=== PATIENT | male | born 1945 | race Caucasian/White ===

== ENCOUNTER 2023-03-11 11:29 | Observation (INO) | payer MEDICARE, SELFPAY ==
[2023-03-11] VITALS (10 sets, daily range): BP systolic 129–151; BP diastolic 66–93; PULSE 70–88; RESP 16–18; TEMP 36.7–36.8; O2SAT 91–98; BMI 28.2; BMI 28.1
--- NOTE | 2023-03-11 11:52 | ED.GENADUL1 ---
HPI - General Adult General Chief complaint: Urogenital-Male Stated complaint: UTI SYMPTOMS Time Seen by Provider: 03/11/23 11:50 Source: patient and family Mode of arrival: walk-in Limitations: no limitations History of Present Illness HPI narrative: Patient is a 77-year-old male who is presenting to the Emergency Room with chief complaint of dysuria for the past week. Patient was in [place] [facility] on March 07. patient was seen and evaluated, patient was told that he had a urinary tract infection. Patient was sent home with prescription of Keflex, no peridium. Patient had lab work drawn, he stated he did not have an IV, no IV fluids, no IV medication. Patient has been taking Keflex for 4 days, he still having dysuria, and the dysuria is worsening. He has no fever or chills. No flank pain or back pain. No abdominal pain, nausea or vomiting. The patient is having pain is when he is urinating. . All systems are negative except as noted/marked. All systems reviewed and otherwise negative. . Nurses note and vital signs reviewed and patient is not hypoxic. General: The patient appears well and in no apparent distress. Patient is resting comfortably on cart. Patient is not toxic, lethargic, or listless Skin: Warm, dry, no pallor noted. There is no rash noted. No petechiae, purpura. Head: Normocephalic, atraumatic Eye: Normal conjunctiva, no drainage, EOMI. PERRL Ears, Nose, Mouth, and Throat: oral mucosa is moist. Nares patent. Mouth without vesicles. Cardiovascular: Regular Rate and Rhythm, no murmur, gallop, rub Respiratory: Patient is in no distress, no accessory muscle use, lungs are clear to auscultation, no wheezing, rales or rhonchi Back: non-tender, no CVA tenderness bilaterally to percussion. No CT LS midline pain GI: soft, no suprapubic tenderness to palpation; otherwise no tenderness to palpation, no masses appreciated. No rebound, guarding, or rigidity noted. No flank pain bilateral, No distention. Musculoskeletal: Patient has full range of motion of all of the extremities, no motor, sensory, or focal neurological deficits Neurological: A&O x3, normal speech Psychiatric: Cooperative Related Data Home Medications Medication Instructions Recorded Confirmed amlodipine 10 mg tablet 10 mg PO DAILY 03/11/23 03/11/23 apixaban 5 mg tablet (Eliquis) 5 mg PO Q12H 03/11/23 03/11/23 aspirin 81 mg tablet,delayed 81 mg PO DAILY 03/11/23 03/11/23 release cephalexin 500 mg capsule 500 mg PO Q12H 03/11/23 03/11/23 cholecalciferol (vitamin D3) 25 25 mcg PO DAILY 03/11/23 03/11/23 mcg (1,000 unit) capsule cyanocobalamin (vitamin B-12) 1,000 mcg PO DAILY 03/11/23 03/11/23 1,000 mcg capsule empagliflozin 5 mg-linagliptin 2.5 1 tab PO DAILY 03/11/23 03/11/23 mg-metformn ER 1,000 mg tablet,24hr gabapentin 100 mg capsule 100 mg PO DAILY 03/11/23 03/11/23 levothyroxine 25 mcg capsule 25 mcg PO DAILY 03/11/23 03/11/23 lisinopril 40 mg tablet 40 mg PO DAILY 03/11/23 03/11/23 metoprolol succinate 100 mg 100 mg PO BID 03/11/23 03/11/23 tablet,extended release 24 hr nitroglycerin 0.4 mg sublingual 0.4 mg sublingual Q5M PRN chest 03/11/23 03/11/23 tablet pain omeprazole magnesium 20 mg 20 mg PO DAILY 03/11/23 03/11/23 tablet,delayed release (Prilosec OTC) pioglitazone 15 mg tablet 15 mg PO DAILY 03/11/23 03/11/23 semaglutide 0.25 mg or 0.5 mg (2 0.25 mg subcut QWEEK 03/11/23 03/11/23 mg/3 mL) subcutaneous pen injector ([employer]) Allergies Allergy/AdvReac Type Severity Reaction Status Date / Time No Known Drug Allergies Allergy Verified 03/11/23 11:38 PFSH PFSH Social History Smoking status: Former smoker Exam Constitutional Vital Signs, click to edit/add: Last Vital Signs Temp 98.2 F 03/11/23 11:35 Pulse 86 03/11/23 14:52 Resp 18 03/11/23 14:52 BP 145/73 H 03/11/23 14:52 Pulse Ox 96 03/11/23 14:52 O2 Del Method Room Air 03/11/23 11:35 Course Vital Signs Vital signs: Vital Signs Temperature 98.2 F 03/11/23 11:35 Pulse Rate 87 03/11/23 11:35 Respiratory Rate 16 03/11/23 11:35 Blood Pressure 129/93 H 03/11/23 11:35 Pulse Oximetry 96 03/11/23 11:35 Oxygen Delivery Method Room Air 03/11/23 11:35 Temperature 98.2 F 03/11/23 11:35 Pulse Rate 86 03/11/23 14:52 Respiratory Rate 18 03/11/23 14:52 Blood Pressure 145/73 H 03/11/23 14:52 Pulse Oximetry 96 03/11/23 14:52 Oxygen Delivery Method Room Air 03/11/23 11:35 Medical Decision Making MDM Narrative Medical decision making narrative: patient initially had IV laboratory done, was given 1 g of Rocephin prophylactically since he was diagnosed with a urinary tract infection on Friday, has been taking Keflex, and he has been having worsening dysuria. Patient was given IV fluids, lab work was done as well. Patient's beginning creatinine is elevated, I still did not have paperwork from [facility] to compare his numbers to today. Patient has been given a 2nd liter of IV fluid, and secondary to painful hematuria, patient had a CT of the abdomen and pelvis done to rule out any other acute pathology, including bladder cancer. Patient has a history of smoking. CT of the abdomen and pelvis shows no acute abnormalities. see the official report. No obstruction, no nephrolithiasis, no signs of masses or cancer, no acute findings of the CT the abdomen and pelvis. Patient has received 2 L of IV fluid. Patient's niece has been at bedside throughout patient's Emergency Room visit and stay. I did obtain the paperwork from [facility]. patient has a history of atrial fibrillation, coronary artery disease, diabetes, hyperlipidemia, hypertension, myocardial infarction. Patient is on Norvasc, a request, aspirin, atorvastatin, gabapentin, levothyroxine, lisinopril, metformin, metoprolol, acid reflux medication. Please see his list of medications in the computer or from her medical chart. Patient's urine culture from March 07 shows greater than 100,000 units of Escherichia coli. Keflex was sensitive, <4 susceptible. patient had no elevated white blood cell count, patient's BUN and creatinine on Friday was 33/1.76. Patient's CMP was within normal limits. [facility], and continue IV fluids. Dr. Ramirez is aware of the need to referral to urology locally, patient attempted to follow-up with urology from [facility], Dr Heredia, and was told that that urology office does not take his insurance. Lab Data Lab results reviewed: Yes I reviewed the patient's lab results Labs: Lab Results 03/11/23 03/11/23 Range/Units 11:45 12:06 WBC 14.5 H (4.0-11.0) 10^3/uL RBC 3.54 L (4.70-6.10) 10^6/uL Hgb 11.1 L (14.0-18.0) g/dL Hct 33.0 L (42.0-54.0) % MCV 93.2 (80.0-94.0) fL MCH 31.4 (25.9-34.0) pg MCHC 33.6 (29.9-35.2) g/dL RDW 13.5 (11.0-15.0) % Plt Count 235 (150-450) 10^3/uL MPV 11.1 (9.5-13.5) fL Neut % (Auto) 86.2 H (43.0-75.0) % Lymph % (Auto) 6.6 L (20.5-60.0) % [place] % (Auto) 6.2 (1.7-12.0) % Eos % (Auto) 0.2 L (0.9-7.0) % Baso % (Auto) 0.2 (0.2-2.0) % Neut # (Auto) 12.5 H (1.4-6.5) 10^3/uL Lymph # (Auto) 1.0 L (1.2-3.8) 10^3/uL [place] # (Auto) 0.9 H (0.3-0.8) 10^3/uL Eos # (Auto) 0.0 (0.0-0.7) 10^3/uL Baso # (Auto) 0.0 (0.0-0.1) 10^3/uL Abs Immat Gran (auto) 0.09 H (0.00-0.03) 10^3/uL Imm/Tot Granulo (auto) 0.6 H (0.0-0.5) % Sodium 129 L (136-145) mmol/L Potassium 4.8 (3.5-5.1) mmol/L Chloride 95 L (98-107) mmol/L Carbon Dioxide 23.8 (21.0-32.0) mmol/L Anion Gap 15.0 BUN 62.0 H (7.0-18.0) mg/dL Creatinine 2.35 H (0.70-1.30) mg/dL Est GFR ( Amer) 33 L (>=60) Est GFR (Non-Af Amer) 27 L (>=60) BUN/Creatinine Ratio 26.4 Glucose 302 H (74-106) mg/dL Lactate 1.8 (0.4-2.0) mmol/L Calcium 9.2 (8.5-10.1) mg/dL Total Bilirubin 0.5 (0.2-1.0) mg/dL AST 30 (15-37) U/L ALT 41 (16-63) U/L Alkaline Phosphatase 101 (46-116) U/L Total Protein 7.5 (6.4-8.2) g/dL Albumin 2.8 L (3.4-5.0) g/dL Globulin 4.7 g/dL Albumin/Globulin Ratio 0.6 Lipase 172.0 (73.0-393.0) U/L Urine Color Lt. yellow (YELLOW) Urine Clarity Clear (CLEAR) Urine pH 5.5 (5.0-9.0) Ur Specific [place] 1.010 (1.005-1.025) Urine Protein 100 A (NEG/TRACE) mg/dL Urine Glucose (UA) >=1000 A (NEGATIVE) mg/dL Urine Ketones Negative (NEGATIVE) mg/dL Urine Occult Blood Moderate A (NEGATIVE) Urine Nitrite Negative (NEGATIVE) Urine Bilirubin Negative (NEGATIVE) Urine Urobilinogen 0.2 (0.2-1.0) EU/dL Ur Leukocyte Esterase Negative (NEGATIVE) Urine RBC 0-2 (0-2) #/HPF Urine WBC None seen (NONE SEEN) #/HPF Ur Squamous Epith Cells None seen (NONE/RARE) #/LPF Urine Crystals None seen (None Seen) #/HPF Urine Bacteria None seen (NONE SEEN) #/HPF Urine Casts None seen (NONE SEEN) #/LPF Urine Mucus None seen (NONE SEEN) Ur Culture Indicated? Already ordered Discharge Plan Discharge Chief Complaint: Urogenital-Male Clinical Impression: DANIAL (acute kidney injury), Hematuria, Dysuria, Mild dehydration Patient Disposition: Admitted As Inpatient Time of Disposition Decision: 15:02 Condition: Good
[2023-03-11 12:08] LABS: Bilirubin Urine NEGATIVE (NEGATIVE); Blood Urine MODERATE (NEGATIVE); Clarity Urine CLEAR (CLEAR); Color Urine LT. YELLOW (YELLOW); Glucose Urine UA >=1000 mg/dL (NEGATIVE); Ketones Urine NEGATIVE (NEGATIVE); Leukocyte Esterase Urine NEGATIVE (NEGATIVE); Nitrite Urine NEGATIVE (NEGATIVE); Protein Urine 100 mg/dL (NEG/TRACE); Urobilinogen Urine 0.2 EU/dL (0.2-1.0); pH Urine 5.5 (5.0-9.0)
[2023-03-11 12:09] LABS: Bacteria Urine NONE SEEN #/HPF (NONE SEEN); Mucus Urine NONE SEEN (NONE SEEN); RBC Urine 0-2 #/HPF (0-2); Squamous Epithelial Cell Urine NONE SEEN #/LPF (NONE/RARE); WBC Urine NONE SEEN #/HPF (NONE SEEN)
[2023-03-11 12:10] LABS: Cast Seen? NONE SEEN #/LPF (NONE SEEN); Crystals Seen? None Seen #/HPF (None Seen); Urine Culture Indicated ALREADY ORDERED
[2023-03-11 12:13] LABS: Basophils Percent Auto 0.2 % (0.2-2.0); Eosinophils Percent Auto 0.2 % (0.9-7.0); Hemoglobin 11.1 g/dL (14.0-18.0); Immature Granulocytes Abs Auto 0.09 10^3/uL (0.00-0.03); Immature Granulocytes Pct Auto 0.6 % (0.0-0.5); Lymphocytes Percent Auto 6.6 % (20.5-60.0); Mean Corpuscular HGB Conc 33.6 g/dL (29.9-35.2); Mean Corpuscular Hemoglobin 31.4 pg (25.9-34.0); Mean Corpuscular Volume 93.2 fL (80.0-94.0); Mean Platelet Volume 11.1 fL (9.5-13.5); Monocytes Absolute Auto 0.9 10^3/uL (0.3-0.8); Monocytes Percent Auto 6.2 % (1.7-12.0); Neutrophils Absolute Auto 12.5 10^3/uL (1.4-6.5); Neutrophils Percent Auto 86.2 % (43.0-75.0); Platelet Count 235 10^3/uL (150-450); Red Blood Count 3.54 10^6/uL (4.70-6.10); Red Cell Distribution Width 13.5 % (11.0-15.0); White Blood Count 14.5 10^3/uL (4.0-11.0)
[2023-03-11] MEDS: 0.9 % SODIUM CHLORIDE 1,000 ML 999 ML IV (12:14)
[2023-03-11] MEDS: CEFTRIAXONE 1,000 MG in 0.9 % SODIUM CHLORIDE 50 ML 100 MG IV (12:15)
[2023-03-11] MEDS: PHENAZOPYRIDINE 100 MG TABLET 200 MG PO (12:15)
[2023-03-11 12:29] LABS: Alanine Aminotransferase 41 U/L (16-63); Albumin Globulin Ratio 0.6; Albumin Level 2.8 g/dL (3.4-5.0); Alkaline Phosphatase 101 U/L (46-116); Aspartate Amino Transferase 30 U/L (15-37); BUN Creatinine Ratio 26.4; Bilirubin Total 0.5 mg/dL (0.2-1.0); Calcium 9.2 mg/dL (8.5-10.1); Carbon Dioxide 23.8 mmol/L (21.0-32.0); Chloride 95 mmol/L (98-107); Estimated GFR (African America 33 (>=60); Estimated GFR (Non-African Ame 27 (>=60); Globulin 4.7 g/dL; Glucose 302 mg/dL (74-106); Potassium 4.8 mmol/L (3.5-5.1); Sodium 129 mmol/L (136-145); Total Protein 7.5 g/dL (6.4-8.2)
[2023-03-11 12:31] LABS: Lactate/Lactic Acid 1.8 mmol/L (0.4-2.0)
--- NOTE | 2023-03-11 13:30 | CT_ITS ---
[address] [address] Patient Name: EMILY HOLLY MRN: [id number] date: 1945 Sex: M Assigned Patient Location: ER Current Patient Location: ER Accession/Order Number: [id number] Exam Date: 03/11/2023 13:21 Report Date: 03/11/2023 13:50 At the request of: AXEL MONTIEL Procedure: CT abdomen pelvis wo con CT abdomen pelvis wo con, 03/11/2023 1:21 PM EDT INDICATION: Hematuria with pain. Evaluate for renal calculus. COMPARISON: Dictation CT angiography of the abdomen 09/15/2007. The images are not currently available for direct comparison. TECHNIQUE: Axial images of the abdomen and pelvis were obtained without IV contrast. Multiplanar reformatted images were generated and reviewed as needed. Dose reduction techniques were achieved by using automated exposure control and/or adjustment of mA and/or kV according to patient size and/or use of iterative reconstruction technique. FINDINGS: No consolidation or effusion. Cholelithiasis. The liver, pancreas, spleen and adrenals are unremarkable on a noncontrast scan.. No hydronephrosis or nephrolithiasis. Chronic bilateral perinephric fat stranding. No ureteral or urinary bladder calculi. No perivesicular fat stranding. The prostate gland is enlarged. Calcified atherosclerotic disease throughout the abdomen and pelvis. No aortic aneurysm. No bowel obstruction or acute focal inflammation. Normal appendix. No pneumatosis, pneumoperitoneum or ascites. Small fat-containing umbilical hernia. No mesenteric or retroperitoneal lymphadenopathy. No acute fracture or dislocation. CT/CT abdomen pelvis wo con IMPRESSION: 1. No hydronephrosis or nephrolithiasis. 2. Cholelithiasis. 3. Prostatomegaly. Electronically authenticated by: BRANDON LOJA Date: 03/11/2023 13:50
[2023-03-11] MEDS: 0.9 % SODIUM CHLORIDE 1,000 ML 1000 ML IV (13:40)
--- NOTE | 2023-03-11 15:03 | US_ITS ---
The [address] [address] Patient Name: EMILY HOLLY MRN: [id number] date: 1945 Sex: M Assigned Patient Location: MS Current Patient Location: MS Accession/Order Number: [id number] Exam Date: 03/11/2023 17:48 Report Date: 03/11/2023 19:21 At the request of: SABRA NEWTON Procedure: US renal bladder EXAM: US renal bladder HISTORY: hematuria, enlarged prostate COMPARISON: CT abdomen/pelvis dated 03/11/2023. TECHNIQUE: Renal and bladder ultrasound is performed. Multiple grayscale images are submitted for review. FINDINGS: The right kidney measures 10.3 x 4.4 x 5.2 cm and demonstrates echotexture. The right renal cortex measures 9.3 mm as measured on this examination. No right hydronephrosis is seen. The left kidney measures 10.8 x 7 x 6.2 cm and demonstrates normal echotexture. The left renal cortex measures 1.2 cm in thickness. There is no evidence for left hydronephrosis. Bilateral ureteral jets are visualized. The prevoid urinary bladder volume measures 611.3 mL. The post void urinary bladder volume measures 341.2 mL. The prostate gland measures 3.5 x 5.2 x 5 cm, with total volume measuring 46 mL. A prominent hypoechoic area is seen in the prostate gland measuring 1.3 x 1.5 x 1.6 cm. If clinically indicated, and if additional imaging is desired, a prostate MRI with and without contrast may be considered. US/US renal bladder IMPRESSION: Enlarged prostate gland is noted with large post void urinary bladder volume measuring 341.2 mL. A prominent hypoechoic area is seen in the prostate gland measuring 1.3 x 1.5 x 1.6 cm. If clinically indicated, and if additional imaging is desired, a prostate MRI with and without contrast may be considered. There is no evidence for hydronephrosis bilaterally. Electronically authenticated by: ELPIDIO MOYA Date: 03/11/2023 19:21
--- NOTE | 2023-03-11 15:10 | PM.HP ---
H&P: HPI History of Present Illness Chief complaint: UTI SYMPTOMS DANIAL [place] Dysuria Mild Dehydrati Narrative: patient is a 77-year-old male with past history of paroxysmal atrial fibrillation on chronic anticoagulation, vitamin D deficiency, vitamin B12 deficiency, type 2 diabetes with peripheral neuropathy who presents with painful urination and blood in the urine.patient was seen in [place] emergency room on Friday, March 07 and was diagnosed with an acute urinary tract infection secondary to Escherichia coli with cultures and sensitivities in the chart sensitive to Keflex given. Patient has been taking Keflex but has not feel felt much improved. He denies any fevers chills or flank pain, but notes still pain with urination and blood in the urine. He denies any past history of prostate issues or kidney stones. He does take aspirin and Eliquis. CT scan was performed in the emergency department which was negative for any hydronephrosis, obstructing stones or bladder issues seen. Of note there was a enlarged prostate. Patient was admitted for further workup given acute kidney injury, leukocytosis, and pain Review of Systems ROS Narrative ROS: a complete review of systems were reviewed with patient and are positive as below or listed in History of Chief Complaint. General: no fever, chills, night sweats Head: no headache, trauma, visual changes, nausea or vomiting Skin: no reported rashes, itching or sores Eyes: no blurriness of vision Ears: no reported hearing loss, vertigo, earache, or tinnitus Throat: no sore throat, hoarseness, swelling of neck, or tongue pain Heart: no chest pain Lungs: no shortness of breath or cough GI: no diarrhea or vomiting/nausea Urinary: urinary urgency, frequency and pain Neuro: no numbness or tingling HEM: no bleeding issues or bruising ENDO: no thyroid problems Psych: no anxiety or depression PFSH PFSH Medical History Surgical History Family History Sister Family history of cancer Brother Family history of cancer Family history of stroke Brother Family history of cancer Mother Family history of cancer Social History (Updated 03/11/23 @ 16:08 by Carissa De Jesus LPN) Within the past year, how often did you have a drink containing alcohol: 2-4 times a month Within the past year, how many standard drinks containing alcohol did you have on a typical day: 1 or 2 Within the past year, how often did you have six or more drinks on one occasion: never Total score: 0 Score interpretation: A score less than 4 is consistent with normal alcohol consumption. Smoking status: Former smoker Second hand tobacco smoke exposure: No Non-prescribed substance use: denies use Previous occupational history: retired Known occupational exposures/hazards: No Highest level of school completed/degree received: 10th grade Do you want help with school or training: No Are you now , , , , never or living with a partner: In a typical week, how many times do you talk on the telephone with family, friends, or neighbors: 3 or more times per week How often do you get together with friends or relatives: 3 or more times per week How often do you attend scientology or mandaen services: never Do you belong to any clubs or organizations such as scientology groups unions, [employer] or athletic groups, or school groups: yes Total score: 3 Score interpretation: A score of greater than or equal to 2 indicates the lowest level of social isolation. Meds Home Medications and Allergies Home Medications Medication Instructions Recorded Confirmed Type amlodipine 5 mg tablet (Norvasc) 5 mg PO DAILY 03/11/23 03/11/23 History apixaban 5 mg tablet (Eliquis) 5 mg PO Q12H 03/11/23 03/11/23 History aspirin 81 mg tablet,delayed 81 mg PO DAILY 03/11/23 03/11/23 History release cephalexin 500 mg capsule 500 mg PO Q12H 03/11/23 03/11/23 History cholecalciferol (vitamin D3) 25 50 mcg PO DAILY 03/11/23 03/11/23 History mcg (1,000 unit) capsule cyanocobalamin (vitamin B-12) 2,000 mcg PO DAILY 03/11/23 03/11/23 History 1,000 mcg capsule empagliflozin 12.5 mg-metformin ER 1 tab PO DAILY 03/11/23 03/11/23 History 1,000 mg tablet,extended rel 24 hr gabapentin 100 mg capsule 100 mg PO DAILY 03/11/23 03/11/23 History levothyroxine 25 mcg capsule 25 mcg PO DAILY 03/11/23 03/11/23 History lisinopril 40 mg tablet 40 mg PO DAILY 03/11/23 03/11/23 History metoprolol tartrate 100 mg tablet 100 mg PO BID 03/11/23 03/11/23 History (Lopressor) nitroglycerin 0.4 mg sublingual 0.4 mg sublingual Q5M PRN chest 03/11/23 03/11/23 History tablet pain omeprazole magnesium 20 mg 20 mg PO DAILY 03/11/23 03/11/23 History tablet,delayed release (Prilosec OTC) semaglutide 0.25 mg or 0.5 mg (2 1 mg subcut QWEEK 03/11/23 03/11/23 History mg/3 mL) subcutaneous pen injector ([employer]) Allergies Allergy/AdvReac Type Severity Reaction Status Date / Time No Known Drug Allergies Allergy Verified 03/11/23 11:38 Exam Narrative Exam Narrative: General: Patient is alert, and oriented to person, place and time with normal affect, proper hygiene Skin: no visible rashes, or ulcers Head: atraumatic, acephalic Eyes: PERRLA, no nystagmus present, conjunctiva clear, no scleral icterus Heart: Normal rate and rhythm, no murmurs/rubs/gallops Lungs: no audible wheezes, crackles and normal breath sounds all lung mathis Abdomen: Normal audible bowel sounds, no distension, No palpable masses, no organomegaly, no rebound/guarding/ or rigidity Musculoskeletal: muscle atrophy noted, ROM is limited due to being in hospital bed, no swelling bilateral lower extremities Vascular: Normal carotid, radial, femoral, posterior tibial, and dorsalis pedis pulses Lymph: no supraclavicular, axillary, or anterior/posterior cervical adenopathy Neuro: CN II-X grossly intact, normal sensation upper and lower extremities Constitutional Vital Signs, click to edit/add: Last Vital Signs Temp 98.2 F 03/11/23 11:35 Pulse 86 03/11/23 14:52 Resp 18 03/11/23 14:52 BP 145/73 H 03/11/23 14:52 Pulse Ox 96 03/11/23 14:52 O2 Del Method Room Air 03/11/23 11:35 Results Labs Labs: Short CBC 03/11/23 Range/Units 12:06 WBC 14.5 H (4.0-11.0) 10^3/uL Hgb 11.1 L (14.0-18.0) g/dL Hct 33.0 L (42.0-54.0) % Plt Count 235 (150-450) 10^3/uL BMP 03/11/23 12:06 Sodium 129 L Potassium 4.8 Chloride 95 L Carbon Dioxide 23.8 BUN 62.0 H Creatinine 2.35 H Glucose 302 H Calcium 9.2 Liver Function 03/11/23 Range/Units 12:06 Total Bilirubin 0.5 (0.2-1.0) mg/dL AST 30 (15-37) U/L ALT 41 (16-63) U/L Alkaline Phosphatase 101 (46-116) U/L Albumin 2.8 L (3.4-5.0) g/dL Urine 03/11/23 Range/Units 11:45 Urine Color Lt. yellow (YELLOW) Urine Clarity Clear (CLEAR) Urine pH 5.5 (5.0-9.0) Ur Specific [place] 1.010 (1.005-1.025) Urine Protein 100 A (NEG/TRACE) mg/dL Urine Glucose (UA) >=1000 A (NEGATIVE) mg/dL Assessment and Plan Assessment and Plan (1) Acute cystitis with hematuria: Assessment and Plan: culture and sensitivity from outside hospital showed Escherichia coli will place on Rocephin 1 g every 24 hours IV. We'll also check ultrasounds of the renal bladder and prostate. Leukocytosis most likely related to Escherichia coli urinary tract infection. Will monitor. Afebrile no other signs of sepsis. also, patient has been taking pioglitazone for many years, increased risks for bladder cancer with longterm use. Will get Urology involvement for further recommendations. (2) DANIAL (acute kidney injury): Assessment and Plan: l provide gentle IV fluid hydration, monitor daily kidney function hold EUGENE inhibitor and diabetes medications. Watch for other nephrotoxic agents. (3) Mild dehydration: Assessment and Plan: continue with IV fluids (4) Hypertension: Assessment and Plan: continue home medications (5) CAD (coronary artery disease): Assessment and Plan: continue eliquis, hold ASA, not on statin (6) Enlarged prostate: Assessment and Plan: check PSA and ultrasound, place on flomax and oxybutinin Plan patient is a full code continue eliquis for DVT prophylaxis patient is in observation status and is not expected to stay more than 2 midnights
[2023-03-11 15:30] LABS: INR 0.96; Prothrombin Time 10.2 sec (9.0-11.6)
[2023-03-11] MEDS: TAMSULOSIN HCL 0.4 MG CAPSULE PO (17:03)
[2023-03-11] MEDS: OXYBUTYNIN chloride 5 MG TABLET 10 MG PO (17:03)
[2023-03-11 17:08] LABS: Glucometer 257 mg/dL (74-106)
[2023-03-11] MEDS: INSULIN ASPART 300 UNIT/3 ML PEN SUBQ ×2 (17:12→21:33)
[2023-03-11] MEDS: LACTATED RINGER'S SOLUTION 1,000 ML 125 ML IV (17:13)
[2023-03-11] MEDS: METOPROLOL TARTRATE 100 MG TABLET PO (21:32)
[2023-03-11 21:33] LABS: Glucometer 195 mg/dL (74-106)
[2023-03-11] MEDS: APIXABAN 5 MG TABLET PO (21:33)
[2023-03-12] VITALS (7 sets, daily range): BP systolic 127–150; BP diastolic 62–65; PULSE 75–88; RESP 18; TEMP 37.1–37.2; O2SAT 90–93
[2023-03-12] MEDS: LACTATED RINGER'S SOLUTION 1,000 ML 125 ML IV ×2 (01:30→10:28)
[2023-03-12 05:37] LABS: Alanine Aminotransferase 35 U/L (16-63); Albumin Globulin Ratio 0.6; Albumin Level 2.2 g/dL (3.4-5.0); Alkaline Phosphatase 81 U/L (46-116); Anion Gap 13.4; Aspartate Amino Transferase 33 U/L (15-37); BUN Creatinine Ratio 25.4; Bilirubin Total 0.5 mg/dL (0.2-1.0); Carbon Dioxide 21.8 mmol/L (21.0-32.0); Chloride 101 mmol/L (98-107); Estimated GFR (African America 45 (>=60); Estimated GFR (Non-African Ame 37 (>=60); Glucose 161 mg/dL (74-106); Potassium 4.2 mmol/L (3.5-5.1); Sodium 132 mmol/L (136-145); Total Protein 6.2 g/dL (6.4-8.2)
[2023-03-12] MEDS: OMEPRAZOLE 20 MG CAPSULE.DR PO (05:59)
[2023-03-12] MEDS: LEVOTHYROXINE SODIUM 25 MCG TABLET PO (05:59)
[2023-03-12 06:15] LABS: Basophils Percent Auto 0.2 % (0.2-2.0); Eosinophils Absolute Auto 0.1 10^3/uL (0.0-0.7); Eosinophils Percent Auto 1.5 % (0.9-7.0); Hemoglobin 10.1 g/dL (14.0-18.0); Immature Granulocytes Abs Auto 0.11 10^3/uL (0.00-0.03); Immature Granulocytes Pct Auto 1.2 % (0.0-0.5); Lymphocytes Absolute Auto 0.9 10^3/uL (1.2-3.8); Lymphocytes Percent Auto 9.6 % (20.5-60.0); Mean Corpuscular HGB Conc 33.7 g/dL (29.9-35.2); Mean Platelet Volume 11.7 fL (9.5-13.5); Monocytes Absolute Auto 0.9 10^3/uL (0.3-0.8); Monocytes Percent Auto 8.9 % (1.7-12.0); Neutrophils Absolute Auto 7.5 10^3/uL (1.4-6.5); Neutrophils Percent Auto 78.6 % (43.0-75.0); Platelet Count 210 10^3/uL (150-450); Red Blood Count 3.26 10^6/uL (4.70-6.10); Red Cell Distribution Width 13.7 % (11.0-15.0); White Blood Count 9.5 10^3/uL (4.0-11.0)
[2023-03-12] MEDS: CEFTRIAXONE 1,000 MG in 0.9 % SODIUM CHLORIDE 50 ML 100 MG IV (07:41)
[2023-03-12] MEDS: INSULIN ASPART 300 UNIT/3 ML PEN SUBQ (07:56)
[2023-03-12 07:57] LABS: Glucometer 150 mg/dL (74-106)
--- NOTE | 2023-03-12 08:31 | P.PN_ITS ---
Exam Constitutional Vital Signs, click to edit/add: Last Vital Signs Temp 98.9 F 03/12/23 06:04 Pulse 88 03/12/23 08:00 Resp 18 03/12/23 08:00 BP 150/65 H 03/12/23 06:04 Pulse Ox 90 L 03/12/23 06:04 O2 Del Method Room Air 03/12/23 06:04 Progress Note: Objective Labs Labs: Short CBC 03/11/23 03/12/23 Range/Units 12:06 04:37 WBC 14.5 H 9.5 (4.0-11.0) 10^3/uL Hgb 11.1 L 10.1 L (14.0-18.0) g/dL Hct 33.0 L 30.0 L (42.0-54.0) % Plt Count 235 210 (150-450) 10^3/uL BMP 03/11/23 03/12/23 12:06 04:37 Sodium 129 L 132 L Potassium 4.8 4.2 Chloride 95 L 101 Carbon Dioxide 23.8 21.8 BUN 62.0 H 45.0 H Creatinine 2.35 H 1.77 H Glucose 302 H 161 H Calcium 9.2 8.0 L Liver Function 03/11/23 03/12/23 Range/Units 12:06 04:37 Total Bilirubin 0.5 0.5 (0.2-1.0) mg/dL AST 30 33 (15-37) U/L ALT 41 35 (16-63) U/L Alkaline Phosphatase 101 81 (46-116) U/L Albumin 2.8 L 2.2 L (3.4-5.0) g/dL Urine 03/11/23 Range/Units 11:45 Urine Color Lt. yellow (YELLOW) Urine Clarity Clear (CLEAR) Urine pH 5.5 (5.0-9.0) Ur Specific [place] 1.010 (1.005-1.025) Urine Protein 100 A (NEG/TRACE) mg/dL Urine Glucose (UA) >=1000 A (NEGATIVE) mg/dL Progress Note: A&P Assessment and Plan (1) Acute cystitis with hematuria: (2) DANIAL (acute kidney injury): (3) Mild dehydration: (4) Hypertension: (5) CAD (coronary artery disease): (6) Enlarged prostate:
[2023-03-12] MEDS: AMLODIPINE BESYLATE 5 MG TABLET 10 MG PO (08:47)
[2023-03-12] MEDS: GABAPENTIN 100 MG CAPSULE PO (08:51)
[2023-03-12] MEDS: METOPROLOL TARTRATE 100 MG TABLET PO (08:51)
[2023-03-12] MEDS: APIXABAN 5 MG TABLET PO (08:51)
[2023-03-12] MEDS: OXYBUTYNIN chloride 5 MG TABLET 10 MG PO (08:51)
--- NOTE | 2023-03-12 11:07 | P.DS_ITS ---
DS: Providers Provider Date of admission: 03/11/23 15:40 Primary care physician: ERNESTINE BEVERLY Admitting clinician: Hien Ramirez Consults: 03/11/23 16:55 Consult to Urology Routine Consulting Provider: Jose Marcus Reason for consultation: gross hematuria, enlarged prostate, on senior care pioglitazone Has provider been notified: No Attending physician on discharge: Hien Ramirez DS: Diagnosis Discharge Diagnosis (1) Acute cystitis with hematuria: (2) DANIAL (acute kidney injury): (3) Mild dehydration: (4) Hypertension: (5) CAD (coronary artery disease): (6) Enlarged prostate: DS: Summary Hospital Course Hospital Course: patient with an initial leukocytosis of 14.5 and on day of discharge has resolved to 9.5, Olivo catheter was placed for high residual volume and patient's symptoms have improved drastically. Consultation with urology who reviewed patient's chart and agreed to see patient as outpatient and for patient to be discharged on Olivo catheter with leg bag. Kidney function also was elevatedwith a creatinine of 2.35 that has resolved to 1.77 this morning. The patient was provided with IV fluids. Also for the acute cystitis was given 1 g of Rocephin ?2 and will be discharged home to continue on his Keflex for five more days. For enlarged prostate will have further workup as an outpatient ultrasound for Dr. Marcus to review, but given patient's high risk as ex-smoker and being on the by mouth glitazone will most likely need a outpatient cystoscopy for further evaluation. We'll also place patient on Flomax and oxybutynin to help with bladder spasms and improved symptoms of possible benign prostatic hypertrophy. He is to resume all other home medications. Per radiology notes and the ultrasound may benefit from a prostate MRI. But we'll leave that to the discretion of the urology service. PSA is pending this morning. Patient will be discharged home table condition. Status at Discharge Functional status at discharge: independent ambulation Time Spent with Patient Time attestation: Total time spent providing and/or coordinating discharge services: Time spent: less than 30 minutes Exam Narrative Exam Narrative: General: Patient is alert, and oriented to person, place and time with normal affect, proper hygiene Heart: Normal rate and rhythm, no murmurs/rubs/gallops Lungs: no audible wheezes, crackles and normal breath sounds all lung mathis Abdomen: Normal audible bowel sounds, no distension, No palpable masses, no organomegaly, no rebound/guarding/ or rigidity Musculoskeletal: no swelling bilateral lower extremities Neuro: CN II-X grossly intact, normal sensation upper and lower extremities Constitutional Vital Signs, click to edit/add: Last Vital Signs Temp 98.9 F 03/12/23 06:04 Pulse 82 03/12/23 10:00 Resp 18 03/12/23 08:00 BP 127/62 03/12/23 08:47 Pulse Ox 90 L 03/12/23 06:04 O2 Del Method Room Air 03/12/23 06:04 DS: Data Data Completed and Pending Labs on day of discharge: Labs from last 24 hours 03/12/23 03/12/23 03/11/23 07:55 04:37 21:32 WBC 9.5 RBC 3.26 L Hgb 10.1 L Hct 30.0 L MCV 92.0 MCH 31.0 MCHC 33.7 RDW 13.7 Plt Count 210 MPV 11.7 Neut % (Auto) 78.6 H Lymph % (Auto) 9.6 L [place] % (Auto) 8.9 Eos % (Auto) 1.5 Baso % (Auto) 0.2 Neut # (Auto) 7.5 H Lymph # (Auto) 0.9 L [place] # (Auto) 0.9 H Eos # (Auto) 0.1 Baso # (Auto) 0.0 Abs Immat Gran (auto) 0.11 H Imm/Tot Granulo (auto) 1.2 H PT INR APTT Sodium 132 L Potassium 4.2 Chloride 101 Carbon Dioxide 21.8 Anion Gap 13.4 BUN 45.0 H Creatinine 1.77 H Est GFR ( Amer) 45 L Est GFR (Non-Af Amer) 37 L BUN/Creatinine Ratio 25.4 Glucose 161 H Lactate Calcium 8.0 L Total Bilirubin 0.5 AST 33 ALT 35 Alkaline Phosphatase 81 Total Protein 6.2 L Albumin 2.2 L Globulin 4.0 Albumin/Globulin Ratio 0.6 Lipase Urine Color Urine Clarity Urine pH Ur Specific Perkins Urine Protein Urine Glucose (UA) Urine Ketones Urine Occult Blood Urine Nitrite Urine Bilirubin Urine Urobilinogen Ur Leukocyte Esterase Urine RBC Urine WBC Ur Squamous Epith Cells Urine Crystals Urine Bacteria Urine Casts Urine Mucus Ur Culture Indicated? POC Glucose 150 H 195 H 09/26/23 09/26/23 09/26/23 17:07 12:06 11:45 WBC 14.5 H RBC 3.54 L Hgb 11.1 L Hct 33.0 L MCV 93.2 MCH 31.4 MCHC 33.6 RDW 13.5 Plt Count 235 MPV 11.1 Neut % (Auto) 86.2 H Lymph % (Auto) 6.6 L [place] % (Auto) 6.2 Eos % (Auto) 0.2 L Baso % (Auto) 0.2 Neut # (Auto) 12.5 H Lymph # (Auto) 1.0 L [place] # (Auto) 0.9 H Eos # (Auto) 0.0 Baso # (Auto) 0.0 Abs Immat Gran (auto) 0.09 H Imm/Tot Granulo (auto) 0.6 H PT 10.2 INR 0.96 APTT 34.0 Sodium 129 L Potassium 4.8 Chloride 95 L Carbon Dioxide 23.8 Anion Gap 15.0 BUN 62.0 H Creatinine 2.35 H Est GFR ( Amer) 33 L Est GFR (Non-Af Amer) 27 L BUN/Creatinine Ratio 26.4 Glucose 302 H Lactate 1.8 Calcium 9.2 Total Bilirubin 0.5 AST 30 ALT 41 Alkaline Phosphatase 101 Total Protein 7.5 Albumin 2.8 L Globulin 4.7 Albumin/Globulin Ratio 0.6 Lipase 172.0 Urine Color Lt. yellow Urine Clarity Clear Urine pH 5.5 Ur Specific [place] 1.010 Urine Protein 100 A Urine Glucose (UA) >=1000 A Urine Ketones Negative Urine Occult Blood Moderate A Urine Nitrite Negative Urine Bilirubin Negative Urine Urobilinogen 0.2 Ur Leukocyte Esterase Negative Urine RBC 0-2 Urine WBC None seen Ur Squamous Epith Cells None seen Urine Crystals None seen Urine Bacteria None seen Urine Casts None seen Urine Mucus None seen Ur Culture Indicated? Already ordered POC Glucose 257 H Discharge Plan Discharge Disposition: Home, Self-Care Condition: Good Discharge Medications: New tamsulosin 0.4 mg Capsule 0.4 mg PO QD 30 Days Qty: 30 0RF oxybutynin chloride 5 mg Tablet 10 mg PO BID 7 Days Qty: 28 0RF Continued Eliquis 5 mg tablet 5 mg PO Q12H cephalexin 500 mg capsule 500 mg PO Q12H Patient Comments: started 03/07/23 for 10 days Ozempic 0.25 mg or 0.5 mg (2 mg/3 mL) pen injector 1 mg subcut QWEEK Rx Instructions: for 4 weeks cyanocobalamin (vitamin B-12) 1,000 mcg capsule 2,000 mcg PO DAILY cholecalciferol (vitamin D3) 25 mcg (1,000 unit) capsule 50 mcg PO DAILY levothyroxine 25 mcg capsule 25 mcg PO DAILY aspirin 81 mg tablet,delayed release (DR/EC) 81 mg PO DAILY lisinopril 40 mg tablet 40 mg PO DAILY gabapentin 100 mg capsule 100 mg PO DAILY nitroglycerin 0.4 mg tablet, sublingual 0.4 mg sublingual Q5M PRN (Reason: chest pain) Rx Instructions: do not exceed 3 doses per episode omeprazole magnesium [Prilosec OTC] 20 mg tablet,delayed release (DR/EC) 20 mg PO DAILY amlodipine [Norvasc] 5 mg tablet 5 mg PO DAILY empagliflozin-metformin 12.5-1,000 mg tablet, IR - ER, biphasic 24hr 1 tab PO DAILY metoprolol tartrate [Lopressor] 100 mg tablet 100 mg PO BID Activity: resume usual activities as tolerated and other Activity Detail: Will go home with olivo catheter with Leg bag until Urology follow up next week Diet: advance to your usual diet Activity Restrictions/Additional Instructions: please give patient instructions on caring for his olivo catheter with leg bag resume and finish the Keflex he has at home Forms: Portal Instructions Follow Up Appointments: Follow up appt. with Dr. Amrit Vásquez Mar.18 @ 11am [facility], [facility] [address] [address] [place] Office #: [phone]
--- NOTE | 2023-03-12 11:42 | CM.NOTE ---
Rounds made with Dr. Ramirez, discussed with pt plan of care and urology will see pt as outpatient. Urology appt already scheduled and pt will go home with olivo cath. Pt verbalizes understanding, no discharge needs identified.
--- NOTE | 2023-03-12 11:51 | CM.NOTE ---
Medicare Outpatient Observation Notice discussed with pt, pt verbalizes understanding and signs paper. Original given to pt and copy placed on pt's chart.
[2023-03-13 04:07] LABS: PSA, Free 4.31 ng/mL
--- NOTE | 2023-03-13 14:23 | CM.DCFOLLOWU ---
Person spoke with: patient How are you feeling? still some burning even with olivo How is your pain? no pain, just burning Did you understand your discharge instructions? yes Do you have any questions about your discharge instructions? no Were you given any prescriptions at discharge? yes Were you able to get your prescriptions filled? yes Do you understand how to take your medications as ordered? yes Do you have any questions about your follow up appointment and do you plan to keep your follow up appointment? no questions, yes follow up on 03/18/23 with urology Is there anything else that you would like to discuss? no Questions/Comments/Concerns/Other:
== END 2023-03-12 12:33 | disposition home or self-care (01) ==
LOC: ER 15:02 → MS 16:02
PROVIDERS: Admitting Provider Family Medicine; Emergency Provider Emergency Medicine; PCP Family Medicine; Visit Provider Family Medicine
DX: N30.01 Acute cystitis with hematuria (principal); N17.9 Acute kidney failure, unspecified; E86.0 Dehydration; I10 Essential (primary) hypertension; I25.10 Atherosclerotic heart disease of native coronary artery without angina pectoris; N40.0 Benign prostatic hyperplasia without lower urinary tract symptoms; I48.0 Paroxysmal atrial fibrillation; E55.9 Vitamin D deficiency, unspecified; E11.42 Type 2 diabetes mellitus with diabetic polyneuropathy; E53.8 Deficiency of other specified B group vitamins; Z79.01 Long term (current) use of anticoagulants; Z79.82 Long term (current) use of aspirin; Z87.891 Personal history of nicotine dependence; Z79.899 Other long term (current) drug therapy; Z79.890 Hormone replacement therapy; B96.20 Unspecified Escherichia coli [E. coli] as the cause of diseases classified elsewhere
CPT/HCPCS: 36415; 51701; 74176; 76770; 80053; 81001; 82948; 83605; 83690; 84153; 84154; 85025; 85610; 85730; 87086; 96361; 96365; 96366; 99285; G0378

== ENCOUNTER 2023-05-09 12:53 | Outpatient (OUT) | payer MEDICARE, SELFPAY ==
--- NOTE | 2023-05-09 13:30 | CA_ITS ---
Patient Name: EMILY HOLLY MR#: [id number] : 1945 Exam Date: 05/09/2023 Ordering Doctor: DEANGELO MANCINI M.D. ECHOCARDIOGRAM REPORT PROCEDURE: CA ECHO DOPPLER COMPLETE INDICATIONS: CAD, CABGx4, myocardial infarct, diabetes, hypertension COMPARISON: None. DESCRIPTION: COMPLETE ECHOCARDIOGRAM Real-time transthoracic echocardiography with 2D, M-mode, spectral and color flow Doppler performed. QUALITY: Technical quality was good. LEFT VENTRICLE: Normal chamber size. Normal left ventricular wall thickness. LV EF: Global left ventricular systolic function is normal; visually estimated ejection fraction is 55 to 60%. Abnormal septal motion; this is not an unusual finding in the post open heart patient. DIASTOLIC: Normal diastolic function. ATRIAL SEPTUM: Hypermobile interatrial septum. Inadequately seen. LEFT ATRIUM: Normal chamber size. RIGHT ATRIUM: Normal chamber size. RIGHT VENTRICLE: Normal chamber size. Normal right ventricular systolic function. TRICUSPID VALVE: Normal mobility and thickness. No stenosis with trivial regurgitation. No evidence of pulmonary hypertension. RVSP 21 mmHg MITRAL VALVE: Mildly thickened with normal mobility. No evidence of mitral valve stenosis. There is no mitral annular calcification. No mitral regurgitation. AORTIC VALVE: Normal trileaflet appearance. Thickened aortic valve. Normal leaflet mobility. No evidence of aortic valve stenosis. No aortic regurgitation. AORTIC ROOT: Normal in size. PULMONIC VALVE: Normal thickness and mobility. No stenosis. Trivial regurgitation. PERICARDIUM: No evidence of pericardial effusion. IVC: Collapses with inspirations. IVC is normal in size. CONCLUSION: 1. Global left ventricular systolic function is normal; visually estimated ejection fraction is 55 to 60% 2. Normal diastolic function 3. The right ventricle is normal in size and systolic function 4. No significant valvular abnormalities Adult Echocardiography Procedure Report Left Ventricle LVEDD (3.7 - 5.6 cm): 4.91 cm LVESD (2.2 - 4.0 cm): 3.41 cm LVIVS thickness (0.6 - 1.2 cm): 1.03 cm LVPW thickness (0.5 - 1.0 cm): 0.90 cm e': 0.11 m/s E - e': 5.44 LVOT Max Gradient: 3.67 mm[Hg] LVOT Area (cm2): 0.96 m/s Peak Velocity (LVOT): 0.96 m/s Mean Velocity (LVOT): 0.61 m/s LVOT Diameter 2.13 cm Left Atrium LA Volume Index (2D A2C): 23.18 ml/m2 Left Atrium Systolic Dimension: 4.01 cm Mitral Valve MV E to A Ratio: 0.63 Mitral Valve A-Wave Peak Velocity: 0.91 m/s Mitral Valve E-Wave Peak Velocity: 0.57 m/s Right Ventricle Aorta AO Root Diam: 3.41 cm Aortic Valve AoV Area (Peak Aquilino): 2.69 cm2, 2.69 cm2 AoV Area (VTI): 2.97 cm2, 2.97 cm2 Peak Velocity(Antegrade Flow): 1.27 m/s Peak Gradient(Antegrade Flow): 6.46 mm[Hg] Mean Velocity(Antegrade Flow): 0.82 m/s Mean Gradient(Antegrade Flow): 3.13 mm[Hg] Velocity Time Integral: 23.36 cm Tricuspid Valve Peak Velocity (Regurgitant Flow): 2.11 m/s Pulmonic Valve Peak Velocity: 0.99 m/s Peak Gradient: 4.63 mm[Hg], 3.30 mm[Hg] Right Atrium Right Atrium Systolic Pressure: 46.38 ml, 46.38 ml Dictated by: Megan Marin M.D. on 05/13/2023 at 16:01 Approved by: Megan Marin M.D. on 05/13/2023 at 16:04
== END 2023-05-09 12:54 | disposition home or self-care (01) ==
PROVIDERS: PCP Family Medicine
DX: I25.10 Atherosclerotic heart disease of native coronary artery without angina pectoris (principal)
CPT/HCPCS: 93306

== ENCOUNTER 2023-05-26 08:37 | Outpatient (OUT) | payer MEDICARE, SELFPAY ==
--- NOTE | 2023-05-26 08:00 | NM_ITS ---
Patient Name: EMILY HOLLY MR#: [id number] : 1945 Exam Date: 05/26/2023 Ordering Doctor: Non-Staff Physician RADIOLOGY REPORT PROCEDURE: NM CHRISTIANO PERF SPECT REST STR COMPARISON: None. INDICATIONS: CORONARY ARTERY DISEASE TECHNIQUE: Exam Description: Stress/Rest one day protocol gated SPECT Rest Imagin.3 mCi Tc-99m Cardiolite IV on 05/26/2023 Stress Imaging 30.7 mCi Tc-99m Cardiolite IV on 05/26/2023 Exercise Protocol: 0.4 mg Lexiscan given IV Heart Rate (bpm): Rest: 74 Max: 97 PMHR: 68 Blood Pressure: Rest: 160/88 Max: 160/88 Symptoms: Rest and peak stress ECG findings were normal and the exercise portion of the study was normal per attending physician Dr. Barajas . For more details please see separate cardiac stress test report. FINDINGS: QUALITY OF STUDY: Good. PERFUSION DEFECT: LOCATION: Basal inferior. Mid-inferior. Apical inferior. [place]. SIZE: Medium (3-4 segments). SEVERITY: Moderate. TYPE: Persistent. WALL MOTION: Normal. LV SIZE: Normal. 114 mL. TID / TCD: None; 1.0 LVEF: Normal. Calculated EF 59%. SUMMARY: Myocardial perfusion imaging study has ABNORMAL findings. CONCLUSION: 1. Moderate-sized, moderate severity fixed defect inferior wall extending to the apex, RCA distribution 2. No reversible ischemia 3. Normal exercise test Dictated by: Greg Umana MD on 05/26/2023 at 13:40 Approved by: Greg Umana MD on 05/26/2023 at 13:42
[2023-05-26] MEDS: REGADENOSON 0.4 MG/5 ML SYRINGE IV (10:07)
--- NOTE | 2023-05-26 12:42 | PM.STRESS ---
Stress Test Stress Test Allergies Allergy/AdvReac Type Severity Reaction Status Date / Time No Known Drug Allergies Allergy Verified 03/11/23 11:38 Requesting physician: Non-Staff Physician Procedure: Lexiscan Cardiolite stress test General Information: Reason for Stress Test: ASHD Cardiac History and Risk Factors: SD s/p CABG x4, afib Resting 12 - Lead Electrocardiogram: Rate & rhythm: Normal sinus at a rate of 71. [place]: Nomrmal T-waves: Biphasic in III ST-segments: Normal orientation PVCs Stress Test: Wilmer protocol was initiated, but due to inability to walk on the treadmill, the exercise component was therefore canceled.? Testing was changed to Lexiscan protocol, with injection of 0.4mg Lexiscan IV push followed by Cardiolite. Blood pressure: Initial & maximum: 160/88 Rate & rhythm: Patient remained in sinus rhythm during the exercise and recovery portions of the study.? The maximum heart rate was 97, which was 68% of the maximum predicted heart rate 141. ST-segments & T-waves: There were no T-wave changes and no ST-segment changes when compared to the baseline EKG. Patient response/symptoms: There was no chest pain reported. Interpretation: Normal Lexiscan study without electrocardiographical evidence of ischemia. Cardiolite imaging interpretation will be reported separately. Clinical correlation required.?
== END 2023-05-26 08:38 | disposition home or self-care (01) ==
LOC: NM 08:37
PROVIDERS: PCP Family Medicine
DX: I25.10 Atherosclerotic heart disease of native coronary artery without angina pectoris (principal)
CPT/HCPCS: 78452; 93017; A9500; J2785

== ENCOUNTER 2023-12-04 11:57 | Emergency (ER) | payer MEDICARE, SELFPAY ==
[2023-12-04 12:04] VITALS: BP 162/81; PULSE 73; TEMP 37.1; O2SAT 96; BMI 28.2
--- NOTE | 2023-12-04 12:12 | XR_ITS ---
The [address] [address] Patient Name: EMILY HOLLY MRN: [id number] date: 1945 Sex: M Assigned Patient Location: ER Current Patient Location: ER Accession/Order Number: [id number] Exam Date: 12/04/2023 12:24 Report Date: 12/04/2023 12:43 At the request of: HELLEN HORTON Procedure: XR hand LT min 3V PROCEDURE: XR hand LT min 3V HISTORY: Atraumatic pain ; acute left hand pain COMPARISON: None. FINDINGS: BONES:Multifocal mild degenerative joint disease throughout the hand and wrist. No fracture, dislocation, bone lesion. SOFT TISSUES:Tiny metallic foreign body within or on the skin dorsal lateral to the third metacarpophalangeal joint. Atherosclerotic disease. EFFUSION:None visible. OTHER: Negative. XR/XR hand LT min 3V IMPRESSION: 1. No acute or specific findings to account for patient's symptoms. 2. Multifocal mild degenerative joint disease. Electronically authenticated by: YOGI ORTIZ Date: 12/04/2023 12:43
--- OUTSIDE RECORDS SUMMARY | 2023-12-04 12:24 | XMS_ITS | CCD ---
Author Organization [facility] CliniS[facility]n Care Team Providers Care Malted Milk Mixer Name Role Phone BRITTANI EMERY Admitting Unavailable BRITTANI EMERY Attending Unavailable BRITTANI EMERY Consulting Unavailable UNKNOWN, PHYSICIAN Referring Unavailable HERVE TOY Admitting Unavailable TOY EDGAR Attending Unavailable UNKNOWN, PHYSICIAN Primary Care Unavailable Jonas Cruz Admitting UnaJonas Morillo Attending Brittani Falk Primary Care Unavailable Unavailable Primary Care Provider UnavailYAHAIRA Garcia Referring Unavailabl e PROVIDER, UNKNOWN Attending Unavailable PROVIDER, UNKNOWN Admitting Unavailable Ernestine Beverly Primary Care Physician ERNESTINE BEVERLY Referring Unavailable ERNESTINE BEVERLY Primary Care Unavailable ERNESTINE BEVERLY Referring Unavailable ERNESTINE BEVERLY Primary Care Unavailable Ernestine Beverly Attending Unavailable Ernestine Beverly Attending Unavailable Jose ALCALA P Attending Unavailable COOK, Jose P Attending Unavailable COOKJose P Attending Unavailable COOKJose P Attending Unavailable COOKJose P Attending Unavailable COOKJose P Attending Unavailable Jamie Tai Attending Unavaila Ernestine Lucero Referring Unavailable Jamie Tai Attending Unavaila ble NONE, XXXX Referring Unavailable NONE, XXXX Referring Unavailable MD Allan Agarwal Attending Unavailable Ernestine Beverly Admitting Unavailable Ernestine Beverly Attending Unavailable Ernestine Beverly Attending Unavailable Ernestine Beverly Attending Unavailable Ernestine Beverly Attending Unavailable Ernestine Beverly Attending Unavailable Ernestine Beverly Attending Unavailable Allergies Allergy Classification Reported Allergen(s) Allergy Type Date of Onset Reaction(s) Facility Unclassified (1 source) No Known Medication Allergies; Translations: [No Known Medication Allergies] Propensity to adverse reactions (disorder) [facility] Repository Medications Current Medications Medication Drug Class(es) Dates Sig (Normalized) Sig (Original) 3 ML semaglutide 2.68 MG/ML Pen Injector [Ozempic] (3 sources) Start: 06-23-2023 inject 2 mg by subcutaneous injection every week Ozempic 8 mg/3 mL (2 mg dose) subcutaneous solution 2 mg, SubCutaneous, qWeek, # 3 EA, Refills(s) 1, Pharmacy: [facility] #[id number], 167, cm, 06/23/23 14:02:00 EST, Height/Length Dosing, 81.6, kg, 06/23/23 14:02:00 EST, Weight Dosing Start Date: 06/23/23 Status: Ordered amLODIPine 10 mg oral tablet (10 sources) Dihydropyridine Calcium Channel Brandt Start: 02-08-2019 take 1 tablet by mouth once daily amLODIPine 10 mg Tab 10 mg = 1 tab(s), Oral, Daily Start Date: 02/08/19 Status: Ordered take 1 tablet by mouth once robinson y amLODIPine (NORVASC) 5 MG tablet Take 5 mg by mouth daily. 0 Active apixaban 5 mg oral tablet (8 sources) Factor Xa Inhibitor Start: 07-10-2020 take 1 tablet by mouth twice daily Eliquis 5 mg oral tablet 5 mg = 1 tab(s), Oral, BID Start Date: 07/10/20 Status: Ordered Aspir 81 (8 sources) Start: 02-08-2019 take 81 mg by mouth once daily Aspir 81 81 mg, Oral, Daily Start Date: 02/08/19 Status: Ordered aspirin 325 mg oral tablet (2 sources) Platelet Aggregation Inhibitor, Nonsteroidal Anti-inflammatory Drug Start: 07-21-2014 take 1 tablet by mouth once daily aspirin 325 MG tablet Take 1 Tab by mouth daily. 100 Tab 3 07/21/2014 Active atorvastatin 40 mg oral tablet (1 source) HMG-CoA Reductase Inhibitor Start: 11-28-2023 take 1 tablet by mouth once daily at bedtime Lipitor 40 mg Tab 40 mg = 1 tab(s), Oral, Once a day (at bedtime), # 30 tab(s), Refills(s) 6, Pharmacy: [facility] #[id number], 168, cm, 11/28/23 10:40:00 EDT, Height/Length Dosing, 80.9, kg, 11/28/23 10:40:00 EDT, Weight Dosing Start Date: 11/28/23 Status: Ordered carvedilol 25 mg oral tablet (2 sources) alpha-Adrenergic Brandt, beta-Adrenergic Brandt take 1 tablet by mouth twice daily CARvedilol (COREG) 25 MG tablet Take 25 mg by mouth 2 times daily. 0 Active Cholecalciferol (8 sources) Vitamin D Start: 09-01-2023 take 25 ug by mouth once daily cholecalciferol 25 mcg, Oral, Daily, Refills(s) 0 Start Date: 09/01/23 Status: Ordered Start: 02-08-2019 take 1 capsule by mo [facility] once daily cholecalciferol 1000 intl units oral capsule 1,000 International_Unit = 1 cap(s), Oral, Daily Start Date: 02/08/19 Status: Ordered dabigatran etexilate 150 mg oral capsule (2 sources) Start: 07-21-2014 take 1 capsule by mouth once daily dabigatran (PRADAXA) 150 MG capsule Take 1 Cap by mouth daily. 30 Cap 3 07/21/2014 Active docosahexaenoic acid 120 mg / eicosapentaenoic acid 180 mg oral capsule (2 sources) [place]-3 Fatty Acids (FISH OIL) 1000 MG CAPS Take by mouth. 0 Active docusate sodium 100 mg oral capsule (2 sources) Start: 07-21-2014 take 1 capsule by mouth twice daily docusate sodium (COLACE) 100 MG capsule Take 1 Cap by mouth 2 times daily. 60 Cap 3 07/21/2014 Active empagliflozin 5 mg / metFORMIN hydrochloride 1000 mg oral tablet (8 sources) Biguanide, Sodium-Glucose Cotransporter 2 Inhibitor Start: 03-18-2023 take 1 tablet by mouth twice daily empagliflozin-m etFORMIN 5 mg-1000 mg oral tablet tab(s), Oral, BID Start Date: 03/18/23 Status: Ordered ferrous sulfate 325 mg delayed release oral tablet (2 sources) Start: 07-22-2014 take 1 tablet by mouth once daily at breakfast ferrous sulfate 325 (65 FE) MG enteric coated tablet Take 1 Tab by mouth daily (with breakfast). 30 Tab 3 07/22/2014 Active gabapentin 100 mg oral capsule (8 sources) Anti-epileptic Agent Start: 02-08-2019 take 1 capsule by mouth once daily gabapentin 100 mg Cap 100 mg = 1 cap(s), Oral, Daily Start Date: 02/08/19 Status: Ordered lisinopril 40 mg oral tablet (10 sources) Angiotensin Converting Enzyme Inhibitor Start: 02-08-2019 take 1 tablet by mouth once daily lisinopril 40 mg Tab 40 mg = 1 tab(s), Oral, Daily Start Date: 02/08/19 Status: Ordered Start: 07-21-2014 take 1 tablet by levon th twice daily lisinopril (ZESTRIL) 20 MG tablet Take 1 Tab by mouth 2 times daily. 30 Tab 3 07/21/2014 Active metFORMIN hydrochloride 850 mg oral tablet (2 sources) Biguanide take 850 mg by mouth three times daily METFORMIN HCL ORAL Take 850 mg by mouth 3 times daily. 0 Active metoprolol tartrate 100 mg oral tablet (8 sources) beta-Adrenergic Brandt Start: 09-01-2023 take 100 mg by mouth twice daily Lopressor 100 mg, Oral, BID, Refills(s) 0 Start Date: 09/01/23 Status: Ordered Start: 02-08-2019 take 1 tablet by levon th once daily metoprolol 100 mg ER Tab 100 mg = 1 tab(s), Oral, Daily Start Date: 02/08/19 Status: Ordered 24 hr niacin 1000 mg extended release oral tablet (2 sources) Nicotinic Acid take 1 tablet by mouth at bedtime niacin (NIASPAN) 1000 MG CR tablet Take 1,000 mg by mouth at bedtime. 0 Active nitroglycerin 0.4 mg sublingual tablet (10 sources) Nitrate Vasodilator Start: 9 NitroStat 0.4 mg Tab 0.4 mg = 1 tab(s), SubLingual, q5min Start Date: 02/08/19 Status: Ordered omeprazole 20 mg oral tablet (8 sources) Proton Pump Inhibitor Start: take 20 mg by mouth every other day Prilosec 20 mg, Oral, Every other day Start Date: 03/18/23 Status: Ordered Start: 03-18-2023 Prilosec Oral, Daily Start Date: 03/18/23 Status: Ordered oxybutynin chloride 5 mg oral tablet (5 sources) Cholinergic Muscarinic Antagonist Start: 03-18-2023 take 1 tablet by mouth three times daily as needed oxybutynin 5 mg Tab 5 mg = 1 tab(s), Oral, TID, PRN for urinary discomfort, # 30 tab(s) Start Date: 03/18/23 Status: Ordered Ozempic (1 mg dose) (5 sources) Start: 05-08-2021 inject 1 mg by subcutaneous injection every week Ozempic (1 mg dose) mg, SubCutaneous, qWeek, Refills(s) 0 Start Date: 05/08/21 Status: Ordered pioglitazone 15 mg oral tablet (8 sources) Peroxisome Proliferator Receptor alpha Agonist, Peroxisome Proliferator Receptor gamma Agonist, Thiazolidinedione Start: 03-17-2023 take 1 tablet by mouth once daily pioglitazone 15 mg Tab 15 mg = 1 tab(s), Oral, Daily, Refills(s) 0 Start Date: 03/17/23 Status: Ordered polyethylene glycol 3350 57737 mg powder for oral solution (2 sources) Osmotic Laxative Start: 07-21-2014 polyethylene glycol (MIRALAX) packet Take 1 Packet by mouth 3 times daily. Dissolve in 8 ounces of liquid. 30 Packet 3 07/21/2014 Active sennosides, correction 8.6 mg oral tablet (1 source) Start: 07-21-2014 take 1 tablet by mouth at bedtime senna (SENOKOT) 8.6 MG tablet Take 1 Tab by mouth at bedtime. 30 Tab 0 07/21/2014 Active simvastatin 20 mg oral tablet (2 sources) HMG-CoA Reductase Inhibitor take 1 tablet by mouth once daily in the evening simvastatin (ZOCOR) 20 MG tablet Take 20 mg by mouth every evening. 0 Active tamsulosin hydrochloride 0.4 mg oral capsule (8 sources) alpha-Adrenergic Brandt Start: 04-11-2023 End: 04-05-2024 take 1 capsule by mouth once daily tamsulosin 0.4 mg Cap 0.4 mg = 1 cap(s), Oral, Daily, X 30 day(s), # 30 cap(s), Refills(s) 11, [facility]: [facility] #[id number], 167, cm, 04/03/23 13:48:00 EDT, Height/Length Dosing, 78.9, kg, 04/11/23 8:39:00 EDT, Weight Dosing Start Date: 04/11/23 Stop Date: 04/05/24 Status: Ordered Start: 03-18-2023 take 1 mg by mouth once daily tamsulosin 0.4 mg Cap mg cap(s), Oral, Daily Start Date: 03/18/23 Status: Ordered vitamin B12 (8 sources) Vitamin B12 Start: 09-01-2023 take 1000 mg by mouth once daily cyanocobalamin 1,000 mg, Oral, Daily, Refills(s) 0 Start Date: 09/01/23 Status: Ordered Start: 02-08-2019 take 1 tablet by levon th twice daily cyanocobalamin 1000 mcg oral tablet 1,000 microgram = 1 tab(s), Oral, BID Start Date: 02/08/19 Status: Ordered Completed/Discontinued Medications Medication Drug Class(es) Dates Sig (Normalized) Sig (Original) cephalexin 500 mg oral capsule (6 sources) Cephalosporin Antibacterial Start: 05-20-2023 End: 05-22-2023 take 1 tablet by mouth once daily Keflex 500 mg Cap 500 mg = 1 cap(s), Oral, Daily, take one tab day of procedure before procedure, take one tab day after procedure, X 2 day(s), # 2 cap(s), Refills(s) 0, [facility]acy: [facility] #[id number], 78.9, cm, 05/20/23 13:10:00 EST, Height/Length Dosing, 81, kg, 05/20/23 13:10:00 EST, Weight Dosing Start Date: 05/20/23 Stop Date: 05/22/23 Status: Ordered Start: 03-18-2023 take 1 mg by mouth f our times daily cephalexin 500 mg oral tablet mg tab(s), Oral, QID Start Date: 03/18/23 Status: Ordered levothyroxine sodium 0.025 mg oral tablet (8 sources) l-Thyroxine Start: 02-08-2019 take 1 tablet by mouth once daily levothyroxine 25 mcg (0.025 mg) Tab 25 microgram = 1 tab(s), Oral, Daily Start Date: 02/08/19 Status: Ordered Problems Active Problems Problem Classification Problem Date Documented Date Episodic/Chronic Cardiac dysrhythmias (6 sources) Paroxysmal atrial fibrillation; Translations: [Paroxysmal atrial fibrillation] Onset: 07-17-2014 08-02-2021 Chronic Comment on above: noted in 03/10/2023 [facility] H&P page 1. added per OP CDI policy. Complication of device; implant or graft (1 source) Atherosclerosis of coronary artery bypass graft(s) without angina pectoris; Translations: [Atherosclerosis of coronary artery bypass graft(s) without angina pectoris] Onset: 11-04-2022 Chronic Coronary atherosclerosis and other heart disease (18 sources) Triple vessel disease of the heart ; Translations: [Atherosclerotic heart disease of [place] coronary artery without angina pectoris] Onset: 11-18-2017 11-18-2017 Chronic Crushing injury or internal injury (5 sources) Injury of kidney 03-17-2023 Episodic Diabetes mellitus with complications (2 sources) Type 2 diabetes mellitus with other specified complication; Translations: [Type 2 diabetes mellitus with diabetic polyneuropathy] Onset: 06-04-2023 Chronic Diabetes mellitus without complication (11 sources) Diabetes mellitus; Translations: [Type 2 diabetes mellitus] 02-08-2019 Chronic Comment on above: linked DM with HLD p er OP CDI policy. noted in 03/10/2023 [facility] H&P page 1. added per OP CDI policy. Disorders of lipid metabolism (10 sources) Hyperlipidemia; Translations: [Hyperlipidemia, unspecified] Onset: 06-04-2023 02-08-2019 Chronic Essential hypertension (13 sources) Hypertensive disorder 02-08-2019 Chronic Genitourinary symptoms and ill-defined conditions (20 sources) Retention of urine, unspecified; Translations: [Retention of urine] Onset: 07-01-2019 Episodic Hyperplasia of prostate (13 sources) Benign prostatic hypertrophy with outflow obstruction; Translations: [Benign prostatic hyperplasia with lower urinary tract symptoms] Onset: 03-18-2023 Chronic Nutritional deficiencies (4 sources) Vitamin D deficiency; Translations: [Vitamin D deficiency, unspecified] Onset: 06-04-2023 05-27-2023 Chronic Comment on above: noted in 03/10/2023 [facility] H&P page 1. added per OP CDI policy. Nutritional deficiencies (4 sources) Cobalamin deficiency; Translations: [Deficiency of other specified B group vitamins] Onset: 06-04-2023 05-27-2023 Episodic Comment on above: noted in 03/10/2023 [facility] H&P page 1. added per OP CDI policy. Osteoarthritis (2 sources) Localized, primary osteoarthritis; Translations: [Unilateral primary osteoarthritis, unspecified knee] Onset: 06-21-2014 07-15-2014 Chronic Other aftercare (8 sources) Long-term current use of anticoagulant 07-10-2020 Episodic Other aftercare (5 sources) Post-discharge follow-up 03-17-2023 Episodic Other lower respiratory disease (2 sources) Dyspnea; Translations: [Dyspnea, unspecified] 12-20-2022 Episodic Other lower respiratory disease (1 source) Dyspnea, unspecified; Translations: [Dyspnea, unspecified] Onset: 12-20-2022 Episodic Other screening for suspected conditions (not mental disorders or infectious disease) (15 sources) Raised prostate specific antigen; Translations: [Elevated prostate specific antigen [PSA]] Onset: 03-21-2020 Episodic Thyroid disorders (8 sources) Disorder of thyroid gland 02-08-2019 Episodic Urinary tract infections (13 sources) Urinary tract infectious disease; Translations: [Urinary tract infection, site not specified] Onset: 03-18-2023 Episodic Past or Other Problems Problem Classification Problem Date Documented Da te Episodic/Chronic Other lower respiratory disease (1 source) Shortness of breath; Translations: [Shortness of breath] Onset: 02-04-2019 Episodic Other nutritional; endocrine; and metabolic disorders (1 source) Body mass index (BMI) 28.0-28.9, adult; Translations: [Body mass index (BMI) 28.0-28.9, adult] Onset: 06-04-2023 Episodic Results Test Name Value Interpretation Reference Range Facil ity Ambulatory Visit Summaryon 0 11-28-2023 Ambulatory Visit Summary PATRICK HOLLY :1945 Visit Date:11/28/2023 Ambulatory Visit Instructions Your Diagnosis CAD (coronary artery disease) Paroxysmal atrial fibrillation Hyperlipidemia Your Care Team Attending Physician - Any RIOS, Allan Cabello Primary Care Physician - Damian RIOS, Ernestine Meehan Referring Physician - NONE, XXXX This Is Your Medications List amlodipine (amLODIPine 10 mg Tab) apixaban (Eliquis 5 mg oral tablet) aspirin (Aspir 81) cholecalciferol cyanocobalamin empagliflozin-metFORM IN (empagliflozin-metFOR MIN 5 mg-1000 mg oral tablet) gabapentin (gabapentin 100 mg Cap) levothyroxine (levothyroxine 25 mcg (0.025 mg) Tab) lisinopril (lisinopril 40 mg Tab) metoprolol (Lopressor) nitroglycerin (NitroStat 0.4 mg Tab) omeprazole (Prilosec) pioglitazone (pioglitazone 15 mg Tab) semaglutide (Ozempic 8 mg/3 mL (2 mg dose) subcutaneous solution) tamsulosin (tamsulosin 0.4 mg Cap) Procedures Performed Cystoscopy (10/02/2023), Cystoscope (04/11/2023), TRUS (transrectal ultrasound) guided cryoablation of prostate (07/24/2020), Transrectal biopsy of prostate using ultrasound (US) guidance (04/12/2013), CABG x 4 - Coronary artery bypass grafts x 4, Cataract care, Colonoscopy, Knee Replacement-Lt. Discharge Vitals Heart Rate (Peripheral) 78 Respiratory Rate 16 Blood Pressure 132/78 Height 168 cm Height 66 in Weight 80.9 kg Weight 177.98 lb BMI 28.66 What to do next Scheduled Follow-Up Appointments Friday 9:15 AM EDT With: Damian RIOS, Ernestine Meehan Where: [facility] Invalid Interpretation Code [address] [place] [address]- \.br\ Friday 10:45 AM EST \.br\ With: Allan Agarwal MD\.br\ Where: [facility]\.br\ Friday 1:00 PM EDT \.br\ With:\.br\ Where: [facility] Consent for Treatmenton 11-14 Consent for Treatment [id number] 0TIFF Normal [facility] Heart and Vascular Office/Cl inic Noteon 11-28-2023 Heart and Vascular Office/Clinic Note Chief Complaint 6 month f/u PAF History of Present Illness Mr. Holly is a pleasant 78-year-old male with past medical history of coronary artery disease, quadruple CABG in 2014, history of prior PCI, paroxysmal atrial fibrillation, hypertension, dyslipidemia, who presents today for a scheduled follow-up appointment. He presents with no specific complaints. Specifically, no issues with chest pain, shortness of breath, dizziness or lightheadedness, palpitations, syncope or presyncope. He states that he is not quite interested in stress testing. Left ventricular ejection fraction historically has been normal. States compliance with the current treatment plan. Denies any side effects. Review of Systems ROS - Provider Constitutional: no fever, no chills, no fatigue Skin:no rash, no lesions ENMT: no ear pain, no sore throat, no congestion. Respiratory: no shortness of breath, no cough, no wheezing. Cardiovascular: no chest pain, no palpitations, no edema. Gastrointestinal: no nausea, no vomiting, no diarrhea, no GI bleeding. Genitourinary: no dysuria, no frequencyno hematuria Musculoskeletal: no back pain, no trauma. Neurologic: no headache, no dizziness, no numbness, no weakness. Psychiatric: no sleeping problems, no irritability, no mood swings/depression. Heme/Lymph: no bleeding tendency, no bruising tendency, no petechiae, Allergy/Immuno logic: no seasonal allergies, no food allergies, no recurrent infections Physical Exam Vitals & Measurements HR: 78(Peripheral) RR: 16 BP: 132/78 SpO2: 90% HT: 66 in HT: 168 cm WT: 80.9 kg WT: 177.98 lb BMI: 28.66 General: alert, no acute distress Neck: Supple, noJVD nocarotid bruit Cardiovascular: regular rate and rhythm, no murmur normal peripheral perfusion Respiratory: Lungs CTAB, respirations non labored Extremities: no edema left lower extremity. no edema right lower extremity Neurological: oriented x 4, LOC appropriate for age, speech normal Skin: Warm, dry, intact- no rash or concerning lesions Assessment/Plan 1. CAD (coronary artery disease) (I25.10: Atherosclerotic heart disease of [place] coronary artery without angina pectoris) No evidence of angina or anginal-like symptoms. Will continue guideline recommended medical therapy. He is not interested in stress testing. Unsure if he had a Lexiscan stress test which was ordered by Dr. Tai. It appears that the patient has stable CAD by symptoms; without formal stress testing, difficult to liquor merchant, therefore at this point, we would continue antiplatelet agent, even though the patient is on Eliquis. May consider switching to clopidogrel. Ordered: ECG 12 Lead Adult 2. Paroxysmal atrial fibrillation (I48.0: Paroxysmal atrial fibrillation) In sinus rhythm. Continue Eliquis. Ordered: ECG 12 Lead Adult 3. Hyperlipidemia (E78.5: Hyperlipidemia, unspecified) I am going to start a high potency statin, Lipitor 40 mg nightly. Fasting lipids 4 weeks. Follow-up No qualifying data available 6 months Problem List/Past Medical History Ongoing Anticoagulant long-term use BPH with urinary obstruction CAD (coronary artery disease) Elevated PSA History of UTI HTN (hypertension) Hyperlipidemia Nocturia Paroxysmal atrial fibrillation Pneumaturia Thyroid disease Type 2 diabetes mellitus with hyperlipidemia Type 2 diabetes mellitus with peripheral neuropathy Urinary retention Vitamin B12 deficiency Vitamin D deficiency Historical CAD - Coronary artery disease Procedure/Surgical History Cystoscopy (10/02/2023), Cystoscope (04/11/2023), TRUS (transrectal ultrasound) guided cryoablation of prostate (07/24/2020), Transrectal biopsy of prostate using ultrasound (US) guidance (04/12/2013), CABG x 4 - Coronary artery bypass grafts x 4, Cataract care, Colonoscopy, Knee Replacement-Lt. Medications amLODIPine 10 mg Tab, 10 mg= 1 tab(s), Oral, Daily Aspir 81, 81 mg, Oral, Daily cholecalciferol, 25 mcg, Oral, Daily cyanocobalamin, 1000 mg, Oral, Daily Eliquis 5 mg oral tablet, 5 mg= 1 tab(s), Oral, BID empagliflozin-metFORM IN 5 mg-1000 mg oral tablet, Oral, BID gabapentin 100 mg Cap, 100 mg= 1 cap(s), Oral, Daily levothyroxine 25 mcg (0.025 mg) Tab, 25 mcg= 1 tab(s), Oral, Daily lisinopril 40 mg Tab, 40 mg= 1 tab(s), Oral, Daily Lopressor, 100 mg, Oral, BID NitroStat 0.4 mg Tab, 0.4 mg= 1 tab(s), SubLingual, q5min Ozempic 8 mg/3 mL (2 mg dose) subcutaneous solution, 2 mg, SubCutaneous, qWeek, 1 refills pioglitazone 15 mg Tab, 15 mg= 1 tab(s), Oral, Daily Prilosec, 20 mg, Oral, Every other day tamsulosin 0.4 mg Cap, 0.4 mg= 1 cap(s), Oral, Daily, 11 refills Allergies No Known Medication Allergies Social History Alcohol - Low Risk, 02/08/2019 Current, 1-2 times per year, Household alcohol concerns: No., 09/01/2023 Tobacco Former smoker, quit more than 30 days ago Tobacco Use:. Never Smokeless Tobacco Use:. Cigarettes, Started age 14.0 Years. Stopped age 47 Ye (more content not included)... [facility] Comment on above: Result Comment: Elec tronically Signed By: Any RIOS, Allan Cabello\.br\Date and Time Signed: 11/28/23 10:58 EDT Physician Orderon 11-28-2023 Physician Order [id number]# 1.00TIFF [facility] Lab Reportson 11-18-2023 Lab Reports [id number]. 00TIFF [facility] Lab Reports [id number] .00TIFF [facility] Screenson 11-18-2023 Screens [id number] .00TIFF [facility] Ambulatory Visit Summaryon 0 11-17-2023 Ambulatory Visit Summary PATRICK HOLLY Leslie :1945 Visit Date:11/17/2023 Ambulatory Visit Instructions Your Diagnosis Elevated PSA BPH with urinary obstruction Pneumaturia Your Care Team Attending Physician - CARI RIOS, Jose Rodriguez Primary Care Physician - Ernestine Beverly MD This Is Your Medications List tamsulosin (tamsulosin 0.4 mg Cap) Contact prescribing physician if questions or concerns amlodipine (amLODIPine 10 mg Tab) apixaban (Eliquis 5 mg oral tablet) aspirin (Aspir 81) cholecalciferol cyanocobalamin empagliflozin-metFORM IN (empagliflozin-metFOR MIN 5 mg-1000 mg oral tablet) gabapentin (gabapentin 100 mg Cap) levothyroxine (levothyroxine 25 mcg (0.025 mg) Tab) lisinopril (lisinopril 40 mg Tab) metoprolol (Lopressor) nitroglycerin (NitroStat 0.4 mg Tab) omeprazole (Prilosec) pioglitazone (pioglitazone 15 mg Tab) semaglutide (Ozempic 8 mg/3 mL (2 mg dose) subcutaneous solution) Procedures Performed Cystoscopy (10/02/2023), Cystoscope (04/11/2023), TRUS (transrectal ultrasound) guided cryoablation of prostate (07/24/2020), Transrectal biopsy of prostate using ultrasound (US) guidance (04/12/2013), CABG x 4 - Coronary artery bypass grafts x 4, Cataract care, Colonoscopy, Knee Replacement-Lt. Discharge Vitals Temperature (Temporal Artery) 37 ?C Heart Rate (Peripheral) 75 Respiratory Rate 16 Blood Pressure 122/70 Height 168 cm Height 66 in Weight 81 kg Weight 178.2 lb BMI 28.7 What to do next Scheduled Follow-Up Appointments Friday 10:45 AM EDT With: Any RIOS, Allan Cabello Where: [facility] Friday 9:15 AM EDT With: Ernestine Beverly MD Where: [facility] Invalid Interpretation Code [address] [place] [address]- \.br\ Friday 1:00 PM EDT \.br\ With:\.br\ Where: [facility] Patient Educationon 11-17-19 Patient Education Oncology Prostate Cancer Screening Prostate cancer screening is testing that is done to check for the presence of prostate cancer in men. The prostate gland is a walnut-sized gland that is located below the bladder and in front of the rectum in males. The function of the prostate is to add fluid to semen during ejaculation. Prostate cancer is one of the most common types of cancer in men. Who should have prostate cancer screening? Screening recommendations vary based on age and other risk factors, as well as between the professional organizations who make the recommendations. In general, screening is recommended if: ? You are age 50 to 70 and have an average risk for prostate cancer. You should talk with your health care provider about your need for screening and how often screening should be done. Because most prostate cancers are slow growing and will not cause , screening in this age group is generally reserved for men who have a 10- to 15-year life expectancy. ? You are younger than age 50, and you have these risk factors: ? Having a father, brother, or uncle who has been diagnosed with prostate cancer. The risk is higher if your family member's cancer occurred at an early age or if you have multiple family members with prostate cancer at an early age. ? Being a male who is Black or is of [place] or sub-Saharan descent. In general, screening is not recommended if: ? You are younger than age 40. ? You are between the ages of 40 and 49 and you have no risk factors. ? You are 70 years of age or older. At this age, the risks that screening can cause are greater than the benefits that it may provide. If you are at high risk for prostate cancer, your health care provider may recommend that you have screenings more often or that you start screening at a younger age. How is screening for prostate cancer done? The recommended prostate cancer screening test is a blood test called the prostate-specific antigen (PSA) test. PSA is a protein that is made in the prostate. As you age, your prostate naturally produces more PSA. Abnormally high PSA levels may be caused by: ? Prostate cancer. ? An enlarged prostate that is not caused by cancer (benign prostatic hyperplasia, or BPH). This condition is very common in older men. ? A prostate gland infection (prostatitis) or urinary tract infection. ? Certain medicines such as male hormones (like testosterone) or other medicines that raise testosterone levels. A rectal exam may be done as part of prostate cancer screening to help provide information about the size of your prostate gland. When a rectal exam is performed, it should be done after the PSA level is drawn to avoid any effect on the results. Depending on the PSA results, you may need more tests, such as: ? A physical exam to check the size of your prostate gland, if not done as part of screening. ? Blood and imaging tests. ? A procedure to remove tissue samples from your prostate gland for testing (biopsy). This is the only way to know for certain if you have prostate cancer. What are the benefits of prostate cancer screening? ? Screening can help to identify cancer at an early stage, before symptoms start and when the cancer can be treated more easily. ? There is a small chance that screening may lower your risk of dying from prostate cancer. The chance is small because prostate cancer is a slow-growing cancer, and most men with prostate cancer from a different cause. What are the risks of prostate cancer screening? The main risk of prostate cancer screening is diagnosing and treating prostate cancer that would never have caused any symptoms or problems. This is called overdiagnosisand overtreatment. PSA screening cannot tell you if your PSA is high due to cancer or a different cause. A prostate biopsy is the only procedure to diagnose prostate cancer. Even the results of a biopsy may not tell you if your cancer needs to be treated. Slow-growing prostate cancer may not need any treatment other than monitoring, so diagnosing and treating it may cause unnecessary stress or other side effects. Questions to ask your health care provider ? When should I start prostate cancer screening? ? What is my risk for prostate cancer? ? How often do I need screening? ? What type of screening tests do I need? ? How do I get my test results? ? What do my results mean? ? Do I need treatment? Where to find more information ? The [employer]: www.cancer.org ? [employer]: www.auanet.org Contact a health care provider if: ? You have difficulty urinating. ? You have pain when you urinate or ejaculate. ? You have blood in your urine or semen. ? You have pain in your back or in the area of your prostate. Summary ? Prostate cancer is a common type of cancer in men. The prostate gland is located below the bladder and in front of the rectum. This gland adds flu (more content not included)... Normal [facility] Urology Office/Clinic Noteon 11-17-2023 Urology Office/Clinic Note Chief Complaint Pt is here for 6 week w/ PSA HPI Staff 6 week f/u with PSA. Dx: Pneumaturia, BPH with urinary obstruction, elevated PSA, urinary retention and hx of UTI. S/p Cysto 10/02/23. Previous PSA (05/13/23 - 6.95 & 7.2%) Current PSA 8.72 & 15.6 *Flomax 0.4mg qd. Dysuria: denies Incomplete bladder emptying: denies Hematuria: denies Frequency: denies Urgency: denies Nocturia: 1x a night Stream: steady stream Leaking: denies Post void dripping: denies Wearing pads/ Depends: denies Urge incontinence: denies Stress incontinence: denies Incontinence without Sensory Awareness: denies Abdominal pain: denies Flank pain: denies Sexual complaints: _ History of Present Illness Tests reviewed: reviewed UA, PSA I have reviewed the previous health record information and history for this patient from Dr. Alcala. I have reviewed and verified the staff HPI to be accurate for this encounter. There have been no associated fever, chills, flank pain, or blood in the urine. Denies any urinary infections since last encounter. Review of Systems PHQ Score Initial Depression Screen Score: 0 SCORE ROS - Provider Constitutional: denies weight loss, denies hot flashes. Eyes: denies eye problems. Gastrointestinal: denies nausea, denies vomiting. Cardiovascular: denies chest pain or angina. Integumentary: no dryness Musculoskeletal: denies musculoskeletal symptoms. ENMT: denies otolaryngeal symptoms. Respiratory: no shortness of breath. Heme/Lymph: denies easy bleeding tendency, denies easy bruising tendency. Psychiatric: no confusion, no anxiety. Genitourinary: See HPI. Physical Exam Vitals & Measurements T: 37 ?C(Temporal Artery) HR: 75(Peripheral) RR: 16 BP: 122/70 HT: 66 in HT: 168 cm WT: 81 kg WT: 178.2 lb BMI: 28.7 General Appearance: alert, no distress, well nourished, well developed male. Genitourinary: normal scrotum, normal testes, normal urethra, normal epididymis, normal vas deferens/spermatic cord. Flank Pain: none. Bladder: nonpalpable. Assessment/Plan 1. Elevated PSA (R97.20: Elevated prostate specific antigen [PSA]) PSA: 05/2020 - 6.71 05/07/21 - 8.03 & 20% 03/12/23 - 28.0 & 15% (infected) 05/13/23 - 6.95 & 7% 11/11/23 - 8.72 & 16% S/p TRUS/bx by Dr. Yin0 07/24/20. PSA increased from prior but has been as high as 8 (wo infection) in the past. Educated pt that PSA fluctuation usually indicates prostate infection. Follow up 4-5 mos PSA F&T or sooner if needed. Pt understands and agrees with plan. 2. BPH with urinary obstruction (N40.1: Benign prostatic hyperplasia with lower urinary tract symptoms) S/p cysto 10/02/23 - 4 cm long lobe, mainly lateral lobe hypertrophy, no median lobe. [1] Normal neg for b.t. or stones, orifices normal, Trabeculated: Moderate (2) [2]. UA today negative for blood and infection. Taking Flomax 0.4 mg qd. 3. Pneumaturia (R39.89: Other symptoms and signs involving the genitourinary system) Resolved. Has not passed air through urethra since prior OV. Overall this patient has demonstrated fluctuation in the PSA and the most current one is up from 6.95-7.2. He did have a previous biopsy by Dr. Yin. He had previously had some urinary retention issues but is actually doing quite well with current management. He continues on tamsulosin 0.4 mg daily. No need for doses changes. He just picked up a refill. He will call for refills otherwise we will see him in 1 year. He agrees with the plan. Follow-up With When Contact Information CARI RIOS, Jose Rodriguez, URL [address] [place] [phone]- Additional Instructions: 4-5 mos PSA F&T Patient Education Prostate Cancer Screening I, Diana Michael, personally scribed for Dr. Alcala on 11/17/2023 11:29:57. . Documentation recorded by the scribe, Diana Michael, accurately reflects the services(s) I performed and decisions made by me. Authenticated by Dr. Alcala on 11/17/2023 11:51:14. Portions of this record may have been created with voice recognition artificial intelligence software, specifically SECU4, Sproutkin and or QuanDx. Substitutions may have occurred due to the inherent limitations of voice recognition and artificial intelligence software. Problem List/Past Medical History Ongoing Anticoagulant long-term use BPH with urinary obstruction CAD (coronary artery disease) Elevated PSA History of UTI HTN (hypertension) Hyperlipidemia Nocturia Paroxysmal atrial fibrillation Pneumaturia Thyroid disease Type 2 diabetes mellitus with hyperlipidemia Type 2 diabetes mellitus with peripheral neuropathy Urinary retention Vitamin B12 deficiency Vitamin D deficiency Historical CAD - Coronary artery disease Procedure/Surgical History Cystoscopy (10/02/2023), Cystoscope (04/11/2023), TRUS (transrectal ultrasound) guided cryoablation of (more content not included)... Normal [facility] Comment on above: Result Comment: Elec tronically Signed By: Jose ALCALA MD\.br\Date and Time Signed: 11/17/23 11:52 EDT\.br\Electronically Co-Signed By: Diana Michael\.br\Date and Time Co-Signed: 11/17/23 11:30 EDT FREE AND TOTAL PSAon 11-10- 024 % FREE PSA 15.6 Normal [facility] Comment on above: Result Comment: Percent Free PSA has been reported to have the greatest clinical utility when total PSA values are between 4.0 and 10.0 ng/mL. For men with a total PSA in this range, Percent Free PSA values of >25% are strongly associated with normal or benign prostate conditions. Percent Free PSA levels of <10% suggest that prostate cancer is more likely than BPH. For values between 10% and 25%, there is overlap of prostate cancer and BPH. Performed By: #### F TPSA #### [facility] ([id number]) [address], [address] [place] [address] FREE PSA 1.36 ng/mL Normal [facility] Comment on above: Performed By: #### F TPSA #### [facility] ([id number]) [address], [address] [place] [address] PROSTATIC SPEC ANT 8.72 ng/mL High 0.00-4.00 [facility] Comment on above: Result Comment: The method used for this test is Janette [employer] DXI chemiluminescent immunoassay. Values obtained by different assay methods cannot be used interchangeably. Performed By: #### F TPSA #### [facility] ([id number]) [address] [place] [address] Consent for Procedure/Surger [facility] 10-03-2023 Consent for Procedure/Surgery [id number] .00TIFF [facility] Ambulatory Visit Summaryon 0 10-02-2023 Ambulatory Visit Summary PATRICK HOLLY :1945 Visit Date:10/02/2023 Ambulatory Visit Instructions Your Diagnosis Pneumaturia BPH with urinary obstruction Elevated PSA Urinary retention History of UTI Your Care Team Attending Physician - CARI RIOS, Jose Rodriguez Primary Care Physician - Damian RIOS, Ernestine Meehan This Is Your Medications List tamsulosin (tamsulosin 0.4 mg Cap) Contact prescribing physician if questions or concerns amlodipine (amLODIPine 10 mg Tab) apixaban (Eliquis 5 mg oral tablet) aspirin (Aspir 81) cholecalciferol cyanocobalamin empagliflozin-metFORM IN (empagliflozin-metFOR MIN 5 mg-1000 mg oral tablet) gabapentin (gabapentin 100 mg Cap) levothyroxine (levothyroxine 25 mcg (0.025 mg) Tab) lisinopril (lisinopril 40 mg Tab) metoprolol (Lopressor) nitroglycerin (NitroStat 0.4 mg Tab) omeprazole (Prilosec) pioglitazone (pioglitazone 15 mg Tab) semaglutide (Ozempic 8 mg/3 mL (2 mg dose) subcutaneous solution) Procedures Performed Cystoscopy (10/02/2023), Cystoscope (04/11/2023), TRUS (transrectal ultrasound) guided cryoablation of prostate (07/24/2020), Transrectal biopsy of prostate using ultrasound (US) guidance (04/12/2013), CABG x 4 - Coronary artery bypass grafts x 4, Cataract care, Colonoscopy, Knee Replacement-Lt. Discharge Vitals Temperature (Temporal Artery) 37 ?C Heart Rate (Peripheral) 74 Respiratory Rate 16 Blood Pressure 132/68 Height 168 cm Height 66 in Weight 81 kg Weight 178.2 lb BMI 28.7 What to do next Scheduled Follow-Up Appointments Friday 10:45 AM EDT With: Any RIOS, Allan Cabello Where: [facility] Friday 11:00 AM EDT With: CARI RIOS, Jose Rodriguez Where: [facility] Invalid Interpretation Code [address] [place] [address]- \.br\ Friday 1:00 PM EDT \.br\ With:\.br\ Where: [facility] Family Medicine [facility] Urology Office/Clinic Noteon 10-02-2023 Urology Office/Clinic Note Chief Complaint Pt is here for cystoscopy HPI Staff Cystoscopy. Abx taken. Dx: BPH with obstruction (Tamsulosin 0.4mg qd), elevated PSA, UTI, Urinary retention (last OV PVR was 0ml) and pneumaturia History of Present Illness Tests reviewed: none. I have reviewed the previous health record information and history for this patient from Dr. Alcala. I have reviewed and verified the staff HPI to be accurate for this encounter. There have been no associated fever, chills, flank pain, or blood in the urine. Denies any urinary infections since last encounter. Review of Systems PHQ Score Initial Depression Screen Score: 0 SCORE ROS - Provider Constitutional: denies weight loss, denies hot flashes. Eyes: denies eye problems. Gastrointestinal: denies nausea, denies vomiting. Cardiovascular: denies chest pain or angina. Integumentary: no dryness Musculoskeletal: denies musculoskeletal symptoms. ENMT: denies otolaryngeal symptoms. Respiratory: no shortness of breath. Heme/Lymph: denies easy bleeding tendency, denies easy bruising tendency. Psychiatric: no confusion, no anxiety. Genitourinary: See HPI. Procedure Operative Information Anesthesia Type: Local Procedure: Local Cystoscopy Complications: None Surgical risks, benefits, details of the procedure have been explained to the patient. Full informed consent has been obtained. Intraoperative Information Prepped: Patient is brought back to the endoscopy suite. Patient is placed in supine position. Patient prepped in the usual fashion with Betadine solution. 2% Xylocaine Jelly is placed per Urethra. After waiting several minutes, the Cystoscope is introduced. The Urethra is: Normal The Prostatic Urethra is: 4 cm long lobe, mainly lateral lobe hypertrophy, no median lobe. The Bladder: Normal neg for b.t. or stones, orifices normal, Trabeculated: Moderate (2) The Ureteral orifices: Show efflux of clear urine. Specimens Removed: None Removal: Cystoscope is removed. The patient tolerated it well. Postoperative Information Patient is discharged home with antibiotic coverage. Follow up arranged. Assessment/Plan Portions of this record may have been created with voice recognition artificial intelligence software, specifically SECU4, Sproutkin and or QuanDx. Substitutions may have occurred due to the inherent limitations of voice recognition and artificial intelligence software. 1. Pneumaturia (R39.89: Other symptoms and signs involving the genitourinary system) Pt states that when he gets done voiding, he has air coming out of his penis, can hear it, is not straining when he voids, not all of the time. Advised pt that if this continues to happen, we would need to have a repeat cysto, unless he has another infection, then we will need to get the cysto done sooner. Cysto IO today without complications. Pt to complete prophy abx. Reference procedural section. PO directions provided. 2. BPH with urinary obstruction (N40.1: Benign prostatic hyperplasia with lower urinary tract symptoms) Pt presented to [facility] on 03/11/23 for blood in urine & dysuria. On 03/07/23 pt was diagnosed w/ acute urinary tract infection (E-Coli), treated with Keflex. DINORA 03/11/23 [facility] - enlarged prostate gland w/ large post void residual on 341, prominent hypoechoic area seen in the prostate gland measuring 1.3x1.5x1.6cm. CT 03/11/23 [facility] - prostatomegaly. Pt has Olivo catheter, placed in [facility] due to high residual volume. Pt was started on Tamsulosin and Oxybutynin. S/p Cysto 04/11/23 - 4cm, lateral lobe hypertrophy, no median lobe, catheter cystitis-red, irritated, moderate trabeculation Taking Flomax 0.4mg qd. -Continue Tamsulosin as directed 3. Elevated PSA (R97.20: Elevated prostate specific antigen [PSA]) PSA: 05/2020 - 6.71 05/07/21 - 8.03 & 19.8% 03/12/23 - 28.0 & 15.4% (infected) 05/13/23 - 6.95 & 7.2%. S/p TRUS/bx 07/24/[address] Yin. Will continue to monitor. Follow up in 6 weeks w/ PSA FT. 4. Urinary retention (R33.9: Retention of urine, unspecified) No current issues. PVR 05/2023 was 0 cc. 5. History of UTI (Z87.440: Personal history of urinary (tract) infections) See #2. Overall the patient tolerates cystoscopy well. He had the previous episode of pneumaturia upon the termination of urination. He is sure this was not coming from the rectum. Cystoscopic evaluation fails to identify any evidence of a vesicle enteric fistula. There are no areas of erythema. Bladder wall demonstrates no evidence of inflammatory response. Retroflexion of the scope confirms the same. He has essentially no prostate protrusion into the bladder lumen. He is continuing on tamsulosin 0.4 mg daily and this should continue. Follow-up in about 6 weeks for a repeat free and total PSA to keep close follow-up on that given the prior levels noted above. He agrees with the plan Follow-up With When Contact Information Jose ALCALA MD, URL [address] (more content not included)... Normal [facility] Comment on above: Result Comment: Elec tronically Signed By: Jose ALCALA MD\.br\Date and Time Signed: 10/02/23 14:02 EDT\.br\Electronically Co-Signed By: Itzel Covarrubias\.br\Date and Time Co-Signed: 10/02/23 14:00 EDT Echocardiographyon 4 Echocardiography [id number] .00TIFF [facility] Family Medicine Office/Clini c Noteon 09-09-2023 Family Medicine Office/Clinic Note Chief Complaint Subsequent Medicare Wellness Visit History of Present Illness I was in the office and available for consultation and to provide direct supervision at the time of this visit. I have provided supervision of the care team and have reviewed this chart and office note and agree with the plan of care. Covid-19, MERS, Ebola Screen *Contact With Person With Highly Contagious Disease Like Ebola/MERS/COVID-19 AND Have One or More of the Symptoms Below : No *Travel to a Country With Wide-Spread Ebola/MERS/COVID-19 in the Past 21 Days AND Have One or More of the Symptoms Below : No Patient Reported Covid-19 Testing : No *Verify Droplet, Contact Precautions for Ebola (Reference for CDC) : N/A *Verify Airborne, Droplet Precautions for MERS/COVID-19 : N/A Josue Nelson Aretha Vazquez 09/01/2023 13:03 EDT Medicare/Medicaid Summary Chief Complaint : Subsequent Medicare Wellness Visit Patient Counseled : Nutrition, Physical activity Height/Length Measured : 168 cm(Converted to: 5 ft 6 in, 66.14 in) Weight Measured : 83 kg(Converted to: 183 lb 0 Ounces, 182.984 lb) Body Mass Index Measured : 29.41 kg/m2 Height in Inches : 66 in Weight in Pounds : 182.6 lb Waist Measurement : 98 cm(Converted to: 39 in) Systolic Blood Pressure : 118 mmHg Diastolic Blood Pressure : 64 mmHg Blood Pressure Location : Left arm Blood Pressure Position : Sitting O2 Sat Resting/Exertion Alpha : Resting Peripheral Pulse Rate : 68 bpm SpO2 : 97 % Pain Present : No actual or suspected pain OmarShivamsegundo Vazquez 09/01/2023 13:55 EDT Hearing and Vision Screening FT FT Whisper Test Comments : MARSHALL, no hearing aids worn Vision Screen Comments : wears corrective lenses, follows with Dr. Rosa of the [place] yearly OmarShivamsegundo Vazquez 09/01/2023 13:03 EDT Advance Directive FT Advance Directive : No Patient Wishes to Receive Further Information on Advance Directives : Yes Organ Donation Consent : No OmarShivamsegundo Vazquez 09/01/2023 13:03 EDT Procedures / Surgeries FT - Procedure History (As Of: 09/01/2023 14:03:47 EDT) Anesthesia Minutes: 0 ; Procedure Name: Knee Replacement-Lt ; Procedure Minutes: 0 ; Last Reviewed Dt/Tm: 09/01/2023 13:59:12 EDT Anesthesia Minutes: 0 ; Procedure Name: Cataract care ; Procedure Minutes: 0 ; Comments: 02/08/2019 10:21 EDT - Ame Dubose ; Last Reviewed Dt/Tm: 09/01/2023 13:59:12 EDT Anesthesia Minutes: 0 ; Procedure Name: CABG x 4 - Coronary artery bypass grafts x 4 ; Procedure Minutes: 0 ; Comments: 09/01/2023 13:58 EDT - Josue Nelson 08/24/2014 ; Last Reviewed Dt/Tm: 09/01/2023 13:59:12 EDT Procedure Dt/Tm: 04/12/2013 ; Anesthesia Minutes: 0 ; Procedure Name: Transrectal biopsy of prostate using ultrasound (US) guidance ; Procedure Minutes: 0 ; Last Reviewed Dt/Tm: 09/01/2023 13:59:12 EDT Procedure Dt/Tm: 07/24/2020 ; Anesthesia Minutes: 0 ; Procedure Name: TRUS/Bx ; Procedure Minutes: 0 ; Last Reviewed Dt/Tm: 09/01/2023 13:59:12 EDT Procedure Dt/Tm: 04/11/2023 ; Provider: Jose ALCALA MD; Anesthesia Minutes: 0 ; Procedure Name: Cystoscope ; Procedure Minutes: 0 ; Last Reviewed Dt/Tm: 09/01/2023 13:59:12 EDT Anesthesia Minutes: 0 ; Procedure Name: Colonoscopy ; Procedure Minutes: 0 ; Comments: 09/01/2023 13:57 EDT - Josue Nelson 07/24/2020 ; Last Reviewed Dt/Tm: 09/01/2023 13:59:12 EDT Family History Family History (As Of: 09/01/2023 14:03:47 EDT) Negative History Medicare/Medicaid Social History FT Social History (As Of: 09/01/2023 14:03:47 EDT) Alcohol: Low Risk Current, 1-2 times per year, Household alcohol concerns: No. (Last Updated: 09/01/2023 13:59:40 EDT by Josue Nelson) Tobacco: Former smoker, quit more than 30 days ago Tobacco Use:. Never Smokeless Tobacco Use:. Cigarettes, Started age 14.0 Years. Stopped age 47 Years. Household tobacco concerns: No. Comments: 09/01/2023 14:01 - Josue Nelson: states started age 13, states stopped in 1991 (Last Updated: 09/01/2023 14:01:13 EDT by Josue Nelson) Health Risk Assessment FT HRA little interest or pleasure? : No HRA down, depressed, or hopeless? : No Hazards in your house? : No Fall Risk Past Year : No Worried About Falling : No Use a Cane or Walker? : No Someone Helps You in the Morning : No Fallen or felt dizzy standing up? : No Assistance with personal care? : No Trouble taking meds correctly? : No HRA Pain Present : No Able to walk without help? : Yes Ability to shop w/out help : Yes Prepare your own meals? : Yes Housework without help? : Yes Handle money without help : Yes Track own medications without help? : Yes Overall mood for past four weeks : Very well General health rating : Good Someone avail. to help if needed? : Yes, as much as I wanted Phys. & emotional health limit social act? : Not at all Josue Nelson - 09/01/2023 13:55 EDT Misc Health Risks Grid Sexual problems : Never Trouble eating well : Never Teeth or denture problems : Never Problems (more content not included)... [facility] Comment on above: Result Comment: Elec tronically Signed By: Ernestine Beverly MD\.br\Date and Time Signed: 09/09/23 09:12 EDT\.br\Electronically Co-Signed By: Josue Nelson\.br\Date and Time Co-Signed: 09/01/23 14:26 EDT Consultation Noteon 09-04-19 Consultation Note [id number] .00TIFF [facility] Outside Diabetes Eye Examon 09-04-2023 Outside Diabetes Eye Exam [id number] .00TIFF [facility] Auth for Release of Medical Recordson 09-02-2023 Auth for Release of Medical Records [id number] .00TIFF [facility] Screenson 09-02-2023 Screens [id number] .00TIFF [facility] Ambulatory Visit Summaryon 0 09-01-2023 Ambulatory Visit Summary PATRICK HOLLY :1945 Visit Date:09/01/2023 Ambulatory Visit Instructions Your Diagnosis Annual visit for general adult medical examination without abnormal findings Encounter for screening for other disorder Anticoagulant long-term use BPH with urinary obstruction Paroxysmal atrial fibrillation CAD (coronary artery disease) Type 2 diabetes mellitus with hyperlipidemia BMI 29.0-29.9,adult Your Care Team Attending Physician - Ernestine Beverly MD Primary Care Physician - Ernestine Beverly MD This Is Your Medications List amlodipine (amLODIPine 10 mg Tab) apixaban (Eliquis 5 mg oral tablet) aspirin (Aspir 81) cholecalciferol cyanocobalamin empagliflozin-metFORM IN (empagliflozin-metFOR MIN 5 mg-1000 mg oral tablet) gabapentin (gabapentin 100 mg Cap) levothyroxine (levothyroxine 25 mcg (0.025 mg) Tab) lisinopril (lisinopril 40 mg Tab) metoprolol (Lopressor) nitroglycerin (NitroStat 0.4 mg Tab) omeprazole (Prilosec) pioglitazone (pioglitazone 15 mg Tab) semaglutide (Ozempic 8 mg/3 mL (2 mg dose) subcutaneous solution) tamsulosin (tamsulosin 0.4 mg Cap) Procedures Performed Cystoscope (04/11/2023), TRUS (transrectal ultrasound) guided cryoablation of prostate (07/24/2020), Transrectal biopsy of prostate using ultrasound (US) guidance (04/12/2013), CABG x 4 - Coronary artery bypass grafts x 4, Cataract care, Colonoscopy, Knee Replacement-Lt. Discharge Vitals Heart Rate (Peripheral) 68 Blood Pressure 118/64 Height 168 cm Height 66 in Weight 83 kg Weight 182.6 lb BMI 29.41 What to do next Scheduled Follow-Up Appointments 2023 1:30 PM EDT With: Jose ALCALA MD Where: [facility] Invalid Interpretation Code [address] [place] [address]- \.br\ Friday 1:00 PM EDT \.br\ With:\.br\ Where: [facility] Family Medicine [facility] Patient Educationon 09-01-19 Patient Education Cardiovascular Atrial Fibrillation Atrial fibrillation is a type of irregular or rapid heartbeat (arrhythmia). In atrial fibrillation, the top part of the heart (atria) beats in an irregular pattern. This makes the heart unable to pump blood normally and effectively. The goal of treatment is to prevent blood clots from forming, control your heart rate, or restore your heartbeat to a normal rhythm. If this condition is not treated, it can cause serious problems, such as a weakened heart muscle (cardiomyopathy) or a stroke. What are the causes? This condition is often caused by medical conditions that damage the heart's electrical system. These include: ? High blood pressure (hypertension). This is the most common cause. ? Certain heart problems or conditions, such as heart failure, coronary artery disease, heart valve problems, or heart surgery. ? Diabetes. ? Overactive thyroid (hyperthyroidism). ? Obesity. ? Chronic kidney disease. In some cases, the cause of this condition is not known. What increases the risk? This condition is more likely to develop in: ? Older people. ? People who smoke. ? Athletes who do endurance exercise. ? People who have a family history of atrial fibrillation. ? Men. ? People who use drugs. ? People who drink a lot of alcohol. ? People who have lung conditions, such as emphysema, pneumonia, or COPD. ? People who have obstructive sleep apnea. What are the signs or symptoms? Symptoms of this condition include: ? A feeling that your heart is racing or beating irregularly. ? Discomfort or pain in your chest. ? Shortness of breath. ? Sudden light-headedness or weakness. ? Tiring easily during exercise or activity. ? Fatigue. ? Syncope (fainting). ? Sweating. In some cases, there are no symptoms. How is this diagnosed? Your health care provider may detect atrial fibrillation when taking your pulse. If detected, this condition may be diagnosed with: ? An electrocardiogram (ECG) to check electrical signals of the heart. ? An ambulatory playground monitor to record your heart's activity for a few days. ? A transthoracic echocardiogram (TTE) to create pictures of your heart. ? A transesophageal echocardiogram (MILLY) to create even closer pictures of your heart. ? A stress test to check your blood supply while you exercise. ? Imaging tests, such as a CT scan or chest X-ray. ? Blood tests. How is this treated? Treatment depends on underlying conditions and how you feel when you experience atrial fibrillation. This condition may be treated with: ? Medicines to prevent blood clots or to treat heart rate or heart rhythm problems. ? Electrical cardioversion to reset the heart's rhythm. ? A pacemaker to correct abnormal heart rhythm. ? Ablation to remove the heart tissue that sends abnormal signals. ? Left atrial appendage closure to seal the area where blood clots can form. In some cases, underlying conditions will be treated. Follow these instructions at home: Medicines ? Take over-the counter and prescription medicines only as told by your health care provider. ? Do not take any new medicines without talking to your health care provider. ? If you are taking blood thinners: ? Talk with your health care provider before you take any medicines that contain aspirin or NSAIDs, such as ibuprofen. These medicines increase your risk for dangerous bleeding. ? Take your medicine exactly as told, at the same time every day. ? Avoid activities that could cause injury or bruising, and follow instructions about how to prevent falls. ? Wear a medical alert bracelet or carry a card that lists what medicines you take. Lifestyle ? Do not use any products that contain nicotine or tobacco, such as cigarettes, e-cigarettes, and chewing tobacco. If you need help quitting, ask your health care provider. ? Eat heart-healthy foods. Talk with a dietitian to make an eating plan that is right for you. ? Exercise regularly as told by your health care provider. ? Do not drink alcohol. ? Lose weight if you are overweight. ? Do not use drugs, including cannabis. General instructions ? If you have obstructive sleep apnea, manage your condition as told by your health care provider. ? Do not use diet pills unless your health care provider approves. Diet pills can make heart problems worse. ? Keep all follow-up visits as told by your health care provider. This is important. Contact a health care provider if you: ? Notice a change in the rate, rhythm, or strength of your heartbeat. ? Are taking a blood thinner and you notice more bruising. ? Tire more easily when you exercise or do heavy work. ? Have a sudden change in weight. Get help right away if you have: ? Chest pain, abdominal pain, sweating, or weakness. ? Trouble breathing. (more content not included)... 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 BMI 29.0-29.9,adult Paroxysmal atrial fibrillation Hyperlipidemia, unspecified HTN (hypertension) Your Care Team Attending Physician - Ernestine Beverly MD Primary Care Physician - Ernestine Beverly MD This Is Your Medications List amlodipine (amLODIPine 10 mg Tab) apixaban (Eliquis 5 mg oral tablet) aspirin (Aspir 81) cholecalciferol (cholecalciferol 1000 intl units oral capsule) cyanocobalamin (cyanocobalamin 1000 mcg oral tablet) empagliflozin-metFORM IN (empagliflozin-metFOR MIN 5 mg-1000 mg oral tablet) gabapentin (gabapentin 100 mg Cap) levothyroxine (levothyroxine 25 mcg (0.025 mg) Tab) lisinopril (lisinopril 40 mg Tab) metoprolol (metoprolol 100 mg ER Tab) nitroglycerin (NitroStat 0.4 mg Tab) omeprazole (Prilosec) pioglitazone (pioglitazone 15 mg Tab) semaglutide (Ozempic (1 mg dose)) tamsulosin (tamsulosin 0.4 mg Cap) Procedures Performed Cystoscope (04/11/2023), TRUS (transrectal ultrasound) guided cryoablation of prostate (07/24/2020), Transrectal biopsy of prostate using ultrasound (US) guidance (04/12/2013), 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 Discharge Vitals Heart Rate (Peripheral) 74 Blood Pressure 140/50 Height 167 cm Height 66 in Weight 81.6 kg Weight 179.52 lb BMI 29.26 What to do next Scheduled Follow-Up Appointments 2023 1:00 PM EST With: CARI RIOS, Jose Rodriguez Where: [facility] Invalid Interpretation Code [address] [place] [address]- \.br\ Friday 10:45 AM EDT \.br\ With: Abida RIOS, Jamie Caicedo\.br\ Where: [facility]\.br\ 2023 1:00 PM EDT \.br\ With: Damian RIOS, Ernestine Meehan\.br\ Where: [facility] Medicine [facility] Medicine Office/Clini c Noteon 06-23-2023 Family Medicine Office/Clinic Note Chief Complaint DM follow up HPI Staff Patrick is a 78 year old male presenting for follow up DM/ A1C results Do you have any of the following symptoms? Foot Exam: UTD-[facility] did it. Eye Exam: UTD Last A1C: 8.1% on 06/04/23 Statin: none Checks BS in AM 149 today flu: UTD History of Present Illness - Here for follow up - BS is good - NO issues today. Bp is elevated today. - Last A1c was slightly high Review of Systems PHQ Score Initial Depression Screen Score: 0 SCORE Physical Exam Vitals & Measurements HR: 74(Peripheral) BP: 138/62 SpO2: 97% HT: 66 in HT: 167 cm WT: 81.6 kg WT: 179.52 lb BMI: 29.26 General: alert, no acute distress ENMT: oral mucosa moist, Cardiovascular: regular rate and rhythm, normal peripheral perfusion Respiratory: Lungs CTA, respirations non labored Extremities: no deformity, no trauma Neurological: oriented x 4, LOC appropriate for age, CN II-XII intact, motor strength equal & normal bilaterally, speech normal Abdomen: Soft, Nontender, Non-distended, + BS Assessment/Plan 1. Type 2 diabetes mellitus with hyperlipidemia (E11.69: Type 2 diabetes mellitus with other specified complication) - Almost at goal. - Pt is going to try and get the Ozempic increased - Follow up in 6 months Ordered: Body Mass Index (BMI) documented 3008F Depression Screening Negative 3352F Patient screen for fall risk: no falls in last year or 1 fall with no injury in last year 1101F 2. Type 2 diabetes mellitus with peripheral neuropathy (E11.42: Type 2 diabetes mellitus with diabetic polyneuropathy) - As above Ordered: Body Mass Index (BMI) documented 3008F Depression Screening Negative 3352F Patient screen for fall risk: no falls in last year or 1 fall with no injury in last year 1101F 3. BMI 29.0-29.9,adult (Z68.29: Body mass index [BMI] 29.0-29.9, adult) - BMI education given 4. Paroxysmal atrial fibrillation (I48.0: Paroxysmal atrial fibrillation) - NSR - Continue on NOAC 5. Hyperlipidemia, unspecified (E78.5: Hyperlipidemia, unspecified) - Not on a statin - [facility]. - Will order 6. HTN (hypertension) (I10: Essential (primary) hypertension) - At goal on recheck Orders: semaglutide, 2 mg, SubCutaneous, qWeek, # 3 EA, Refills(s) 1, Pharmacy: [facility] #[id number], 167, cm, 06/23/23 14:02:00 EST, Height/Length Dosing, 81.6, kg, 06/23/23 14:02:00 EST, Weight Dosing - Follow up in 6 months. Please bring in your [facility] records. 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 Medications amLODIPine 10 mg Tab, 10 mg= 1 tab(s), Oral, Daily Aspir 81, 81 mg, Oral, Daily cholecalciferol 1000 intl units oral capsule, 1000 International_Unit= 1 cap(s), Oral, Daily cyanocobalamin 1000 mcg oral tablet, 1000 mcg= 1 tab(s), Oral, BID Eliquis 5 mg oral tablet, 5 mg= 1 tab(s), Oral, BID empagliflozin-metFORM IN 5 mg-1000 mg oral tablet, Oral, BID gabapentin 100 mg Cap, 100 mg= 1 cap(s), Oral, Daily levothyroxine 25 mcg (0.025 mg) Tab, 25 mcg= 1 tab(s), Oral, Daily lisinopril 40 mg Tab, 40 mg= 1 tab(s), Oral, Daily metoprolol 100 mg ER Tab, 100 mg= 1 tab(s), Oral, BID NitroStat 0.4 mg Tab, 0.4 mg= 1 tab(s), SubLingual, q5min Ozempic 8 mg/3 mL (2 mg dose) subcutaneous solution, 2 mg, SubCutaneous, qWeek, 1 refills pioglitazone 15 mg Tab, 15 mg= 1 tab(s), Oral, Daily Prilosec, 20 mg, Oral, Daily tamsulosin 0.4 mg Cap, 0.4 mg= 1 cap(s), Oral, Daily, 11 refills Allergies No Known Medication Allergies Social History Alcohol - Low Risk, 02/08/2019 Current, 1-2 times per year, 02/08/2019 Tobacco Former smoker, quit more than 30 days ago Tobacco Use:. Never Smokeless Tobacco Use:. Cigarettes, Started age 14.0 Years. Stopped age 47 Years., 06/23/2023 Family History Family history is negative Immunizations Vaccine Date Status Comments influenza virus vaccine, inactivated 03/17/2023 Given SARS-CoV-2 (COVID-19) mRNA-1273 vaccine 04/23/2021 Recorded 2023-04-04: 75 SARS-CoV-2 (COVID-19) mRNA-1273 vaccine 04/2021 Recorded SARS-CoV-2 (COVID-19) mRNA-1273 vaccine 09/2020 Recorded SARS-CoV-2 (COVID-19) mRNA-1273 vaccine 09/14/2020 Recorded 2023-04-04: TPV7 (more content not included)... Normal [facility] Comment on above: Result Comment: Elec tronically Signed By: Damian RIOS, Ernestine Bowles.br\Date and Time Signed: 06/23/23 14:31 EST Patient Educationon 06-23-19 Patient Education Nutrition BMI for Adults What is BMI? Body mass index (BMI) is a number that is calculated from a person's weight and height. BMI can help estimate how much of a person's weight is composed of fat. BMI does not measure body fat directly. Rather, it is an alternative to procedures that directly measure body fat, which can be difficult and expensive. BMI can help identify people who may be at higher risk for certain medical problems. What are BMI measurements used for? BMI is used as a screening tool to identify possible weight problems. It helps determine whether a person is obese, overweight, a healthy weight, or underweight. BMI is useful for: ? Identifying a weight problem that may be related to a medical condition or may increase the risk for medical problems. ? Promoting changes, such as changes in diet and exercise, to help reach a healthy weight. BMI screening can be repeated to see if these changes are working. How is BMI calculated? BMI involves measuring your weight in relation to your height. Both height and weight are measured, and the BMI is calculated from those numbers. This can be done either in [place] ([place] or metric measurements. Note that charts and online BMI calculators are available to help you find your BMI quickly and easily without having to do these calculations yourself. To calculate your BMI in [place] measurements: 1. Measure your weight in pounds (lb). 2. Multiply the number of pounds by 703. ? For example, for a person who weighs 180 lb, multiply that number by 703, which equals 126,540. 3. Measure your height in inches. Then multiply that number by itself to get a measurement called inches squared. ? For example, for a person who is 70 inches tall, the inches squared measurement is 70 inches x 70 inches, which equals 4,900 inches squared. 4. Divide the total from step 2 (number of lb x 703) by the total from step 3 (inches squared): 126,540 ? 4,900 = 25.8. This is your BMI. To calculate your BMI in metric measurements: 1. Measure your weight in kilograms (kg). 2. Measure your height in meters (m). Then multiply that number by itself to get a measurement called meters squared. ? For example, for a person who is 1.75 m tall, the meters squared measurement is 1.75 m x 1.75 m, which is equal to 3.1 meters squared. 3. Divide the number of kilograms (your weight) by the meters squared number. In this example: 70 ? 3.1 = 22.6. This is your BMI. What do the results mean? BMI charts are used to identify whether you are underweight, normal weight, overweight, or obese. The following guidelines will be used: ? Underweight: BMI less than 18.5. ? Normal weight: BMI between 18.5 and 24.9. ? Overweight: BMI between 25 and 29.9. ? Obese: BMI of 30 or above. Keep these notes in mind: ? Weight includes both fat and muscle, so someone with a muscular build, such as an athlete, may have a BMI that is higher than 24.9. In cases like these, BMI is not an accurate measure of body fat. ? To determine if excess body fat is the cause of a BMI of 25 or higher, further assessments may need to be done by a health care provider. ? BMI is usually interpreted in the same way for men and women. Where to find more information For more information about BMI, including tools to quickly calculate your BMI, go to these websites: ? Centers for Disease Control and Prevention: www.cdc.gov ? [place] [employer]: www.heart.org ? National Heart, Lung, and Blood [place]: www.nhlbi.nih.gov Summary ? Body mass index (BMI) is a number that is calculated from a person's weight and height. ? BMI may help estimate how much of a person's weight is composed of fat. BMI can help identify those who may be at higher risk for certain medical problems. ? BMI can be measured using [place]ian measurements or metric measurements. ? BMI charts are used to identify whether you are underweight, normal weight, overweight, or obese. This information is not intended to replace advice given to you by your health care provider. Make sure you discuss any questions you have with your health care provider. Document Revised: 02/23/2020 Document Reviewed: 12/31/2019 [employer] Patient Education ? 2022 [employer] Normal [facility] Lab Reportson 06-17-2023 Lab Reports [id number] .00TIFF [facility] Outside Recordson 06-05-2023 Outside Records [id number]# 1.00TIFF [facility] CBC AND AUTO DIFFon 06-04-20 23 ABSOLUTE BASOPHIL 0.0 X10E9/L Normal 0.0-0.2 [facility] Comment on above: Performed By: #### C BCA, CMP, 2857-1, 14064-3 #### [facility] ([id number]) [address], [address] [place] [address] ABSOLUTE NEUTROPHIL 5.0 X10E9/L Normal 1.5-6.6 [facility] Comment on above: Performed By: #### C BCA, CMP, 285-1, 16107-9 #### [facility] ([id number]) [address], [address] [place] [address] Basophils/100 WBC (Bld) 0.3 % Normal [facility] Comment on above: Performed By: #### C BCA, CMP, 285-1, 78894-2 #### [facility] ([id number]) [address], [address] [place] [address] Eosinophils (Bld) [#/Vol] 0.7 10*3/uL High 0.0-0.4 [facility] Comment on above: Performed By: #### C BCA, CMP, 2857-1, 61264-0 #### [facility] ([id number]) [address], [address] [place] [address] Eosinophils/100 WBC (Bld) 8.7 % Normal [facility] Comment on above: Performed By: #### C BCA, CMP, 2857-1, 26506-4 #### [facility] ([id number]) [address], [address] [place] [address] Erythrocyte distribution width (RBC) [Ratio] 14.9 % Normal 11.5-15.0 [facility] Comment on above: Performed By: #### C BCA, CMP, 2857-1, 82862-6 #### [facility] ([id number]) [address], [address] [place] [address] Hematocrit (Bld) [Volume fraction] 29.5 % Low 39-49 [facility] Comment on above: Performed By: #### C BCA, CMP, 2857-1, 07139-5 #### [facility] ([id number]) [address], [address] [place] [address] Hemoglobin (Bld) [Mass/Vol] 10.1 g/dL Low 13.0-17.0 [facility] Comment on above: Performed By: #### C BCA, CMP, 2857-1, 78772-4 #### [facility] ([id number]) [address], [address] [place] [address] Lymphocytes (Bld) [#/Vol] 2.2 10*3/uL Normal 1.0-3.5 [facility] Comment on above: Performed By: #### Tabitha BCA, CMP, 2857-1, 71132-4 #### [facility] ([id number]) [address], [address] [place] [address] Lymphocytes/100 WBC (Bld) 26.0 % Normal [facility] Comment on above: Performed By: #### Tabitha BCA, CMP, 2857-1, 84998-8 #### [facility] ([id number]) [address], [address] [place] [address] MCH (RBC) [Entitic mass] 30.9 pg Normal 27-34 [facility] Comment on above: Performed By: #### C BCA, CMP, 2857-1, 11640-6 #### [facility] ([id number]) [address], [address] [place] [address] MCHC (RBC) [Mass/Vol] 34.3 g/dL Normal 32-36 [facility] Comment on above: Performed By: #### Tabitha BCA, CMP, 2857-1, 88904-4 #### [facility] ([id number]) [address], [address] [place] [address] MCV (RBC) [Entitic vol] 90 fL Normal 80-100 [facility] Comment on above: Performed By: #### C BCA, CMP, 2857-1, 39818-1 #### [facility] ([id number]) [address], [address] [place] [address] Monocytes (Bld) [#/Vol] 0.4 10*3/uL Normal 0-0.9 [facility] Comment on above: Performed By: #### C BCA, CMP, 2857-1, 80307-7 #### [facility] ([id number]) [address], [address] [place] [address] Monocytes/100 WBC (Bld) 5.0 % Normal [facility] Comment on above: Performed By: #### Tabitha BCA, CMP, 2857-1, 08745-7 #### [facility] ([id number]) [address], [address] [place] [address] Neutrophils/100 WBC (Bld) 60.0 % Normal [facility] Comment on above: Performed By: #### Tabitha BCA, CMP, 2857-1, 92545-8 #### [facility] ([id number]) [address], [address] [place] [address] Platelet mean volume (Bld) [Entitic vol] 9.1 fL Normal 7-12 [facility] Comment on above: Performed By: #### C BCA, CMP, 2857-1, 88993-8 #### [facility] ([id number]) [address], [address] [place] [address] Platelets (Bld) [#/Vol] 249 10*3/uL Normal 150-450 [facility] Comment on above: Performed By: #### Tabitha BCA, CMP, 2857-1, 69790-8 #### [facility] ([id number]) [address], [address] [place] [address] RBC COUNT 3.27 X10E12/L Low 4.10-5.70 [facility] Comment on above: Performed By: #### C BCA, CMP, 2857-1, 24174-1 #### [facility] ([id number]) [address], [facility] [address] [place] [address] WBC (Bld) [#/Vol] 8.3 10*3/uL Normal 4.0-11.0 [facility] Comment on above: Performed By: #### C BCA, CMP, 2857-1, 11688-1 #### [facility] ([id number]) [address], [facility] [address] [place] [address] COMPREHENSIVE METABOLIC PANE Primitivo 06-04-2023 Albumin [Mass/Vol] 3.7 g/dL Normal 3.2-5.3 [facility] Comment on above: Performed By: #### C BCA, CMP, 2857-1, 60413-7 #### [facility] ([id number]) [address] [address] [place] [address] ALP [Catalytic activity/Vol] 80 U/L Normal 39-130 [facility] Comment on above: Performed By: #### C BCA, CMP, 2857-1, 30577-4 #### [facility] ([id number]) [address], [address] [place] [address] ALT [Catalytic activity/Vol] 11 U/L Normal 0-40 [facility] Comment on above: Performed By: #### C BCA, CMP, 2857-1, 38829-0 #### [facility] ([id number]) [address] [place] [address] Anion gap [Moles/Vol] 9 mmol/L Normal 5-15 [facility] Comment on above: Performed By: #### C BCA, CMP, 2857-1, 79932-3 #### [facility] ([id number]) [address], [address] [place] [address] AST [Catalytic activity/Vol] 12 U/L Normal 0-41 [facility] Comment on above: Performed By: #### C BCA, CMP, 2857-1, 11772-8 #### [facility] ([id number]) [address], [address] [place] [address] Bilirubin [Mass/Vol] 0.5 mg/dL Normal 0.3-1.2 [facility] Comment on above: Performed By: #### C BCA, CMP, 2857-1, 79850-2 #### [facility] ([id number]) [address], [address] [place] [address] Calcium [Mass/Vol] 8.7 mg/dL Normal 8.5-10.5 [facility] Comment on above: Performed By: #### C BCA, CMP, 2857-1, 21975-9 #### [facility] ([id number]) [address], [address] [place] [address] Chloride [Moles/Vol] 103 mmol/L Normal 98-109 [facility] Comment on above: Performed By: #### C BCA, CMP, 2857-1, 96778-5 #### [facility] ([id number]) [address], [address] [place] [address] CO2 [Moles/Vol] 23 mmol/L Normal 22-32 [facility] Comment on above: Performed By: #### C BCA, CMP, 2857-1, 97731-7 #### [facility] ([id number]) [address], [address] [place] [address] Creatinine [Mass/Vol] 1.35 mg/dL High 0.60-1.30 [facility] Comment on above: Result Comment: METH OD TRACEABLE TO IDMS STANDARD Performed By: #### C BCA, CMP, 2857-1, 73367-4 #### [facility] ([id number]) [address] [place] [address] GFR/1.73 sq M.predicted among non-blacks MDRD (S/P/Bld) [Vol rate/Area] 53 mL/min/{1.73_m2} Low >59 [facility] Comment on above: Result Comment: Reported eGFR is based on the CKD-EPI 2020 equation that does not use a race coefficient. Performed By: #### C BCA, CMP, 2857-1, 89162-6 #### [facility] ([id number]) [address] [facility] [address] [place] [address] Potassium [Moles/Vol] 4.4 mmol/L Normal 3.5-5.0 [facility] Comment on above: Performed By: #### C BCA, CMP, 2857-1, 94039-4 #### [facility] ([id number]) [address] [facility] [place] [address] Protein [Mass/Vol] 7.2 g/dL Normal 6.0-8.0 [facility] Comment on above: Performed By: #### C BCA, CMP, 2857-1, 79484-7 #### [facility] ([id number]) [address] [address] [address] [place] [address] Sodium [Moles/Vol] 135 mmol/L Normal 134-146 [facility] Comment on above: Performed By: #### C BCA, CMP, 2857-1, 80194-6 #### [facility] ([id number]) [address] [place] [address] Urea nitrogen [Mass/Vol] 25 mg/dL Normal 5-27 [facility] Comment on above: Performed By: #### C BCA, CMP, 2857-1, 47943-1 #### [facility] ([id number]) [address] [place] [address], [address] [place] [address] Family Medicine Office/Clini c Noteon 06-04-2023 Family Medicine Office/Clinic Note HPI Staff Patrick is a 78 year old male presenting for physical and [facility] Recent stress test with Dr Tai, has f/u Jun 05 with him Health Maintenance: Colonoscopy: PSA: 6.95 05/13/23 ( dr alcala) Last Labs: unsure flu: UTD questions/concerns: none but notes his bd sugar still running a little high History of Present Illness Patrick Holly is a 78-year-old male who presents today for a follow-up evaluation of type 2 diabetes. The patient indicates an improvement in his condition since the previous consultation, although he continues to experience elevated morning blood glucose levels. He has an appointment for laboratory tests at the [facility] facility in 09/2023. Review of Systems PHQ Score Initial Depression Screen Score: 0 SCORE Physical Exam Vitals & Measurements T: 37.1 ?C(Temporal Artery) HR: 72(Peripheral) RR: 14 BP: 124/66 SpO2: 96% HT: 66 in HT: 167 cm WT: 80.1 kg WT: 176.22 lb BMI: 28.72 General: alert, no acute distress Cardiovascular: regular rate and rhythm, normal peripheral perfusion Respiratory: Lungs CTA, respirations non labored Extremities: no deformity, no trauma Neurological: oriented x 4, LOC appropriate for age, CN II-XII intact, motor strength equal & normal bilaterally, speech normal Assessment/Plan 1. Type 2 diabetes mellitus with hyperlipidemia (E11.69: Type 2 diabetes mellitus with other specified complication) We are going to do a point of care testing today. The patient is already scheduled for lab work to be done at the [facility] in 09/2023. Since it is the [facility] coverage, I will print off lab requisition for what I need and see if this coinsist with what the [facility] needs, this way we can get all the labs for the patient's type 2 diabetes, so we will use those labs in 09/2023 to redo his stuff in 6 months. The patient is in agreement today and we will use the plan of care to satisfy A1c for this year. 2. Hyperlipidemia (E78.5: Hyperlipidemia, unspecified) The patient is not on a statin at this time. I am unsure why the patient is not on a statin. We will have the patient get a cholesterol and we will discuss further. 3. Paroxysmal atrial fibrillation (I48.0: Paroxysmal atrial fibrillation) The patient was not in atrial fibrillation today. Continue on aspirin and Eliquis. 4. Type 2 diabetes mellitus with peripheral neuropathy (E11.42: Type 2 diabetes mellitus with diabetic polyneuropathy) The patient needs to continue on his gabapentin [facility] to [facility] by the [facility]. 5. Vitamin D deficiency (E55.9: Vitamin D deficiency, unspecified) OTC B12 and we will discuss after his lab work. 6. Vitamin B12 deficiency (E53.8: Deficiency of other specified B group vitamins) We will check and we will address as needed after his blood work in 09/2023. 7. BMI 28.0-28.9,adult (Z68.28: Body mass index [BMI] 28.0-28.9, adult) BMI education given. More than 30 minutes were spent with the patient. Portions of this record may have been created with voice recognition artificial intelligence software, specifically SECU4, Sproutkin and or QuanDx. Substitutions may have occurred due to the inherent limitations of voice recognition and artificial intelligence software. ATTESTATION: Documentation services were performed after patient or guardian consented to allow [employer] to record this visit. KENDRA wildland fire operations specialist and provider reviewed before signing. KENDRA: Dhevie Rigor Follow-up No qualifying data available We will see the patient back in 6 months. Patient Education BMI for Adults Problem List/Past Medical History Ongoing Anticoagulant long-term use BPH with urinary obstruction CAD (coronary artery disease) Elevated PSA HTN (hypertension) Hyperlipidemia Nocturia Paroxysmal atrial fibrillation Pneumaturia Thyroid disease Type 2 diabetes mellitus with hyperlipidemia Type 2 diabetes mellitus with peripheral neuropathy Urinary retention Vitamin B12 deficiency Vitamin D deficiency Historical CAD - Coronary artery disease Procedure/Surgical History Cystoscope (04/11/2023), TRUS (transrectal ultrasound) guided cryoablation of prostate (07/24/2020), Transrectal biopsy of prostate using ultrasound (US) guidance (04/12/2013), 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 Medications amLODIPine 10 mg Tab, 10 mg= 1 tab(s), Oral, Daily Aspir 81, 81 mg, Oral, Daily cholecalciferol 1000 intl units oral capsule, 1000 International_Unit= 1 cap(s), Oral, Daily cyanocobalamin 1000 mcg oral tablet, 1000 mcg= 1 tab(s), Oral, BID Eliquis 5 mg oral tablet, 5 mg= 1 tab(s), Oral, BID empagliflozin-metFORM IN 5 mg-1000 mg oral tablet, Oral, BID gabapentin 100 mg Cap, 100 mg= 1 cap(s), Oral, Daily levothyroxine 25 mcg (0.025 mg) Tab, 25 mcg= 1 tab(s), Oral, Daily lisinopril 40 mg Tab, 40 mg= 1 tab(s), Oral, Daily metoprolol 100 mg ER Tab, 100 mg= 1 tab(s), Oral, BID NitroS (more content not included)... Normal [facility] Comment on above: Result Comment: Elec tronically Signed By: Ernestine Beverly MD\.br\Date and Time Signed: 06/04/23 09:48 EST\.br\Electronically Co-Signed By: Jarrod Goldberg\.br\Date and Time Co-Signed: 05/28/23 14:13 EST HGB A1C (GLYCO-HGB)on 2022 Glucose [Mass/Vol] 186 mg/dL High 65-99 [facility] Comment on above: Performed By: #### C IVY PRIEST, 2857-1, 88256-5 #### [facility] ([id number]) [address] [place] [address], [address] [place] [address] HbA1c (Bld) [Mass fraction] 8.1 % High 4.4-5.6 [facility] Comment on above: Result Comment: NOTE ADA Guidelines Result HgbA1c Normal : less than 5.7 % Prediabetes : 5.7 % to 6.4 % Diabetes : > 6.4 % Use with caution in patients with abnormal hemoglobin variants as the half-life of red blood cells and in vivo glycation rates are affected. Performed By: #### C IVY PRIEST, 2857-1, 87969-4 #### [facility] ([id number]) [address], [address] [place] [address] MICROALBUMIN - ALBUMIN:CREAT ININE URINE RATIOon 06-04-2023 ALB/CREAT RATIO 1031.1 mg/g creat High 0.0-30.0 [facility] Comment on above: Performed By: #### M ALBU #### [facility] ([id number]) [address] [address] [place] [address] Albumin DL <= 20 mg/L (U) [Mass/Vol] 91.5 mg/dL High 0.0-1.9 [facility] Comment on above: Performed By: #### M ALBU #### [facility] ([id number]) [address] [facility] [address] [address] [place] [address] URINE CREAT 88.74 mg/dL Normal [facility] Comment on above: Performed By: #### M ALBU #### [facility] ([id number]) [address] [place] [address] Prostate specific Ag [Mass/V ol]on 06-04-2023 PSA SCREEN 6.18 ng/mL High 0.00-4.00 [facility] Comment on above: Result Comment: The method used for this test is Janette Paresh DXI chemiluminescent immunoassay. Values obtained by different assay methods cannot be used interchangeably. Performed By: #### C BCA, [facility], 2857-1, 65488-7 #### [facility] ([id number]) [address] [place] [address] Vitamin D+Metabolites [Mass/ Vol]on 06-04-2023 VITAMIN D 25 HYD TOT 51.7 ng/mL Normal 30-100 [facility] Comment on above: Result Comment: Vitamin D status 25 [place] Vitamin D Deficiency <20 ng/mL Insufficiency 20-29 ng/mL Sufficiency 30-100 ng/mL Toxicity >100 ng/mL NOTE: A pediatric reference range has not been established by the post production assistant of this kit. The [place] [employer] recommends a Vitamin D level of = or >20ng/mL in infants and children. Performed By: #### C BCA, CMP, 2857-1, 83788-2 #### [facility] ([id number]) [address] [facility] [place] [address] Ambulatory Visit Summaryon 1 07-29-2022 Ambulatory Visit Summary PATRICK HOLLY Leslie :1945 Visit Date:05/28/2023 Ambulatory Visit Instructions Your Diagnosis Type 2 diabetes mellitus with hyperlipidemia Hyperlipidemia Paroxysmal atrial fibrillation Type 2 diabetes mellitus with peripheral neuropathy Vitamin D deficiency Vitamin B12 deficiency BMI 28.0-28.9,adult Your Care Team Attending Physician - Ernestine Beverly MD Primary Care Physician - Ernestine Beverly MD This Is Your Medications List Contact prescribing physician if questions or concerns amlodipine (amLODIPine 10 mg Tab) apixaban (Eliquis 5 mg oral tablet) aspirin (Aspir 81) cholecalciferol (cholecalciferol 1000 intl units oral capsule) cyanocobalamin (cyanocobalamin 1000 mcg oral tablet) empagliflozin-metFORM IN (empagliflozin-metFOR MIN 5 mg-1000 mg oral tablet) gabapentin (gabapentin 100 mg Cap) levothyroxine (levothyroxine 25 mcg (0.025 mg) Tab) lisinopril (lisinopril 40 mg Tab) metoprolol (metoprolol 100 mg ER Tab) nitroglycerin (NitroStat 0.4 mg Tab) omeprazole (Prilosec) pioglitazone (pioglitazone 15 mg Tab) semaglutide (Ozempic (1 mg dose)) tamsulosin (tamsulosin 0.4 mg Cap) Procedures Performed Cystoscope (04/11/2023), TRUS (transrectal ultrasound) guided cryoablation of prostate (07/24/2020), Transrectal biopsy of prostate using ultrasound (US) guidance (04/12/2013), 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 Discharge Vitals Temperature (Temporal Artery) 37.1 ?C Heart Rate (Peripheral) 72 Respiratory Rate 14 Blood Pressure 124/66 Height 167 cm Height 66 in Weight 80.1 kg Weight 176.22 lb BMI 28.72 What to do next Scheduled Follow-Up Appointments 2023 1:00 PM EST With: Jose ALCALA MD Where: [facility] Interpretation Code [address] [place] [address]- \.br\ Friday 10:45 AM EDT \.br\ With: Abida RIOS, Jamie Caicedo\.br\ Where: [facility] [place]\.br\ 2023 1:00 PM EDT \.br\ With: Damian RIOS, Ernestine Meehan\.br\ Where: [facility] Family Medicine [facility] Patient Educationon 05-28-20 Patient Education Nutrition BMI for Adults What is BMI? Body mass index (BMI) is a number that is calculated from a person's weight and height. BMI can help estimate how much of a person's weight is composed of fat. BMI does not measure body fat directly. Rather, it is an alternative to procedures that directly measure body fat, which can be difficult and expensive. BMI can help identify people who may be at higher risk for certain medical problems. What are BMI measurements used for? BMI is used as a screening tool to identify possible weight problems. It helps determine whether a person is obese, overweight, a healthy weight, or underweight. BMI is useful for: ? Identifying a weight problem that may be related to a medical condition or may increase the risk for medical problems. ? Promoting changes, such as changes in diet and exercise, to help reach a healthy weight. BMI screening can be repeated to see if these changes are working. How is BMI calculated? BMI involves measuring your weight in relation to your height. Both height and weight are measured, and the BMI is calculated from those numbers. This can be done either in [place] ([place] or metric measurements. Note that charts and online BMI calculators are available to help you find your BMI quickly and easily without having to do these calculations yourself. To calculate your BMI in [place]ian ([place] measurements: 1. Measure your weight in pounds (lb). 2. Multiply the number of pounds by 703. ? For example, for a person who weighs 180 lb, multiply that number by 703, which equals 126,540. 3. Measure your height in inches. Then multiply that number by itself to get a measurement called inches squared. ? For example, for a person who is 70 inches tall, the inches squared measurement is 70 inches x 70 inches, which equals 4,900 inches squared. 4. Divide the total from step 2 (number of lb x 703) by the total from step 3 (inches squared): 126,540 ? 4,900 = 25.8. This is your BMI. To calculate your BMI in metric measurements: 1. Measure your weight in kilograms (kg). 2. Measure your height in meters (m). Then multiply that number by itself to get a measurement called meters squared. ? For example, for a person who is 1.75 m tall, the meters squared measurement is 1.75 m x 1.75 m, which is equal to 3.1 meters squared. 3. Divide the number of kilograms (your weight) by the meters squared number. In this example: 70 ? 3.1 = 22.6. This is your BMI. What do the results mean? BMI charts are used to identify whether you are underweight, normal weight, overweight, or obese. The following guidelines will be used: ? Underweight: BMI less than 18.5. ? Normal weight: BMI between 18.5 and 24.9. ? Overweight: BMI between 25 and 29.9. ? Obese: BMI of 30 or above. Keep these notes in mind: ? Weight includes both fat and muscle, so someone with a muscular build, such as an athlete, may have a BMI that is higher than 24.9. In cases like these, BMI is not an accurate measure of body fat. ? To determine if excess body fat is the cause of a BMI of 25 or higher, further assessments may need to be done by a health care provider. ? BMI is usually interpreted in the same way for men and women. Where to find more information For more information about BMI, including tools to quickly calculate your BMI, go to these websites: ? Centers for Disease Control and Prevention: www.cdc.gov ? [place] Heart Association: www.heart.org ? National Heart, Lung, and Blood [place]: www.nhlbi.nih.gov Summary ? Body mass index (BMI) is a number that is calculated from a person's weight and height. ? BMI may help estimate how much of a person's weight is composed of fat. BMI can help identify those who may be at higher risk for certain medical problems. ? BMI can be measured using [place]ian measurements or metric measurements. ? BMI charts are used to identify whether you are underweight, normal weight, overweight, or obese. This information is not intended to replace advice given to you by your health care provider. Make sure you discuss any questions you have with your health care provider. Document Revised: 02/23/2020 Document Reviewed: 12/31/2019 [employer] Patient Education ? 2022 [employer] [facility] Cardiovascular Reporton 05-16 Cardiovascular Report [id number] .00TIFF [facility] RAD - Nuclear Medicine Repor ton 05-26-2023 RAD - Nuclear Medicine Report [id number] .00TIFF [facility] Lab Reportson 05-21-2023 Lab Reports [id number] .00TIFF [facility] Screenson 05-21-2023 Screens [id number] .00TIFF [facility] Ambulatory Visit Summaryon 1 07-21-2022 Ambulatory Visit Summary PATRICK HOLLY :1945 Visit Date:05/20/2023 Ambulatory Visit Instructions Your Diagnosis BPH with urinary obstruction Elevated PSA UTI (urinary tract infection) Urinary retention Pneumaturia Tests Performed Urnls Dip Stick Auto w/o Microscopy POC 695[address] Your Care Team Attending Physician - CARI RIOS, Jose Rodriguez Primary Care Physician - Damian RIOS, Ernestine Meehan This Is Your Medications List cephalexin (Keflex 500 mg Cap) tamsulosin (tamsulosin 0.4 mg Cap) Contact prescribing physician if questions or concerns amlodipine (amLODIPine 10 mg Tab) apixaban (Eliquis 5 mg oral tablet) aspirin (Aspir 81) cephalexin (cephalexin 500 mg oral tablet) cholecalciferol (cholecalciferol 1000 intl units oral capsule) cyanocobalamin (cyanocobalamin 1000 mcg oral tablet) empagliflozin-metFORM IN (empagliflozin-metFOR MIN 5 mg-1000 mg oral tablet) gabapentin (gabapentin 100 mg Cap) levothyroxine (levothyroxine 25 mcg (0.025 mg) Tab) lisinopril (lisinopril 40 mg Tab) metoprolol (metoprolol 100 mg ER Tab) nitroglycerin (NitroStat 0.4 mg Tab) omeprazole (Prilosec) oxybutynin (oxybutynin 5 mg Tab) pioglitazone (pioglitazone 15 mg Tab) semaglutide (Ozempic (1 mg dose)) Procedures Performed Cystoscope (04/11/2023), TRUS (transrectal ultrasound) guided cryoablation of prostate (07/24/2020), Transrectal biopsy of prostate using ultrasound (US) guidance (04/12/2013), 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 Discharge Vitals Heart Rate (Peripheral) 82 Blood Pressure 126/70 Height 78.9 cm Height 31 in Weight 81.0 kg Weight 178.2 lb BMI 130.12 What to do next Scheduled Follow-Up Appointments Friday 1:20 PM EST With: Ernestine Beverly MD Where: [facility] [place] Normal [facility] Lab Reportson 05-20-2023 Lab Reports [id number] .00TIFF Normal [facility] Patient Educationon 05-20-20 Patient Education Urology Benign Prostatic Hyperplasia Benign prostatic hyperplasia (BPH) is an enlarged prostate gland that is caused by the normal aging process. The prostate may get bigger as a man gets older. The condition is not caused by cancer. The prostate is a walnut-sized gland that is involved in the production of semen. It is located in front of the rectum and below the bladder. The bladder stores urine. The urethra carries stored urine out of the body. An enlarged prostate can press on the urethra. This can make it harder to pass urine. The buildup of urine in the bladder can cause infection. Back pressure and infection may progress to bladder damage and kidney (renal) failure. What are the causes? This condition is part of the normal aging process. However, not all men develop problems from this condition. If the prostate enlarges away from the urethra, urine flow will not be blocked. If it enlarges toward the urethra and compresses it, there will be problems passing urine. What increases the risk? This condition is more likely to develop in men older than 50 years. What are the signs or symptoms? Symptoms of this condition include: ? Getting up often during the night to urinate. ? Needing to urinate frequently during the day. ? Difficulty starting urine flow. ? Decrease in size and strength of your urine stream. ? Leaking (dribbling) after urinating. ? Inability to pass urine. This needs immediate treatment. ? Inability to completely empty your bladder. ? Pain when you pass urine. This is more common if there is also an infection. ? Urinary tract infection (UTI). How is this diagnosed? This condition is diagnosed based on your medical history, a physical exam, and your symptoms. Tests will also be done, such as: ? A post-void bladder scan. This measures any amount of urine that may remain in your bladder after you finish urinating. ? A digital rectal exam. In a rectal exam, your health care provider checks your prostate by putting a lubricated, gloved finger into your rectum to feel the back of your prostate gland. This exam detects the size of your gland and any abnormal lumps or growths. ? An exam of your urine (urinalysis). ? A prostate specific antigen (PSA) screening. This is a blood test used to screen for prostate cancer. ? An ultrasound. This test uses sound waves to electronically produce a picture of your prostate gland. Your health care provider may refer you to a specialist in kidney and prostate diseases (urologist). How is this treated? Once symptoms begin, your health care provider will monitor your condition (active surveillance or watchful waiting). Treatment for this condition will depend on the severity of your condition. Treatment may include: ? Observation and yearly exams. This may be the only treatment needed if your condition and symptoms are mild. ? Medicines to relieve your symptoms, including: ? Medicines to shrink the prostate. ? Medicines to relax the muscle of the prostate. ? Surgery in severe cases. Surgery may include: ? Prostatectomy. In this procedure, the prostate tissue is removed completely through an open incision or with a laparoscope or robotics. ? Transurethral resection of the prostate (TURP). In this procedure, a tool is inserted through the opening at the tip of the penis (urethra). It is used to cut away tissue of the inner core of the prostate. The pieces are removed through the same opening of the penis. This removes the blockage. ? Transurethral incision (TUIP). In this procedure, small cuts are made in the prostate. This lessens the prostate's pressure on the urethra. ? Transurethral microwave thermotherapy (TUMT). This procedure uses microwaves to create heat. The heat destroys and removes a small amount of prostate tissue. ? Transurethral needle ablation (TUNA). This procedure uses radio frequencies to destroy and remove a small amount of prostate tissue. ? Interstitial laser coagulation (ILC). This procedure uses a laser to destroy and remove a small amount of prostate tissue. ? Transurethral electrovaporization (TUVP). This procedure uses electrodes to destroy and remove a small amount of prostate tissue. ? Prostatic urethral lift. This procedure inserts an implant to push the lobes of the prostate away from the urethra. Follow these instructions at home: ? Take [id number] and prescription medicines only as told by your health care provider. ? Monitor your symptoms for any changes. Contact your health care provider with any changes. ? Avoid drinking large amounts of liquid before going to bed or out in public. ? Avoid or reduce how much caffeine or alcohol you drink. ? Give yourself time when you urinate. ? Keep all follow-up visits. This is important. Contact a health care provider if: ? You have unexplained back pain. ? Your symptoms do not get better with treatment. ? You develop side effects from the medicine (more content not included)... Normal [facility] Urology Office/Clinic Noteon 05-20-2023 Urology Office/Clinic Note Chief Complaint 6 week follow up HPI Staff Pt here for 6 wk f/u with PVR and PSA. PVR today 0cc. S/p cysto 04/11/23. Flomax 0.4 mg qd Most recent PSA from 05/13/2023 was 6.95 & 7.2%, previous PSA 28.0 & 15.4% done 03/12/23 Dysuria: denies pain or burning Incomplete bladder emptying: denies Hematuria: denies visible blood Frequency: denies Urgency: denies Nocturia: 1x a night Stream: denies hesitancy, yes weak stream Leaking: denies Post void dripping: yes Wearing pads/ Depends: denies Urge incontinence: denies Stress incontinence: denies Incontinence without Sensory Awareness: denies Abdominal pain: denies Flank pain: denies Sexual complaints: denies History of Present Illness Tests reviewed: reviewed UA, PVR, and PSA F&T. I have reviewed the previous health record information and history for this patient from . I have reviewed and verified the staff HPI to be accurate for this encounter. There have been no associated fever, chills, flank pain, or blood in the urine. Denies any urinary infections since last encounter. Review of Systems PHQ Score Initial Depression Screen Score: 0 SCORE ROS - Provider Constitutional: denies weight loss, denies hot flashes. Eyes: denies eye problems. Gastrointestinal: denies nausea, denies vomiting. Cardiovascular: denies chest pain or angina. Integumentary: no dryness Musculoskeletal: denies musculoskeletal symptoms. ENMT: denies otolaryngeal symptoms. Respiratory: no shortness of breath. Heme/Lymph: denies easy bleeding tendency, denies easy bruising tendency. Psychiatric: no confusion, no anxiety. Genitourinary: See HPI. Physical Exam Vitals & Measurements HR: 82(Peripheral) BP: 126/70 HT: 31 in HT: 78.9 cm WT: 81.0 kg WT: 178.2 lb BMI: 130.12 General Appearance: alert, no distress, well nourished, well developed male. Assessment/Plan 1. BPH with urinary obstruction (N40.1: Benign prostatic hyperplasia with lower urinary tract symptoms) S/p TRUS/bx 07/24/[address] Yin. Pt presented to [facility] on 03/11/23 for blood in urine & dysuria. On 03/07/23 pt was diagnosed w/ acute urinary tract infection (E-Coli), treated with Keflex. DINORA 03/11/23 [facility] - enlarged prostate gland w/ large post void residual on 341, prominent hypoechoic area seen in the prostate gland measuring 1.3x1.5x1.6cm. CT 03/11/23 [facility] - prostatomegaly. Pt has olivo catheter, placed in [facility] due to high residual volume. Pt was started on Tamsulosin and Oxybutynin. S/p Cysto 04/11/23 - 4cm, lateral lobe hypertrophy, no median lobe, catheter cystitis-red, irritated, moderate trabeculation Pt is currently taking Tamsulosin 0.4mg QD. Pt denies any bothersome urinary sxs. Advised pt to continue taking the Tamsulosin. -Continue Tamsulosin as above. Pt is to call for refills. 2. Elevated PSA (R97.20: Elevated prostate specific antigen [PSA]) PSA 05/2020 - 6.71 05/07/21 - 8.03 & 19.8% 03/12/23 - 28.0 & 15.4% (infected) 05/13/23 - 6.95 & 7.2%. Discussed PSA level with pt, decreased from previous, back to pt's normal range, previous was from when the pt was infected. Will continue to monitor. 3. UTI (urinary tract infection) (N39.0: Urinary tract infection, site not specified) UA today shows trace-intact blood and small leuks. Asx. Pt states that he has only had one infection in the last 6 mos. -See #1 4. Urinary retention (R33.9: Retention of urine, unspecified) PVR today was 0mL. Advised pt that he is emptying well now. -See #1 5. Pneumaturia (R39.89: Other symptoms and signs involving the genitourinary system) Pt states that when he gets done voiding, he has air coming out of his penis, can hear it, is not straining when he voids, not all of the time. Advised pt that if this continues to happen, we would need to have a repeat cysto, unless he has another infection, then we will need to get the cysto done sooner. Follow up w/Cysto. All questions/concerns were discussed. Pt to call the office if he encounters any issues prior. Pt acknowledges understanding. -Will schedule cysto. The risks and benefits for cystoscopy have been discussed. The risks include bleeding, infection, and irritation of the bladder and urinary channel, among others. The patient, after being informed of procedural details and after questions have been answered, wishes to proceed. Full informed consent has been obtained. Will order Local anesthesia. Abx sent -Will send Keflex 500mg QD x2days to pharm on file. Discussed the medication side effects, and the patient will monitor closely for these, as well as for symptom improvement. If severe side effects occur, the medication should be stopped and the office notified. Overall this patient previously had gone into urinary retention with an episode of prostatitis. He had cystoscopy performed demonstrating catheter cystitis but nothing obvious other than moderate prostate enlargement. After clearance of the infection his PVR is 0 at this point. He has not (more content not included)... [facility] Comment on above: Result Comment: Elec tronically Signed By: Jose ALCALA MD\.br\Date and Time Signed: 05/20/23 13:42 EST\.br\Electronically Co-Signed By: Arminda Aldridge\.br\Date and Time Co-Signed: 05/20/23 13:38 EST Heart and Vascular Office/Cl inic Noteon 05-15-2023 Heart and Vascular Office/Clinic Note Chief Complaint here for test results History of Present Illness Patrick Holly is a 78-year-old male with a history of coronary artery disease, prior coronary artery bypass in 2014, remote percutaneous coronary intervention in 2001, and paroxysmal atrial fibrillation on Eliquis, first diagnosed in 2015. The patient reports that he is doing well. He has had 3 echocardiograms carried out within the past year. The first one was performed at the [facility] in [place], the second at a medical facility in [place], and this is the third one. He has a stress test scheduled for 05/26/2023. Review of Systems Constitutional: no fever, no sweats, no weakness Skin: no rash, no lesions, no bruising/petechiae ENMT: no sore throat, no congestion, no hoarseness Respiratory: no shortness of breath, no cough, no orthopnea, no wheezing Cardiovascular: no chest pain, no palpitations, no edema Gastrointestinal: no nausea, no vomiting, no diarrhea, no GI bleeding Genitourinary: no anuria/oliguria no hematuria Musculoskeletal: no back pain, no trauma Neurologic: no headache, no dizziness, no numbness, no weakness Psychiatric: no sleeping problems, no irritability, no anxiety/depression. Heme/Lymph: no bleeding tendency, no bruising tendency Allergy/Immunologic: no recurrent infections, no impaired immunity Additional ROS info: Except as noted in the above Review of Systems and in the History of Present Illness all other systems have been reviewed and are negative or noncontributory Physical Exam Vitals & Measurements HR: 86(Peripheral) BP: 132/68 SpO2: 90% HT: 66 in HT: 167 cm WT: 81.4 kg WT: 179.08 lb BMI: 29.19 General: alert, no acute distress Skin: warm, dry intact Head: atraumatic, normocephalic Neck: trachea midline, no JVD, no bruit Eye: normal conjunctiva, sclera clear ENMT: oral mucosa moist Cardiovascular: regular rate and rhythm, no murmur, normal peripheral perfusion Respiratory: lungs CTA, respirations non labored Chest wall: no deformity. Gastrointestinal: soft, non-distended, no tenderness, no guarding. Back: no tenderness, normal ROM, normal alignment. Extremities: no edema, no deformity, no trauma Neurological: oriented x 4, LOC appropriate for age, sensation equal & normal bilaterally, speech normal Psychiatric: cooperative, affect appropriate for age, normal judgement, normal psychiatric thoughts. Assessment/Plan Patrick Holly is a 78-year-old male with a history of paroxysmal atrial fibrillation, coronary artery disease, prior bypass surgery, hypertension, hyperlipidemia, and diabetes. Overall, he is doing well. No significant symptoms. Echocardiogram showed normal left ventricular systolic function and had a postop septum, normal right ventricular systolic pressure stress test. He is to follow at [facility] in 05/2023. We will give him a call with the results. 1. Coronary artery disease, remote coronary artery bypass graft, remote percutaneous coronary intervention. Stress test pending. No significant symptoms currently. 2. Hypertension. Well controlled on lisinopril, metoprolol, and amlodipine. 3. Hyperlipidemia. Statin intolerant. 4. Diabetes. Managed by Dr. Beverly. On semaglutide, which recently has been demonstrated and does well for cardiac patients for paroxysmal atrial fibrillation. On Eliquis and metoprolol. Follow up in 6 months. ATTESTATION: Portions of this record may have been created with voice recognition artificial intelligence software, specifically [employer], [employer] and or [employer]. Substitutions may have occurred due to the inherent limitations of voice recognition and artificial intelligence software. Documentation services were performed after patient or guardian consented to allow [employer] to record this visit. [employer] wildland fire operations specialist and provider reviewed before signing. KENDRA: Marisela Mueller Follow-up No qualifying data available Problem List/Past Medical History Ongoing Acute cystitis with hematuria DANIAL (acute kidney injury) Anticoagulant long-term use BPH with urinary obstruction CAD (coronary artery disease) Diabetes Elevated PSA Hospital discharge follow-up HTN (hypertension) Hyperlipidemia Hypertension Nocturia Thyroid disease Urinary retention UTI (urinary tract infection) Historical CAD - Coronary artery disease Procedure/Surgical History Cystoscope (04/11/2023), TRUS (transrectal ultrasound) guided cryoablation of prostate (07/24/2020), Transrectal biopsy of prostate using ultrasound (US) guidance (04/12/2013), 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 Medications amLODIPine 10 mg Tab, 10 mg= 1 tab(s), Oral, Daily Aspir 81, 81 mg, Oral, Daily cephalexin 500 mg oral tablet, Oral, QID cholecalciferol 1000 intl units oral capsule, 1000 International_Unit= 1 cap(s), Oral, Daily cyanocobalamin 1000 mcg oral tablet, 1000 mc (more content not included)... [facility] Comment on above: Result Comment: Elec tronically Signed By: Abida RIOS, Jamie Caicedo\.br\Date and Time Signed: 05/15/23 19:45 EST\.br\Electronically Co-Signed By: Marisela Mueller.br\Date and Time Co-Signed: 05/15/23 18:04 EST Physician Orderon 05-15-2023 Physician Order [id number]# 1.00TIFF [facility] Heart and Vascular Office/Cl inic Noteon 05-11-2023 Heart and Vascular Office/Clinic Note Chief Complaint here to establish care History of Present Illness Patrick Holly is a 77-year-old male with a history of coronary artery disease, prior coronary artery bypass graft in 2014, remote percutaneous coronary intervention in 2001, paroxysmal atrial fibrillation on Eliquis, first diagnosed in 2016. He is on appropriate therapy for hypertension with amlodipine and metoprolol. For his paroxysmal atrial fibrillation, he is on Eliquis and metoprolol. He is diabetic, managed elsewhere. The patient has undergone a previous open heart surgery and has stents implanted. He reports that his previous legal specialist retired. He has a history of atrial fibrillation and is currently on Eliquis. The patient denies any symptoms of chest pain, dyspnea, or lower extremity edema. He states that he is feeling well. No recent diagnostic tests, such as an echocardiogram or stress test, have been performed. The patient's last stress test was conducted three years ago. He further explains that he was unable to complete a treadmill stress test. Review of Systems Constitutional: no fever, no sweats, no weakness Skin: no rash, no lesions, no bruising/petechiae ENMT: no sore throat, no congestion, no hoarseness Respiratory: no shortness of breath, no cough, no orthopnea, no wheezing Cardiovascular: no chest pain, no palpitations, no edema Gastrointestinal: no nausea, no vomiting, no diarrhea, no GI bleeding Genitourinary: no anuria/oliguria no hematuria Musculoskeletal: no back pain, no trauma Neurologic: no headache, no dizziness, no numbness, no weakness Psychiatric: no sleeping problems, no irritability, no anxiety/depression. Heme/Lymph: no bleeding tendency, no bruising tendency Allergy/Immunologic: no recurrent infections, no impaired immunity Additional ROS info: Except as noted in the above Review of Systems and in the History of Present Illness all other systems have been reviewed and are negative or noncontributory Physical Exam Vitals & Measurements HR: 73(Peripheral) BP: 130/68 SpO2: 93% HT: 66 in HT: 167 cm WT: 78.6 kg WT: 172.92 lb BMI: 28.18 General: alert, no acute distress Skin: warm, dry intact Head: atraumatic, normocephalic Neck: trachea midline, no JVD, no bruit Eye: normal conjunctiva, sclera clear ENMT: oral mucosa moist Cardiovascular: regular rate and rhythm, no murmur, normal peripheral perfusion Respiratory: lungs CTA, respirations non labored Chest wall: no deformity. Gastrointestinal: soft, non-distended, no tenderness, no guarding. Back: no tenderness, normal ROM, normal alignment. Extremities: no edema, no deformity, no trauma Neurological: oriented x 4, LOC appropriate for age, sensation equal & normal bilaterally, speech normal Psychiatric: cooperative, affect appropriate for age, normal judgement, normal psychiatric thoughts. Assessment/Plan CAD (coronary artery disease) (I25.10: Atherosclerotic heart disease of [place] coronary artery without angina pectoris) Patrick Holly is a 77-year-old male with a history of coronary artery disease, prior coronary artery bypass graft in 2014, remote percutaneous coronary intervention in 2001, paroxysmal atrial fibrillation on Eliquis, first diagnosed in 2015. He is on appropriate therapy for hypertension with amlodipine and metoprolol. For his paroxysmal atrial fibrillation, he is on Eliquis and metoprolol. He is diabetic, managed elsewhere. He is not having any angina. We will get a stress test to evaluate for ischemia that is asymptomatic or silent. We will also get a transthoracic echo to assess left ventricle function. Echocardiogram is abnormal for premature ventricular contractions, left axis deviation, left anterior fascicular block, poor R wave progression. Follow up in 6 weeks for reassessment. ATTESTATION: Portions of this record may have been created with voice recognition artificial intelligence software, specifically SECU[employer], [employer]kin and or [employer]anDx. Substitutions may have occurred due to the inherent limitations of voice recognition and artificial intelligence software. Documentation services were performed after patient or guardian consented to allow [employer] to record this visit. [employer] wildland fire operations specialist and provider reviewed before signing. KENDRA: Marisela Mueller Follow-up No qualifying data available Problem List/Past Medical History Ongoing Acute cystitis with hematuria DANIAL (acute kidney injury) Anticoagulant long-term use BPH with urinary obstruction CAD (coronary artery disease) Diabetes Elevated PSA Hospital discharge follow-up HTN (hypertension) Hyperlipidemia Hypertension Nocturia Thyroid disease Urinary retention UTI (urinary tract infection) Historical CAD - Coronary artery disease Procedure/Surgical History TRUS (transrectal ultrasound) guided cryoablation of prostate (07/24/2020), Transrectal biopsy of prostate using ultrasound (US) guidance ( (more content not included)... [facility] Comment on above: Result Comment: Elec tronically Signed By: Abida RIOS, Jamie Caicedo\.br\Date and Time Signed: 05/11/23 19:24 EST\.br\Electronically Co-Signed By: Marisela Mueller\.br\Date and Time Co-Signed: 04/03/23 16:27 EDT [facility] 04-14-20 [facility] Case Information Case Priority: None Programs: -- Referral Source: Gas Leak Tester Referral Reason: Care coordination Case Type: Transition Care Management Risk Score: -- Case Status: Enrolled (March 13, 2023) Date Assigned: March 13, 2023 Assigned By: Jeanne Stone RN Date Enrolled: March 13, 2023 Assigned Primary Personnel: Jeanne Stone RN Assigned Secondary Personnel: Josue Nelson Case Physician: Ernestine Beverly MD Ongoing Acute cystitis with hematuria DANIAL (acute kidney injury) Anticoagulant long-term use BPH with urinary obstruction CAD (coronary artery disease) Diabetes Elevated PSA Hospital discharge follow-up HTN (hypertension) Hyperlipidemia Hypertension Nocturia Thyroid disease Urinary retention UTI (urinary tract infection) Historical CAD - Coronary artery disease Procedure/Surgical History Cystoscope (04/11/2023), TRUS (transrectal ultrasound) guided cryoablation of prostate (07/24/2020), Transrectal biopsy of prostate using ultrasound (US) guidance (04/12/2013), 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 Home Medications amLODIPine 10 mg Tab, 10 mg= 1 tab(s), Oral, Daily Aspir 81, 81 mg, Oral, Daily cephalexin 500 mg oral tablet, Oral, QID cholecalciferol 1000 intl units oral capsule, 1000 International_Unit= 1 cap(s), Oral, Daily cyanocobalamin 1000 mcg oral tablet, 1000 mcg= 1 tab(s), Oral, BID Eliquis 5 mg oral tablet, 5 mg= 1 tab(s), Oral, BID empagliflozin-metFORM IN 5 mg-1000 mg oral tablet, Oral, BID gabapentin 100 mg Cap, 100 mg= 1 cap(s), Oral, Daily levothyroxine 25 mcg (0.025 mg) Tab, 25 mcg= 1 tab(s), Oral, Daily lisinopril 40 mg Tab, 40 mg= 1 tab(s), Oral, Daily metoprolol 100 mg ER Tab, 100 mg= 1 tab(s), Oral, Daily NitroStat 0.4 mg Tab, 0.4 mg= 1 tab(s), SubLingual, q5min oxybutynin 5 mg Tab, 5 mg= 1 tab(s), Oral, TID, PRN Ozempic (1 mg dose), SubCutaneous, qWeek pioglitazone 15 mg Tab, 15 mg= 1 tab(s), Oral, Daily Prilosec, Oral, Daily tamsulosin 0.4 mg Cap, 0.4 mg= 1 cap(s), Oral, Daily, 11 refills Allergies No Known Medication Allergies Social History Alcohol - Low Risk, 02/08/2019 Current, 1-2 times per year, 02/08/2019 Tobacco Former smoker, quit more than 30 days ago Tobacco Use:. Never Smokeless Tobacco Use:. Cigarettes, 04/11/2023 Family History Family history is negative Screenings and Assessments 03/13/23 15:30:00 Result Name Value Comment Phone Call Monitoring Consent Agreed to continue call Phone Verification Patient Information Full name, street address and date of verified CM Program Enrollment Provides verbal consent for enrollment Goals and Interventions Care Plan Progress Note TCM #5- final call- Patient in good spirits. Stated he had his procedure on 04/11/23 and his Olivo catheter was removed. Stated he is a very happy person about that. Stated he has a weak stream when he starts to urinate but other than that he has not had any problems. Feels like he is going more frequently than before but denies any burning or blood in urine. Drinking plenty of fluids and taking his Flomax as prescribed. Stated FBS was 208 this morning. Eating and drinking well. Denies any further questions or concerns. Explained that this was the final call in the TCM program as he has been out of the hospital for 30 days and to call the office with any future questions or concerns. Communication Events Date: April 14, 2023 Method: Phone call Type: Outbound Duration (min): 4 Outcome: Case discussion Contact Type: Patient Contact Name: PATRICK HOLLY Notes: TCM call #5- final call- see case summary note. Created By: Xiomara Orozco RN Date: April 07, 2023 Method: Phone call Type: Outbound Duration (min): 3 Outcome: Case discussion Contact Type: Patient Contact Name: PATRICK HOLLY Notes: TCM #4- see case summary note. Created By: Xiomara Orozco RN Date: March 31, 2023 Method: Phone call Type: Outbound Duration (min): 2 Outcome: Case discussion Contact Type: Patient Contact Name: PATRICK HOLLY Notes: TCM #3- see case summary note. Created By: Xiomara Orozco RN Date: March 25, 2023 Method: Phone call Type: Outbound Duration (min): 4 Outcome: Case discussion Contact Type: sales project coordinator Contact Name: Josue Nelson Notes: TCM#2- Spoke with pt for tcm program call status update, see case summary note. Created By: Josue Nelson Date: March 13, 2023 Method: Phone call Type: Outbound Duration (min): 11 Outcome: Case discussion Contact Type: sales project coordinator Contact Name: Jeanne Stone RN Notes: TCM #1, see FT summary note Created By: Jeanne Stone RN [facility] Ambulatory Visit Summaryon 1 Ambulatory Visit Summary PATRICK HOLLY :1945 Visit Date:04/11/2023 Ambulatory Visit Instructions Your Diagnosis BPH with urinary obstruction Elevated PSA UTI (urinary tract infection) Urinary retention Your Care Team Attending Physician - CARI RIOS, Jose Rodriguez Primary Care Physician - Damian RIOS, Ernestine Meehan This Is Your Medications List tamsulosin (tamsulosin 0.4 mg Cap) Contact prescribing physician if questions or concerns amlodipine (amLODIPine 10 mg Tab) apixaban (Eliquis 5 mg oral tablet) aspirin (Aspir 81) cephalexin (cephalexin 500 mg oral tablet) cholecalciferol (cholecalciferol 1000 intl units oral capsule) cyanocobalamin (cyanocobalamin 1000 mcg oral tablet) empagliflozin-metFORM IN (empagliflozin-metFOR MIN 5 mg-1000 mg oral tablet) gabapentin (gabapentin 100 mg Cap) levothyroxine (levothyroxine 25 mcg (0.025 mg) Tab) lisinopril (lisinopril 40 mg Tab) metoprolol (metoprolol 100 mg ER Tab) nitroglycerin (NitroStat 0.4 mg Tab) omeprazole (Prilosec) oxybutynin (oxybutynin 5 mg Tab) pioglitazone (pioglitazone 15 mg Tab) semaglutide (Ozempic (1 mg dose)) Procedures Performed Cystoscope (04/11/2023), TRUS (transrectal ultrasound) guided cryoablation of prostate (07/24/2020), Transrectal biopsy of prostate using ultrasound (US) guidance (04/12/2013), 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 Discharge Vitals Heart Rate (Peripheral) 83 Blood Pressure 140/82 Weight 78.9 kg Weight 173.58 lb What to do next Scheduled Follow-Up Appointments 2022 2:15 PM EST With: Abida RIOS, Jamie Caicedo Where: [facility] Friday 1:00 PM EST With: Jose ALCALA MD Where: [facility] [id number] \.br\ You Need to Schedule the Following Appointments\.br \ Follow Up with CARI RIOS, Jose Rodriguez, URL When: \.br\ Comments:\.br\ 6wks w/ PVR and PSA\.br\ Where:\.br\ [address] [place] [address] 3\.br\ [place] [address].br\ \.br\ Medications\.br\ What How Much When Instructions\.br \ Unchanged tamsulosin (tamsulosin 0.4 mg Cap) By Mouth Every day\.br\ Unchanged amlodipine (amLODIPine 10 mg Tab) 1 Tablets By Mouth Every day Contact prescribing physician if questions or concerns \.br\ Unchanged apixaban (Eliquis 5 mg oral tablet) 1 Tablets By Mouth 2 times a day Contact prescribing physician if questions or concerns \.br\ Unchanged aspirin (Aspir 81) 81 Milligram By Mouth Every day Contact prescribing physician if questions or concerns \.br\ Unchanged cephalexin (cephalexin 500 mg oral tablet) By Mouth 4 times a day Contact prescribing physician if questions or concerns \.br\ Unchanged cholecalciferol (cholecalciferol 1000 intl units oral capsule) 1 Capsules By Mouth Every day Contact prescribing physician if questions or concerns \.br\ Unchanged cyanocobalamin (cyanocobalamin 1000 mcg oral tablet) 1 Tablets By Mouth 2 times a day Contact prescribing physician if questions or concerns \.br\ Unchanged empagliflozin-me tFORMIN (empagliflozin-m etFORMIN 5 mg-1000 mg oral tablet) By Mouth 2 times a day Contact prescribing physician if questions or concerns \.br\ Unchanged gabapentin (gabapentin 100 mg Cap) 1 Capsules By Mouth Every day Contact prescribing physician if questions or concerns \.br\ Unchanged levothyroxine (levothyroxine 25 mcg (0.025 mg) Tab) 1 Tablets By Mouth Every day Contact prescribing physician if questions or concerns \.br\ Unchanged lisinopril (lisinopril 40 mg Tab) 1 Tablets By Mouth Every day Contact prescribing physician if questions or concerns \.br\ Unchanged metoprolol (metoprolol 100 mg ER Tab) 1 Tablets By Mouth Every day Contact prescribing physician if questions or concerns \.br\ Unchanged nitroglycerin (NitroStat 0.4 mg Tab) 1 Tablets Sublingual Every 5 minutes Contact prescribing physician if questions or concerns \.br\ Unchanged omeprazole (Prilosec) By Mouth Every day Contact prescribing physician if questions or concerns \.br\ Unchanged oxybutynin (oxybutynin 5 mg Tab) 1 Tablets By Mouth 3 times a day as needed for for urinary discomfort Contact prescribing physician if questions or concerns \.br\ Unchanged pioglitazone (pioglitazone 15 mg Tab) 1 Tablets By Mouth Every day Contact prescribing physician if questions or concerns \.br\ Unchanged semaglutide (Ozempic (1 mg dose)) Subcutaneous Every week Contact prescribing physician if questions or concerns \.br\ Allergies\.br\ No Known Medication Allergies\.br\ Problems\.br\ Ongoing - Any problem that you are currently receiving treatment for.\.br\ Acute cystitis with hematuria\.br\ DANIAL (acute kidney injury)\.br\ Anticoagulant long-term use\.br\ BPH with urinary obstruction\.br\ CAD (coronary artery disease)\.br\ Diabetes\.br\ Elevated PSA\.br\ Hospital discharge follow-up\.br\ HTN (hypertension)\. br\ Hyperlipidemia\. br\ Hypertension\.br \ Nocturia\.br\ Thyroid disease\.br\ Urinary retention\.br\ UTI (urinary tract infection)\.br\ Historical - Any problem that you are no longer receiving treatment for.\.br\ CAD - Coronary artery disease\.br\ Patient Survey\.br\ You may receive a survey via text or e-mail asking about your office visit. Please share your experience with us by completing your survey. We appreciate your feedback and thank you for choosing us for your care.\.br\ Education Materials\.br\ Acute Urinary Retention, Male\.br\ \.br\ Acute urinary retention is a condition in which a person is unable to pass urine or can only pass a little urine. This condition can happen suddenly and last for a short time. If left untreated, it can become long-term (chronic) and result in kidney damage or other serious complications.\. br\ What are the causes?\.br\ This condition may be caused by:\.br\ ? \.br\ Obstruction or narrowing of the tube that drains the bladder (urethra). This may be caused by surgery, problems with nearby organs, or injury to the bladder or urethra.\.br\ ? \.br\ Problems with the nerves in the bladder.\.br\ ? \.br\ Tumors in the area of the pelvis, bladder, or urethra.\.br\ ? \.br\ Certain medicines.\.br\ ? \.br\ Bladder or urinary tract infection.\.br\ ? \.br\ Constipation.\.b r\ What increases the risk?\.br\ This condition is more likely to develop in older men. As men age, their prostate may become larger and may start to press or squeeze on the bladder or the urethra. Other chronic health conditions can increase the risk of acute urinary retention. These include:\.br\ ? \.br\ Diseases such as multiple sclerosis.\.br\ ? \.br\ Spinal cord injuries.\.br\ ? \.br\ Diabetes.\.br\ ? \.br\ Degenerative cognitive conditions, such as delirium or dementia.\.br\ ? \.br\ Psychological conditions. A man may hold his urine due to trauma or because he does not want to use the bathroom.\.br\ What are the signs or symptoms?\.br\ Symptoms of this condition include:\.br\ ? \.br\ Trouble urinating.\.br\ ? \.br\ Pain in the lower abdomen.\.br\ How is this diagnosed?\.br\ This condition is diagnosed based on a physical exam and your medical history. You may also have other tests, including:\.br\ ? \.br\ An ultrasound of the bladder or kidneys or both.\.br\ ? \.br\ Blood tests.\.br\ ? \.br\ A urine analysis.\.br\ ? \.br\ Additional tests may be needed, such as a CT scan, MRI, and kidney or bladder function tests.\.br\ How is this treated?\.br\ Treatment for this condition may include:\.br\ ? \.br\ Medicines.\.br\ ? \.br\ Placing a thin, sterile tube (catheter) into the bladder to drain urine out of the body. This is called an indwelling urinary catheter. After it is inserted, the catheter is held in place with a small balloon that is filled with sterile water. Urine drains from the catheter into a collection bag outside of the body.\.br\ ? \.br\ Behavioral therapy.\.br\ ? \.br\ Treatment for other conditions.\.br\ If needed, you may be treated in the hospital for kidney function problems or to manage other complications.\. br\ Follow these instructions at home:\.br\ Medicines\.br\ ? \.br\ Take gkxn-cww-fqgybky and prescription medicines only as told by your health care provider. Avoid certain medicines, such as decongestants, antihistamines, and some prescription medicines. Do not take any medicine unless your health care provider approves.\.br\ ? \.br\ If you were prescribed an antibiotic medicine, take it as told by your health care provider. Do not stop using the antibiotic even if you start to feel better.\.br\ General instructions\.br \ ? \.br\ Do not use any products that contain nicotine or tobacco. These products include cigarettes, chewing tobacco, and vaping devices, such as e-cigarettes. If you need help quitting, ask your health care provider.\.br\ ? \.br\ Drink enough fluid to keep your urine pale yellow.\.br\ ? \.br\ If you have an indwelling urinary catheter, follow the instructions from your health care provider.\.br\ ? \.br\ Monitor any changes in your symptoms. Tell your health care provider about any changes.\.br\ ? \.br\ If instructed, monitor your blood pressure at home. Report changes as told by meghana [facility] Consent for Procedure/Surger yon 04-11-2023 Consent for Procedure/Surgery [id number] .00TIFF Normal [facility] Patient Educationon 04-11-20 Patient Education Urology Acute Urinary Retention, Male Acute urinary retention is a condition in which a person is unable to pass urine or can only pass a little urine. This condition can happen suddenly and last for a short time. If left untreated, it can become long-term (chronic) and result in kidney damage or other serious complications. What are the causes? This condition may be caused by: ? Obstruction or narrowing of the tube that drains the bladder (urethra). This may be caused by surgery, problems with nearby organs, or injury to the bladder or urethra. ? Problems with the nerves in the bladder. ? Tumors in the area of the pelvis, bladder, or urethra. ? Certain medicines. ? Bladder or urinary tract infection. ? Constipation. What increases the risk? This condition is more likely to develop in older men. As men age, their prostate may become larger and may start to press or squeeze on the bladder or the urethra. Other chronic health conditions can increase the risk of acute urinary retention. These include: ? Diseases such as multiple sclerosis. ? Spinal cord injuries. ? Diabetes. ? Degenerative cognitive conditions, such as delirium or dementia. ? Psychological conditions. A man may hold his urine due to trauma or because he does not want to use the bathroom. What are the signs or symptoms? Symptoms of this condition include: ? Trouble urinating. ? Pain in the lower abdomen. How is this diagnosed? This condition is diagnosed based on a physical exam and your medical history. You may also have other tests, including: ? An ultrasound of the bladder or kidneys or both. ? Blood tests. ? A urine analysis. ? Additional tests may be needed, such as a CT scan, MRI, and kidney or bladder function tests. How is this treated? Treatment for this condition may include: ? Medicines. ? Placing a thin, sterile tube (catheter) into the bladder to drain urine out of the body. This is called an indwelling urinary catheter. After it is inserted, the catheter is held in place with a small balloon that is filled with sterile water. Urine drains from the catheter into a collection bag outside of the body. ? Behavioral therapy. ? Treatment for other conditions. If needed, you may be treated in the hospital for kidney function problems or to manage other complications. Follow these instructions at home: Medicines ? Take rlui-htz-exmrrvx and prescription medicines only as told by your health care provider. Avoid certain medicines, such as decongestants, antihistamines, and some prescription medicines. Do not take any medicine unless your health care provider approves. ? If you were prescribed an antibiotic medicine, take it as told by your health care provider. Do not stop using the antibiotic even if you start to feel better. General instructions ? Do not use any products that contain nicotine or tobacco. These products include cigarettes, chewing tobacco, and vaping devices, such as e-cigarettes. If you need help quitting, ask your health care provider. ? Drink enough fluid to keep your urine pale yellow. ? If you have an indwelling urinary catheter, follow the instructions from your health care provider. ? Monitor any changes in your symptoms. Tell your health care provider about any changes. ? If instructed, monitor your blood pressure at home. Report changes as told by your health care provider. ? Keep all follow-up visits. This is important. Contact a health care provider if: ? You have uncomfortable bladder contractions that you cannot control (spasms). ? You leak urine with the spasms. Get help right away if: ? You have chills or a fever. ? You have blood in your urine. ? You have a catheter and the following happens: ? Your catheter stops draining urine. ? Your catheter falls out. Summary ? Acute urinary retention is a condition in which a person is unable to pass urine or can only pass a little urine. If left untreated, this condition can result in kidney damage or other serious complications. ? An enlarged prostate may cause this condition. As men age, their prostate gland may become larger and may press or squeeze on the bladder or the urethra. ? Treatment for this condition may include medicines and placement of an indwelling urinary catheter. ? Monitor any changes in your symptoms. Tell your health care provider about any changes. This information is not intended to replace advice given to you by your health care provider. Make sure you discuss any questions you have with your health care provider. Document Revised: 02/21/2021 Document Reviewed: 02/21/2021 [employer] Patient Education ? 2022 [employer]. Teresa Stanton [facility] Urology Office/Clinic Noteon 04-11-2023 Urology Office/Clinic Note Chief Complaint Cysto pt has Olivo HPI Staff Cysto ABX TAKEN, pt has olivo History of Present Illness Tests reviewed: none I have reviewed the previous health record information and history for this patient from Dr. Alcala. I have reviewed and verified the staff HPI to be accurate for this encounter. Review of Systems PHQ Score Initial Depression Screen Score: 0 ROS - Provider Constitutional: denies weight loss, denies hot flashes. Eyes: denies eye problems. Gastrointestinal: denies nausea, denies vomiting. Cardiovascular: denies chest pain or angina. Integumentary: no dryness Musculoskeletal: denies musculoskeletal symptoms. ENMT: denies otolaryngeal symptoms. Respiratory: no shortness of breath. Heme/Lymph: denies easy bleeding tendency, denies easy bruising tendency. Psychiatric: no confusion, no anxiety. Genitourinary: See HPI. Physical Exam Vitals & Measurements HR: 83(Peripheral) BP: 140/82 WT: 78.9 kg WT: 173.58 lb General Appearance: alert, no distress, well nourished, well developed male. Genitourinary: normal scrotum, normal testes, normal urethra, normal epididymis, normal vas deferens/spermatic cord. Flank Pain: none. Bladder: nonpalpable. Procedure Operative Information Anesthesia Type: Local Procedure: Local Cystoscopy Complications: None Surgical risks, benefits, details of the procedure have been explained to the patient. Full informed consent has been obtained. Intraoperative Information Prepped: Patient is brought back to the endoscopy suite. Patient is placed in supine position. Patient prepped in the usual fashion with Betadine solution. 2% Xylocaine Jelly is placed per Urethra. After waiting several minutes, the Cystoscope is introduced. The Urethra is: Normal The Prostatic Urethra is: _4cm, lateral lobe hypertrophy, no median lobe The Bladder: _catheter cystitis- red, irritated, Trabeculated: Moderate (2) The Ureteral orifices: Show efflux of clear urine Specimens Removed: None Removal: Cystoscope is removed. The patient tolerated it well. Postoperative Information Patient is discharged home with antibiotic coverage. Follow up arranged. Assessment/Plan 1. BPH with urinary obstruction (N40.1: Benign prostatic hyperplasia with lower urinary tract symptoms) S/p TRUS/bx 07/24/[address] Yin. Pt presented to [facility] on 03/11/23 for blood in urine & dysuria. On 03/07/23 pt was diagnosed w/ acute urinary tract infection (E-Coli), treated with Keflex. DINORA 03/11/23 [facility] - enlarged prostate gland w/ large post void residual on 341, prominent hypoechoic area seen in the prostate gland measuring 1.3x1.5x1.6cm. CT 03/11/23 TB - prostatomegaly. Pt has olivo catheter, placed in [facility] due to high residual volume. Pt was started on Tamsulosin and Oxybutynin. Pt had cysto done IO today wo complications. Pt's catheter has been removed in office with no complications. They have been advised to drink plenty of fluids. Pt. has been instructed to call the office in the event that they are not able to void in the next 4-6 hrs. Advised pt. to go to the ER if they experience any severe bleeding, fever over 101, and/or shaking chills. Will have pt complete voiding trial. Pt understands he is at higher risk for retention due to recent hx of it. Pt knows to call our office with any complications. Follow up with PVR and PSA in 6wks or sooner if needed. Pt understands and agrees with plan. -Cont Tamsulosin. Refill sent to [facility] in [place]. 2. Elevated PSA (R97.20: Elevated prostate specific antigen [PSA]) PSA 05/2020 - 6.71 05/07/21 - 8.03 & 19.8% 03/12/23 - 28.0 & 15.4% (infected) Will continue to monitor and recheck PSA F/T at next appt. 3. UTI (urinary tract infection) (N39.0: Urinary tract infection, site not specified) See #1 4. Urinary retention (R33.9: Retention of urine, unspecified) See #1 Overall the patient tolerates cystoscopy today. Findings are as noted above. Olivo catheter was left out and he did pass his voiding trial. He will be maintained on his Flomax and a refill is sent. He does know that he is at increased risk for recurrent urinary retention. Regarding the elevated PSA which was obtained at the time of UTI, repeat level will be obtained at his follow-up in about 6 weeks. He agrees with the plan and will call for difficulties prior to next visit. Should he be unable to urinate he may have to return to the ER for Olivo catheter placement over the weekend. Portions of this record may have been created with voice recognition artificial intelligence software, specifically [employer], [employer] and or [employer]. Substitutions may have occurred due to the inherent limitations of voice recognition and artificial intelligence software. Follow-up With When Contact Information Jose ALCALA MD, URL [address] [id number]- Additional Instructions: 6wks w/ PVR and PSA Patient Education (more content not included)... [facility] Comment on above: Result Comment: Elec tronically Signed By: Jose ALCALA MD\.br\Date and Time Signed: 04/11/23 09:25 EDT\.br\Electronically Co-Signed By: Gita Mcnamara\.br\Date and Time Co-Signed: 04/11/23 09:07 EDT Insurance Correspondenceon Insurance Correspondence [id number]# 1.00TIFF [facility] Population [facility] 04-07-20 [facility] Health Case Information Case Priority: None Programs: -- Referral Source: Gas Leak Tester Referral Reason: Care coordination Case Type: Transition Care Management Risk Score: -- Case Status: Enrolled (March 13, 2023) Date Assigned: March 13, 2023 Assigned By: Jeanne Stone RN Date Enrolled: March 13, 2023 Assigned Primary Personnel: Jeanne Stone RN Assigned Secondary Personnel: Josue Nelson Case Physician: Ernestine Beverly MD Problems Ongoing Acute cystitis with hematuria DANIAL (acute kidney injury) Anticoagulant long-term use BPH with urinary obstruction CAD (coronary artery disease) Diabetes Elevated PSA Hospital discharge follow-up HTN (hypertension) Hyperlipidemia Hypertension Nocturia Thyroid disease Urinary retention UTI (urinary tract infection) Historical CAD - Coronary artery disease Procedure/Surgical History TRUS (transrectal ultrasound) guided cryoablation of prostate (07/24/2020), Transrectal biopsy of prostate using ultrasound (US) guidance (04/12/2013), 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 Home Medications amLODIPine 10 mg Tab, 10 mg= 1 tab(s), Oral, Daily Aspir 81, 81 mg, Oral, Daily cephalexin 500 mg oral tablet, Oral, QID cholecalciferol 1000 intl units oral capsule, 1000 International_Unit= 1 cap(s), Oral, Daily cyanocobalamin 1000 mcg oral tablet, 1000 mcg= 1 tab(s), Oral, BID Eliquis 5 mg oral tablet, 5 mg= 1 tab(s), Oral, BID empagliflozin-metFORM IN 5 mg-1000 mg oral tablet, Oral, BID gabapentin 100 mg Cap, 100 mg= 1 cap(s), Oral, Daily levothyroxine 25 mcg (0.025 mg) Tab, 25 mcg= 1 tab(s), Oral, Daily lisinopril 40 mg Tab, 40 mg= 1 tab(s), Oral, Daily metoprolol 100 mg ER Tab, 100 mg= 1 tab(s), Oral, Daily NitroStat 0.4 mg Tab, 0.4 mg= 1 tab(s), SubLingual, q5min oxybutynin 5 mg Tab, 5 mg= 1 tab(s), Oral, TID, PRN Ozempic (1 mg dose), SubCutaneous, qWeek pioglitazone 15 mg Tab, 15 mg= 1 tab(s), Oral, Daily Prilosec, Oral, Daily tamsulosin 0.4 mg Cap, Oral, Daily Allergies No Known Medication Allergies Social History Alcohol - Low Risk, 02/08/2019 Current, 1-2 times per year, 02/08/2019 Tobacco Former smoker, quit more than 30 days ago Tobacco Use:. Never Smokeless Tobacco Use:. Cigarettes, 03/18/2023 Family History Family history is negative Screenings and Assessments 03/13/23 15:30:00 Result Name Value Comment Phone Call Monitoring Consent Agreed to continue call Phone Verification Patient Information Full name, street address and date of verified CM Program Enrollment Provides verbal consent for enrollment Goals and Interventions Care Plan Progress Note TCM #4- Patient stated he is doing ok, about the same as last week. No issues with Olivo catheter. Denies any blood in urine. Has procedure with urology on 04/11/23 and is really hoping the Olivo is discontinued. FBS this morning was 175. Eating and drinking fine. Denies any further questions or concerns. Communication Events Date: April 07, 2023 Method: Phone call Type: Outbound Duration (min): 3 Outcome: Case discussion Contact Type: Patient Contact Name: PATRICK HOLLY Notes: TCM #4- see case summary note. Created By: Xiomara Orozco RN Date: March 31, 2023 Method: Phone call Type: Outbound Duration (min): 2 Outcome: Case discussion Contact Type: Patient Contact Name: PATRICK HOLLY Notes: TCM #3- see case summary note. Created By: Xiomara Orozco RN Date: March 25, 2023 Method: Phone call Type: Outbound Duration (min): 4 Outcome: Case discussion Contact Type: sales project coordinator Contact Name: Josue Nelson Notes: TCM#2- Spoke with pt for tcm program call status update, see case summary note. Created By: Josue Nelson Date: March 13, 2023 Method: Phone call Type: Outbound Duration (min): 11 Outcome: Case discussion Contact Type: sales project coordinator Contact Name: Jeanne Stone RN Notes: TCM #1, see FT summary note Created By: Jeanne Stone RN [facility] Physician Orderon 04-04-2023 Physician Order [id number]# 1.00TIFF [facility] Population [facility] 03-31-20 Population Health Case Information Case Priority: None Programs: -- Referral Source: Gas Leak Tester Referral Reason: Care coordination Case Type: Transition Care Management Risk Score: -- Case Status: Enrolled (March 13, 2023) Date Assigned: March 13, 2023 Assigned By: Jeanne Stone RN Date Enrolled: March 13, 2023 Assigned Primary Personnel: Jeanne Stone RN Assigned Secondary Personnel: Josue Nelson Case Physician: Ernestine Beverly MD Ongoing Acute cystitis with hematuria DANIAL (acute kidney injury) Anticoagulant long-term use BPH with urinary obstruction CAD (coronary artery disease) Diabetes Elevated PSA Hospital discharge follow-up HTN (hypertension) Hyperlipidemia Hypertension Nocturia Thyroid disease Urinary retention UTI (urinary tract infection) Historical CAD - Coronary artery disease Procedure/Surgical History TRUS (transrectal ultrasound) guided cryoablation of prostate (07/24/2020), Transrectal biopsy of prostate using ultrasound (US) guidance (04/12/2013), 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 Home Medications amLODIPine 10 mg Tab, 10 mg= 1 tab(s), Oral, Daily Aspir 81, 81 mg, Oral, Daily cephalexin 500 mg oral tablet, Oral, QID cholecalciferol 1000 intl units oral capsule, 1000 International_Unit= 1 cap(s), Oral, Daily cyanocobalamin 1000 mcg oral tablet, 1000 mcg= 1 tab(s), Oral, BID Eliquis 5 mg oral tablet, 5 mg= 1 tab(s), Oral, BID empagliflozin-metFORM IN 5 mg-1000 mg oral tablet, Oral, BID gabapentin 100 mg Cap, 100 mg= 1 cap(s), Oral, Daily levothyroxine 25 mcg (0.025 mg) Tab, 25 mcg= 1 tab(s), Oral, Daily lisinopril 40 mg Tab, 40 mg= 1 tab(s), Oral, Daily metoprolol 100 mg ER Tab, 100 mg= 1 tab(s), Oral, Daily NitroStat 0.4 mg Tab, 0.4 mg= 1 tab(s), SubLingual, q5min oxybutynin 5 mg Tab, 5 mg= 1 tab(s), Oral, TID, PRN Ozempic (1 mg dose), SubCutaneous, qWeek pioglitazone 15 mg Tab, 15 mg= 1 tab(s), Oral, Daily Prilosec, Oral, Daily tamsulosin 0.4 mg Cap, Oral, Daily Allergies No Known Medication Allergies Social History Alcohol - Low Risk, 02/08/2019 Current, 1-2 times per year, 02/08/2019 Tobacco Former smoker, quit more than 30 days ago Tobacco Use:. Never Smokeless Tobacco Use:. Cigarettes, 03/18/2023 Family History Family history is negative Screenings and Assessments 03/13/23 15:30:00 Result Name Value Comment Phone Call Monitoring Consent Agreed to continue call Phone Verification Patient Information Full name, street address and date of verified CM Program Enrollment Provides verbal consent for enrollment Goals and Interventions Care Plan Progress Note TCM #3- Patient stated he is doing as good as can be expected. No issues with Olivo catheter; denies any blood in urine. Has procedure with Dr. Alcala on 04/11/23. FBS has been running in the 180-190s. Eating and drinking pretty good. Denies any further questions or concerns. Communication Events Date: March 31, 2023 Method: Phone call Type: Outbound Duration (min): 2 Outcome: Case discussion Contact Type: Patient Contact Name: PATRICK HOLLY Notes: TCM #3- see case summary note. Created By: Xiomara Orozco RN Date: March 25, 2023 Method: Phone call Type: Outbound Duration (min): 4 Outcome: Case discussion Contact Type: sales project coordinator Contact Name: Josue Nelson Notes: TCM#2- Spoke with pt for tcm program call status update, see case summary note. Created By: Josue Nelson Date: March 13, 2023 Method: Phone call Type: Outbound Duration (min): 11 Outcome: Case discussion Contact Type: sales project coordinator Contact Name: Jeanne Stone RN Notes: TCM #1, see FT summary note Created By: Jeanne Stone RN [facility] Insurance Correspondenceon 1 Insurance Correspondence [id number]# 1.00TIFF [facility] 03-25-20 Population Health Case Information Case Priority: None Programs: -- Referral Source: Gas Leak Tester Referral Reason: Care coordination Case Type: Transition Care Management Risk Score: -- Case Status: Enrolled (March 13, 2023) Date Assigned: March 13, 2023 Assigned By: Jeanne Stone RN Date Enrolled: March 13, 2023 Assigned Primary Personnel: Jeanne Stone RN Assigned Secondary Personnel: Josue Nelson Case Physician: Ernestine Beverly MD Ongoing Acute cystitis with hematuria DANIAL (acute kidney injury) Anticoagulant long-term use BPH with urinary obstruction CAD (coronary artery disease) Diabetes Elevated PSA Hospital discharge follow-up HTN (hypertension) Hyperlipidemia Hypertension Nocturia Thyroid disease Urinary retention UTI (urinary tract infection) Historical CAD - Coronary artery disease Procedure/Surgical History TRUS (transrectal ultrasound) guided cryoablation of prostate (07/24/2020), Transrectal biopsy of prostate using ultrasound (US) guidance (04/12/2013), 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 Home Medications amLODIPine 10 mg Tab, 10 mg= 1 tab(s), Oral, Daily Aspir 81, 81 mg, Oral, Daily cephalexin 500 mg oral tablet, Oral, QID cholecalciferol 1000 intl units oral capsule, 1000 International_Unit= 1 cap(s), Oral, Daily cyanocobalamin 1000 mcg oral tablet, 1000 mcg= 1 tab(s), Oral, BID Eliquis 5 mg oral tablet, 5 mg= 1 tab(s), Oral, BID empagliflozin-metFORM IN 5 mg-1000 mg oral tablet, Oral, BID gabapentin 100 mg Cap, 100 mg= 1 cap(s), Oral, Daily levothyroxine 25 mcg (0.025 mg) Tab, 25 mcg= 1 tab(s), Oral, Daily lisinopril 40 mg Tab, 40 mg= 1 tab(s), Oral, Daily metoprolol 100 mg ER Tab, 100 mg= 1 tab(s), Oral, Daily NitroStat 0.4 mg Tab, 0.4 mg= 1 tab(s), SubLingual, q5min oxybutynin 5 mg Tab, 5 mg= 1 tab(s), Oral, TID, PRN Ozempic (1 mg dose), SubCutaneous, qWeek pioglitazone 15 mg Tab, 15 mg= 1 tab(s), Oral, Daily Prilosec, Oral, Daily tamsulosin 0.4 mg Cap, Oral, Daily Allergies No Known Medication Allergies Social History Alcohol - Low Risk, 02/08/2019 Current, 1-2 times per year, 02/08/2019 Tobacco Former smoker, quit more than 30 days ago Tobacco Use:. Never Smokeless Tobacco Use:. Cigarettes, 03/18/2023 Family History Family history is negative Screenings and Assessments 03/13/23 15:30:00 Result Name Value Comment Phone Call Monitoring Consent Agreed to continue call Phone Verification Patient Information Full name, street address and date of verified CM Program Enrollment Provides verbal consent for enrollment Goals and Interventions Care Plan Progress Note TCM#2- Patient states things are as good as can be expected. Patient states catheter is draining well. Denies any visible blood in Olivo bag, states it is uncomfortable just knowing the catheter is in place but denies further concerns. Denies any bowel issues at this time. States he is sleeping okay. Patient is eating and drinking okay. BS today was 150, notes the best he has had since d/c. Patient denies any further questions or concerns at this time. Communication Events Date: March 25, 2023 Method: Phone call Type: Outbound Duration (min): 4 Outcome: Case discussion Contact Type: sales project coordinator Contact Name: Josue Nelson Notes: TCM#2- Spoke with pt for tcm program call status update, see case summary note. Created By: Josue Nelson Date: March 13, 2023 Method: Phone call Type: Outbound Duration (min): 11 Outcome: Case discussion Contact Type: sales project coordinator Contact Name: Jeanne Stone RN Notes: TCM #1, see FT summary note Created By: Jeanne Stone RN [facility] Family Medicine Office/Clini c Noteon 03-19-2023 Family Medicine Office/Clinic Note HPI Staff Patrick is a 77 year old male presenting for hospital follow up TCM: Hospital: [facility] Admission date: 03/10/23 Discharge date: 03/12/23 Symptoms the patient presented with: UTI: couldn't hold his urine, burned and had blood in there, initially seen [facility] and didn't get better so then came to [facility] they admitted him and did a lot of tests. Has a catheter Sees urologist ( dr Alcala) tomorrow in [place] Current concerns: none flu: given today questions/concerns: sugars been up since on cephalexin History of Present Illness Patrick Holly is a 77-year-old male who presents today for a hospital discharge follow-up. The patient was recently hospitalized at [facility]. He originally started at [facility] and then transferred to [facility]. He had a Olivo catheter placed. He denies any issues with the Olivo catheter, but he does have minimal irritation. He decided to go to the hospital because he had urinary incontinence. He had been going to the bathroom every 10 to 15 minutes. When he urinated, he experienced dysuria. He had hematuria. He was found to have an infection. He was then admitted to the hospital, and they put a Olivo catheter in. He was given some pills and sent home. He does not remember 5 days or so he felt like he was getting worse, so he came to [place]. He was put on antibiotics, and he has been feeling good ever since. He is scheduled to see Dr. Alcala tomorrow. He sees Dr. Nicole at the [facility] for his diabetes. He has a podiatry appointment on 03/20/2023. He checks his blood pressure and blood glucose every day. His legal specialist, Dr. Basilio has retired. He has not seen anyone since. Review of Systems PHQ Score Initial Depression Screen Score: 0 Physical Exam Vitals & Measurements T: 36.7 ?C(Oral) HR: 76(Peripheral) RR: 16 BP: 126/70 SpO2: 93% HT: 66 in HT: 167.6 cm WT: 79.7 kg WT: 175.34 lb BMI: 28.37 General: alert, no acute distress Cardiovascular: regular rate and rhythm, normal peripheral perfusion Respiratory: Lungs CTA, respirations non labored Extremities: no deformity, no trauma Neurological: oriented x 4, LOC appropriate for age, CN II-XII intact, motor strength equal & normal bilaterally, speech normal Genitourinary: Olivo in place, no issues. Abdomen: soft, nontender, nondistended. Assessment/Plan 1. Hospital discharge follow-up (Z09: Encounter for follow-up examination after completed treatment for conditions other than malignant neoplasm) Anticipatory guidance given. Reviewed TCM. Reviewed discharge summary. Medications reconcile 2. Acute cystitis with hematuria (N30.01: Acute cystitis with hematuria) Improving. Patient sees urology tomorrow. Continue having the Olivo catheter in place until patient is seen by urology. 3. DANIAL (acute kidney injury) (N17.9: Acute kidney failure, unspecified) This is resolved. 4. HTN (hypertension) (I10: Essential (primary) hypertension) Patient's blood pressure is at goal. 5. CAD (coronary artery disease) (I25.10: Atherosclerotic heart disease of [place] coronary artery without angina pectoris) We will refer to cardiology as the patient has not had a legal specialist since it was retired. Patient will see Dr. Tai. 6. Diabetes (E11.9: Type 2 diabetes mellitus without complications) Patient states his blood sugar is up since being on the Keflex. It is most likely secondary to the infection. [facility]aged the patient [facility] the [facility]. [facility]e 7. BPH with urinary obstruction (N40.1: Benign prostatic hyperplasia with lower urinary tract symptoms) Patient will see urology for further work-up. 8. Myocardial infarction (I21.9: Acute myocardial infarction, unspecified) This will be removed for coronary artery disease. Patient has not had a recent [place]. This is a previous history of. 9. Thyroid disease (E07.9: Disorder of thyroid, unspecified) Unsure what that is. We will [facility] the [facility] the [facility]. 10. BMI 28.0-28.9,adult (Z68.28: Body mass index [BMI] 28.0-28.9, adult) BMI education given. Encounter for immunization (Z23: Encounter for immunization) Other obstructive and reflux uropathy (N13.8: Other obstructive and reflux uropathy) ATTESTATION: Portions of this record may have been created with voice recognition artificial intelligence software, specifically SECU4, Sproutkin and or QuanDx. Substitutions may have occurred due to the inherent limitations of voice recognition and artificial intelligence software. Documentation services were performed after patient or guardian consented to allow [employer] to record this visit. KENDRA wildland fire operations specialist and provider reviewed before signing. KENDRA: Tereza Mathias. Follow-up No qualifying data available Problem List/Past Medical History Ongoing Acute cystitis with hematuria DANIAL (acute kidney inju (more content not included)... [facility] Comment on above: Result Comment: Elec tronically Signed By: Ernestine Beverly MD\.br\Date and Time Signed: 03/19/23 17:00 EDT\.br\Electronically Co-Signed By: Tereza Mathias\.br\Date and Time Co-Signed: 03/17/23 18:52 EDT [place] 03-19-2023 Screens [id number]# 1.00CD:127 [facility] Ambulatory Visit Summaryon 1 Ambulatory Visit Summary PATRICK HOLLY :1945 Visit Date:03/18/2023 Ambulatory Visit Instructions Your Diagnosis BPH with urinary obstruction Elevated PSA UTI (urinary tract infection) Your Care Team Attending Physician - Jose ALCALA MD Primary Care Physician - Ernestine Beverly MD This Is Your Medications List Contact prescribing physician if questions or concerns amlodipine (amLODIPine 10 mg Tab) apixaban (Eliquis 5 mg oral tablet) aspirin (Aspir 81) cephalexin (cephalexin 500 mg oral tablet) cholecalciferol (cholecalciferol 1000 intl units oral capsule) cyanocobalamin (cyanocobalamin 1000 mcg oral tablet) empagliflozin-metFORM IN (empagliflozin-metFOR MIN 5 mg-1000 mg oral tablet) gabapentin (gabapentin 100 mg Cap) levothyroxine (levothyroxine 25 mcg (0.025 mg) Tab) lisinopril (lisinopril 40 mg Tab) metoprolol (metoprolol 100 mg ER Tab) nitroglycerin (NitroStat 0.4 mg Tab) omeprazole (Prilosec) oxybutynin (oxybutynin 5 mg Tab) pioglitazone (pioglitazone 15 mg Tab) semaglutide (Ozempic (1 mg dose)) tamsulosin (tamsulosin 0.4 mg Cap) Procedures Performed TRUS (transrectal ultrasound) guided cryoablation of prostate (07/24/2020), Transrectal biopsy of prostate using ultrasound (US) guidance (04/12/2013), 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 Discharge Vitals Heart Rate (Peripheral) 72 Blood Pressure 151/70 Weight 78.9 kg Weight 173.58 lb What to do next Scheduled Follow-Up Appointments 2022 1:30 PM EDT With: Abida RIOS, Jamie Caicedo Where: [facility] [place] Friday 1:20 PM EST With: Ernestine Beverly MD Where: [facility] Consent for Flu Vaccineon Consent for Flu Vaccine [id number] .00CD:127 [facility] Outside [facility] Correspo davideyony 03-18-2023 Outside [facility] Correspondence [id number]. 00CD:127 [facility] Patient Educationon 03-18-20 Patient Education Urology Benign Prostatic Hyperplasia Benign prostatic hyperplasia (BPH) is an enlarged prostate gland that is caused by the normal aging process. The prostate may get bigger as a man gets older. The condition is not caused by cancer. The prostate is a walnut-sized gland that is involved in the production of semen. It is located in front of the rectum and below the bladder. The bladder stores urine. The urethra carries stored urine out of the body. An enlarged prostate can press on the urethra. This can make it harder to pass urine. The buildup of urine in the bladder can cause infection. Back pressure and infection may progress to bladder damage and kidney (renal) failure. What are the causes? This condition is part of the normal aging process. However, not all men develop problems from this condition. If the prostate enlarges away from the urethra, urine flow will not be blocked. If it enlarges toward the urethra and compresses it, there will be problems passing urine. What increases the risk? This condition is more likely to develop in men older than 50 years. What are the signs or symptoms? Symptoms of this condition include: ? Getting up often during the night to urinate. ? Needing to urinate frequently during the day. ? Difficulty starting urine flow. ? Decrease in size and strength of your urine stream. ? Leaking (dribbling) after urinating. ? Inability to pass urine. This needs immediate treatment. ? Inability to completely empty your bladder. ? Pain when you pass urine. This is more common if there is also an infection. ? Urinary tract infection (UTI). How is this diagnosed? This condition is diagnosed based on your medical history, a physical exam, and your symptoms. Tests will also be done, such as: ? A post-void bladder scan. This measures any amount of urine that may remain in your bladder after you finish urinating. ? A digital rectal exam. In a rectal exam, your health care provider checks your prostate by putting a lubricated, gloved finger into your rectum to feel the back of your prostate gland. This exam detects the size of your gland and any abnormal lumps or growths. ? An exam of your urine (urinalysis). ? A prostate specific antigen (PSA) screening. This is a blood test used to screen for prostate cancer. ? An ultrasound. This test uses sound waves to electronically produce a picture of your prostate gland. Your health care provider may refer you to a specialist in kidney and prostate diseases (urologist). How is this treated? Once symptoms begin, your health care provider will monitor your condition (active surveillance or watchful waiting). Treatment for this condition will depend on the severity of your condition. Treatment may include: ? Observation and yearly exams. This may be the only treatment needed if your condition and symptoms are mild. ? Medicines to relieve your symptoms, including: ? Medicines to shrink the prostate. ? Medicines to relax the muscle of the prostate. ? Surgery in severe cases. Surgery may include: ? Prostatectomy. In this procedure, the prostate tissue is removed completely through an open incision or with a laparoscope or robotics. ? Transurethral resection of the prostate (TURP). In this procedure, a tool is inserted through the opening at the tip of the penis (urethra). It is used to cut away tissue of the inner core of the prostate. The pieces are removed through the same opening of the penis. This removes the blockage. ? Transurethral incision (TUIP). In this procedure, small cuts are made in the prostate. This lessens the prostate's pressure on the urethra. ? Transurethral microwave thermotherapy (TUMT). This procedure uses microwaves to create heat. The heat destroys and removes a small amount of prostate tissue. ? Transurethral needle ablation (TUNA). This procedure uses radio frequencies to destroy and remove a small amount of prostate tissue. ? Interstitial laser coagulation (ILC). This procedure uses a laser to destroy and remove a small amount of prostate tissue. ? Transurethral electrovaporization (TUVP). This procedure uses electrodes to destroy and remove a small amount of prostate tissue. ? Prostatic urethral lift. This procedure inserts an implant to push the lobes of the prostate away from the urethra. Follow these instructions at home: ? Take bgfp-jee-ndlgaep and prescription medicines only as told by your health care provider. ? Monitor your symptoms for any changes. Contact your health care provider with any changes. ? Avoid drinking large amounts of liquid before going to bed or out in public. ? Avoid or reduce how much caffeine or alcohol you drink. ? Give yourself time when you urinate. ? Keep all follow-up visits. This is important. Contact a health care provider if: ? You have unexplained back pain. ? Your symptoms do not get better with treatment. ? You develop side effects from the medicine (more content not included)... [facility] RAD - Ultrasound Reporton RAD - Ultrasound Report [id number]. 00CD:127 [facility] Urology Office/Clinic Noteon 03-18-2023 Urology Office/Clinic Note Chief Complaint Urinary retention/hematuria HPI Staff Patrick is a 77 y.o. male here for [facility] ER follow up. Previous DLS patient last seen 04/2021. Previous Dx: BPH w/ urinary obstruction, elevated PSA, nocturia. S/P TRUS/bx done on 07/24/20. Per DLS last note patient was to get scheduled for MRI of prostate. Pt never had MRI of prostate done. Previous PSA 8.03 & 19.8% done on 05/07/21. Current PSA 28.0 & 15.4% done on 03/12/23. Pt presented to [facility] on 03/11/23 for blood in urine & dysuria. On 03/07/23 pt was diagnosed w/ acute urinary tract infection (E-Coli), treated with Keflex. Pt currently taking Aspirin and Eliquis. Renal US done on 03/11/23 showed enlarged prostate gland w/ large post void residual on 341, prominent hypoechoic area seen in the prostate gland measuring 1.3x1.5x1.6cm. CT done on 03/11/23 showed prostatomegaly. Pt has olivo catheter. IPSS SCORE 8. Dysuria: some stinging Hematuria: denies visible blood Leaking: denies Abdominal pain: denies Flank pain: denies History of Present Illness Tests reviewed: reviewed UA and External Records. I have reviewed the previous health record information and history for this patient from External Provider. I have reviewed and verified the staff HPI to be accurate for this encounter. There have been no associated fever, chills, flank pain, or blood in the urine. Denies any urinary infections since last encounter. Review of Systems PHQ Score Initial Depression Screen Score: 0 ROS - Provider Constitutional: denies weight loss, denies hot flashes. Eyes: denies eye problems. Gastrointestinal: denies nausea, denies vomiting. Cardiovascular: denies chest pain or angina. Integumentary: no dryness Musculoskeletal: denies musculoskeletal symptoms. ENMT: denies otolaryngeal symptoms. Respiratory: no shortness of breath. Heme/Lymph: denies easy bleeding tendency, denies easy bruising tendency. Psychiatric: no confusion, no anxiety. Genitourinary: See HPI. Physical Exam Vitals & Measurements HR: 72(Peripheral) BP: 151/70 WT: 78.9 kg WT: 173.58 lb General Appearance: alert, no distress, well nourished, well developed male. Head: normocephalic . Eyes: normal orbit and globe. ENMT: normal examination of external ears. Chest: Lungs CTA, respirations non labored. Cardiovascular: regular rate and rhythm. Abdomen: soft, non distended, no tenderness, no mass or organomegaly, no hernia. Genitourinary: normal scrotum, normal testes, normal urethra, normal epididymis, normal vas deferens/spermatic cord. Flank Pain: none. Bladder: nonpalpable. Penis: normal shaft, normal glans. Lymph Nodes: unremarkable palpation of the cervical area. Skin: warm, dry, no bruising. Psychiatric: cooperative, affect appropriate for age, normal judgement, euthymic mood. Assessment/Plan 1. BPH with urinary obstruction (N40.1: Benign prostatic hyperplasia with lower urinary tract symptoms) S/p TRUS/bx 07/24/20 Pt presented to [facility] on 03/11/23 for blood in urine & dysuria. On 03/07/23 pt was diagnosed w/ acute urinary tract infection (E-Coli), treated with Keflex. Pt currently taking Aspirin and Eliquis. Renal US done on 03/11/23 showed enlarged prostate gland w/ large post void residual on 341, prominent hypoechoic area seen in the prostate gland measuring 1.3x1.5x1.6cm. CT done on 03/11/23 showed prostatomegaly. Pt has olivo catheter, placed in [facility] due to high residual volume. Pt was started on Tamsulosin and Oxybutynin. IPSS 8. Prior to his ER visit, he had no urinary sxs. Advised pt that his UTI may have been caused by incomplete bladder emptying. Advised pt that he needs a cysto done. Pt states that he would like to have this done. Advised pt that we could take the olivo out today, continue with the Tamsulosin and get the cysto done or keep the olivo placed and sched the cysto. Advised pt to d/c the Oxybutynin. Pt states that he would like to keep the cath in and schedule a cysto. -Will schedule cysto. The risks and benefits for cystoscopy have been discussed. The risks include bleeding, infection, and irritation of the bladder and urinary channel, among others. The patient, after being informed of procedural details and after questions have been answered, wishes to proceed. Full informed consent has been obtained. Will order Local anesthesia. -D/c Oxybutynin. -Cont Tamsulosin. 2. Elevated PSA (R97.20: Elevated prostate specific antigen [PSA]) PSA 05/2020 - 6.71 05/07/21 - 8.03 & 19.8% 03/12/23 - 28.0 & 15.4% Advised pt that the recent PSA is invalid due to him having an infection at the time. Will continue to monitor. 3. UTI (urinary tract infection) (N39.0: Urinary tract infection, site not specified) See #1 4. Urinary retention (R33.9: Retention of urine, unspecified) See #1 Overall this prior patient of Dr. Yin was previously seen a couple years ago with a positive tentative plan for MRI of the prostate which never was completed. Its been a while since he has had a PSA check. T (more content not included)... [facility] Comment on above: Result Comment: Elec tronically Signed By: Jose ALCALA MD\.br\Date and Time Signed: 03/18/23 12:26 EDT\.br\Electronically Co-Signed By: Arminda Aldridge\.br\Date and Time Co-Signed: 03/18/23 11:53 EDT Ambulatory Visit Summaryon 1 0-02-2023 Ambulatory Visit Summary PATRICK HOLLY :1945 Visit Date:03/17/2023 Ambulatory Visit Instructions Your Diagnosis Hospital discharge follow-up Acute cystitis with hematuria DANIAL (acute kidney injury) HTN (hypertension) CAD (coronary artery disease) Diabetes BPH with urinary obstruction Myocardial infarction Thyroid disease BMI 28.0-28.9,adult Overweight child Encounter for immunization Other obstructive and reflux uropathy Your Care Team Attending Physician - Ernestine Beverly MD Primary Care Physician - Ernestine Beverly MD This Is Your Medications List amlodipine (amLODIPine 10 mg Tab) apixaban (Eliquis 5 mg oral tablet) aspirin (Aspir 81) atorvastatin (atorvastatin 40 mg Tab) cholecalciferol (cholecalciferol 1000 intl units oral capsule) cyanocobalamin (cyanocobalamin 1000 mcg oral tablet) gabapentin (gabapentin 100 mg Cap) levothyroxine (levothyroxine 25 mcg (0.025 mg) Tab) lisinopril (lisinopril 40 mg Tab) metoprolol (metoprolol 100 mg ER Tab) nitroglycerin (NitroStat 0.4 mg Tab) omeprazole (omeprazole 20 mg Cap-DR) pioglitazone (pioglitazone 15 mg Tab) semaglutide (Ozempic (1 mg dose)) Procedures Performed TRUS (transrectal ultrasound) guided cryoablation of prostate (07/24/2020), Transrectal biopsy of prostate using ultrasound (US) guidance (04/12/2013), 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 Discharge Vitals Temperature (Oral) 36.7 ?C Heart Rate (Peripheral) 76 Respiratory Rate 16 Blood Pressure 126/70 Height 167.6 cm Height 66 in Weight 79.7 kg Weight 175.34 lb BMI 28.37 What to do next Scheduled Follow-Up Appointments Friday 11:00 AM EDT With: CARI RIOS, Jose Rodriguez Where: [facility] [address] [address]- \.br\ Medications\.br\ What How Much When Instructions\.br \ New atorvastatin (atorvastatin 40 mg Tab) 40 Unknown, ORAL, 0 Refill(s) \.br\ Unchanged amlodipine (amLODIPine 10 mg Tab) 1 Tablets By Mouth Every day\.br\ Unchanged apixaban (Eliquis 5 mg oral tablet) 1 Tablets By Mouth 2 times a day\.br\ Unchanged aspirin (Aspir 81) 81 Milligram By Mouth Every day\.br\ Unchanged cholecalciferol (cholecalciferol 1000 intl units oral capsule) 1 Capsules By Mouth Every day\.br\ Unchanged cyanocobalamin (cyanocobalamin 1000 mcg oral tablet) 1 Tablets By Mouth 2 times a day\.br\ Unchanged gabapentin (gabapentin 100 mg Cap) 1 Capsules By Mouth Every day\.br\ Unchanged levothyroxine (levothyroxine 25 mcg (0.025 mg) Tab) 1 Tablets By Mouth Every day\.br\ Unchanged lisinopril (lisinopril 40 mg Tab) 1 Tablets By Mouth Every day\.br\ Unchanged metoprolol (metoprolol 100 mg ER Tab) 1 Tablets By Mouth Every day\.br\ Unchanged nitroglycerin (NitroStat 0.4 mg Tab) 1 Tablets Sublingual Every 5 minutes\.br\ Unchanged omeprazole (omeprazole 20 mg Cap-DR) See instructions 1 cap(s) Oral every other day \.br\ Unchanged pioglitazone (pioglitazone 15 mg Tab) 1 Tablets By Mouth Every day\.br\ Unchanged semaglutide (Ozempic (1 mg dose)) Subcutaneous Every week\.br\ Medications and Immunizations Administered\.br \ Given\.br\ influenza virus vaccine, inactivated HIGH DOSE preservative-moe e quadrivalent intramuscular susp, 0.7 mL, IntraMuscular. For: BMI 28.0-28.9,adult, Overweight child\.br\ influenza virus vaccine, inactivated, IntraMuscular\.b r\ Allergies\.br\ No Known Medication Allergies\.br\ Problems\.br\ Ongoing - Any problem that you are currently receiving treatment for.\.br\ Acute cystitis with hematuria\.br\ DANIAL (acute kidney injury)\.br\ Anticoagulant long-term use\.br\ BPH with urinary obstruction\.br\ CAD (coronary artery disease)\.br\ Diabetes\.br\ Elevated PSA\.br\ Hospital discharge follow-up\.br\ HTN (hypertension)\. br\ Hyperlipidemia\. br\ Hypertension\.br \ Myocardial infarction\.br\ Nocturia\.br\ Thyroid disease\.br\ \.br\ [facility] Physician Referralon 023 Physician Referral [id number] 1.00CD:127 Normal [facility] Population Healthon 03-13-20 23 Population Health Case Information Case Priority: None Programs: -- Referral Source: Gas Leak Tester Referral Reason: Care coordination Case Type: Transition Care Management Risk Score: -- Case Status: Enrolled (March 13, 2023) Date Assigned: March 13, 2023 Assigned By: Jeanne Stone RN Date Enrolled: March 13, 2023 Assigned Primary Personnel: Jeanne Stone RN Assigned Secondary Personnel: -- Case Physician: Ernestine Beverly MD Ongoing Anticoagulant long-term use BPH with urinary obstruction Diabetes Elevated PSA Hyperlipidemia Hypertension Myocardial infarction Nocturia Thyroid disease Historical No qualifying data Procedure/Surgical History TRUS (transrectal ultrasound) guided cryoablation of prostate (07/24/2020), Transrectal biopsy of prostate using ultrasound (US) guidance (04/12/2013), 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 Home Medications amLODIPine 10 mg Tab, 10 mg= 1 tab(s), Oral, Daily Aspir 81, 81 mg, Oral, Daily atorvastatin 40 mg Tab, 40 mg= 1 tab(s), Oral, Daily cholecalciferol 1000 intl units oral capsule, 1000 International_Unit= 1 cap(s), Oral, Daily cyanocobalamin 1000 mcg oral tablet, 1000 mcg= 1 tab(s), Oral, BID Eliquis 5 mg oral tablet, 5 mg= 1 tab(s), Oral, BID gabapentin 100 mg Cap, 100 mg= 1 cap(s), Oral, Daily levothyroxine 25 mcg (0.025 mg) Tab, 25 mcg= 1 tab(s), Oral, Daily liraglutide, 0.6 mg, SubCutaneous, Daily lisinopril 40 mg Tab, 40 mg= 1 tab(s), Oral, Daily metoprolol 100 mg ER Tab, 100 mg= 1 tab(s), Oral, Daily NitroStat 0.4 mg Tab, 0.4 mg= 1 tab(s), SubLingual, q5min, Unable to obtain Ozempic (1 mg dose), SubCutaneous, qWeek saxagliptin 2.5 mg oral tablet, 2.5 mg= 1 tab(s), Oral, Daily Allergies No Known Medication Allergies Social History Alcohol - Low Risk, 02/08/2019 Current, 1-2 times per year, 02/08/2019 Tobacco Former smoker, quit more than 30 days ago Tobacco Use:., 08/08/2020 Screenings and Assessments 03/13/23 15:30:00 Result Name Value Comment Phone Call Monitoring Consent Agreed to continue call Phone Verification Patient Information Full name, street address and date of verified CM Program Enrollment Provides verbal consent for enrollment Goals and Interventions Care Plan Progress Note Admit Date: 03/11/23 Tresa Date of Discharge: 03/12/23 Follow-up appointment scheduled? yes, 03/17/23 Did you understand your discharge instructions? yes Are you able to follow them? yes Did you receive new medications? yes, Keflex daily x 5 day, Flomax 0.4 mg daily x 7 days and Oxybutynin 5 mg BID x 7 days Have you filled the Rx's? yes Are you taking them as prescribed? yes Are you having difficulty eating or swallowing your pills? no Are you having any stomach upset, diarrhea or constipation? yes, constipation How are you sleeping? okay Are you having any pain? no Do you have everything you need at home to care for yourself? yes Do you have Home Health? no Called patient for Transitional Care Management following hospitalization for UTI, acute cystitis, DANIAL, enlarged prostate, leukocytosis and mild dehydration. Reviewed discharge instructions and medications reconciled with patient, discharge list and EHR. Patient denies any blood in urine, states Olivo is draining clear yellow urine. Patient complains of burning down there . Patient denies any pain or cramping. Patient states bowel have not been working as they do regularly and he has taken MiraLAX for past 2 days without bowel movement. Encouraged to drink warm prune juice and see if that helps. Patient states she is eating and drinking well. Patient states FBS 235 today and was high while in hospital and he was receiving insulin while inpatient. Scheduled patient for follow-up 03/17/23 at 1620 and advised to bring BS readings to appointment. Patient in agreement. TCM services explained and direct phone number given. Communication Events Date: March 13, 2023 Method: Phone call Type: Outbound Duration (min): 11 Outcome: Case discussion Contact Type: sales project coordinator Contact Name: Jeanne Stone RN Notes: TCM #1, see FT summary note Created By: Jeanne Stone RN Normal [facility] Lab Reportson 03-12-2023 Lab Reports [id number]. 00CD:127 Normal [facility] Lab Reports [id number]. 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 COMPARISON: XR CHEST AP OR PA 1 VIEW 07/18/2014, 12:22 AM FINDINGS: Lungs/Pleura: There is slight coarsening of the pulmonary interstitial markings. No focal areas of consolidation are seen within the lungs. There is no evidence of pneumothorax, pleural effusions or pulmonary edema. Cardiomediastinum: Patient is status post median sternotomy for CABG. Cardiomediastinal silhouette is within normal limits of size and contour. Atherosclerotic calcifications are present in the vasculature. Musculoskeletal: Visualized bony skeleton appears grossly intact. There is osteophytosis of the thoracic spine, greater than expected for the degree of disc space narrowing, suggesting diffuse idiopathic skeletal hyperostosis (DISH). IMPRESSION: 1. No radiographic evidence of acute cardiopulmonary disease. 2. Atherosclerosis and coronary artery disease with evidence of interval median sternotomy for coronary artery bypass surgery. 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 COMPARISON: XR CHEST AP OR PA 1 VIEW 07/18/2014, 12:22 AM FINDINGS: Lungs/Pleura: There is slight coarsening of the pulmonary interstitial markings. No focal areas of consolidation are seen within the lungs. There is no evidence of pneumothorax, pleural effusions or pulmonary edema. Cardiomediastinum: Patient is status post median sternotomy for CABG. Cardiomediastinal silhouette is within normal limits of size and contour. Atherosclerotic calcifications are present in the vasculature. Musculoskeletal: Visualized bony skeleton appears grossly intact. There is osteophytosis of the thoracic spine, greater than expected for the degree of disc space narrowing, suggesting diffuse idiopathic skeletal hyperostosis (DISH). IMPRESSION: 1. No radiographic evidence of acute cardiopulmonary disease. 2. Atherosclerosis and coronary artery disease with evidence of interval median sternotomy for coronary artery bypass surgery. 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 COMPARISON: XR CHEST AP OR PA 1 VIEW 07/18/2014, 12:22 AM FINDINGS: Lungs/Pleura: There is slight coarsening of the pulmonary interstitial markings. No focal areas of consolidation are seen within the lungs. There is no evidence of pneumothorax, pleural effusions or pulmonary edema. Cardiomediastinum: Patient is status post median sternotomy for CABG. Cardiomediastinal silhouette is within normal limits of size and contour. Atherosclerotic calcifications are present in the vasculature. Musculoskeletal: Visualized bony skeleton appears grossly intact. There is osteophytosis of the thoracic spine, greater than expected for the degree of disc space narrowing, suggesting diffuse idiopathic skeletal hyperostosis (DISH). IMPRESSION: 1. No radiographic evidence of acute cardiopulmonary disease. 2. Atherosclerosis and coronary artery disease with evidence of interval median sternotomy for coronary artery bypass surgery. MACRO: None [facility] observation (narrative) [facility] XR Chest PA and LateralOrder ed By: Daina Fuentes on 12-20-2022 [facility] Work Phone: [facility] echo transthoracicon [facility] echo transthoracic [facility] Main [place] [address] [place] [address] Echocardiogram Signed Patient: Patrick Holly MR#: [id number] 04 : 1945 Acct:[id number] Age/Sex: 77 / M ADM Date: 11/04/22 Loc: Room: Type: [facility] Attending Dr: Jonas Cruz DO Ordering Provider: Jonas Cruz DO Date of Service: 11/04/22/ [facility] echo transthoracic: CHRONIC ISCHEMIC HEART DISEASE, CABG Copies to: Sheela Contreras MD, FACC Jonas Cruz DO Weight: 185 lb Performed By: BERNARDO Calderon BSA: 2.0 m2 BP: 142/82 mmHg HR: 72 Reason For Study: CHRONIC ISCHEMIC HEART DISEASE, CABG History: Hyperlipidemia,Hypert ension,CABG,DM Interpretation Summary Mild concentric left ventricular hypertrophy. There is mild global hypokinesis of the left ventricle. The LV ejection fraction is 45 %. A variety of Doppler measurements indicate impaired left ventricular relaxation, which is associated with grade I/IV or mild diastolic dysfunction. The left atrium appears mildly dilated. Mild right ventricular systolic dysfunction. There is no prior echocardiogram noted for this patient. Procedure/Quality: A two-dimensional transthoracic echocardiogram with color flow and Doppler was performed. The study was technically good in quality. There is no prior echocardiogram noted for this patient. Left Ventricle: Mild concentric left ventricular hypertrophy. The LV ejection fraction is 45 %. A variety of Doppler measurements indicate impaired left ventricular relaxation, which is associated with grade I/IV or mild diastolic dysfunction. There is mild global hypokinesis of the left ventricle. Left Atrium: The left atrium appears mildly dilated. The atrial septum appears normal. Right Atrium: The right atrium appears normal in size. Right Ventricle: Mild right ventricular systolic dysfunction. Aortic Valve: The aortic valve is mildly sclerotic. Mitral Valve: The mitral valve is mildly sclerotic. Tricuspid Valve: The tricuspid valve is normal. Pulmonic Valve: The pulmonic valve is not well seen, but is grossly normal. Arteries: The aortic root is normal size. Pericardium/Pleura: No pericardial effusion seen. There is no pleural effusion. IVC/Hepatic Viens: The IVC is normal in size with an inspiratory collapse of greater then 50%, suggesting normal right atrial pressure. Miscellaneous: No thrombus, vegetation or mass is seen. Measurements with Normals IVSd: 1.4 cm (0.7-1.1 cm)LVIDd: 3.8 cm (3.7-5.4 cm) LVPWd: 1.3 cm (0.7-1.1 cm)LVIDs: 3.4 cm (2.3-3.6 cm) LA dimension: 4.1 cm (2.3-4.0 cm)Ao root diam: 3.2 cm(2.0-3.6 cm) asc Aorta Diam: 3.5 cm(2.1-3.4cm) Doppler with Normals MV E max eligio: 48.0 cm/sec(0.8-1.3m/s) MV A max eligio: 72.0 cm/sec(0.0-0.0m/s) MV E/A: 0.67 (<1.5) MMode/2D Measurements Calculations RVDd: 4.3 cm FS: 12.1 % Ao root area: LVOT diam: 2.0 cm TAPSE: 1.2 cm EDV(Teich): 8.1 cm2 LVOT area: 3.0 cm2 RV S Eligio: 63.0 ml 9.8 cm/sec ESV(Teich): 46.2 ml EF(Teich): 26.6 % __ LVLd ap4: 7.1 cm SV(MOD-sp4): LAV(MOD-sp4): LA A2 area: 17.0 cm2 EDV(MOD-sp4): 25.8 ml 32.9 ml 48.5 ml LAV(MOD-sp2): LA A4 area: 14.5 cm2 LVLs ap4: 6.7 cm 44.3 ml LA length (vol): ESV(MOD-sp4): 5.3 cm 22.7 ml LA vol: 39.3 ml EF(MOD-sp4): 53.2 % LA vol index: 20.1 ml/m2 Doppler Measurements Calculations MV dec time: 0.34 sec E/E' lat: 6.5 E/E' med: 8.5 MV dec slope: 140.9 cm/sec2 Transcribed By: SCV Performed At: 11/04/22 0951 Signed By: Sheela Contreras MD, FACC 11/04/22 1023 Normal [facility] ANAon 09-19-2020 LILI SCREEN <1:40 Normal <1:40,1:40 [facility] Comment on above: Performed By: #### 9 9744, 34944, 14613 #### [facility] [address] [facility] [place] [address], [facility] CBC COMPLETE BLOOD COUNTon 0 09-19-2020 Erythrocyte distribution width (RBC) [Ratio] 12.7 % Normal 11.5-15.0 [facility] Comment on above: Performed By: #### 9 9744, 01175, 37703 #### [facility] [address] [place] [address], [facility] Hematocrit (Bld) [Volume fraction] 37.7 % Low 39.0-50.0 [facility] Comment on above: Performed By: #### 9 9744, 53750, 65125 #### [facility] [address] Hemoglobin (Bld) [Mass/Vol] 12.4 g/dL Low 13.0-17.0 [facility] Comment on above: Performed By: #### 9 9744, 62293, 65510 #### [facility] [address] [facility] [place] [address], [facility] MCH (RBC) [Entitic mass] 30.1 pg Normal 27.0-33.0 [facility] Comment on above: Performed By: #### 9 9744, 10027, 37766 #### [facility] [address] [facility] [address] MCHC (RBC) [Mass/Vol] 32.9 g/dL Normal 32.0-35.0 [facility] Comment on above: Performed By: #### 9 9744, 71919, 49960 #### [facility] [address] [facility] [address] MCV (RBC) [Entitic vol] 91.5 fL Normal 82.0-98.0 [facility] Comment on above: Performed By: #### 9 9744, 24543, 60324 #### [facility] [address] Nucleated RBC/100 WBC (Bld) [Ratio] 0 % Normal 0-0 [facility] Comment on above: Performed By: #### 9 9744, 09844, 03439 #### [facility] [address] [place] [address], [facility] PLAT CNT 239 10*3/uL Normal 150-400 [facility] Comment on above: Performed By: #### 9 9744, 22981, 72598 #### [facility] [address] [facility] [place] [address], [facility] RBC (Bld) [#/Vol] 4.12 10*6/uL Low 4.20-5.70 [facility] Comment on above: Performed By: #### 9 9744, 29572, 26023 #### [facility] [address] [place] [address], [facility] WBC (Bld) [#/Vol] 7.78 10*3/uL Normal 4.00-10.60 [facility] Comment on above: Performed By: #### 9 9744, 34290, 04916 #### [facility] [address] [place] [address], [facility] COMP METABOLIC PANELon 09-19 Albumin [Mass/Vol] 4.3 g/dL Normal 3.5-5.7 [facility] Comment on above: Performed By: #### 0 0121, 05614, 53430 #### [facility] [address] [place] [address], [facility] ALKALINE PHOSPH 50 IU/L Normal 34-104 [facility] Comment on above: Performed By: #### 0 0121, 78053, 11275 #### [facility] [address] [place] [address], [place] ALT [Catalytic activity/Vol] 14 U/L Normal 7-52 [facility] Comment on above: Performed By: #### 0 0121, 97341, 66361 #### [facility] [address] [place] [address], [place] AST [Catalytic activity/Vol] 13 U/L Normal 13-39 [facility] Comment on above: Performed By: #### 0 0121, 70484, 10465 #### [facility] [address] [place] [address], [place] Bilirubin [Mass/Vol] 0.4 mg/dL Normal 0.3-1.0 [facility] Comment on above: Performed By: #### 0 0121, 78841, 67850 #### [facility] [address] [place] [address], [place] Calcium [Mass/Vol] 9.6 mg/dL Normal 8.6-10.3 [facility] Comment on above: Performed By: #### 0 0121, 31721, 23384 #### [facility] [address] [place] [address], [place] Chloride [Moles/Vol] 100 mmol/L Normal 98-107 [facility] Comment on above: Performed By: #### 0 0121, 60100, 48625 #### [facility] [address] [place] [address], [place] CO2 [Moles/Vol] 26 mmol/L Normal 21-31 [facility] Comment on above: Performed By: #### 0 0121, 08559, 58212 #### [facility] [address] [place] [address], [place] Creatinine [Mass/Vol] 1.58 mg/dL High 0.70-1.30 [facility] Comment on above: Performed By: #### 0 0121, 67472, 43043 #### [facility] [address] [place] [address], [facility] eGFR- 52 ml/min/1.73sq m Abnormal >60 [facility] Comment on above: Result Comment: Calc ulation may not be valid for patients over 70 years Performed By: #### 0 0121, 66373, 30074 #### [facility] [address] [place] [address], [facility] eGFR- non- 43 ml/min/1.73sq m Abnormal >60 [facility] Comment on above: Result Comment: Calc ulation may not be valid for patients over 70 years Performed By: #### 0 0121, 45628, 23633 #### [facility] [address] [place] [address], [place] Glucose [Mass/Vol] 150 mg/dL High 70-100 [facility] Comment on above: Performed By: #### 0 0121, 92674, 92773 #### [facility] [address] [place] [id number], [facility] Potassium [Moles/Vol] 4.8 mmol/L Normal 3.5-5.1 [facility] Comment on above: Performed By: #### 0 0121, 26457, 33670 #### [facility] [address] [place] [address], [facility] Protein [Mass/Vol] 7.7 g/dL Normal 6.0-8.3 [facility] Comment on above: Performed By: #### 0 0121, 64742, 43103 #### [facility] [address] [place] [address], [facility] Sodium [Moles/Vol] 135 mmol/L Low 136-145 [facility] Comment on above: Performed By: #### 0 0121, 96045, 43464 #### [facility] [address] [place] [address], [facility] Urea nitrogen [Mass/Vol] 40 mg/dL High 7-25 [facility] Comment on above: Performed By: #### 0 0121, 65270, 22331 #### [facility] [address] [facility] [place] [address], [facility] COMPLEMENT 309-19-2020 COMPLEMENT 3 115 mg/dL Normal 79-152 [facility] Comment on above: Performed By: #### 9 9744, 71224, 06255 #### [facility] [address] [place] [address], [facility] COMPLEMENT 4on 09-19-2020 COMPLEMENT 4 20 mg/dL Normal 16-38 [facility] Comment on above: Performed By: #### 9 9744, 58956, 45203 #### [facility] [address] [place] [id number], [facility] CREATININE URINE RANDOMon Creatinine (U) [Mass/Vol] 36.0 mg/dL Normal [facility] Comment on above: Result Comment: Ther e are no established reference values for random urine specimens Performed By: #### 9 9744, 02655, 82868 #### [facility] [address] [place] [address], [facility] HEP B CORE AB IGM [id number] HEP B CORE IGM Negative Normal Negative [facility] Comment on above: Result Comment: INTE RPRETIVE INFORMATION: Hepatitis B Core Ab, IgM This assay should not be used for blood donor screening, associated re-entry protocols, or for screening Human Cells, Tissues and Cellular and Tissue-Based Products (HCT/P). Performed By: [employer] [address] [place] [address] Web Consultant: Wen Washington MD HEPATITIS C ANTIBODYon 09-19 ANTI-HCV Non-Reactive Normal NONREACTIVE [facility] Comment on above: Performed By: #### 3 1397, 60090 #### [facility] [address] IMMUNOGLOB BLon 09-19-2020 IgA [Mass/Vol] 204 mg/dL Normal 60-413 [facility] Comment on above: Performed By: #### 9 9744, 64835, 45182 #### [facility] [address] [place] [address], [facility] IgG [Mass/Vol] 1310 mg/dL Normal 591-1540 [facility] Comment on above: Performed By: #### 9 9744, 74340, 28531 #### [facility] [address] [place] [address], [facility] IgM [Mass/Vol] 53 mg/dL Low 54-285 [facility] Comment on above: Performed By: #### 9 9744, 11836, 84688 #### [facility] [address] [facility] [place] [address], [facility] PROTEIN ELECT Tin 09-19-2020 Protein [Mass/Vol] 7.2 g/dL Normal 6.0-8.3 [facility] Comment on above: Performed By: #### 3 1397, 74903 #### [facility] [address] [place] [address], [facility] PROTEIN ELECT Normal [facility] Comment on above: Result Comment: Norm al Pattern. Prominent albumin peak is seen along with normal fractions of alpha 1, alpha 2, beta and gamma globulins. SEE SEPARATE REPORT Performed By: #### 3 1397, 71145 #### [facility] [address] [place] [address], [facility] Result Comment: Urin e protein electrophoresis suggests a nonselective nephropathy. SEE SEPARATE REPORT Performed By: #### 9 9744, 76887, 45610 #### [facility] [address] [place] [address], [facility] PROTEIN ELECT URon 1 U TOTAL PROTEIN 59.0 mg/dL Normal [facility] Comment on above: Result Comment: Ther e are no established reference values for random urine specimens Performed By: #### 9 9744, 04058, 87786 #### [facility] [address] [facility] [place] [address], [facility] PTH INTACTon 09-19-2020 PTH INTACT 28 pg/mL Normal 12- [facility] Comment on above: Performed By: #### 0 [id number], [id number], [id number] #### [facility] [address] [place] [address], [facility] US BLADDERon 09-19-2020 US BLADDER [facility] Department of Radiology [address] [place] [address] [phone] Patient Name: PATRICK HOLLY : 1945 Sex: M Age: Race: White Pt. Location: 383 Patient Status: O Ordered Date: 09/01/2020 9:05:00 AM Completed Date: 09/19/2020 11:50 AM Requesting Provider: TOY EDGAR Attending Provider: TOY EDGAR Report Copy To: Signs & Symptoms: N18.30 Chronic kidney disease, stage 3 unspecified I10 History: Edie NPC Req. Nilesh Brand @[facility] for CPT 11254 Call Ref#[id number] [facility] Nec-Passed 09/04 *SLA Comments: Exam: US BLADDER US BLADDER 09/19/2020 11:50 AM CLINICAL INDICATIONS: N18.30 Chronic kidney disease, stage 3 unspecified I10 TECHNOLOGIST COMMENTS: ckd QUESTION FOR THE RADIOLOGIST: PROTOCOL: ULTRASOUND ROUTINE PROTOCOL COMPARISON: none FINDINGS: The bladder initially contained 365 mL of urine which diminished to 34 mL post void. Ureteral jets were identified. IMPRESSION: Unremarkable gallbladder ultrasound. Electronically signed: Alexander Bradshaw. Transcribed by: [email or web address], User Resident: Electronically Signed by: ALEXANDER BRADSHAW @ 09/19/2020 01:31 PM Normal [facility] US RENALon 09-19-2020 RENAL [facility] Department of Radiology [address] [place] [phone] Patient Name: PATRICK HOLLY : 1945 Sex: M Age: Race: White Pt. Location: 383 Patient Status: O Ordered Date: 09/01/2020 9:05:00 AM Completed Date: 09/19/2020 11:50 AM Requesting Provider: TOY EDGAR Attending Provider: TOY EDGAR Report Copy To: Signs & Symptoms: N18.30 Chronic kidney disease, stage 3 unspecified I10 History: Edie NPC Req. Nilesh Glass @[facility] for CPT 95762 Call Ref#[id number] Med Nec-Passed 09/04 *SLA Comments: Exam: US RENAL US RENAL 09/19/2020 11:50 AM SIGNS AND SYMPTOMS: N18.30 Chronic kidney disease, stage 3 unspecified I10 TECHNOLOGIST COMMENTS: ckd QUESTION FOR THE RADIOLOGIST: TECHNIQUE: Limited retroperitoneal ultrasound. COMPARISON: none FINDINGS: The right kidney measures 11.6 x 5.6 x 6.0 cm and the left kidney measures 12.0 x 5.6 x 5.4 cm. No cyst, mass or hydronephrosis was identified. Echogenic foci without twinkle artifact were noted bilaterally. IMPRESSION: No hydronephrosis appreciated. Echogenic foci without twinkle artifact, small calculi versus vascular calcification. Electronically signed: Alexander Bradshaw. Transcribed by: [email or web address], User Resident: Electronically Signed by: ALEXANDER BRADSHAW @ 09/19/2020 01:28 PM Normal [facility] VITAMIN D 25-HYDROXYon 09-19 VITAMIN D 25-OH 62.0 ng/mL Normal 30.0-80.0 [facility] Comment on above: Result Comment: >80. 0 Toxicity possible Performed By: #### 0 [id number], [id number], [id number] #### [facility] [address] [place] [address], [facility] Vital Signs Date Time Vital Sign Value Performing Clinician Souleymane palm 11-28-2023 10:34-0400 Diastolic blood pressure 78 mm[Hg] Allan Kirnus [facility] 11-28-2023 10:34-0400 Heart rate 78 /min Allan Kirnus [facility] 11-28-2023 10:34-0400 Respiratory rate 16 /min Allan Kirnus [facility] 11-28-2023 10:34-0400 SaO2% (BldA) [Mass fraction] 90 % Allan Micahnus [facility] 11-28-2023 10:34-0400 Systolic blood pressure 132 mm[Hg] Allan Kirnus [facility] 11-17-2023 10:59-0400 Body temperature 98.6 [degF] Jose eduFire [facility] 11-17-2023 10:59-0400 Diastolic blood pressure 70 mm[Hg] Jose eduFire [facility] 11-17-2023 10:59-0400 Heart rate 75 /min Jose eduFire [facility] 11-17-2023 10:59-0400 Respiratory rate 16 /min Jose COOK [facility] 11-17-2023 10:59-0400 Systolic blood pressure 122 mm[Hg] Jose eduFire [facility] 10-02-2023 13:29-0400 Body temperature 98.6 [degF] Jose COOK [facility] 10-02-2023 13:29-0400 Diastolic blood pressure 68 mm[Hg] Jose COOK [facility] 10-02-2023 13:29-0400 Heart rate 74 /min Jose ALCALA [facility] 10-02-2023 13:29-0400 Respiratory rate 16 /min Jose ALCALA [facility] 10-02-2023 13:29-0400 Systolic blood pressure 132 mm[Hg] Jose COOK [facility] 05-20-2023 13:06-0500 Blood Pressure Location Jose ALCALA [facility] 05-20-2023 13:06-0500 Diastolic blood pressure 70 mm[Hg] Jose COOK [facility] 05-20-2023 13:06-0500 Heart rate 82 /min Jose ALCALA [facility] 05-20-2023 13:06-0500 Systolic blood pressure 126 mm[Hg] Jose ALCALA [facility] 05-15-2023 14:10-0500 Diastolic blood pressure 68 mm[Hg] Jamie Tai [facility] 05-15-2023 14:10-0500 Heart rate 86 /min Jamie Tai [facility] 05-15-2023 14:10-0500 SaO2% (BldA) [Mass fraction] 90 % Jamie Tai [facility] 05-15-2023 14:10-0500 Systolic blood pressure 132 mm[Hg] Jamie Tai [facility] 04-11-2023 08:37-0400 Blood Pressure Location Jose ALCALA [facility] 04-11-2023 08:37-0400 Diastolic blood pressure 82 mm[Hg] Jose COOK [facility] 04-11-2023 08:37-0400 Heart rate 83 /min Jose COOK [facility] 04-11-2023 08:37-0400 Systolic blood pressure 140 mm[Hg] Jose ALCALA [facility] 04-03-2023 13:42-0400 Diastolic blood pressure 68 mm[Hg] Jamie Tai [facility] 04-03-2023 13:42-0400 Heart rate 73 /min Jamie Tai [facility] 04-03-2023 13:42-0400 SaO2% (BldA) [Mass fraction] 93 % Jamie Tai [facility] 04-03-2023 13:42-0400 Systolic blood pressure 130 mm[Hg] Jamie Tai [facility] 03-18-2023 10:56-0400 Blood Pressure Location Jose ALCALA [facility] 03-18-2023 10:56-0400 Diastolic blood pressure 70 mm[Hg] Jose ALCALA [facility] 03-18-2023 10:56-0400 Heart rate 72 /min Jose ALCALA [facility] 03-18-2023 10:56-0400 Systolic blood pressure 151 mm[Hg] Jose ALCALA [facility] Encounters Encounter Date Encounter Type Care Provider Facility Start: 11-28-2023 End: 11-28-2023 ambulatory XXXX NONE Facility:[facility] Start: 11-28-2023 End: 11-28-2023 Patient encounter procedure Allan Obrienchelsea [facility] Start: 11-27-2023 ambulatory Ernestine Beverly [facility] Start: 11-17-2023 End: 11-17-2023 ambulatory Jose ALCALA Facility:[facility] Start: 11-17-2023 End: 11-17-2023 Patient encounter procedure Jose ALCALA [facility] Start: 11-11-2023 End: 11-12-2023 ambulatory ERNESTINE BEVERLY [facility] Start: 10-02-2023 End: 10-02-2023 ambulatory Jose ALCALA Facility:[facility] Start: 10-02-2023 End: 10-02-2023 Patient encounter procedure Jose ALCALA [facility] Start: 09-01-2023 End: 09-01-2023 ambulatory Ernestine Beverly [facility] Start: 06-23-2023 End: 06-23-2023 ambulatory Ernestine Beverly Facility:[facility] [place] Start: 06-04-2023 End: 06-05-2023 ambulatory ERNESTINE BEVERLY [facility] Start: 05-28-2023 End: 05-28-2023 ambulatory Ernestine Beverly Facility:[facility] Start: 05-20-2023 End: 05-20-2023 ambulatory Jose ALCALA Facility:[facility] Start: 05-20-2023 End: 05-20-2023 Patient encounter procedure Jose ALCALA [facility] Start: 05-15-2023 End: 05-15-2023 ambulatory Jamie Tai Facility:[facility] Start: 05-15-2023 End: 05-15-2023 Patient encounter procedure Jamie Tai [facility] Start: 04-11-2023 End: 04-11-2023 ambulatory Jose ALCALA Facility:[facility] Start: 04-11-2023 End: 04-11-2023 Patient encounter procedure Jose Jennifer ALCALA [facility] Start: 04-03-2023 End: 04-03-2023 ambulatory Jamie Tai Facility:[facility] Start: 04-03-2023 End: 04-03-2023 Patient encounter procedure Jamie Tai [facility] Start: 03-18-2023 End: 03-18-2023 ambulatory Jose ALCALA Facility:[facility] Start: 03-18-2023 End: 03-18-2023 Patient encounter procedure Jose ALCALA [facility] Start: 03-17-2023 End: 03-17-2023 ambulatory Ernestine Beverly Facility:[facility] Start: 03-13-2023 End: 04-15-2023 ambulatory Ernestine Beverly Facility:[id number] Start: 03-11-2023 End: 03-11-2023 ambulatory Ernestine Beverly Facility:[facility] Start: 03-10-2023 ambulatory Ernestine Beverly Facility:[facility] Start: 12-20-2022 End: 12-21-2022 Transcribe Orders Yahaira Van Work Phone: [facility] Comment on above: Dyspnea, unspecified type Start: 11-04-2022 End: 11-04-2022 ambulatory Jonas Cruz Facility:[facility] Start: 09-19-2020 End: 09-20-2020 ambulatory PHYSICIAN UNKNOWN Facility:[facility] Start: 07-01-2019 End: 07-01-2019 Patient encounter procedure BRITTANI EMERY Facility:[facility] Procedures Date Procedure Procedure Detail Performing Clinician Start: 10-02-2023 Transurethral cystoscopy Jose ALCALA Start: 04-11-2023 Cystoscope, device ( physical object) Jose ALCALA Start: 12-20-2022 Radiologic exam ches t 2 views Yahaira Benjaminifton Raffaele Work Phone: Start: 07-24-2020 Ultrasonography guid ed transrectal cryoablation of prostate Jose ALCALA Start: 04-12-2013 Transrectal biopsy o f prostate using ultrasound guidance Jose ALCALA Cataract care Jose ALCALA Comment on above: B/L Colonoscopy Jose ALCALA Comment on above: 07/24/2020 Coronary artery bypa ss grafts x 4 Jose ALCALA Coronary artery bypa ss grafts x 4 Jose ALCALA Comment on above: 08/24/2014 Knee Replacement-Lt Jose ALCALA Plan of Treatment Date Care Activity Detail Author Start: 08-31-2024 [facility] Start: 05-04-2024 ambulatory Ambulatory Facility: [facility] Start: 12-30-2023 ambulatory Ambulatory Facility:[facility] Start: 10-28-2023 Basic metabolic 2000 panel - Serum or Plasma Basic Metabolic Panel [facility] Start: 03-16-2023 Influenza vaccination Influenza Vaccine (#1) [facility] Start: 06-16-2015 Annual wellness visit Annual Wellness Visit ([id number]) [facility] Start: 2009 Pneumococcal vaccination Pneumococcal Vaccine(s) (65+ yrs) (1 - PCV) [facility] Start: 1994 Shingles (RZV) Vaccine (1 of 2) Shingles (RZV) Vaccine (1 of 2) [facility] Start: 1962 Hepatitis C screening Hepatitis C Antibody [facility] Start: 1962 Tetanus + diphtheria + acellular pertussis vaccine (product) Tdap Booster [facility] Start: 1945 COVID-19 Vaccine (#1) COVID-19 Vaccine (#1) [facility] Immunizations Immunization Date Immunization Notes Care Provider Fa cili 03-17-2023 influenza, high dose seasonal, preservative-free Jose CARI [facility] 04-01-2022 Pfizer Bivalent (12+ YRS) SARS-COV-2 (COVID-19) vaccine, mRNA, spike protein, LNP, pres. free, 30 mcg/0.3mL dose, bruce-sucrose (ADO=537) [address] 04-23-2021 Moderna Monovalent ( 12+ yrs) COVID-19 vaccine, mRNA, spike protein, LNP, PF, 100 mcg/0.5 mL (LFY=205) [address] Comment on above: Result Comment: 2022: 74 04-16-2021 SARS-CoV-2 (COVID-19 ) mRNA-1273 vaccine Jose ALCALA [facility] 09-14-2020 Moderna Monovalent ( 12+ yrs) COVID-19 vaccine, mRNA, spike protein, LNP, PF, 100 mcg/0.5 mL (ZJR=248) [address] Comment on above: Result Comment: 2022: TPV75 08-17-2020 Moderna Monovalent ( 12+ yrs) COVID-19 vaccine, mRNA, spike protein, LNP, PF, 100 mcg/0.5 mL (CKY=237) [address] Comment on above: Result Comment: 2022: TPV75 08-14-2020 SARS-CoV-2 (COVID-19 ) mRNA-1273 vaccine Jose ALCALA [facility] 03-17-2018 Seasonal trivalent influenza vaccine, adjuvanted, preservative free Phe 1 [facility] 03-17-2018 influenza virus vacc ine, unspecified formulation Phe 1 [facility] 04-28-2017 influenza virus vacc ine, unspecified formulation Jose ALCALA [facility] 04-28-2017 influenza, injectabl e, quadrivalent, preservative free Phe 1 [facility] 08-28-2014 pneumococcal polysaccharide vaccine, 23 valent Jose ALCALA [facility] 07-16-2011 tetanus and diphther ia toxoids, adsorbed, preservative free, for adult use (2 Lf of tetanus toxoid and 2 Lf of diphtheria toxoid) Jose ALCALA [facility] 07-16-2011 tetanus and diphther ia toxoids, adsorbed, preservative free, for adult use (5 Lf of tetanus toxoid and 2 Lf of diphtheria toxoid) Phe 1 [facility] Payers Date Payer Category Payer Private Health Insurance [id number] 2022 Self-pay 2022 Unknown [id number] 2014 Medicare HUMANA MEDICARE HUMANA MEDICARE [id number] 2014-Present [employer] CLAIMS OFFICE [address] [address] [place] [address] PPO [id number] 2013 Unknown DEPT OF ' S AFFAIRS DEPT OF 'S AFFAIRS [id number] 2013-Present [facility] [address] [address] [place] [address] [id number] 1959 Medicare [id number] 1945 Unknown [id number] 2.16.840.1.620884.3.579. 2.593 1945 Unknown [id number] 2.16.840.1.538870.3.579. 2.647 1945 Unknown [id number] 2.16.840.1.988383.3.579. 2.1286 1944 Unknown [id number] 2.16.840.1.735744.3.579. 2.1286 1944 Unknown [id number] 2.16.840.1.546761.3.579. 2.727 1944 Unknown [id number] 2.16.840.1.668420.3.579. 2.727 1944 Unknown [id number] 2.16.840.1.540122.3.579. 2.727 1944 Unknown [id number] 2.16.840.1.747231.3.579. 2.727 1944 Unknown [id number] 2.16.840.1.282105.3.579. 2.727 1944 Unknown [id number] 2.16.840.1.471156.3.579. 2.727 1944 Unknown [id number] 2.16.840.1.092176.3.579. 2.727 1944 Unknown [id number] 2.16.840.1.281093.3.579. 2.727 1944 Unknown [id number] 2.16.840.1.679400.3.579. 2.727 1944 Unknown [id number] 2.16.840.1.635660.3.579. 2.727 1944 Unknown [id number] 2.16.840.1.440913.3.579. 2.727 1944 Unknown [id number] 2.16.840.1.954121.3.579. 2.727 1944 Unknown [id number] 2.16.840.1.158743.3.579. 2.727 1944 Unknown [id number] 2.16.840.1.896786.3.579. 2.727 1944 Unknown [id number] 2.16.840.1.223615.3.579. 2.727 1944 Unknown [id number] 2.16.840.1.157380.3.579. 2.727 1945 Unknown [id number] 2.16.840.1.912246.3.579. 2.72 Unknown [id number] 2.16.840.1.378675.3.579. 2.531 Social History Date Type Detail Facility Start: 07-08-2014 End: 11-17-2023 Tobacco smoking status [facility] Ex-smoker [facility] Work Phone: Comment on above: states started age [age], states stopped in 1991 History of tobacco use Current smoker [facility] History of tobacco use [facility] Start: 07-08-2014 Cigarettes smoked current (pack per day) - Reported [facility] Start: 07-17-2014 Alcohol intake Current drinke r of alcohol (finding) [facility] Start: 07-08-2014 Tobacco Comment QUIT IN 1991 [facility] Start: 1945 Sex Assigned At Not on file [facility] Gender identity Not on file [facility] Tobacco smoking status Never [facility] Comment on above: states started age [age], states stopped in 1991 Medical Equipment Procedure Code Equipment Code Equipment Origin al Text Equipment Identifier Dates Cement Bone Simp daniel [id number] 1 001 - [id number] Start: 07-15-2014 Patella Asymmetr ic 35 X 10mm Triathlon Conventional Poly [id number] - [id number] Start: 07-15-2014 Functional Status Date Assessment Result Facility 11-28-2023 Functional Status N/A [facility] 11-17-2023 Functional Status N/A [facility] 10-02-2023 Functional Status N/A [facility] 05-20-2023 Functional Status N/A [facility] 05-15-2023 Functional Status No [facility] 04-11-2023 Functional Status N/A [facility] 04-03-2023 Functional Status No [facility] 03-18-2023 Functional Status N/A [facility] Clinical Notes 03-18-2023 to 11-17-2023 RadiologyRadiologyRadiologyRadiologyRadiologyRadiologyLaboratoryRadiology Note Date & Type Note Facility 11-17-2023 Hospital Discharge instructions Patient Education 11/17/2023 11:29:37 Prostate Cancer Screening Prostate Cancer Screening Prostate cancer screening is testing that is done to check for the presence of prostate cancer in men. The prostate gland is a walnut-sized gland that is located below the bladder and in front of the rectum in males. The function of the prostate is to add fluid to semen during ejaculation. Prostate cancer is one of the most common types of cancer in men. Who should have prostate cancer screening? Screening recommendations vary based on age and other risk factors, as well as between the professional organizations who make the recommendations. In general, screening is recommended if: You are age 50 to 70 and have an average risk for prostate cancer. You should talk with your health care provider about your need for screening and how often screening should be done. Because most prostate cancers are slow growing and will not cause , screening in this age group is generally reserved for men who have a 10- to 15-year life expectancy. You are younger than age 50, and you have these risk factors: ?Having a father, brother, or uncle who has been diagnosed with prostate cancer. The risk is higher if your family member's cancer occurred at an early age or if you have multiple family members with prostate cancer at an early age. ?Being a male who is Black or is of [place] or sub-Saharan descent. In general, screening is not recommended if: You are younger than age 40. You are between the ages of 40 and 49 and you have no risk factors. You are 70 years of age or older. At this age, the risks that screening can cause are greater than the benefits that it may provide. If you are at high risk for prostate cancer, your health care provider may recommend that you have screenings more often or that you start screening at a younger age. How is screening for prostate cancer done? The recommended prostate cancer screening test is a blood test called the prostate-specific antigen (PSA) test. PSA is a protein that is made in the prostate. As you age, your prostate naturally produces more PSA. Abnormally high PSA levels may be caused by: Prostate cancer. An enlarged prostate that is not caused by cancer (benign prostatic hyperplasia, or BPH). This condition is very common in older men. A prostate gland infection (prostatitis) or urinary tract infection. Certain medicines such as male hormones (like testosterone) or other medicines that raise testosterone levels. A rectal exam may be done as part of prostate cancer screening to help provide information about the size of your prostate gland. When a rectal exam is performed, it should be done after the PSA level is drawn to avoid any effect on the results. Depending on the PSA results, you may need more tests, such as: A physical exam to check the size of your prostate gland, if not done as part of screening. Blood and imaging tests. A procedure to remove tissue samples from your prostate gland for testing (biopsy). This is the only way to know for certain if you have prostate cancer. What are the benefits of prostate cancer screening? Screening can help to identify cancer at an early stage, before symptoms start and when the cancer can be treated more easily. There is a small chance that screening may lower your risk of dying from prostate cancer. The chance is small because prostate cancer is a slow-growing cancer, and most men with prostate cancer from a different cause. What are the risks of prostate cancer screening? The main risk of prostate cancer screening is diagnosing and treating prostate cancer that would never have caused any symptoms or problems. This is called overdiagnosisand overtreatment. PSA screening cannot tell you if your PSA is high due to cancer or a different cause. A prostate biopsy is the only procedure to diagnose prostate cancer. Even the results of a biopsy may not tell you if your cancer needs to be treated. Slow-growing prostate cancer may not need any treatment other than monitoring, so diagnosing and treating it may cause unnecessary stress or other side effects. Questions to ask your health care provider When should I start prostate cancer screening? What is my risk for prostate cancer? How often do I need screening? What type of screening tests do I need? How do I get my test results? What do my results mean? Do I need treatment? Where to find more information The [employer]: www.cancer.org [employer]: www.auanet.org Contact a health care provider if: You have difficulty urinating. You have pain when you urinate or ejaculate. You have blood in your urine or semen. You have pain in your back or in the area of your prostate. Summary Prostate cancer is a common type of cancer in men. The prostate gland is located below the bladder and in front of the rectum. This gland adds fluid to semen during ejaculation. Prostate cancer screening may identify cancer at an early stage, when the cancer can be treated more easily and is less likely to have spread to other areas of the body. The prostate-specific antigen (PSA) test is the recommended screening test for prostate cancer, but it has associated risks. Discuss the risks and benefits of prostate cancer screening with your health care provider. If you are age 70 or older, the risks that screening can cause are greater than the benefits that it may provide. This information is not intended to replace advice given to you by your health care provider. Make sure you discuss any questions you have with your health care provider. Document Revised: 11/26/2021 Document Reviewed: 11/26/2021 [employer] Patient Education 2022 [employer]. Follow Up Care 10/02/2023 14:02:21 With:CARI RIOS, Jose Rodriguez, URL Address: [address] [place] [id number] When: Unknown [facility] 10-02-2023 Hospital Discharge instructions Patient Education 10/02/2023 13:58:46 Cystoscopy Cystoscopy Cystoscopy is a procedure that is used to help diagnose and sometimes treat conditions that affect the lower urinary tract. The lower urinary tract includes the bladder and the urethra. The urethra is the tube that drains urine from the bladder. Cystoscopy is done using a thin, tube-shaped instrument with a light and camera at the end (cystoscope). The cystoscope may be hard or flexible, depending on the goal of the procedure. The cystoscope is inserted through the urethra, into the bladder. Cystoscopy may be recommended if you have: Urinary tract infections that keep coming back. Blood in the urine (hematuria). An inability to control when you urinate (urinary incontinence) or an overactive bladder. Unusual cells found in a urine sample. A blockage in the urethra, such as a urinary stone. Painful urination. An abnormality in the bladder found during an intravenous pyelogram (IVP) or CT scan. Cystoscopy may also be done to remove a sample of tissue to be examined under a microscope (biopsy). Tell a health care provider about: Any allergies you have. All medicines you are taking, including vitamins, herbs, eye drops, creams, and alxy-msx-hovjqsj medicines. Any problems you or family members have had with anesthetic medicines. Any blood disorders you have. Any surgeries you have had. Any medical conditions you have. Whether you are or may be . What are the risks? Generally, this is a safe procedure. However, problems may occur, including: Infection. Bleeding. Allergic reactions to medicines. Damage to other structures or organs. What happens before the procedure? Medicines Ask your health care provider about: Changing or stopping your regular medicines. This is especially important if you are taking diabetes medicines or blood thinners. Taking medicines such as aspirin and ibuprofen. These medicines can thin your blood. Do not take these medicines unless your health care provider tells you to take them. Taking wnai-vml-eoffjsd medicines, vitamins, herbs, and supplements. Tests You may have an exam or testing, such as: X-rays of the bladder, urethra, or kidneys. CT scan of the abdomen or pelvis. Urine tests to check for signs of infection. General instructions Follow instructions from your health care provider about eating or drinking restrictions. Ask your health care provider what steps will be taken to help prevent infection. These steps may include: ?Washing skin with a germ-killing soap. ?Taking antibiotic medicine. Plan to have a responsible adult take you home from the hospital or clinic. What happens during the procedure? You will be given one or more of the following: ?A medicine to help you relax (sedative). ?A medicine to numb the area (local anesthetic). The area around the opening of your urethra will be cleaned. The cystoscope will be passed through your urethra into your bladder. Germ-free (sterile) fluid will flow through the cystoscope to fill your bladder. The fluid will stretch your bladder so that your health care provider can clearly examine your bladder mclean. Your doctor will look at the urethra and bladder. Your doctor may take a biopsy or remove stones. The cystoscope will be removed, and your bladder will be emptied. The procedure may vary among health care providers and hospitals. What can I expect after the procedure? After the procedure, it is common to have: Some soreness or pain in your abdomen and urethra. Urinary symptoms. These include: ?Mild pain or burning when you urinate. Pain should stop within a few minutes after you urinate. This may last for up to 1 week. ?A small amount of blood in your urine for several days. ?Feeling like you need to urinate but producing only a small amount of urine. Follow these instructions at home: Medicines Take ehfe-twl-liakohq and prescription medicines only as told by your health care provider. If you were prescribed an antibiotic medicine, take it as told by your health care provider. Do not stop taking the antibiotic even if you start to feel better. General instructions Return to your normal activities as told by your health care provider. Ask your health care provider what activities are safe for you. If you were given a sedative during the procedure, it can affect you for several hours. Do not drive or operate machinery until your health care provider says that it is safe. Watch for any blood in your urine. If the amount of blood in your urine increases, call your health care provider. Follow instructions from your health care provider about eating or drinking restrictions. If a tissue sample was removed for testing (biopsy) during your procedure, it is up to you to get your test results. Ask your health care provider, or the department that is doing the test, when your results will be ready. Drink enough fluid to keep your urine pale yellow. Keep all follow-up visits. This is important. Contact a health care provider if: You have pain that gets worse or does not get better with medicine, especially pain when you urinate. You have trouble urinating. You have more blood in your urine. Get help right away if: You have blood clots in your urine. You have abdominal pain. You have a fever or chills. You are unable to urinate. Summary Cystoscopy is a procedure that is used to help diagnose and sometimes treat conditions that affect the lower urinary tract. Cystoscopy is done using a thin, tube-shaped instrument with a light and camera at the end. After the procedure, it is common to have some soreness or pain in your abdomen and urethra. Watch for any blood in your urine. If the amount of blood in your urine increases, call your health care provider. If you were prescribed an antibiotic medicine, take it as told by your health care provider. Do not stop taking the antibiotic even if you start to feel better. This information is not intended to replace advice given to you by your health care provider. Make sure you discuss any questions you have with your health care provider. Document Revised: 02/13/2022 Document Reviewed: 01/12/2021 [employer] Patient Education 2022 [employer]. Follow Up Care 05/20/2023 13:43:41 With:CARI RIOS, Jose Rodriguez, URL Address: [facility] [place] [id number]- When: Unknown [facility] 10-02-2023 Note Urology Cystoscopy Cystoscopy is a procedure that is used to help diagnose and sometimes treat conditions that affect the lower urinary tract. The lower urinary tract includes the bladder and the urethra. The urethra is the tube that drains urine from the bladder. Cystoscopy is done using a thin, tube-shaped instrument with a light and camera at the end (cystoscope). The cystoscope may be hard or flexible, depending on the goal of the procedure. The cystoscope is inserted through the urethra, into the bladder. Cystoscopy may be recommended if you have: ? Urinary tract infections that keep coming back. ? Blood in the urine (hematuria). ? An inability to control when you urinate (urinary incontinence) or an overactive bladder. ? Unusual cells found in a urine sample. ? A blockage in the urethra, such as a urinary stone. ? Painful urination. ? An abnormality in the bladder found during an intravenous pyelogram (IVP) or CT scan. Cystoscopy may also be done to remove a sample of tissue to be examined under a microscope (biopsy). Tell a health care provider about: ? Any allergies you have. ? All medicines you are taking, including vitamins, herbs, eye drops, creams, and njfx-tvx-komvian medicines. ? Any problems you or family members have had with anesthetic medicines. ? Any blood disorders you have. ? Any surgeries you have had. ? Any medical conditions you have. ? Whether you are or may be . What are the risks? Generally, this is a safe procedure. However, problems may occur, including: ? Infection. ? Bleeding. ? Allergic reactions to medicines. ? Damage to other structures or organs. What happens before the procedure? Medicines Ask your health care provider about: ? Changing or stopping your regular medicines. This is especially important if you are taking diabetes medicines or blood thinners. ? Taking medicines such as aspirin and ibuprofen. These medicines can thin your blood. Do not take these medicines unless your health care provider tells you to take them. ? Taking jgqc-isd-xglrrho medicines, vitamins, herbs, and supplements. Tests You may have an exam or testing, such as: ? X-rays of the bladder, urethra, or kidneys. ? CT scan of the abdomen or pelvis. ? Urine tests to check for signs of infection. General instructions ? Follow instructions from your health care provider about eating or drinking restrictions. ? Ask your health care provider what steps will be taken to help prevent infection. These steps may include: ? Washing skin with a germ-killing soap. ? Taking antibiotic medicine. ? Plan to have a responsible adult take you home from the hospital or clinic. What happens during the procedure? ? You will be given one or more of the following: ? A medicine to help you relax (sedative). ? A medicine to numb the area (local anesthetic). ? The area around the opening of your urethra will be cleaned. ? The cystoscope will be passed through your urethra into your bladder. ? Germ-free (sterile) fluid will flow through the cystoscope to fill your bladder. The fluid will stretch your bladder so that your health care provider can clearly examine your bladder mclean. ? Your doctor will look at the urethra and bladder. Your doctor may take a biopsy or remove stones. ? The cystoscope will be removed, and your bladder will be emptied. The procedure may vary among health care providers and hospitals. What can I expect after the procedure? After the procedure, it is common to have: ? Some soreness or pain in your abdomen and urethra. ? Urinary symptoms. These include: ? Mild pain or burning when you urinate. Pain should stop within a few minutes after you urinate. This may last for up to 1 week. ? A small amount of blood in your urine for several days. ? Feeling like you need to urinate but producing only a small amount of urine. Follow these instructions at home: Medicines ? Take hass-toi-ecxqgyl and prescription medicines only as told by your health care provider. ? If you were prescribed an antibiotic medicine, take it as told by your health care provider. Do not stop taking the antibiotic even if you start to feel better. General instructions ? Return to your normal activities as told by your health care provider. Ask your health care provider what activities are safe for you. ? If you were given a sedative during the procedure, it can affect you for several hours. Do not drive or operate machinery until your health care provider says that it is safe. ? Watch for any blood in your urine. If the amount of blood in your urine increases, call your health care provider. ? Follow instructions from your health care provider about eating or drinking restrictions. ? If a tissue sample was removed for testing (biopsy) during your procedure, it is up to you to get your test results. Ask your health care provider, or the department th (more content not included)... [facility] 05-20-2023 Hospital Discharge instructions Patient Education 05/20/2023 13:29:47 Benign Prostatic Hyperplasia Benign Prostatic Hyperplasia Benign prostatic hyperplasia (BPH) is an enlarged prostate gland that is caused by the normal aging process. The prostate may get bigger as a man gets older. The condition is not caused by cancer. The prostate is a walnut-sized gland that is involved in the production of semen. It is located in front of the rectum and below the bladder. The bladder stores urine. The urethra carries stored urine out of the body. An enlarged prostate can press on the urethra. This can make it harder to pass urine. The buildup of urine in the bladder can cause infection. Back pressure and infection may progress to bladder damage and kidney (renal) failure. What are the causes? This condition is part of the normal aging process. However, not all men develop problems from this condition. If the prostate enlarges away from the urethra, urine flow will not be blocked. If it enlarges toward the urethra and compresses it, there will be problems passing urine. What increases the risk? This condition is more likely to develop in men older than 50 years. What are the signs or symptoms? Symptoms of this condition include: Getting up often during the night to urinate. Needing to urinate frequently during the day. Difficulty starting urine flow. Decrease in size and strength of your urine stream. Leaking (dribbling) after urinating. Inability to pass urine. This needs immediate treatment. Inability to completely empty your bladder. Pain when you pass urine. This is more common if there is also an infection. Urinary tract infection (UTI). How is this diagnosed? This condition is diagnosed based on your medical history, a physical exam, and your symptoms. Tests will also be done, such as: A post-void bladder scan. This measures any amount of urine that may remain in your bladder after you finish urinating. A digital rectal exam. In a rectal exam, your health care provider checks your prostate by putting a lubricated, gloved finger into your rectum to feel the back of your prostate gland. This exam detects the size of your gland and any abnormal lumps or growths. An exam of your urine (urinalysis). A prostate specific antigen (PSA) screening. This is a blood test used to screen for prostate cancer. An ultrasound. This test uses sound waves to electronically produce a picture of your prostate gland. Your health care provider may refer you to a specialist in kidney and prostate diseases (urologist). How is this treated? Once symptoms begin, your health care provider will monitor your condition (active surveillance or watchful waiting). Treatment for this condition will depend on the severity of your condition. Treatment may include: Observation and yearly exams. This may be the only treatment needed if your condition and symptoms are mild. Medicines to relieve your symptoms, including: ?Medicines to shrink the prostate. ?Medicines to relax the muscle of the prostate. Surgery in severe cases. Surgery may include: ?Prostatectomy. In this procedure, the prostate tissue is removed completely through an open incision or with a laparoscope or robotics. ?Transurethral resection of the prostate (TURP). In this procedure, a tool is inserted through the opening at the tip of the penis (urethra). It is used to cut away tissue of the inner core of the prostate. The pieces are removed through the same opening of the penis. This removes the blockage. ?Transurethral incision (TUIP). In this procedure, small cuts are made in the prostate. This lessens the prostate's pressure on the urethra. ?Transurethral microwave thermotherapy (TUMT). This procedure uses microwaves to create heat. The heat destroys and removes a small amount of prostate tissue. ?Transurethral needle ablation (TUNA). This procedure uses radio frequencies to destroy and remove a small amount of prostate tissue. ?Interstitial laser coagulation (ILC). This procedure uses a laser to destroy and remove a small amount of prostate tissue. ?Transurethral electrovaporization (TUVP). This procedure uses electrodes to destroy and remove a small amount of prostate tissue. ?Prostatic urethral lift. This procedure inserts an implant to push the lobes of the prostate away from the urethra. Follow these instructions at home: Take zeer-hfi-binnfnq and prescription medicines only as told by your health care provider. Monitor your symptoms for any changes. Contact your health care provider with any changes. Avoid drinking large amounts of liquid before going to bed or out in public. Avoid or reduce how much caffeine or alcohol you drink. Give yourself time when you urinate. Keep all follow-up visits. This is important. Contact a health care provider if: You have unexplained back pain. Your symptoms do not get better with treatment. You develop side effects from the medicine you are taking. Your urine becomes very dark or has a bad smell. Your lower abdomen becomes distended and you have trouble passing urine. Get help right away if: You have a fever or chills. You suddenly cannot urinate. You feel light-headed or very dizzy, or you faint. There are large amounts of blood or clots in your urine. Your urinary problems become hard to manage. You develop moderate to severe low back or flank pain. The flank is the side of your body between the ribs and the hip. These symptoms may be an emergency. Get help right away. Call 911. Do not wait to see if the symptoms will go away. Do not drive yourself to the hospital. Summary Benign prostatic hyperplasia (BPH) is an enlarged prostate that is caused by the normal aging process. It is not caused by cancer. An enlarged prostate can press on the urethra. This can make it hard to pass urine. This condition is more likely to develop in men older than 50 years. Get help right away if you suddenly cannot urinate. This information is not intended to replace advice given to you by your health care provider. Make sure you discuss any questions you have with your health care provider. Document Revised: 12/19/2021 Document Reviewed: 12/19/2021 [employer] Patient Education 2022 [employer]. Follow Up Care 04/11/2023 09:10:25 With:CARI RIOS, Jose Rodriguez, URL Address: [address] [place], [place] [id number]- When: Unknown Comments:Schedule Cysto [facility] 04-11-2023 Hospital Discharge instructions Patient Education 04/11/2023 09:01:44 Acute Urinary Retention, Male Acute Urinary Retention, Male Acute urinary retention is a condition in which a person is unable to pass urine or can only pass a little urine. This condition can happen suddenly and last for a short time. If left untreated, it can become long-term (chronic) and result in kidney damage or other serious complications. What are the causes? This condition may be caused by: Obstruction or narrowing of the tube that drains the bladder (urethra). This may be caused by surgery, problems with nearby organs, or injury to the bladder or urethra. Problems with the nerves in the bladder. Tumors in the area of the pelvis, bladder, or urethra. Certain medicines. Bladder or urinary tract infection. Constipation. What increases the risk? This condition is more likely to develop in older men. As men age, their prostate may become larger and may start to press or squeeze on the bladder or the urethra. Other chronic health conditions can increase the risk of acute urinary retention. These include: Diseases such as multiple sclerosis. Spinal cord injuries. Diabetes. Degenerative cognitive conditions, such as delirium or dementia. Psychological conditions. A man may hold his urine due to trauma or because he does not want to use the bathroom. What are the signs or symptoms? Symptoms of this condition include: Trouble urinating. Pain in the lower abdomen. How is this diagnosed? This condition is diagnosed based on a physical exam and your medical history. You may also have other tests, including: An ultrasound of the bladder or kidneys or both. Blood tests. A urine analysis. Additional tests may be needed, such as a CT scan, MRI, and kidney or bladder function tests. How is this treated? Treatment for this condition may include: Medicines. Placing a thin, sterile tube (catheter) into the bladder to drain urine out of the body. This is called an indwelling urinary catheter. After it is inserted, the catheter is held in place with a small balloon that is filled with sterile water. Urine drains from the catheter into a collection bag outside of the body. Behavioral therapy. Treatment for other conditions. If needed, you may be treated in the hospital for kidney function problems or to manage other complications. Follow these instructions at home: Medicines Take fyqw-aae-hrfrcvj and prescription medicines only as told by your health care provider. Avoid certain medicines, such as decongestants, antihistamines, and some prescription medicines. Do not take any medicine unless your health care provider approves. If you were prescribed an antibiotic medicine, take it as told by your health care provider. Do not stop using the antibiotic even if you start to feel better. General instructions Do not use any products that contain nicotine or tobacco. These products include cigarettes, chewing tobacco, and vaping devices, such as e-cigarettes. If you need help quitting, ask your health care provider. Drink enough fluid to keep your urine pale yellow. If you have an indwelling urinary catheter, follow the instructions from your health care provider. Monitor any changes in your symptoms. Tell your health care provider about any changes. If instructed, monitor your blood pressure at home. Report changes as told by your health care provider. Keep all follow-up visits. This is important. Contact a health care provider if: You have uncomfortable bladder contractions that you cannot control (spasms). You leak urine with the spasms. Get help right away if: You have chills or a fever. You have blood in your urine. You have a catheter and the following happens: ?Your catheter stops draining urine. ?Your catheter falls out. Summary Acute urinary retention is a condition in which a person is unable to pass urine or can only pass a little urine. If left untreated, this condition can result in kidney damage or other serious complications. An enlarged prostate may cause this condition. As men age, their prostate gland may become larger and may press or squeeze on the bladder or the urethra. Treatment for this condition may include medicines and placement of an indwelling urinary catheter. Monitor any changes in your symptoms. Tell your health care provider about any changes. This information is not intended to replace advice given to you by your health care provider. Make sure you discuss any questions you have with your health care provider. Document Revised: 02/21/2021 Document Reviewed: 02/21/2021 [employer] Patient Education 2022 [employer]. Follow Up Care 03/18/2023 12:08:18 With:CARI RIOS, Jose Rodriguez, URL Address: [address] [place] [id number]- When: Unknown Comments:6wks w/ PVR and PSA [facility] 03-18-2023 Hospital Discharge instructions Patient Education 03/18/2023 11:51:28 Benign Prostatic Hyperplasia Benign Prostatic Hyperplasia Benign prostatic hyperplasia (BPH) is an enlarged prostate gland that is caused by the normal aging process. The prostate may get bigger as a man gets older. The condition is not caused by cancer. The prostate is a walnut-sized gland that is involved in the production of semen. It is located in front of the rectum and below the bladder. The bladder stores urine. The urethra carries stored urine out of the body. An enlarged prostate can press on the urethra. This can make it harder to pass urine. The buildup of urine in the bladder can cause infection. Back pressure and infection may progress to bladder damage and kidney (renal) failure. What are the causes? This condition is part of the normal aging process. However, not all men develop problems from this condition. If the prostate enlarges away from the urethra, urine flow will not be blocked. If it enlarges toward the urethra and compresses it, there will be problems passing urine. What increases the risk? This condition is more likely to develop in men older than 50 years. What are the signs or symptoms? Symptoms of this condition include: Getting up often during the night to urinate. Needing to urinate frequently during the day. Difficulty starting urine flow. Decrease in size and strength of your urine stream. Leaking (dribbling) after urinating. Inability to pass urine. This needs immediate treatment. Inability to completely empty your bladder. Pain when you pass urine. This is more common if there is also an infection. Urinary tract infection (UTI). How is this diagnosed? This condition is diagnosed based on your medical history, a physical exam, and your symptoms. Tests will also be done, such as: A post-void bladder scan. This measures any amount of urine that may remain in your bladder after you finish urinating. A digital rectal exam. In a rectal exam, your health care provider checks your prostate by putting a lubricated, gloved finger into your rectum to feel the back of your prostate gland. This exam detects the size of your gland and any abnormal lumps or growths. An exam of your urine (urinalysis). A prostate specific antigen (PSA) screening. This is a blood test used to screen for prostate cancer. An ultrasound. This test uses sound waves to electronically produce a picture of your prostate gland. Your health care provider may refer you to a specialist in kidney and prostate diseases (urologist). How is this treated? Once symptoms begin, your health care provider will monitor your condition (active surveillance or watchful waiting). Treatment for this condition will depend on the severity of your condition. Treatment may include: Observation and yearly exams. This may be the only treatment needed if your condition and symptoms are mild. Medicines to relieve your symptoms, including: ?Medicines to shrink the prostate. ?Medicines to relax the muscle of the prostate. Surgery in severe cases. Surgery may include: ?Prostatectomy. In this procedure, the prostate tissue is removed completely through an open incision or with a laparoscope or robotics. ?Transurethral resection of the prostate (TURP). In this procedure, a tool is inserted through the opening at the tip of the penis (urethra). It is used to cut away tissue of the inner core of the prostate. The pieces are removed through the same opening of the penis. This removes the blockage. ?Transurethral incision (TUIP). In this procedure, small cuts are made in the prostate. This lessens the prostate's pressure on the urethra. ?Transurethral microwave thermotherapy (TUMT). This procedure uses microwaves to create heat. The heat destroys and removes a small amount of prostate tissue. ?Transurethral needle ablation (TUNA). This procedure uses radio frequencies to destroy and remove a small amount of prostate tissue. ?Interstitial laser coagulation (ILC). This procedure uses a laser to destroy and remove a small amount of prostate tissue. ?Transurethral electrovaporization (TUVP). This procedure uses electrodes to destroy and remove a small amount of prostate tissue. ?Prostatic urethral lift. This procedure inserts an implant to push the lobes of the prostate away from the urethra. Follow these instructions at home: Take [id number] and prescription medicines only as told by your health care provider. Monitor your symptoms for any changes. Contact your health care provider with any changes. Avoid drinking large amounts of liquid before going to bed or out in public. Avoid or reduce how much caffeine or alcohol you drink. Give yourself time when you urinate. Keep all follow-up visits. This is important. Contact a health care provider if: You have unexplained back pain. Your symptoms do not get better with treatment. You develop side effects from the medicine you are taking. Your urine becomes very dark or has a bad smell. Your lower abdomen becomes distended and you have trouble passing urine. Get help right away if: You have a fever or chills. You suddenly cannot urinate. You feel light-headed or very dizzy, or you faint. There are large amounts of blood or clots in your urine. Your urinary problems become hard to manage. You develop moderate to severe low back or flank pain. The flank is the side of your body between the ribs and the hip. These symptoms may be an emergency. Get help right away. Call 911. Do not wait to see if the symptoms will go away. Do not drive yourself to the hospital. Summary Benign prostatic hyperplasia (BPH) is an enlarged prostate that is caused by the normal aging process. It is not caused by cancer. An enlarged prostate can press on the urethra. This can make it hard to pass urine. This condition is more likely to develop in men older than 50 years. Get help right away if you suddenly cannot urinate. This information is not intended to replace advice given to you by your health care provider. Make sure you discuss any questions you have with your health care provider. Document Revised: 12/19/2021 Document Reviewed: 12/19/2021 [employer] Patient Education 2022 [employer]. Follow Up Care 03/12/2023 08:52:10 With:CARI RIOS, Jose Rodriguez, URL Address: [address] [place] [address]- When: Unknown Comments:Sched Cysto [facility] 03-18-2023 Note [id number]:[id number] [facility] Evaluation + Plan note Future Appointments Appointment Date:03/20/2023 01:30:00 PM Scheduled Provider:Jamie Tai MD Location:[facility] Appointment Type:Cardiology New Patient (FT) Appointment Date:04/11/2023 08:45:00 AM Scheduled Provider:Jose ALCALA MD Location:[facility] Appointment Type:URO Procedure 15 min Appointment Date:05/28/2023 01:20:00 PM Scheduled Provider:Ernestine Beverly MD Location:[facility] Appointment Type: Open [facility] Evaluation + Plan note Future Appointments Appointment Date:04/11/2023 08:45:00 AM Scheduled Provider:Jose ALCALA MD Location:[facility] Appointment Type:URO Procedure 15 min Appointment Date:05/15/2023 02:15:00 PM Scheduled Provider:Jamie Tai MD Location:[facility] Appointment Type:Cardiology Follow Up (FT) Appointment Date:05/28/2023 01:20:00 PM Scheduled Provider:Ernestine Beverly MD Location:[facility] Appointment Type: Open [facility] Scheduled TestsNM Myocardial Spect Rest/Stress 1 Day 04/03/23Echo Transthoracic Complete 04/03/23 [facility] Evaluation + Plan note Future Appointments Appointment Date:05/15/2023 02:15:00 PM Scheduled Provider:Jamie Tai MD [facility] Appointment Type:Cardiology Follow Up (FT) Appointment Date:05/20/2023 01:00:00 PM Scheduled Provider:Jose ALCALA MD Location:[facility] Appointment Type:URO Office Visit Appointment Date:05/28/2023 01:20:00 PM Scheduled Provider:Ernestine Beverly MD Location:[facility] Appointment Type: Open Diagnostic Tests PendingPSA Free & Total 04/11/23 Future Scheduled TestsNM Myocardial Spect Rest/Stress 1 Day 04/03/23Echo Transthoracic Complete 04/03/23 [facility] Evaluation + Plan note Future Appointments Appointment Date:05/20/2023 01:00:00 PM Scheduled Provider:Jose ALCALA MD Location:[facility] Appointment Type:URO Office Visit Appointment Date:05/28/2023 01:20:00 PM Scheduled Provider:Ernestine Beverly MD Location:[facility] Appointment Type:FM Open Appointment Date:11/07/2023 10:45:00 AM Scheduled Provider:Jamie Tai MD [facility] App[facility] Type:Cardiology Follow Up (FT) Future Scheduled TestsNM Myocardial Spect Rest/Stress 1 Day 04/03/23Echo Transthoracic Complete 04/03/23 [facility] Evaluation + Plan note Future Appointments Appointment Date:05/28/2023 01:20:00 PM Scheduled Provider:Ernestine Beverly MD Location:[facility] Appointment Type:FM Open Appointment Date:08/21/2023 01:00:00 PM Scheduled Provider:Jose ALCALA MD Location:[facility] Appointment Type:URO Procedure 15 min Appointment Date:11/07/2023 10:45:00 AM Scheduled Provider:Jamie Tai MD [facility] Appointment Type:Cardiology Follow Up (FT) Future Scheduled TestsNM Myocardial Spect Rest/Stress 1 Day 04/03/23Echo Transthoracic Complete 04/03/23 [facility] Evaluation + Plan note Future Appointments Appointment Date:11/14/2023 10:45:00 AM Scheduled Provider:Allan Agarwal MD Location:[facility] Appointment Type:Cardiology Follow Up (FT) Appointment Date:11/17/2023 11:00:00 AM Scheduled Provider:Jose ALCALA MD Location:[facility] Appointment Type:URO Office Visit Appointment Date:12/30/2023 09:15:00 AM Scheduled Provider:Ernestine Beverly MD Location:[facility] Appointment Type:FM Open Appointment Date:08/31/2024 01:00:00 PM Scheduled Provider: Location:[facility] Appointment Type:FM Medicare Wellness Subsequent Diagnostic Tests PendingPSA Free & Total 10/02/23 Future Scheduled TestsNM Myocardial Spect Rest/Stress 1 Day 04/03/23Echo Transthoracic Complete 04/03/23 [facility] Evaluation + Plan note Future Appointments Appointment Date:11/28/2023 10:45:00 AM Scheduled Provider:Allan Agarwal MD [facility] [place] Appointment Type:Cardiology Follow Up (FT) Appointment Date:12/30/2023 09:15:00 AM Scheduled Provider:Ernestine Beverly MD Location:[facility] Appointment Type: Open Appointment Date:05/04/2024 10:15:00 AM Scheduled Provider:Jsoe ALCALA MD Location:[facility] Appointment Type:URO Office Visit Appointment Date:08/31/2024 01:00:00 PM Scheduled Provider: Location:[facility] Appointment Type: Medicare Wellness Subsequent Diagnostic Tests PendingPSA Free & Total 11/17/23 Future Scheduled TestsNM Myocardial Spect Rest/Stress 1 Day 04/03/23Echo Transthoracic Complete 04/03/23 [facility] Evaluation + Plan note Future Appointments Appointment Date:12/30/2023 09:15:00 AM Scheduled Provider:Ernestine Beverly MD Location:[facility] Appointment Type: Open Appointment Date:05/04/2024 10:15:00 AM Scheduled Provider:Jose ALCALA MD [facility] Appointment Type:URO Office Visit Appointment Date:05/28/2024 10:45:00 AM Scheduled Provider:Allan Agarwal MD [facility] [place] Appointment Type:Cardiology Follow Up (FT) Appointment Date:08/31/2024 01:00:00 PM Scheduled Provider: Location:[facility] Appointment Type:FM Medicare Wellness Subsequent Future Scheduled TestsLipid Panel 11/28/23NM Myocardial Spect Rest/Stress 1 Day 04/03/23Echo Transthoracic Complete 04/03/23 [facility] Evaluation note Diagnosis Dyspnea, unspecified type- Primary Dyspnea, unspecified type [facility], unspecified type [facility] Narrative No data available for this section [facility] Discharge instructions No data available for this section [facility] No data available for this section [facility] Summary Purpose Family History No Family History Records FoundNo Family History Records FoundNo Family History Records FoundNo Family History Records Found No data available for this section No data available for this section No data available for this section No data available for this section No data available for this section No data available for this section No Family History Records Found No data available for this section No data available for this section No Family History Records Found Advance Directives No Advanced Directives Records FoundLatest Code Status on File Code Status Date Activated Date Inactivated Comments Full Code 07/17/2014 8:50 PM 07/21/2014 6:18 PM Code Status History Code Status Date Activated Date Inactivated Comments Full Code 07/15/2014 4:04 PM 07/17/2014 8:50 PM Reason for Referral Specialty Diagnoses / Procedures Referred By Contac t Referred To Contact Radiology Diagnoses Dyspnea, unspecified type Procedures XR CHEST PA+LAT 2 VIEWS Yahaira Van [address] [place] [address] [facility] DI[facility]Y [address] [place] [address] [place] [address] Referral ID Status Reason Start Date Expiration Date Visits Re quested Visits Authorized [id number] Closed 12/20/2022 12/20/2023 1 1 Additional Source Comments (unrecognized sect ion and content) No Status Records FoundNo Status Records FoundNo Status Records FoundNo Status Records FoundNo Status Records FoundNo Status Records Found INFORMATION SOURCE (unrecogn ized section and content) DATE CREATED AUTHOR 07/07/2019 [facility] DATE CREATED AUTHOR AUTHOR'S ORGANIZ ATION 10/11/2020 [facility] DATE CREATED AUTHOR AUTHOR'S ORGANIZ ATION 11/23/2022 [facility] DATE CREATED AUTHOR AUTHOR'S ORGANIZ ATION [facility]/22/2022 [facility] DATE CREATED AUTHOR AUTHOR'S ORGANIZ ATION 11/12/2023 [facility] DATE CREATED AUTHOR AUTHOR'S ORGANIZ ATION 11/29/2023 [facility] Reason for Visit (unrecogniz ed section and content) Specialty Diagnoses / Procedures Referred By Contac t Referred To Contact Radiology Diagnoses Dyspnea, unspecified type Procedures XR CHEST PA+LAT 2 VIEWS Yahaira Van [address] [place] [address] [facility]Y [address] [place] [address] [place] [address] Referral ID Status Reason Start Date Expiration Date Visits Re quested Visits Authorized [id number] Closed 12/20/2022 12/20/2023 1 1 Patient Care team informatio n (unrecognized section and content) Personnel Name: Ernestine Beverly MD Address: Address: [address] [place] [address] Personnel Name: Ernestine Beverly MD Address: Address: [address] [place] [address] Personnel Name: Ernestine Beverly MD Address: Address: [address] [place] [address] Personnel Name: Ernestine Beverly MD Address: Address: [address] [place] [address] Personnel Name: Ernestine Beveryl MD Address: Address: [address] [place] [address] Personnel Name: Ernestine Beverly MD Address: Address: [address] [place] [address] Personnel Name: Ernestine Beverly MD Address: Address: [address] [place] [address] Personnel Name: Ernestine Beverly MD Address: Address: [address] [place] [place], [place] [address] FOR RECORDS PERTAINING TO PATIENTS WHO ARE OR HAVE BEEN ENROLLED IN A CHEMICAL DEPENDENCY/SUBSTANCEABUSE PROGRAM, SOME INFORMATION MAY BE OMITTED. This clinical summary was aggregated from multiple sources. Caution should be exercised in using it in the provision of clinical care. This summary normalizes information from multiple sources, and as a consequence, information in this document may materially change the coding, format and clinical context of patient data. In addition, data may be omitted in some cases. CLINICAL DECISIONS SHOULD BE BASED ON THE PRIMARY CLINICAL RECORDS. [facility]. provides no warranty or guarantee of the accuracy or completeness of information in this document.
--- NOTE | 2023-12-04 12:43 | ED.EXTPRO1 ---
HPI - Extremity Problem General Chief complaint: Extremity Problem, Nontraumatic Stated complaint: UPPER LEFT HAND PAIN Time Seen by Provider: 12/04/23 12:03 Source: patient Mode of arrival: walk-in Limitations: no limitations History of Present Illness HPI Narrative: 78-year-old male presents for left hand pain. He states it started 3 days ago after playing a video game on his iPad. He was seen at another hospital last night and had some blood work that was negative and an x-ray that was reportedly negative as well. He gives no history of trauma. He states it hurts to straighten out his fingers. He was told to take Tylenol at home but it is not helping. He is on Eliquis. Related Data Home Medications ?Medication ?Instructions ?Recorded ?Confirmed amlodipine 5 mg tablet (Norvasc) 5 mg PO DAILY 03/11/23 12/04/23 apixaban 5 mg tablet (Eliquis) 5 mg PO Q12H 03/11/23 12/04/23 aspirin 81 mg tablet,delayed 81 mg PO DAILY 03/11/23 12/04/23 release cholecalciferol (vitamin D3) 25 50 mcg PO DAILY 03/11/23 12/04/23 mcg (1,000 unit) capsule cyanocobalamin (vitamin B-12) 2,000 mcg PO DAILY 03/11/23 12/04/23 1,000 mcg capsule empagliflozin 12.5 mg-metformin ER 1 tab PO DAILY 03/11/23 12/04/23 1,000 mg tablet,extended rel 24 hr gabapentin 100 mg capsule 100 mg PO DAILY 03/11/23 12/04/23 levothyroxine 25 mcg capsule 25 mcg PO DAILY 03/11/23 12/04/23 lisinopril 40 mg tablet 40 mg PO DAILY 03/11/23 12/04/23 metoprolol tartrate 100 mg tablet 100 mg PO BID 03/11/23 12/04/23 (Lopressor) nitroglycerin 0.4 mg sublingual 0.4 mg sublingual Q5M PRN chest 03/11/23 12/04/23 tablet pain omeprazole magnesium 20 mg 20 mg PO DAILY 03/11/23 12/04/23 tablet,delayed release (Prilosec OTC) semaglutide 0.25 mg or 0.5 mg (2 1 mg subcut QWEEK 03/11/23 12/04/23 mg/3 mL) subcutaneous pen injector (Ozempic) atorvastatin 40 mg tablet 40 mg PO BEDTIME 12/04/23 12/04/23 Previous Rx's ?Medication ?Instructions ?Recorded oxybutynin chloride 5 mg tablet 10 mg (2 x 5 mg) PO BID 7 days #28 03/12/23 tabs tamsulosin 0.4 mg capsule 0.4 mg PO QD 30 days #30 caps 03/12/23 acetaminophen 300 mg-codeine 30 mg 1 tab PO Q6H PRN pain 5 days #20 12/04/23 tablet tabs Allergies Allergy/AdvReac Type Severity Reaction Status Date / Time No Known Drug Allergies Allergy Verified 03/11/23 11:38 Review of Systems ROS Narrative A ten point review of systems is negative except as noted above. [facility] Medical History Surgical History Family History Sister Family history of cancer Brother Family history of cancer Family history of stroke Brother Family history of cancer Mother Family history of cancer Social History (Updated 03/11/23 @ 16:08 by Carissa De Jesus LPN) Within the past year, how often did you have a drink containing alcohol: 2-4 times a month Within the past year, how many standard drinks containing alcohol did you have on a typical day: 1 or 2 Within the past year, how often did you have six or more drinks on one occasion: never Total score: 0 Score interpretation: A score less than 4 is consistent with normal alcohol consumption. Smoking status: Former smoker Second hand tobacco smoke exposure: No Non-prescribed substance use: denies use Previous occupational history: retired Known occupational exposures/hazards: No Highest level of school completed/degree received: 10th grade Do you want help with school or training: No Are you now , , , , never or living with a partner: In a typical week, how many times do you talk on the telephone with family, friends, or neighbors: 3 or more times per week How often do you get together with friends or relatives: 3 or more times per week How often do you attend synagogue or judaism services: never Do you belong to any clubs or organizations such as synagogue groups unions, fraternal or athletic groups, or school groups: yes Total score: 3 Score interpretation: A score of greater than or equal to 2 indicates the lowest level of social isolation. Exam Narrative Exam Narrative: Nurses note and vital signs reviewed and patient is not hypoxic. General: The patient appears well and in no apparent distress. Patient is resting comfortably on cart. Skin: Warm, dry, no pallor noted. There is no rash noted. Head: Normocephalic, atraumatic Eye: Normal conjunctiva, no drainage Ears, Nose, Mouth, and Throat: oral mucosa is moist. Nares patent. Cardiovascular: Not tachycardic Respiratory: Patient is in no distress, no accessory muscle use, lungs are clear to auscultation, no wheezing, rales or rhonchi Back: non-tender GI: Soft and nontender Musculoskeletal: The left hand is examined. There is no erythema or bruising or swelling. It is not swollen compared to the contralateral. Capillary refill is brisk and sensation is intact. Radial pulse 2+. He seems to prefer to have his fingers flexed. Neurological: A&O, normal speech Psychiatric: Cooperative Constitutional Vital Signs, click to edit/add: Last Vital Signs Temp 98.8 F 12/04/23 12:04 Pulse 73 12/04/23 12:04 Resp 18 12/04/23 12:04 BP 162/81 H 12/04/23 12:04 Pulse Ox 96 12/04/23 12:04 O2 Del Method Room Air 12/04/23 12:04 Course Vital Signs Vital signs: Vital Signs Temperature 98.8 F 12/04/23 12:04 Pulse Rate 73 12/04/23 12:04 Respiratory Rate 18 12/04/23 12:04 Blood Pressure 162/81 H 12/04/23 12:04 Pulse Oximetry 96 12/04/23 12:04 Oxygen Delivery Method Room Air 12/04/23 12:04 Temperature 98.8 F 12/04/23 12:04 Pulse Rate 73 12/04/23 12:04 Respiratory Rate 18 12/04/23 12:04 Blood Pressure 162/81 H 12/04/23 12:04 Pulse Oximetry 96 12/04/23 12:04 Oxygen Delivery Method Room Air 12/04/23 12:04 MDM - Extremity (Nontraumatic) MDM Narrative Medical decision making narrative: X-rays negative. I reviewed his blood work from yesterday from other hospital. He is provided a prescription for Tylenol 3. He is on Eliquis so we should avoid anti-inflammatories and Tylenol was not helping. He has an appointment with his PCP in a few days and he will keep that appointment. Treatment diagnosis and follow-up were discussed with the patient. There is no evidence of cellulitis and I have no clinical suspicion of tenosynovitis. Differential Diagnosis Differential diagnosis: Likely other (Arthritis, cellulitis, tenosynovitis) Imaging Data Hand x-ray: My impression: In addition to the radiologist report there appears to be a small linear metallic foreign body in his hand. There is no history of foreign body and this is not an acute finding, it is incidental. Radiologist's impression: ITS Impressions Hand X-Ray 12/04/23 12:12 IMPRESSION: 1. No acute or specific findings to account for patient's symptoms. 2. Multifocal mild degenerative joint disease. Electronically authenticated by: YOGI ORTIZ Date: 12/04/2023 12:43 Discharge Plan Discharge Stand Alone Forms: Portal Instructions Chief Complaint: Extremity Problem, Nontraumatic Clinical Impression: Hand pain Patient Disposition: Home, Self-Care Time of Disposition Decision: 12:50 Condition: Good Mode of Transportation: Private Vehicle Prescriptions / Home Meds: New acetaminophen-codeine 300-30 mg tablet 1 tab PO Q6H PRN (Reason: pain) 5 Days Qty: 20 0RF No Action Eliquis 5 mg tablet 5 mg PO Q12H Ozempic 0.25 mg or 0.5 mg (2 mg/3 mL) pen injector 1 mg subcut QWEEK Rx Instructions: for 4 weeks cyanocobalamin (vitamin B-12) 1,000 mcg capsule 2,000 mcg PO DAILY cholecalciferol (vitamin D3) 25 mcg (1,000 unit) capsule 50 mcg PO DAILY levothyroxine 25 mcg capsule 25 mcg PO DAILY aspirin 81 mg tablet,delayed release (DR/EC) 81 mg PO DAILY lisinopril 40 mg tablet 40 mg PO DAILY gabapentin 100 mg capsule 100 mg PO DAILY nitroglycerin 0.4 mg tablet, sublingual 0.4 mg sublingual Q5M PRN (Reason: chest pain) Rx Instructions: do not exceed 3 doses per episode omeprazole magnesium [Prilosec OTC] 20 mg tablet,delayed release (DR/EC) 20 mg PO DAILY amlodipine [Norvasc] 5 mg tablet 5 mg PO DAILY empagliflozin-metformin 12.5-1,000 mg tablet, IR - ER, biphasic 24hr 1 tab PO DAILY metoprolol tartrate [Lopressor] 100 mg tablet 100 mg PO BID tamsulosin 0.4 mg Capsule 0.4 mg PO QD 30 Days Qty: 30 0RF oxybutynin chloride 5 mg Tablet 10 mg PO BID 7 Days Qty: 28 0RF atorvastatin 40 mg tablet 40 mg PO BEDTIME Print Language: Gabonese Instructions: Arthralgia (ED) Referrals: ERNESTINE BEVERLY [Primary Care Provider] - 1 week
[2023-12-04 13:04] VITALS: BP 162/74; PULSE 87; O2SAT 98
== END 2023-12-04 13:05 | disposition home or self-care (01) ==
PROVIDERS: Emergency Provider Emergency Medicine; PCP Family Medicine
DX: M79.642 Pain in left hand (principal); Z87.891 Personal history of nicotine dependence
CPT/HCPCS: 73130; 99283

== ENCOUNTER 2024-07-18 11:41 | Emergency (ER) | payer MEDICARE, SELFPAY ==
[2024-07-18] VITALS (20 sets, daily range): BP systolic 120–150; BP diastolic 53–73; PULSE 38–94; TEMP 36.6; O2SAT 91–97; BMI 28.2
--- NOTE | 2024-07-18 11:50 | XR_ITS ---
[address] [address] Patient Name: EMILY HOLLY MRN: [id number] date: 1945 Sex: M Assigned Patient Location: ER Current Patient Location: ED.MAIN Accession/Order Number: [id number] Exam Date: 07/18/2024 12:25 Report Date: 07/18/2024 13:38 At the request of: ISABELLA RUSSELL Procedure: XR chest 1V EXAM: XR chest 1V INDICATION: shortness of breath. COMPARISON: Chest x-ray 06/29/2010. TECHNIQUE: Single frontal view of the chest FINDINGS: Post CABG. Normal cardiomediastinal contours. Normal pulmonary vasculature. No acute infiltrative process. No pleural effusion or pneumothorax. No acute osseous abnormality. XR/XR chest 1V IMPRESSION: No acute cardiopulmonary process. Electronically authenticated by: NEHEMIAS MANDEL Date: 07/18/2024 13:38
--- NOTE | 2024-07-18 11:50 | ECG_ITS ---
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
[2024-07-18 12:13] LABS: Basophils Percent Auto 0.4 % (0.2-2.0); Eosinophils Absolute Auto 0.6 10^3/uL (0.0-0.7); Eosinophils Percent Auto 7.6 % (0.9-7.0); Hemoglobin 11.2 g/dL (14.0-18.0); Immature Granulocytes Abs Auto 0.01 10^3/uL (0.00-0.03); Immature Granulocytes Pct Auto 0.1 % (0.0-0.5); Lymphocytes Absolute Auto 1.9 10^3/uL (1.2-3.8); Lymphocytes Percent Auto 26.5 % (20.5-60.0); Mean Corpuscular HGB Conc 32.9 g/dL (29.9-35.2); Mean Corpuscular Hemoglobin 31.2 pg (25.9-34.0); Mean Corpuscular Volume 94.7 fL (80.0-94.0); Mean Platelet Volume 10.7 fL (9.5-13.5); Monocytes Absolute Auto 0.5 10^3/uL (0.3-0.8); Monocytes Percent Auto 7.5 % (1.7-12.0); Neutrophils Absolute Auto 4.2 10^3/uL (1.4-6.5); Neutrophils Percent Auto 57.9 % (43.0-75.0); Platelet Count 238 10^3/uL (150-450); Red Blood Count 3.59 10^6/uL (4.70-6.10); Red Cell Distribution Width 13.4 % (11.0-15.0); White Blood Count 7.2 10^3/uL (4.0-11.0)
[2024-07-18 12:28] LABS: Alanine Aminotransferase 14 U/L (16-63); Albumin Globulin Ratio 0.9; Albumin Level 3.3 g/dL (3.4-5.0); Alkaline Phosphatase 59 U/L (46-116); Anion Gap 15.4; Aspartate Amino Transferase 12 U/L (15-37); BUN Creatinine Ratio 19.8; Bilirubin Total 0.3 mg/dL (0.2-1.0); Calcium 8.7 mg/dL (8.5-10.1); Carbon Dioxide 23.4 mmol/L (21.0-32.0); Chloride 104 mmol/L (98-107); Estimated GFR (African America 42 (>=60 mL/min/1.73m^2); Estimated GFR (Non-African Ame 35 (>=60 mL/min/1.73m^2); Globulin 3.5 g/dL; Glucose 180 mg/dL (74-106); Potassium 4.8 mmol/L (3.5-5.1); Sodium 138 mmol/L (136-145); Total Protein 6.8 g/dL (6.4-8.2); Troponin I High Sensitivity 9.4 pg/mL (4.0-76.1)
[2024-07-18 12:30] LABS: Magnesium 1.6 mg/dL (1.8-2.4)
--- OUTSIDE RECORDS SUMMARY | 2024-07-18 12:38 | XMS_ITS | CCD ---
Author Organization [facility]Sym[facility] Care Team Providers Care Counter Stacker Name Role Phone JESSIKA EMERY Admitting Unavailable JESSIKA EMERY Attending Unavailable JESSIKA EMERY Consulting Unavailable UNKNOWN, PHYSICIAN Referring Unavailable TOY EDGAR Admitting Unavailable TOY EDGAR Attending Unavailable UNKNOWN, PHYSICIAN Primary Care Unavailable Jonas Cruz Admitting Jonas Sanders Attending Jessika Falk Primary Care Unavailable Unavailable Primary Care Provider UnavailYAHAIRA Garcia Referring Unavailabl e PROVIDER, UNKNOWN Attending Unavailable PROVIDER, UNKNOWN Admitting Unavailable Ernestine Beverly Primary Care Physician [phone] ERNESTINE BEVERLY Referring Unavailable ERNESTINE BEVERLY Primary Care Unavailable ERNESTINE BEVERLY Primary Care Unavailable ALEXANDER JACOBSEN Attending Unavailable ERNESTINE BEVERLY Referring Unavailable ERNESTINE BEVERLY Primary Care Unavailable ALEXANDER JACOBSEN Attending Unavailable ALEXANDER JACOBSEN Referring Unavailable ERNESTINE BEVERLY Primary Care Unavailable JOSE ALCALA Referring Unavailable ERNESTINE BEVERLY Primary Care Unavailable MD Ernestine Beverly Attending Unavailable MD Ernestine Beverly Attending Unavailable MD Ernestine Beverly Attending Unavailable MD Ernestine Beverly Attending Unavailable MD Ernestine Beverly Attending Unavailable Jose ALCALA P Attending Unavailable Jose ALCALA P Attending Unavailable Jose ALCALA P Attending Unavailable Jean ALCALAory P Attending Unavailable NONE, XXXX Referring Unavailable MD Allan Agarwal Attending Unavailable RAJESH, XXXX Referring Unavailable MD Allan Agarwal Attending Unavailable MD Ernestine Beverly Attending Unavailable MD Ernestine Beverly Attending Unavailable MD Ernestine Beverly Attending Unavailable MD Ernestine Beverly Attending Unavailable MD Ernestine Beverly Attending Unavailable Allergies Allergy Classification Reported Allergen(s) Allergy Type Date of Onset Reaction(s) Facility (1 source) No Known Medication Allergies; Translations: [No Known Medication Allergies] Propensity to adverse reactions (disorder) [facility] Repository Medications Current Medications Medication Drug Class(es) Dates Sig (Normalized) Sig (Original) 3 ML semaglutide 2.68 MG/ML Pen Injector [Ozempic] (5 sources) Start: 05-18-2024 inject 2 mg by subcutaneous injection every week Ozempic 8 mg/3 mL (2 mg dose) subcutaneous solution 2 mg, SubCutaneous, qWeek, # 3 EA, Refills(s) 1, Pharmacy: [facility] #[id number], 168, cm, 05/18/24 9:31:00 EST, Height/Length Dosing, 81.7, kg, 05/18/24 9:31:00 EST, Weight Dosing Start Date: 05/18/24 Status: Ordered Start: 06-23-2023 inject 2 mg by subcu taneous injection every week Ozempic 8 mg/3 mL (2 mg dose) subcutaneous solution 2 mg, SubCutaneous, qWeek, # 3 EA, Refills(s) 1, Pharmacy: [facility] #[id number], 167, cm, 06/23/23 14:02:00 EST, Height/Length Dosing, 81.6, kg, 06/23/23 14:02:00 EST, Weight Dosing Start Date: 06/23/23 Status: Ordered amLODIPine 10 mg oral tablet (12 sources) Dihydropyridine Calcium Channel Brandt Start: 02-08-2019 take 1 tablet by mouth once daily amLODIPine 10 mg Tab 10 mg = 1 tab(s), Oral, Daily Start Date: 02/08/19 Status: Ordered take 1 tablet by mouth once robinson y amLODIPine (NORVASC) 5 MG tablet Take 5 mg by mouth daily. 0 Active apixaban 5 mg oral tablet (10 sources) Factor Xa Inhibitor Start: 07-10-2020 take 1 tablet by mouth twice daily Eliquis 5 mg oral tablet 5 mg = 1 tab(s), Oral, BID Start Date: 07/10/20 Status: Ordered Aspir 81 (10 sources) Start: 02-08-2019 take 81 mg by mouth once daily Aspir 81 81 mg, Oral, Daily Start Date: 02/08/19 Status: Ordered aspirin 325 mg oral tablet (2 sources) Platelet Aggregation Inhibitor, Nonsteroidal Anti-inflammatory Drug Start: 07-21-2014 take 1 tablet by mouth once daily aspirin 325 MG tablet Take 1 Tab by mouth daily. 100 Tab 3 07/21/2014 Active atorvastatin 40 mg oral tablet (4 sources) HMG-CoA Reductase Inhibitor Start: 11-28-2023 take 1 tablet by mouth once daily at bedtime Lipitor 40 mg Tab 40 mg = 1 tab(s), Oral, Once a day (at bedtime), # 30 tab(s), Refills(s) 6, [facility][id number], 168, cm, 11/28/23 10:40:00 EDT, Height/Length Dosing, 80.9, kg, 11/28/23 10:40:00 EDT, Weight Dosing Start Date: 11/28/23 Status: Ordered carvedilol 25 mg oral tablet (2 sources) alpha-Adrenergic Brandt, beta-Adrenergic Brandt take 1 tablet by mouth twice daily CARvedilol (COREG) 25 MG tablet Take 25 mg by mouth 2 times daily. 0 Active Cholecalciferol (10 sources) Vitamin D Start: 09-01-2023 take 25 ug by mouth once daily cholecalciferol 25 mcg, Oral, Daily, Refills(s) 0 Start Date: 09/01/23 Status: Ordered Start: 02-08-[address] [facility] once daily cholecalciferol 1000 intl units oral [...] acid 180 mg oral capsule (2 sources) Closter-3 Fatty Ac ids (FISH OIL) 1000 MG CAPS Take by mouth. 0 Active docusate sodium 100 mg oral capsule (2 sources) Start: 07-21-2014 take 1 capsule by mouth twice daily docusate sodium (COLACE) 100 MG capsule Take 1 Cap by mouth 2 times daily. 60 Cap 3 07/21/2014 Active empagliflozin 5 mg / metFORMIN hydrochloride 1000 mg oral tablet (10 sources) Biguanide, Sodium-Glucose Cotransporter 2 Inhibitor Start: 03-18-2023 take 1 tablet by mouth twice daily empagliflozin-metFORMI N 5 mg-1000 mg oral tablet tab(s), Oral, BID Start Date: 03/18/23 Status: Ordered ferrous sulfate 325 mg delayed release oral tablet (2 sources) Start: 07-22-2014 take 1 tablet by mouth once daily at breakfast ferrous sulfate 325 (65 FE) MG enteric coated tablet Take 1 Tab by mouth daily (with breakfast). 30 Tab 3 07/22/2014 Active gabapentin 100 mg oral capsule (10 sources) Anti-epileptic Agent Start: 02-08-2019 take 1 capsule by mouth once daily gabapentin 100 mg Cap 100 mg = 1 cap(s), Oral, Daily Start Date: 02/08/19 Status: Ordered hydroCHLOROthiazide 12.5 mg oral capsule (1 source) Thiazide Diuretic Start: 06-04-2024 take 1 capsule by mouth once daily hydrochlorothiazide 12.5 mg Cap 12.5 mg = 1 cap(s), Oral, Daily, # 30 cap(s), Refills(s) 6, Pharmacy: [facility] #[id number], 168, cm, 06/04/24 14:46:00 EST, Height/Length Dosing, 80.8, kg, 06/04/24 14:46:00 EST, Weight Dosing Start Date: 06/04/24 Status: Ordered lisinopril 40 mg oral tablet (12 sources) Angiotensin Converting Enzyme Inhibitor Start: 02-08-2019 [...] Active metoprolol tartrate 100 mg oral tablet (10 sources) beta-Adrenergic Brandt Start: 09-01-2023 take 100 [...] 0 Active nitroglycerin 0.4 mg sublingual tablet (12 sources) Nitrate Vasodilator Start: 9 NitroStat 0.4 mg Tab 0.4 mg = 1 tab(s), SubLingual, q5min Start Date: 02/08/19 Status: Ordered omeprazole 20 mg oral tablet (10 sources) Proton Pump Inhibitor Start: take 20 mg by mouth every other day Prilosec 20 mg, Oral, Every other day Start Date: 03/18/23 Status: Ordered Start: 03-18-2023 Prilosec Oral, Daily Start Date: 03/18/23 Status: Ordered oxybutynin chloride 5 mg oral tablet (7 sources) Cholinergic Muscarinic Antagonist Start: 12-11-2023 oxybutynin 5 mg Tab 5 mg = 1 tab(s), Refills(s) 0 Start Date: 12/11/23 Status: Ordered Start: 03-18-2023 take 1 tablet by levon th three times daily as needed oxybutynin 5 mg Tab 5 mg = 1 tab(s), Oral, TID, PRN for urinary discomfort, # 30 tab(s) Start Date: 03/18/23 Status: Ordered Ozempic (1 mg dose) (5 sources) Start: 05-08-2021 inject 1 mg by subcutaneous injection every week Ozempic (1 mg dose) mg, SubCutaneous, qWeek, Refills(s) 0 Start Date: 05/08/21 Status: Ordered pioglitazone 15 mg oral tablet (10 sources) Peroxisome Proliferator Receptor alpha Agonist, Peroxisome Proliferator Receptor gamma Agonist, Thiazolidinedione Start: 03-17-2023 take 1 tablet by mouth once daily pioglitazone 15 mg Tab 15 mg = 1 tab(s), Oral, Daily, Refills(s) 0 Start Date: 03/17/23 Status: Ordered polyethylene glycol 3350 25464 mg powder for oral solution (2 sources) Osmotic Laxative Start: 07-21-2014 polyethylene glycol (MIRALAX) packet Take 1 Packet by mouth 3 times daily. Dissolve in 8 ounces of liquid. 30 Packet 3 07/21/2014 Active sennosides, jail 8.6 mg oral tablet (1 source) Start: [...] Active tamsulosin hydrochloride 0.4 mg oral capsule (10 sources) alpha-Adrenergic Brandt Start: 05-04-2024 End: 04-29-2025 take 1 capsule by mouth once daily Flomax 0.4 mg Cap 0.4 mg = 1 cap(s), Oral, Daily, X 30 day(s), # 30 cap(s), Refills(s) 11, Pharmacy: [facility] #[id number], 168, cm, 05/04/24 10:41:00 EST, Height/Length Dosing, 81, kg, 05/04/24 10:41:00 EST, Weight Dosing Start Date: 05/04/24 Stop Date: 04/29/25 Status: Ordered Start: 04-11-2023 End: 04-05-2024 take 1 capsule by mouth once daily tamsulosin 0.4 mg Cap 0.4 mg = 1 cap(s), Oral, Daily, X 30 day(s), # 30 cap(s), Refills(s) 11, Pharmacy: [facility] #[id number], 167, cm, 04/03/23 13:48:00 EDT, Height/Length Dosing, 78.9, kg, 04/11/23 8:39:00 EDT, Weight Dosing Start Date: 04/11/23 Stop Date: 04/05/24 Status: Ordered Start: 03-18-2023 take 1 mg by mouth once daily tamsulosin 0.4 mg Cap mg cap(s), Oral, Daily Start Date: 03/18/23 Status: Ordered vitamin B12 (10 sources) Vitamin B12 Start: 09-01-2023 take 1000 [...] day(s), # 2 cap(s), Refills(s) 0, Pharmacy: [facility] #[id number], 78.9, cm, 05/20/23 13:10:00 EST, Height/Length Dosing, 81, kg, 05/20/23 13:10:00 EST, Weight Dosing Start Date: 05/20/23 Stop Date: 05/22/23 Status: Ordered Start: 03-18-2023 take 1 mg by mouth f our times daily cephalexin 500 mg oral tablet mg tab(s), Oral, QID Start Date: 03/18/23 Status: Ordered levothyroxine sodium 0.025 mg oral tablet (10 sources) l-Thyroxine Start: 02-08-2019 take 1 tablet by mouth once daily levothyroxine 25 mcg (0.025 mg) Tab 25 microgram = 1 tab(s), Oral, Daily Start Date: 02/08/19 Status: Ordered Problems Active Problems Problem Classification Problem Date Documented Date Episodic/Chronic Cardiac dysrhythmias (8 sources) Paroxysmal atrial fibrillation; Translations: [Paroxysmal atrial fibrillation] Onset: 07-17-2014 08-02-2021 Chronic Comment on above: noted in 03/10/2023 [facility] H&P page 1. added per OP [facility]I policy. Chronic kidney disease (5 sources) Chronic kidney disease stage 3; Translations: [Chronic kidney disease stage 3A ] Onset: 06-04-2024 12-08-2023 Chronic Comment on above: linked HTN with CKD per [facility] CDI policy. added per 12/05/2023 query response. Complication of device; implant or graft (1 source) Atherosclerosis of coronary artery bypass graft(s) without angina pectoris; Translations: [Atherosclerosis of coronary artery bypass graft(s) without angina pectoris] Onset: 11-04-2022 Chronic Coronary atherosclerosis and other heart disease (20 sources) Triple vessel disease of the heart ; Translations: [Atherosclerotic heart disease of [place] coronary artery without angina pectoris] Onset: 11-18-2017 11-18-2017 Chronic Crushing injury or internal injury (5 sources) Injury of kidney 03-17-2023 Episodic Diabetes mellitus with complications (2 sources) Type 2 diabetes mellitus with other specified complication; Translations: [Type 2 diabetes mellitus with diabetic polyneuropathy] Onset: 06-04-2023 Chronic Diabetes mellitus without complication (19 sources) Diabetes mellitus; Translations: [Type 2 diabetes mellitus] 02-08-2019 Chronic Comment on above: linked DM with HLD p er OP CDI policy. noted in 03/10/2023 [facility] H&P page 1. added per OP CDI policy. noted in 05/21/2023 Diabetic Eye Exam page 2. added per OP CDI policy. linked DM with CKD p er OP CDI policy. Disorders of lipid metabolism (13 sources) Hyperlipidemia; Translations: [Hyperlipidemia, unspecified] Onset: 06-04-2023 02-08-2019 Chronic Essential hypertension (16 sources) Hypertensive disorder; Translations: [Essential hypertension] Onset: 06-04-2024 02-08-2019 Chronic Genitourinary symptoms and ill-defined conditions (20 sources) Retention of urine, unspecified; Translations: [Retention of urine] Onset: 07-01-2019 Episodic Hyperplasia of prostate (17 sources) Benign prostatic hypertrophy with outflow obstruction; Translations: [Benign prostatic hyperplasia with lower urinary tract symptoms] Onset: 03-18-2023 Chronic Nutritional deficiencies (6 sources) Vitamin D deficiency; Translations: [Vitamin D deficiency, unspecified] Onset: 06-04-2023 05-27-2023 Chronic Comment on above: noted in 03/10/2023 [facility] H&P page 1. added per OP CDI policy. Nutritional deficiencies (6 sources) Cobalamin deficiency; Translations: [Deficiency of other specified B group vitamins] Onset: 06-04-2023 05-27-2023 Episodic Comment on above: noted in 03/10/2023 [facility] H&P page 1. added per OP CDI policy. Osteoarthritis (2 sources) Localized, primary osteoarthritis; Translations: [Unilateral primary osteoarthritis, unspecified knee] Onset: 06-21-2014 07-15-2014 Chronic Other aftercare (11 sources) Long-term current use of anticoagulant; Translations: [senior care (current) use of anticoagulants] Onset: 05-04-2024 07-10-2020 Episodic Other aftercare (5 sources) Post-discharge follow-up 03-17-2023 Episodic Other lower respiratory disease (2 sources) Dyspnea; Translations: [Dyspnea, unspecified] 12-20-2022 Episodic Other lower respiratory disease (1 source) Dyspnea, unspecified; Translations: [Dyspnea, unspecified] Onset: 12-20-2022 Episodic Other non-traumatic joint disorders (2 sources) Acute arthritis 12-08-2023 Chronic Other screening for suspected conditions (not mental disorders or infectious disease) (18 sources) Raised prostate specific antigen; Translations: [Elevated prostate specific antigen [PSA]] Onset: 03-21-2020 Episodic Thyroid disorders (10 sources) Disorder of thyroid gland 02-08-2019 Episodic Unclassified (1 source) Hand Pain, Stiffness Onset: 12-03-2023 Unclassified (2 sources) Drug therapy finding 05-04-2024 Urinary tract infections (13 sources) Urinary tract infectious disease; Translations: [Urinary tract infection, site not specified] Onset: 03-18-2023 Episodic Past or Other Problems Problem Classification Problem Date Documented Da te Episodic/Chronic Other connective tissue disease (1 source) Pain in left finger(s); Translations: [Pain in left finger(s)] Onset: 12-03-2023 Episodic Other connective tissue disease (1 source) Hand pain Onset: 12-03-2023 Episodic Other lower respiratory disease (1 source) Shortness of breath; Translations: [Shortness of breath] Onset: 02-04-2019 Episodic Other nutritional; endocrine; and metabolic disorders (1 source) Body mass index (BMI) 28.0-28.9, adult; Translations: [Body mass index (BMI) 28.0-28.9, adult] Onset: 06-04-2023 Episodic Results Test Name Value Interpretation Reference Range Facil ity Heart and Vascular Office/Cl inic Noteon 06-04-2024 Heart and Vascular Office/Clinic Note Heart and Vascular Office/Clinic Note Chief Complaint 6 month f/u PAF/CAD History of Present Illness Mr. Lainez is a pleasant 79-year-old male with past medical history of coronary artery disease, quadruple CABG in 2015, history of prior PCI, paroxysmal atrial fibrillation, hypertension, dyslipidemia, who presents today for a scheduled follow-up appointment. He presents with no specific complaints. Specifically, no issues with chest pain, shortness of breath, dizziness or lightheadedness, palpitations, syncope or presyncope. He was not interested in stress testing. Left ventricular ejection fraction historically has been normal. States compliance with the current treatment plan. Denies any side effects. He brings a blood pressure log from home, numbers are slightly elevated above goal. Review of Systems ROS - Provider Constitutional: [...] infections Physical Exam Vitals & Measurements HR: 73(Peripheral) RR: 16 BP: 132/64 SpO2: 92% HT: 66 in HT: 168 cm WT: 80.8 kg WT: 178.133 lb BMI: 28.63 General: alert, no acute distress Neck: Supple, noJVD nocarotid bruit Cardiovascular: regular rate and rhythm, no murmur normal peripheral perfusion Respiratory: Lungs CTAB, respirations non labored Extremities: no edema left lower extremity. no edema right lower extremity Neurological: oriented x 4, LOC appropriate for age, speech normal Skin: Warm, dry, intact- no rash or concerning lesions Procedure ECG: Sinus rhythm 69 bpm, left axis deviation. Assessment/Plan 1. CAD (coronary artery disease) (I25.10: Atherosclerotic heart disease of [place] coronary artery without angina pectoris) I was unable to elicit any symptoms of angina or anginal-like symptoms. We will continue current medical therapy. 2. Afib (I48.91: Unspecified atrial fibrillation) ECG today demonstrates sinus rhythm. On cardioembolic protection with Eliquis. Reports no issues with bleeding. Ordered: ECG 12 Lead Adult 3. HTN (hypertension) (I10: Essential (primary) hypertension) Blood pressure is elevated. I am going to start low-dose HCTZ at 12.5 mg daily. 4. Hyperlipidemia (E78.5: Hyperlipidemia, unspecified) [facility] According to the patient, LDL was at goal. 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 Urinary retention Vitamin B12 deficiency Vitamin D [...] tablet, 5 mg= 1 tab(s), Oral, BID empagliflozin-metFOR MIN 5 mg-1000 mg oral tablet, Oral, BID Flomax 0.4 mg Cap, 0.4 mg= 1 cap(s), Oral, Daily, 11 refills gabapentin 100 mg Cap, 100 mg= 1 cap(s), Oral, Daily levothyroxine 25 mcg (0.025 mg) Tab, 25 mcg= 1 tab(s), Oral, Daily Lipitor 40 mg Tab, 40 mg= 1 tab(s), Oral, Once a day (at bedtime), 6 refills lisinopril 40 mg Tab, 40 mg= 1 tab(s), Oral, Daily Lopressor, 100 mg, Oral, BID NitroStat 0.4 mg Tab, 0.4 mg= 1 tab(s), SubLingual, q5min oxybutynin 5 mg Tab, 5 mg= 1 tab(s) Ozempic 8 mg/3 mL (2 mg dose) subcutaneous solution, 2 mg, SubCutaneous, qWeek, 1 refills pioglitazone 15 mg Tab, 15 mg= 1 tab(s), Oral, Daily Prilosec, 20 mg (more content not included)... Normal [facility] Comment on above: Result Comment: Elec tronically Signed By: Any RIOS, Allan Cabello\.br\Date and Time Signed: 06/04/24 15:00 EST Family Medicine Office/Clini c Noteon 05-18-2024 Family Medicine Office/Clinic Note Family Medicine Office/Clinic Note HPI Staff Patrick is a 78 year old male presenting for 5-6 month follow up DM Do you have any of the following symptoms? Foot Exam: [facility]TD ( [facility]) Eye Exam: one coming up May 2024 Last A1C: Hgb A1c POC: 7 % (12/30/23 09:26:00) Statin: atorvastatin 40mg questions/concerns: none, [facility] History of Present Illness Patient is here for follow-up. [facility] I see the patient twice a year to make sure everything is going well. Review of Systems PHQ Score Initial Depression Screen Score: 0 SCORE Physical Exam Vitals & Measurements T: 36.6 ???C(Oral) HR: 80(Peripheral) RR: 16 BP: 112/66 SpO2: 95% HT: 66 in HT: 168 cm WT: 81.7 kg WT: 180.117 lb BMI: 28.95 General: alert, no acute distress ENMT: oral mucosa moist, Cardiovascular: regular rate and rhythm, normal peripheral perfusion Respiratory: Lungs CTA, respirations non labored Extremities: no deformity, no trauma Neurological: oriented x 4, LOC appropriate for age, CN II-XII intact, motor strength equal & normal bilaterally, speech normal Abdomen: Soft, Nontender, Non-distended, + BS Assessment/Plan 1. Type 2 diabetes mellitus with stage 3a chronic kidney disease (E11.22: Type 2 diabetes mellitus with diabetic chronic kidney disease) [facility]. Getting his eyes checked tomorrow. No other issues. Ordered: Body Mass Index (BMI) documented 3008F Current tobacco non-user 1036F Depression Screening Negative 3352F Influenza immunization administered or previously received 4274F Most recent diastolic blood pressure <80 mm Hg 3078F Patient screen for fall risk: no falls in last year or 1 fall with no injury in last year 1101F Systolic BP <130 mm Hg (Most Recent) 3074F 2. BMI 28.0-28.9,adult (Z68.28: Body mass index [BMI] 28.0-28.9, adult) BMI education added Ordered: Body Mass Index (BMI) documented 3008F Current tobacco non-user 1036F Depression Screening Negative 3352F Influenza immunization administered or previously received 4274F Most recent diastolic blood pressure <80 mm Hg 3078F Patient screen for fall risk: no falls in last year or 1 fall with no injury in last year 1101F Systolic BP <130 mm Hg (Most Recent) 3074F 3. Overweight (BMI 25.0-29.9) (E66.3: Overweight) Diet and exercise advised Ordered: Body Mass Index (BMI) documented 3008F Current tobacco non-user 1036F Depression Screening Negative 3352F Influenza immunization administered or previously received 4274F Most recent diastolic blood pressure <80 mm Hg 3078F Patient screen for fall risk: no falls in last year or 1 fall with no injury in last year 1101F Systolic BP <130 mm Hg (Most Recent) 3074F 4. Former smoker (Z87.891: Personal history of nicotine dependence) Please continue to not smoke Ordered: Body Mass Index (BMI) documented 3008F Current tobacco non-user 1036F Depression Screening Negative 3352F Influenza immunization administered or previously received 4274F Most recent diastolic blood pressure <80 mm Hg 3078F Patient screen for fall risk: no falls in last year or 1 fall with no injury in last year 1101F Systolic BP <130 mm Hg (Most Recent) 3074F 5. CAD (coronary artery disease) (I25.10: Atherosclerotic heart disease of [place] coronary artery without angina pectoris) Gets CP with exertion. This is stable. Sees Cardio 6. HTN (hypertension) (I10: Essential (primary) hypertension) At goal today. No issues with meds. 7. Elevated PSA (R97.20: Elevated prostate specific antigen [PSA]) Urology is following. Ordered: Body Mass Index (BMI) documented 3008F Current tobacco non-user 1036F Depression Screening Negative 3352F Influenza immunization administered or previously received 4274F Most recent diastolic blood pressure <80 mm Hg 3078F Patient screen for fall risk: no falls in last year or 1 fall with no injury in last year 1101F Systolic BP <130 mm Hg (Most Recent) 3074F 8. Hyperlipidemia (E78.5: Hyperlipidemia, unspecified) Continue on a statin. Ordered: Body Mass Index (BMI) documented 3008F Current tobacco non-user 1036F Depression Screening Negative 3352F Influenza immunization administered or previously received 4274F Most recent diastolic blood pressure <80 mm Hg 3078F Patient screen for fall risk: no falls in last year or 1 fall with no injury in last year 1101F Systolic BP <130 mm Hg (Most Recent) 3074F 9. Paroxysmal atrial fibrillation (I48.0: Paroxysmal atrial fibrillation) Continue on Eliquis as before. Rate controlled today. Ordered: Body Mass Index (BMI) documented 3008F Current tobacco non-user 1036F Depression Screening Negative 3352F Influenza immunization administered or previously received 4274F Most recent diastolic blood pressure <80 mm Hg 3078F Patient screen for fall risk: no falls in last year or 1 fall with no injury in last year 1101F Systolic BP <130 mm Hg (Most Recent) 3074F Orders: (more content not included)... Normal [facility] Comment on above: Result Comment: Elec tronically Signed By: Damian RIOS, Ernestine Meehan\.br\Date and Time Signed: 05/18/24 10:04 EST Ambulatory Visit Summaryon 1 07-04-2023 Ambulatory Visit Summary Ambulatory Visit Summary PATRICK LAINEZ :1945 Visit Date:05/04/2024 Ambulatory Visit Instructions Your Diagnosis Elevated PSA BPH with urinary obstruction Anticoagulated Your Care Team Attending Physician - Jose ALCALA MD Primary Care Physician - Ernestine Beverly MD This Is Your Medications List Contact prescribing physician if questions or concerns amlodipine (amLODIPine 10 mg Tab) apixaban (Eliquis 5 mg oral tablet) aspirin (Aspir 81) atorvastatin (Lipitor 40 mg Tab) atorvastatin (atorvastatin 40 mg Tab) cholecalciferol cyanocobalamin empagliflozin-metFOR MIN (empagliflozin-metFO RMIN 5 mg-1000 mg oral tablet) gabapentin (gabapentin [...] Replacement-Lt. Discharge Vitals Heart Rate (Peripheral) 68 Respiratory Rate 16 Blood Pressure 120/68 Height 168 cm Height 66 in Weight 81 kg Weight 178.574 lb BMI 28.7 What to do next Scheduled Follow-Up Appointments Friday 9:30 AM EST With: Ernestine Beverly MD Where: [address] [address]- Friday 10:45 AM EST With: Any RIOS, Allan Cabello Where: [facility] Friday 1:00 PM EDT With: Where: [address] [address]- Friday 11:00 AM EDT With: Jose ALCALA MD Where: [facility] [place] [address] [address]- You Need to Schedule the Following Appointments Follow Up with CARI RIOS, Jose Rodriguez, URL When: Where: [address] [address]- Medications What How Much When Instructions Unchanged amlodipine (amLODIPine 10 mg Tab) 1 Tablets By Mouth Every day Contact prescribing physician if questions or concerns Unchanged apixaban (Eliquis 5 mg oral tablet) 1 Tablets By Mouth 2 times a day Contact prescribing physician if questions or concerns Unchanged aspirin (Aspir 81) 81 Milligram By Mouth Every day Contact prescribing physician if questions or concerns Unchanged atorvastatin (atorvastatin 40 mg Tab) 1 Tablets Contact prescribing physician if questions or concerns Unchanged atorvastatin (Lipitor 40 mg Tab) 1 Tablets By Mouth Once a day (at bedtime) Contact prescribing physician if questions or concerns Unchanged cholecalciferol 25 Microgram By Mouth Every day Contact prescribing physician if questions or concerns Unchanged cyanocobalamin 1,000 Milligram By Mouth Every day Contact prescribing physician if questions or concerns Unchanged empagliflozin-metFOR MIN (empagliflozin-metFO RMIN 5 mg-1000 mg oral tablet) By Mouth 2 times a day Contact prescribing physician if questions or concerns Unchanged gabapentin (gabapentin 100 mg Cap) 1 Capsules By Mouth Every day Contact prescribing physician if questions or concerns Unchanged levothyroxine (levothyroxine 25 mcg (0.025 mg) Tab) 1 Tablets By Mouth Every day Contact prescribing physician if questions or concerns Unchanged lisinopril (lisinopril 40 mg Tab) 1 Tablets By Mouth Every day Contact prescribing physician if questions or concerns Unchanged metoprolol (Lopressor) 100 Milligram By Mouth 2 times a day Contact prescribing physician if questions or concerns Unchanged nitroglycerin (NitroStat 0.4 mg Tab) 1 Tablets Sublingual Every 5 minutes Contact prescribing physician if questions or concerns Unchanged omeprazole (Prilosec) 20 Milligram By Mouth Every other day Contact prescribing physician if questions or concerns Unchanged oxybutynin (oxybutynin 5 mg Tab) 1 Tablets Contact prescribing physician if questions or concerns Unchanged pioglitazone (pioglitazone 15 mg Tab) 1 Tablets By Mouth Every day Contact prescribing physician if questions or concerns Unchanged semaglutide (Ozempic 8 mg/ 3 mL (2 mg dose) subcutaneous solution) 2 Milligram Subcutaneous Every week Contact prescribing physician if questions or concerns Allergies No Known Medication Allergies Problems Ongoing - Any problem that you are currently receiving treatment for. Acute arthritis Anticoagulant long-term use Anticoagulated Benign hypertension with chronic kidney disease, (more content not included)... Normal [facility] Urology Office/Clinic Noteon 05-04-2024 Urology Office/Clinic Note Urology Office/Clinic Note Chief Complaint 6 month follow up HPI Staff 6 month f/u with PSA due to elevated PSA. PSA: 04/27/24 - 9.79 & 14.8% *no uro meds. Dysuria: denies pain or burning Incomplete bladder emptying: denies Hematuria: denies visible blood Frequency: denies Urgency: denies Nocturia: 1x Stream: denies hesitancy, denies weak stream Leaking: denies Post void dripping: denies Wearing pads/ Depends: denies Urge incontinence: denies Stress incontinence: denies Incontinence without Sensory Awareness: denies Abdominal pain: denies Flank pain: denies Sexual complaints: denies History of Present Illness Tests reviewed: UA, PSA I have reviewed the previous [...] HPI. Physical Exam Vitals & Measurements HR: 68(Peripheral) RR: 16 BP: 120/68 HT: 66 in HT: 168 cm WT: 81 kg WT: 178.574 lb BMI: 28.7 General Appearance: alert, no distress, well nourished, well developed male. Assessment/Plan 1. Elevated PSA (R97.20: Elevated prostate specific antigen [PSA]) PSA: 05/2020 - 6.71 05/07/21 - 8.03 & 20% 03/12/23 - 28.0 & 15% (infected) 05/13/23 - 6.95 & 7% 11/11/23 - 8.72 & 16% 04/27/24 - 9.79 & 14.8% S/p TRUS/bx by Dr. Yin 07/24/20. PSA increased but has been higher in the past with infection. Given advanced age, will not proceed with bx at this time. Will cont to monitor for exponential rises. Pt amenable. Follow up 6 mos with PSA F&T or sooner if needed. Pt understands and agrees with plan. 2. BPH with urinary obstruction (N40.1: Benign prostatic hyperplasia with lower urinary tract symptoms) Cysto 10/02/23 - 4 cm long lobe, mainly lateral lobe hypertrophy, no median lobe. Normal neg for b.t. or stones, orifices normal, Trabeculated: Moderate (2). UA neg. Taking Flomax 0.4 mg qd. Refill sent to [facility]. IPSS 4. 3. Anticoagulated (Z79.01: intermission coordinator (current) use of anticoagulants) Eliquis. Overall patient is voiding about the same. He is doing well with the tamsulosin. Refill sent. No need for dosage changes. He continues on anticoagulation and is seeing no blood in the urine. PSA level is increased since last visit. The trend is noted above. Given his age of nearly 79, he agrees with the continued follow-up and I would recommend a 6-month reevaluation. He agrees with that and we will see him at that time. Follow-up With When Contact Information CARI RIOS, Jose Rodriguez, URL [address] [address]- Additional Instructions: 6 mos with PSA F&T Patient Education Prostate Cancer Screening I, Diana Michael, personally scribed for Dr. Alcala on 05/04/2024 11:18:32. . Documentation recorded by the scribe, Diana Michael, accurately reflects the services(s) I performed and decisions made by me. Authenticated by Dr. Alcala on 05/04/2024 11:22:03. Portions of this record may have been created with voice recognition artificial intelligence software, specifically Zivity, Starbak and or Streamline. Substitutions may have occurred due to the inherent limitations of voice recognition and artificial intelligence software. 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 Normal [facility] Comment on above: Result Comment: Elec tronically Signed By: Jose ALCALA MD P\.br\Date and Time Signed: 05/04/24 11:22 EST\.br\Electronically Co-Signed By: Diana Michael\.br\Date and Time Co-Signed: 05/04/24 11:18 EST FREE AND TOTAL PSAon 12-2 024 % FREE PSA 14.8 Normal [facility] Comment on above: Result Comment: Percent [...] prostate cancer and BPH. Performed By: #### 3 5365-6, CBCA, CMP, 2857-1 #### [facility] ([id number]) [address], [address] [place] [address] FREE PSA 1.45 ng/mL Normal [facility] Comment on above: Performed By: #### 3 5365-6, CBCA, CMP, 2857-1 #### [facility] ([id number]) [address], [address] [place] [address] PROSTATIC SPEC ANT 9.79 ng/mL High 0.00-4.00 [facility] Comment on above: Result Comment: The method used for this test is Janette ViaCube DXI chemiluminescent immunoassay. Values obtained by different assay methods cannot be used interchangeably. Performed By: #### 3 5365-6, CBCA, CMP, 2857-1 #### [facility] ([id number]) [address], [address] [place] [address] Ambulatory Visit Summaryon 0 - Ambulatory Visit Summary Ambulatory Visit Summary PATRICK LAINEZ :1945 Visit Date:12/30/2023 Ambulatory Visit Instructions Your Diagnosis Type 2 diabetes mellitus with stage 3a chronic kidney disease Type 2 diabetes mellitus with hyperlipidemia BMI 28.0-28.9,adult Over weight Former smoker Chronic kidney disease, stage 3a Hyperlipidemia, unspecified Your Care Team Attending Physician - Ernestine Beverly MD Primary Care Physician - Ernestine Beverly MD This Is Your Medications List amlodipine (amLODIPine 10 mg Tab) apixaban (Eliquis 5 mg oral tablet) aspirin (Aspir 81) atorvastatin (Lipitor 40 mg Tab) atorvastatin (atorvastatin 40 mg Tab) cholecalciferol cyanocobalamin empagliflozin-metFOR MIN (empagliflozin-metFO RMIN 5 mg-1000 mg oral tablet) gabapentin (gabapentin [...] (Temporal Artery) 37.1 ?C Heart Rate (Peripheral) 78 Respiratory Rate 14 Blood Pressure 116/52 Height 169 cm Height 67 in Weight 80.0 kg Weight 176 lb BMI 28.01 What to do next Scheduled Follow-Up Appointments Friday 10:15 AM EST With: Jose ALCALA MD Where: [facility] Invalid Interpretation Code [address] [place] [address]- \.br\ Friday 10:45 AM EST \.br\ With: Any RIOS, Allan Cabello\.br\ Where: [facility]\.br\ Friday 1:00 PM EDT \.br\ With:\.br\ Where: [facility] Family Medicine [facility] Family Medicine Office/Clini c Noteon 12-30-2023 Family Medicine Office/Clinic Note Family Medicine Office/Clinic Note HPI Staff Patrick is a 78 year old male presenting for a 6 month follow up DM Do you have any of the following symptoms? Foot Exam: UTD [facility] Exam: UTD Last A1C: 8.1% on 06/05/23 Statin: atorvastatin 40mg questions/concerns: none History of Present Illness Patient is here for his 6-month check with me. Patient needs an A1c in our system. [facility] Patient has been working with his medication to bring this down. Patient also had steroids last month so expect the blood sugars to be slightly elevated. Patient is no longer having acute arthritis. Patient's breathing is stable without any worsening. [facility]. Review of Systems PHQ Score Initial Depression Screen Score: 0 SCORE Physical Exam Vitals & Measurements T: 37.1 ?C(Temporal Artery) HR: 78(Peripheral) RR: 14 BP: 116/52 SpO2: 94% HT: 67 in HT: 169 cm WT: 80.0 kg WT: 176 lb BMI: 28.01 General: alert, no acute distress ENMT: oral mucosa moist, Cardiovascular: regular rate and rhythm, normal peripheral perfusion Respiratory: Lungs CTA, respirations non laboreddiminish Extremities: no deformity, no trauma Neurological: oriented x 4, LOC appropriate for age, CN II-XII intact, motor strength equal & normal bilaterally, speech normal Abdomen: Soft, Nontender, Non-distended, + BS Assessment/Plan 1. Type 2 diabetes mellitus with stage 3a chronic kidney disease (E11.22: Type 2 diabetes mellitus with diabetic chronic kidney disease) [id number] A1c shows improvement today. [facility] with [facility]. Ordered: A1c POC 14845 Body Mass Index (BMI) documented 3008F Current tobacco non-user 1036F Depression Screening Negative 3352F Fall Risk Screen 2 or more w/injury 1100F Influenza immunization administered or previously received 4274F Most recent diastolic blood pressure <80 mm Hg 3078F Systolic BP <130 mm Hg (Most Recent) 3074F 2. Type 2 diabetes mellitus with hyperlipidemia (E11.69: Type 2 diabetes mellitus with other specified complication) As above. Meds are working well. No side effects to medication. [facility]. Ordered: predniSONE, 20 mg = 1 tab(s), Oral, Daily, # 5 tab(s), Refills(s) 0, Pharmacy: [facility] #[id number], 168, cm, 12/08/23 7:46:00 EDT, Height/Length Dosing, 82.1, kg, 12/08/23 7:46:00 EDT, Weight Dosing A1c POC 45287 Body Mass Index (BMI) documented 3008F Current tobacco non-user 1036F Depression Screening Negative 3352F Fall Risk Screen 2 or more w/injury 1100F Influenza immunization administered or previously received 4274F Most recent diastolic blood pressure <80 mm Hg 3078F Systolic BP <130 mm Hg (Most Recent) 3074F 3. BMI 28.0-28.9,adult (Z68.28: Body mass index [BMI] 28.0-28.9, adult) BMI education given. Ordered: A1c POC 46490 Body Mass Index (BMI) documented 3008F Current tobacco non-user 1036F Depression Screening Negative 3352F Fall Risk Screen 2 or more w/injury 1100F Influenza immunization administered or previously received 4274F Most recent diastolic blood pressure <80 mm Hg 3078F Systolic BP <130 mm Hg (Most Recent) 3074F 4. Over weight (E66.3: Overweight) Diet and exercise advised. Ordered: predniSONE, 20 mg = 1 tab(s), Oral, Daily, # 5 tab(s), Refills(s) 0, Pharmacy: [facility] #[id number], 168, cm, 12/08/23 7:46:00 EDT, Height/Length Dosing, 82.1, kg, 12/08/23 7:46:00 EDT, Weight Dosing A1c POC 31150 Body Mass Index (BMI) documented 3008F Current tobacco non-user 1036F Depression Screening Negative 3352F Fall Risk Screen 2 or more w/injury 1100F Influenza immunization administered or previously received 4274F Most recent diastolic blood pressure <80 mm Hg 3078F Systolic BP <130 mm Hg (Most Recent) 3074F 5. Former smoker (Z87.891: Personal history of nicotine dependence) Please continue not to smoke. Ordered: predniSONE, 20 mg = 1 tab(s), Oral, Daily, # 5 tab(s), Refills(s) 0, Pharmacy: [facility] #[id number], 168, cm, 12/08/23 7:46:00 EDT, Height/Length Dosing, 82.1, kg, 12/08/23 7:46:00 EDT, Weight Dosing A1c POC 94457 Body Mass Index (BMI) documented 3008F Current tobacco non-user 1036F Depression Screening Negative 3352F Fall Risk Screen 2 or more w/injury 1100F Influenza immunization administered or previously received 4274F Most recent diastolic blood pressure <80 mm Hg 3078F Systolic BP <130 mm Hg (Most Recent) 3074F 6. Acute arthritis (M19.90: Unspecified osteoarthritis, unspecified site) Resolved at this time. Ordered: predniSONE, 20 mg = 1 tab(s), Oral, Daily, # 5 tab(s), Refills(s) 0, [facility]: [facility] #[id number], 168, cm, 12/08/23 7:46:00 EDT, Height/Length Dosing, 82.1, kg, 12/08/23 7:46:00 EDT, Weight Dosing 7. Coronary artery disease involving [place] coronary artery of [place] heart without angina pectoris (I25.10: Atherosclerotic heart disease of [place] coronary artery without angina pectoris) No chest pain at this time. Foll (more content not included)... 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 Primary Care Physician - Ernestine Beverly MD. This Is Your Medications List amlodipine (amLODIPine 10 mg Tab) apixaban (Eliquis 5 mg oral tablet) aspirin (Aspir 81) atorvastatin (Lipitor 40 mg Tab) atorvastatin (atorvastatin 40 mg Tab) cholecalciferol cyanocobalamin empagliflozin-metFOR MIN (empagliflozin-metFO RMIN 5 mg-1000 mg oral tablet) gabapentin (gabapentin 100 mg Cap) levothyroxine (levothyroxine 25 mcg (0.025 mg) Tab) lisinopril (lisinopril 40 mg Tab) metoprolol (Lopressor) nitroglycerin (NitroStat 0.4 mg Tab) omeprazole (Prilosec) oxybutynin (oxybutynin 5 mg Tab) pioglitazone (pioglitazone 15 mg Tab) predniSONE (predniSONE 20 mg Tab) predniSONE (predniSONE 20 mg Tab) semaglutide (Ozempic 8 mg/3 mL (2 mg dose) subcutaneous solution) tamsulosin (tamsulosin 0.4 mg Cap) tamsulosin (tamsulosin 0.4 mg Cap) Procedures Performed Cystoscopy (10/02/2023), Cystoscope (04/11/2023), TRUS (transrectal ultrasound) guided cryoablation of prostate (07/24/2020), Transrectal biopsy of prostate using ultrasound (US) guidance (04/12/2013), CABG x 4 - Coronary artery bypass grafts x 4, Cataract care, Colonoscopy, Knee Replacement-Lt. Discharge Vitals Temperature (Temporal Artery) 36.5 ?C Heart Rate (Peripheral) 76 Respiratory Rate 18 Blood Pressure 157/62 Height 169 cm Height 67 in Weight 81.4 kg Weight 179.08 lb BMI 28.5 What to do next Scheduled Follow-Up Appointments Friday 9:15 AM EDT With: Damian RIOS, Ernestine Meehan Where: [facility] Invalid Interpretation Code [address] [place] [address]- \.br\ Friday 10:45 AM EST \.br\ With: Allan Agarwal MD\.br\ Where: [facility]\.br\ Friday 1:00 PM EDT \.br\ With:\.br\ Where: [facility] Medicine Office/Clini c Noteon 12-11-2023 Family Medicine Office/Clinic Note Family Medicine Office/Clinic Note HPI Staff Patrick is a 78 year old male presenting for 3 day follow up left hand arthritis rxerd steroid on 12/07. Has one steriod pill left. Patient states it is better, fixed right up. History of Present Illness - See staff HPI. Review of Systems PHQ Score Initial Depression Screen Score: 0 SCORE Physical Exam Vitals & Measurements T: 36.5 ?C(Temporal Artery) HR: 76(Peripheral) RR: 18 BP: 157/62 SpO2: 95% HT: 67 in HT: 169 cm WT: 81.4 kg WT: 179.08 lb BMI: 28.5 Both hands are WNL. NO swelling noted. Assessment/Plan 1. Acute arthritis (M19.90: Unspecified osteoarthritis, unspecified site) - Resolved - Has one more pill left. - Will finish 2. Type 2 diabetes mellitus with stage 3a chronic kidney disease (E11.22: Type 2 diabetes mellitus with diabetic chronic kidney disease) - Continue to monitor BS. - Call if BS are over 400 3. 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 Benign hypertension with chronic kidney disease, stage III (I12.9: Hypertensive chronic kidney disease with stage 1 through stage 4 chronic kidney disease, or unspecified chronic kidney disease) - Will recheck at next visit and steroids can be causing the increase. 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 Type 2 diabetes mellitus with peripheral neuropathy Type 2 diabetes mellitus with stage 3a chronic kidney disease Urinary retention Vitamin B12 deficiency Vitamin D [...] atorvastatin 40 mg Tab, 40 mg= 1 tab(s) cholecalciferol, 25 mcg, Oral, Daily cyanocobalamin, 1000 mg, Oral, Daily Eliquis 5 mg oral tablet, 5 mg= 1 tab(s), Oral, BID empagliflozin-metFOR MIN 5 mg-1000 mg oral tablet, Oral, BID gabapentin 100 mg Cap, 100 mg= 1 cap(s), Oral, Daily levothyroxine 25 mcg (0.025 mg) Tab, 25 mcg= 1 tab(s), Oral, Daily Lipitor 40 mg Tab, 40 mg= 1 tab(s), Oral, Once a day (at bedtime), 6 refills lisinopril 40 mg Tab, 40 mg= 1 tab(s), Oral, Daily Lopressor, 100 mg, Oral, BID NitroStat 0.4 mg Tab, 0.4 mg= 1 tab(s), SubLingual, q5min oxybutynin 5 mg Tab, 5 mg= 1 tab(s) Ozempic 8 mg/3 mL (2 mg dose) subcutaneous solution, 2 mg, SubCutaneous, qWeek, 1 refills pioglitazone 15 mg Tab, 15 mg= 1 tab(s), Oral, Daily predniSONE 20 mg Tab, 20 mg= 1 tab(s), Oral, Daily predniSONE 20 mg Tab, 20 mg= 1 tab(s) Prilosec, 20 mg, Oral, Every other day tamsulosin 0.4 mg Cap, 0.4 mg= 1 cap(s), Oral, Daily, 11 refills tamsulosin 0.4 mg Cap, 0.4 mg= 1 cap(s) Allergies No Known Medication Allergies Social History Alcohol - Low Risk, 02/08/2019 Current, 1-2 times per year, Household alcohol concerns: No., 09/01/2023 Tobacco Former smoker, quit more than 30 days ago Tobacco Use:. Never Smokeless Tobacco Use:. Cigarettes, Started age 14.0 Years. Stopped age 47 Years., 12/11/2023 Family History Family history is negative Immunizations Vaccine Date Status Comments influenza virus vaccine, inactivated 03/17/2023 Given SARS-CoV-2 (COVID-19) mRNA-1273 vaccine 04/23/2021 Recorded 2023-04-04: 75 SARS-CoV-2 (COVID-19) mRNA-1273 vaccine 04/2021 Recorded SARS-CoV-2 (COVID-19) mRNA-1273 vaccine 09/2020 Recorded SARS-CoV-2 (COVID-19) mRNA-1273 vaccine 09/14/2020 Recorded 2023-04-04: [id number] SARS-CoV-2 (COVID-19) mRNA-1273 vaccine 08/17/2020 Recorded 2023-04-04: [id number] SARS-CoV-2 (COVID-19) mRNA-1273 vaccine 08/2020 Recorded influenza virus vaccine, inactivated 03/17/2018 Recorded influenza virus vaccine, inactivated 04/28/2017 Recorded pneumococcal 23-valent vaccine 08/28/2014 Recorded tetanus-diphtheria toxoids 07/16/2011 Recorded Normal [facility] Comment on above: Result Comment: Elec tronically Signed By: Damian RIOS, Ernestine Landbr\Date and Time Signed: 12/11/23 09:32 EDT Coding Summary.on 12-09-2023 Coding Summary. LYXIVnqj56CRo1pDa+PG hlYWQ+IT1XEYZhU85gsM HsfC5mW2SGBAfJDvbsJF GDXMiSFpAeujYyDD2osA NjZXJu IC8+LJ9kIDHfJnruyGSx g1H3wUO6W73myv5nDIvh tFB9RBZoOoPkymval5lb aUt5LVoqJaiiFtUd WKAjbX37KYF2yN35Hb68 nTRfrCLzo3nlfWj1RcIc ZNVqOZT6aRgrMExud2Ai LWDzC01aeQFqa4G7 IGNvbGxhcHNlOyBlbXB0 aB2yTNkbiaich7dzedxb Dxl6yl87mWPrz2R4zXN6 J3LzrfP5JNQepUVd IwpwvYWOmD1sxxrsx6gx ujckMyCvDUEcXRq3POk4 JEZrbKbzRsYtES23JHR9 WFQoqjCeV8JnVSKi pNwbWmV5p4V2Eq1NS3EZ LzccK1TKQXGMVOqhoSS+ FR98qd97R6VlYiiaRix5 GRAcHCE5tRB5aF7h DLRsNNcte1E3uUJ3G2Hd gxZnrs1pv1qnBUXcEHfw D73hhPQke4Y0JZXugPE2 AKYkeUflYfFqiX06 Oyc+TZGamOffm1DqBjyt r3cqp2ngmFy3NnfaWHXi fhHqvKpeRNX9s8TeRg8q SPLbdAO0pEI6vS5x RmHoPsY9HAziI915NtWw tZYeZpihS86zX3GsdLY+ FCIlIgr2YOYkxAoyUD4m J0NmDCLjwkxmcANm bGpeCD3rYCTzmtfxOYWe oI4rFKKwW0g0CgJaTsO7 LSvtT1SkWVPgwogoWb59 jQ6bNvBdBcH5UHlx Q8AxyvB6PKWyiDSmNOrg DFX7C77nz8X8YIJiZJZt KOS8xTT7sC4weYopiind bGVmdDsgdmVydGlj MYasIXhbU091LCDqoEkx PkNvZGluZyBEYXRlOiAg MDYvMjUvMjAyNDwvdGQ+ ENXjYDT2jAnrWDWq tCYiUJvzYu6xuNxivSiv DJ3gOEBkyxtgZBPvgI9w XVPhbVFvzGbcJS7eWELr pkisn682XkUbDYP2 BJKvhRXyM7OtkH9xJuDx KTSqNEWeT1UrwANnAGtf O913OApyVaD0HHHkgpRz G8RqFJMkdWzyXxV1 n5Z4Sx5Xb3UxogkrP3Yp hSOsLuHkDagfAZx5I1Ir PjwvdHI+PF72RZNmUH37 VQu1THK3tZyfIOsv NITdO0KitJ3nCdRiYLVl ZGRkOyc+PHRhYmxlIHdp ZHRoPScxMDAlJyBzdHls ZK7bTz1hUIIfUJOt lJgudIJbKmWii1aeHGUv KTlcQE7rlFfgO7RygVG6 KRZbm4p2Pt52T29sZ7Pu dXA+JNAnsBX1lIQ6 qZ3tJtYfXqI6NAnvX650 CkVhcRLvDpuom4gfx9bq gOu1YoF0MAZjzoLulKkr KIM1s1HbDv73F28d IHdpZHRoPSIxNSUiIHZh wUwkup5tqF3oEu6+PGNv gDD2iXI0fA2qJiWeVgI2 PTuiY740CcWoyYQn Pungm1pts8icrYf5GiAs QNSnpoHccCciYUV1z4Cf Qm72W0RpmXdjf3JnWxi9 wg78wQAyp7S1hPX2 L5TfOZVzqtvxbZKufAua YW4vYWFhsvmpELLscH8n WULoZ3f4RhMiAjF0MMxy U1AjyyG6SHDjgHXu ULKbnNJQdU7ysizhc7gp pvzuRcDvYABpVNg0RGd8 NIQeqEueCqNyVJO8TgQ1 QPW8kZImuS2ulAuo wrmtrI7nNoe+QCM0yDHl jAOZSA1zHlbquCV+PHRk HHB3nNhbPNluBHVsdB3v RTEcS3n2BeOcFoS1 BOciZ9YvwrJ2GZXsrGYs TLVudEVYjT5dfzdkf9lk kstmKwIoLZDiNNe9DDd9 LWFsaWduOiBsZWZ0 WzQ4VTW1zYZndA2jaEpg ajgguV6cAhq+QmlydGgg LOJ4XCm9H8PrTus9IUUa sCcfOG4ijXHnKVuf Fw8opSofaOdiJX6cEPGs vdsdk968RzBlx8orHZGr lXFcHMdzHTS0E86ge7E2 UYYnUDGsDOW6yJG3 dJ0qpGlribvecUQqvFpm nnYpdRjsCHztDOvxQ308 DYJeuPmxNtWuKBu4R8Sm Nhe6WQPhlAugSN5g xVHiUKueOm1uqJxftSso OM4zVNJpjebrj044SkZv p0uqCIDpaAHrMIfzYYA7 Z90pa3W1KMRbVBZc FXD5vOG2cW5jsTrapobc bGVmdDsgdmVydGljYWwt YPpzI999NUEcbMefKtEv bBh6R6ExDkj4PYYo oCtpWK5tbQOjUDgmAz5j oObahNkqDV5pDPBghamb u301YaCzm1hbCRKfbGIc WTlvVMD1G41jr8L3 JXRyYVKiDTT6qDT2bH9q bGlnbjogbGVmdDsgdmVy jHjsLWhrFIczN196GJTm cDsnPlBhdGllbnQg YUofHFu5N2GyXvilyGS+ BR61JWFoCV56uMVinMTv a9movBy8GaAgHAQdZPX1 lOmyIGbhc7RfYSCg Q54zgUEsx5Y6SKYsjAwp rUYkNtUxeIW5kB3fAVzz rabhw6aprknrRnenb8is qv23fR71I14bPFkj ZHRoPSIzMCUiIHZhbGln lp9pyU1pTn4+PGNvbCB3 tWU2eD7fZNRpLrB2ZDqo R954AuTfhIXnFbgv m9nqb5fluFx5XxF6BQJj cvBajIvpKWI0d1CjWf64 R56kTCymLUEmOOBdXTVq VOUflYqyuy4hkO3d Ii8+NOLqxFW6eYB9iS9i IfDzWzW0QAwrF669FaAx vUMeBgzpQ65uM3VbrEP+ WXJmNdr9UFKluIrk QM0joIJvYQqzBc7iPCU1 ObViRpMbEWwsZ3EdDNXy bntkgjfrgHW9GBCmLSOg tI25Sf5msVllTRNy gJPZzQ3sqxiur5dazxzw NlWmWITjLWg1MLn6LRHw qVleEzJsRUP2XjV0OVT0 gLFksF5byRkidkcd xY7sC5XpYQCkldqlNq11 kK1qTdPxRlK5WRlcBji+ TUlMTEVSLCBMRVJPWSBB DP98JD92rEBma7Q5 lSP4P9ZeRNIejgxlsbdt wYY3CXLbKEIaeW75pZCf NOqtLv8ll1Q8a790RDZb RGXewY79Gb1erRmu YEBcaUIUhA3eikzhx2dg qhbuKrYhGTCkVCc8CVf1 JRBvwRvmWpDjETK3PtC3 FXG5yPVcbP1xqGax iiawpY5sNlt+MTEvMjUv TTf1FLzmdFU+PHRkIHN0 fHzhRTtyDZYzhA3sBBSb K0g1UgXvVqU1ZWgq A5VxMTZxsucqUl50aV0n BpFsPsF5VQqwH2CiihI6 YQOtpWBlDZzeNWD3Y40n q0S8OSDpNWGeJCL0 eRA5eH8chFjevexeuSOl dDsgdmVydGljYWwtYWxp M476YECzmQqgGka0XGbj RVLjMB88EM58aATp y0X5jDR8L8RmPCHztkqu lgyolHH1WZHeJQIobW27 eUJeKUhnHu8yr7H6a816 IJAjGQUkiB60Of6a qNsgGQJqoXLYcZ5liqdv a3fnlpakBvCzPSStZDv5 ZQo5IMMhtGaxKtSwBAS0 RoI3YQV6yXWepC9b kArxvgtuqT9oKel+TWFs ZTwvdGQ+BLJeOPH3vZio MCzfRWTgjE2gWIBoF2f0 PhFgTzZ9AAyhT8Xj OXPxiexmOp14pX0dRaSo RlE4XJedN1FxahZ7ROFd cXEwBThzEXU2N49mf8Y5 MGFpIBBwOBW8yWC9 oT3dmDchkyecdWEsfAko bfJwvHwzKRopRKhmI888 PIXxjWpqEz80eAVenCfe npS2O0AqPhsdjGG+ MJ53UEWuZD30gNPxfLEr f4kegMv6UoUlGLFuEJB3 eIxmAAvgu1AfYQAqR18c yGJal2H5BXXvcPgs cFOhZzHwwKG1yD5tFMxx bksjc6mjvpstVtkew7vx ox35mX19P64yPTxhCFCp PSIzMCUiIHZhbGln el2lgP9gXz2+PGNvbCB3 dYP2eB0eOiLuZqH5SWju Q810KaCbxRXiArndq2uu b1ehePz9HbKtNFJn biZzvBixQRN3r2PgKh09 L70wVYqgTJAfTXTiCMKe HKMrhFfzza8qpJ2vRd4+ PC0ll4bvgg73rO66 dHI+GRWgWMF3dZntUHxm RFMzkZ8lREjhUkY5NXPl SkEypN41hLXjURcvLq0m pRoakJxbBJ5aLXXg njpbj836TsSog4sfTNTt xUIjRDdvHBI9K83zs2R6 TPMwZOVeWWJ8gNF5kV7p bGlnbjogbGVmdDsg spQcqLokFGhyVZqdR252 YGBiqUmcEaXmiOQhM0gm qzHRXD6pPpexxCD+PHRk NDK9nMzwCJpsUYTp oP1fOBEeY7k8SqZlHnJ8 BChmT1HkosD3DCVjmUNx ASGbzYVVaD1nxpbxs1nh cjogIzAwMDAwMDt0 MNs5TBMixOdiOqFaATY4 ZoP9ZAX5iESfyF6drWkg byabbT1tXnn+RklOOjwv dGQ+TGKsFWH5fZwg BLjvFMEbvZ7wRTUdI6q4 BqDcZrB4IWcfR8SyquW2 DXSxzWUjJMTtbBOAqO3a jmkar5zclmoiItMy WAUcDSa9EIx5AIXrxHfp RiMjXGH0AsX2HWY4cMEh kN7eaXmxscokiY8wKhe+ TVJOOjwvdGQ+PHRk OPQ4dPwlYQjiKKAtrT7y PQDsD9u4RoNyTfP1WOzh K0MblsH5QRCcpPZoFQKp zFAZbA1ckeyxx6yn nljhRdObEAJcDAv8COn1 CEAdsTfbGpGbGHD0AfZ5 SYC3nSXqoT5luFdnqcwr oH7bUvq+COB9ZPV8 PL71FM10L2PoGdpggXJk bGU+PHRhYmxlIHdpZHRo YHhqLKYgNqPrbUaaDP1k Xr9eJLGiXYTkzSvb nJNeShYzx0llQ (more content not included)... Normal [facility] Ambulatory Visit Summaryon 0 12-08-2023 Ambulatory Visit Summary GLORIA LAINEZFELICIA Nelson :1945 Visit Date:12/08/2023 Ambulatory Visit Instructions Your Diagnosis BMI 29.0-29.9,adult Over weight Former smoker Your Care Team Attending Physician - Ernestine Beverly MD. Primary Care Physician - Ernestine Beverly MD. This Is Your Medications List amlodipine (amLODIPine 10 mg Tab) apixaban (Eliquis 5 mg oral tablet) aspirin (Aspir 81) atorvastatin (Lipitor 40 mg Tab) cholecalciferol cyanocobalamin empagliflozin-metFOR MIN (empagliflozin-metFO RMIN 5 mg-1000 mg oral tablet) gabapentin (gabapentin [...] Knee Replacement-Lt. Discharge Vitals Temperature (Temporal Artery) 37.2 ?C Heart Rate (Peripheral) 66 Respiratory Rate 16 Blood Pressure 112/60 Height 168 cm Height 66 in Weight 82.1 kg Weight 180.62 lb BMI 29.09 What to do next Scheduled Follow-Up Appointments 2023 9:00 AM EDT With: Damian RIOS, Ernestine Meehan Where: [facility] Invalid Interpretation Code [address] [place] [address]- \.br\ Friday 10:15 AM EST \.br\ With: Jose ALCALA MD\.br\ Where: [facility] ED Note-Physicianon 12-08-19 ED Note-Physician [id number]# 1.00TIFF [facility] ED Note-Physician [id number] #1.00TIFF [facility] Family Medicine Office/Clini c Noteon 12-08-2023 Family Medicine Office/Clinic Note HPI Staff Patrick is a 78 year old male presenting for Er follow up ER followup: Hospital: [facility] Visit date: 12/04/23 Symptoms the patient presented with: left hand painful and swollen, went to [place] first and they didn't do anything told him to take tylenol which does nothing for him so went to [place] ER and was given pain pills (tylenol w/ codeine) and dxed with arthritis ( xray from [place] is in documents) had labs also Current concerns: starting to be able to move his fingers a little bit, hand is still very swollen using ice at home Bought himself a sling because it hurts to let the hand hang down History of Present Illness - Pt here for follow up from the ER. - Sponatenous pain in swelling of the R hand. - TTP. - Cannot move the joints. - ER diagnosed him with acute arthritis. - Only gave NSAIDs - Still in 10/10 pain. Review of Systems PHQ Score Initial Depression Screen Score: 0 SCORE Physical Exam Vitals & Measurements T: 37.2 ?C(Temporal Artery) HR: 66(Peripheral) RR: 16 BP: 112/60 SpO2: 97% HT: 66 in HT: 168 cm WT: 82.1 kg WT: 180.62 lb BMI: 29.09 General: alert, no acute distress ENMT: oral mucosa moist, Cardiovascular: normal peripheral perfusion Respiratory: respirations non labored Extremities: no deformity, no trauma Neurological: oriented x 4, LOC appropriate for age, CN II-XII intact, motor strength equal & normal bilaterally, speech normal Grossly swollen, erythematous and tender R hand. Assessment/Plan 1. Acute arthritis (M19.90: Unspecified osteoarthritis, unspecified site) - Will do a small amount of steroids to help. - Monitor BS as they were not controlled at last A1c. - Precautions discussed in detail. - Will monitor for infection. - No systemic signs at this time. Ordered: predniSONE, 20 mg = 1 tab(s), Oral, Daily, # 5 tab(s), Refills(s) 0, Pharmacy: [facility] #[id number], 168, cm, 12/08/23 7:46:00 EDT, Height/Length Dosing, 82.1, kg, 12/08/23 7:46:00 EDT, Weight Dosing 2. Type 2 diabetes mellitus with hyperlipidemia (E11.69: Type 2 diabetes mellitus with other specified complication) - Please monitor BS. Ordered: predniSONE, 20 mg = 1 tab(s), Oral, Daily, # 5 tab(s), Refills(s) 0, Pharmacy: [facility] #[id number], 168, cm, 12/08/23 7:46:00 EDT, Height/Length Dosing, 82.1, kg, 12/08/23 7:46:00 EDT, Weight Dosing 3. BMI 29.0-29.9,adult (Z68.29: Body mass index [BMI] 29.0-29.9, adult) - BMI education advised. Ordered: predniSONE, 20 mg = 1 tab(s), Oral, Daily, # 5 tab(s), Refills(s) 0, Pharmacy: [facility] #[id number], 168, cm, 12/08/23 7:46:00 EDT, Height/Length Dosing, 82.1, kg, 12/08/23 7:46:00 EDT, Weight Dosing Body Mass Index (BMI) documented 3008F Current tobacco non-user 1036F Depression Screening Negative 3352F Influenza immunization administered or previously received 4274F Most recent diastolic blood pressure <80 mm Hg 3078F Patient screen for fall risk: no falls in last year or 1 fall with no injury in last year 1101F Systolic BP <130 mm Hg (Most Recent) 3074F 4. Over weight (E66.3: Overweight) - Diet and exercise advised Ordered: predniSONE, 20 mg = 1 tab(s), Oral, Daily, # 5 tab(s), Refills(s) 0, Pharmacy: [facility] #[id number], 168, cm, 12/08/23 7:46:00 EDT, Height/Length Dosing, 82.1, kg, 12/08/23 7:46:00 EDT, Weight Dosing Body Mass Index (BMI) documented 3008F Current tobacco non-user 1036F Depression Screening Negative 3352F Influenza immunization administered or previously received 4274F Most recent diastolic blood pressure <80 mm Hg 3078F Patient screen for fall risk: no falls in last year or 1 fall with no injury in last year 1101F Systolic BP <130 mm Hg (Most Recent) 3074F 5. Former smoker (Z87.891: Personal history of nicotine dependence) - Please continue to not smoke. Ordered: predniSONE, 20 mg = 1 tab(s), Oral, Daily, # 5 tab(s), Refills(s) 0, Pharmacy: [facility] #[id number], 168, cm, 12/08/23 7:46:00 EDT, Height/Length Dosing, 82.1, kg, 12/08/23 7:46:00 EDT, Weight Dosing Body Mass Index (BMI) documented 3008F Current tobacco non-user 1036F Depression Screening Negative 3352F Influenza immunization administered or previously received 4274F Most recent diastolic blood pressure <80 mm Hg 3078F Patient screen for fall risk: no falls in last year or 1 fall with no injury in last year 1101F Systolic BP <130 mm Hg (Most Recent) 3074F Hyperlipidemia, unspecified (E78.5: Hyperlipidemia, unspecified) Follow-up No qualifying data available Problem List/Past Medical History Ongoing Acute arthritis Anticoagulant long-term use Benign hypertension with chronic kidney disease, stage III BPH with urinary obstruction CAD (coronary artery disease) Elevated PSA History of UTI HTN (hypertension) Hyperlipidemia Nocturia Paroxysmal atrial fibrillation Stage 3a chronic kidney disease (CKD) Thyroid disease Type 2 diabetes mellitus with hyperlipidemia Type 2 diabetes mellitus with mild nonproliferativ (more content not included)... Normal [facility] Comment on above: Result Comment: Elec tronically Signed By: Damian RIOS, Ernestine Meehan\.br\Date and Time Signed: 12/08/23 08:34 EDT RAD - MISCon 12-08-2023 RAD - MISC [id number] #1.00TIFF [facility] Pre-Visit Planningon 024 Pre-Visit Planning - From: Ingrid Unger To: Damian RIOS, Ernestine Meehan; Sent: 12/05/2023 14:22:20 EDT Subject: Pre-Visit Planning Due Date/Time: 12/05/2023 14:22:00 EDT Caller Name: PATRICK LAINEZ; Caller Number: , Md Dr. Beverly. During a pre-visit planning chart review, I noted the following documentation in the medical record: Glomerular filtration rate (GFR): =53 on 06/04/2023, =45 on 03/12/2023, and =41 on 07/17/2020. Based on your medical judgment, can you please clarify which, if any, of the following conditions are present? I can update the Chronic Problem List with your response if you would like. -Chronic Kidney Disease Stage 3a (GFR 45-59) -Other (please specify): In responding to this request, please exercise your independent professional judgment. The fact that a question is asked does not imply that any particular answer is desired or expected. If you have any questions, please feel free to contact me at extension [phone]. Thank you! Ingrid Unger LPN - From: Damian RIOS, Ernestine Meehan To: Ingrid Unger; Sent: 12/07/2023 11:11:59 EDT Subject: RE: Pre-Visit Planning Caller Name: PATRICK LAINEZ; Caller Number: , M Chronic Kidney Disease Stage 3a (GFR 45-59) Normal 272 [facility] CBC AND AUTO DIFFon 12-03-19 24 ABSOLUTE BASOPHIL 0.0 X10E9/L Normal 0.0-0.2 [facility] Comment on above: Performed By: #### C BCA #### [facility] ([id number]) [address] [place] [address] ABSOLUTE NEUTROPHIL 5.4 X10E9/L Normal 1.5-6.6 [facility] Comment on above: Performed By: #### C BCA #### [facility] ([id number]) [address] [place] [address]5738 Basophils/100 WBC (Bld) 0.3 % Normal [facility] Comment on above: Performed By: #### C BCA #### [facility] ([id number]) [address] [place] [address] 61786 Eosinophils (Bld) [#/Vol] 0.5 10*3/uL High 0.0-0.4 [facility] Comment on above: Performed By: #### C BCA #### [facility] ([id number]) [address] [place] [address] 93235 Eosinophils/100 WBC (Bld) 6.0 % Normal [facility] Comment on above: Performed By: #### C BCA #### [facility] ([id number]) [address] [place] [address] 87504 Erythrocyte distribution width (RBC) [Ratio] 14.4 % Normal 11.5-15.0 [facility] Comment on above: Performed By: #### C BCA #### [facility] ([id number]) [address] [place] [address] 79661 Hematocrit (Bld) [Volume fraction] 30.9 % Low 39-49 [facility] Comment on above: Performed By: #### C BCA #### [facility] ([id number]) [address] [place] [address]14 Hemoglobin (Bld) [Mass/Vol] 10.8 g/dL Low 13.0-17.0 [facility] Comment on above: Performed By: #### C BCA #### [facility] ([id number]) [address] [place] [address] 13092 Lymphocytes (Bld) [#/Vol] 1.3 10*3/uL Normal 1.0-3.5 [facility] Comment on above: Performed By: #### C BCA #### [facility] ([id number]) [address] [place] [address] 77586 Lymphocytes/100 WBC (Bld) 17.4 % Normal [facility] Comment on above: Performed By: #### C BCA #### [facility] ([id number]) [address] [place] [address] 91956 MCH (RBC) [Entitic mass] 31.5 pg Normal 27-34 [facility] Comment on above: Performed By: #### C BCA #### [facility] ([id number]) [address] [place] [address] 61965 MCHC (RBC) [Mass/Vol] 34.9 g/dL Normal 32-36 [facility] Comment on above: Performed By: #### C BCA #### [facility] ([id number]) [address] [place] [address] 74141 MCV (RBC) [Entitic vol] 90 fL Normal 80-100 [facility] Comment on above: Performed By: #### C BCA #### [facility] ([id number]) [address] [place] [address] 56196 Monocytes (Bld) [#/Vol] 0.4 10*3/uL Normal 0-0.9 [facility] Comment on above: Performed By: #### C BCA #### [facility] ([id number]) [address] [place] [address] 66089 Monocytes/100 WBC (Bld) 5.7 % Normal [facility] Comment on above: Performed By: #### C BCA #### [facility] ([id number]) [address] [place] [address] 40719 Neutrophils/100 WBC (Bld) 70.6 % Normal [facility] Comment on above: Performed By: #### C BCA #### [facility] ([id number]) [address] [place] [address] 24975 Platelet mean volume (Bld) [Entitic vol] 8.5 fL Normal 7-12 [facility] Comment on above: Performed By: #### C BCA #### [facility] ([id number]) [address] [place] [address]39 Platelets (Bld) [#/Vol] 237 10*3/uL Normal 150-450 [facility] Comment on above: Performed By: #### C BCA #### [facility] ([id number]) [address] [place] [address] 87597 RBC COUNT 3.42 X10E12/L Low 4.10-5.70 [facility] Comment on above: Performed By: #### C BCA #### [facility] ([id number]) [address] [place] [address] 27123 WBC (Bld) [#/Vol] 7.7 10*3/uL Normal 4.0-11.0 [facility] Comment on above: Performed By: #### C BCA #### [facility] ([id number]) [address] [place] [address] CRP [Mass/Vol]on 12-03-2023 C REACTIVE PROTEIN 0.6 mg/dL Normal 0.000-0.744 [facility] Comment on above: Performed By: #### 8 2477-1 #### [facility] ([id number]) [address], [address] [place] [address] #### 1989-5 #### [facility] ([id number]) [address] [place] [address]641 ESR Photometric method (Bld) [Velocity]on 12-03-2023 ESR, ERYTHROCYTE SEDIMENTATION RATE 6 mm/h Normal 0-20 [facility] Comment on above: Performed By: #### 3 5365-6, CBCA, CMP, 2857-1 #### [facility] ([id number]) [address], [address] [place] [address] XR HAND LT MIN 3 VWSon 12-02 XR HAND LT MIN 3 VWS XR HAND LT MIN 3 VWS CLINICAL INFORMATION: Left thenar eminence pain, evaluate for signs of infection, recent wound to the left hand no recent injury TECHNIQUE: 3 radiographs performed. Three images acquired. COMPARISON: No relevant prior studies available. FINDINGS: * No fracture, dislocation, erosion, nor periostitis. * Alignment satisfactory. * No radiopaque foreign body * Severe vascular calcification IMPRESSION: * No acute osseous abnormality. Finalized by Jasiel Yun MD on 12/03/2023 9:43 AM Normal [facility] Ambulatory Visit Summaryon 0 11-28-2023 Ambulatory Visit Summary PATRICK LAINEZ :1945 Visit Date:11/28/2023 Ambulatory Visit Instructions Your Diagnosis CAD (coronary artery disease) Paroxysmal atrial fibrillation Hyperlipidemia Your Care Team Attending Physician - Allan Agarwal MD Primary Care Physician - Ernestine Beverly MD Referring Physician - NONE, XXXX This Is Your Medications List amlodipine (amLODIPine 10 mg Tab) apixaban (Eliquis 5 mg oral tablet) aspirin (Aspir 81) cholecalciferol cyanocobalamin empagliflozin-metFOR MIN (empagliflozin-metFO RMIN 5 mg-1000 mg oral tablet) gabapentin (gabapentin [...] Follow-Up Appointments Friday 9:15 AM EDT With: Ernestine Beverly MD Where: [facility] Invalid Interpretation Code [address] [place] [address]- \.br\ Friday 10:45 AM EST \.br\ With: Allan Agarwal MD\.br\ Where: [facility] [place]\.br\ Friday 1:00 PM EDT \.br\ With:\.br\ Where: [facility] Consent for Treatmenton 11-14 Consent for Treatment [id number]#1 .00TIFF Normal [facility] Heart and Vascular Office/Cl inic Noteon 11-28-2023 Heart and Vascular Office/Clinic Note Chief Complaint 6 month f/u PAF History of Present Illness Mr. Lainez is a pleasant 78-year-old male with past medical history of coronary artery disease, quadruple CABG in 2015, history of prior PCI, paroxysmal atrial fibrillation, [...] artery disease) (I25.10: Atherosclerotic heart disease of [place] coronary artery without angina pectoris) No evidence of angina or anginal-like symptoms. Will continue guideline recommended medical therapy. He is not interested in stress testing. Unsure if he had a Lexiscan stress test which was ordered by Dr. Tai. It appears that the patient has stable CAD by symptoms; without formal stress testing, difficult to environmental health inspector, therefore at this point, we would continue [...] tablet, 5 mg= 1 tab(s), Oral, BID empagliflozin-metFOR MIN 5 mg-1000 mg oral tablet, Oral, BID [...] age 47 Ye (more content not included)... [facility] Comment on above: Result Comment: Elec tronically Signed By: Any RIOS, Allan Cabello\.br\Date and Time Signed: 11/28/23 10:58 EDT Physician Orderon 11-28-2023 Physician Order [id number]#1.00TIFF [facility] Lab Reportson 11-18-2023 Lab Reports [id number]# 1.00TIFF [facility] Lab Reports [id number] #1.00TIFF [facility] Screenson 11-18-2023 Screens [id number] #1.00TIFF [facility] Ambulatory Visit Summaryon 0 11-17-2023 Ambulatory Visit Summary PATRICK LAINEZ :1945 Visit Date:11/17/2023 Ambulatory Visit Instructions Your Diagnosis Elevated PSA BPH with urinary obstruction Pneumaturia Your Care Team Attending Physician - Jose ALCALA MD Primary Care Physician - Ernestine Beverly MD This Is Your Medications List tamsulosin (tamsulosin 0.4 mg Cap) Contact prescribing physician if questions or concerns amlodipine (amLODIPine 10 mg Tab) apixaban (Eliquis 5 mg oral tablet) aspirin (Aspir 81) cholecalciferol cyanocobalamin empagliflozin-metFOR MIN (empagliflozin-metFO RMIN 5 mg-1000 mg oral tablet) gabapentin (gabapentin [...] Any RIOS, Allan Cabello Where: [facility] [place] Friday 9:15 AM EDT With: Ernestine Beverly MD Where: [facility] Invalid Interpretation Code [address] [place] [address]- \.br\ Friday 1:00 PM EDT \.br\ With:\.br\ Where: [facility] Patient Educationon 11-17-19 Patient Education Oncology [...] Where to find more information ? [employer] [place] [employer]: www.cancer.org ? [place] [employer]: www.auanet.org Contact a health care [...] adds flu (more content not included)... Normal [facility] Urology Office/Clinic Noteon 11-17-2023 Urology Office/Clinic Note [...] Information CARI RIOS, Jose Rodriguez, URL [address] [address]- Additional Instructions: 4-5 mos PSA F&T Patient Education Prostate Cancer Screening Diana Matute, personally scribed for Dr. Alcala on 11/17/2023 11:29:57. . Documentation recorded by the scribe, Diana Michael, accurately reflects the services(s) I performed and decisions made by me. Authenticated by Dr. Alcala on 11/17/2023 11:51:14. Portions of this record may have been created with voice recognition artificial intelligence software, specifically Zivity, Starbak and or Streamline. Substitutions may have occurred due to the [...] cryoablation of (more content not included)... Normal [facility] Comment on above: Result Comment: Elec tronically Signed By: Jose ALCALA MD P\.br\Date and Time Signed: 11/17/23 11:52 EDT\.br\Electronically Co-Signed By: Diana Michael\.br\Date and Time Co-Signed: 11/17/23 11:30 EDT FREE AND TOTAL PSAon 11-10- 024 % FREE PSA 15.6 Normal [facility] Comment on above: Result Comment: Percent [...] BPH. Performed By: #### F TPSA #### [facility] ([id number]) [address], [address] [place] [address] FREE PSA 1.36 ng/mL Normal [facility] Comment on above: Performed By: #### F TPSA #### [facility] ([id number]) [address], [address] [place] [address] PROSTATIC SPEC ANT 8.72 ng/mL High 0.00-4.00 [facility] Comment on above: Result Comment: The method used for this test is Janette Paresh DXI chemiluminescent immunoassay. Values obtained by different assay methods cannot be used interchangeably. Performed By: #### F TPSA #### [facility] ([id number]) [address], [address] [place] [address] Consent for Procedure/Surger yon 10-03-2023 Consent for Procedure/Surgery [id number] #[id number] Normal [facility] Ambulatory Visit Summaryon 0 10-02-2023 Ambulatory Visit Summary PATRICK LAINEZ :1945 Visit Date:10/02/2023 Ambulatory Visit Instructions Your [...] oral tablet) aspirin (Aspir 81) cholecalciferol cyanocobalamin empagliflozin-metFOR MIN (empagliflozin-metFO RMIN 5 mg-1000 mg oral tablet) gabapentin (gabapentin [...] Any RIOS, Allan Cabello Where: [facility] [place] Friday 11:00 AM EDT With: CARI RIOS, Jose Rodriguez Where: [facility] Interpretation Code [address] [place] [address]- \.br\ Friday 1:00 PM EDT \.br\ With:\.br\ Where: [facility] Urology Office/Clinic Noteon 10-02-2023 Urology [...] with voice recognition artificial intelligence software, specifically Zivity, Starbak and or Streamline. Substitutions may have occurred due to the [...] lower urinary tract symptoms) Pt presented to [facility] on 03/11/23 for blood in urine & dysuria. On 03/07/23 pt was diagnosed w/ acute urinary tract infection (E-Coli), treated with Keflex. DINORA 03/11/23 TB - enlarged prostate gland w/ large post void residual on 341, prominent hypoechoic area seen in the prostate gland measuring 1.3x1.5x1.6cm. CT 03/11/23 [facility] - prostatomegaly. Pt has Calvo catheter, placed in [facility] due to high residual volume. Pt was [...] Contact Information Jose ALCALA MD, URL [address] SUITE (more content not included)... Normal [facility] Comment on above: Result Comment: Elec tronically Signed By: Jose ALCALA MD\.br\Date and Time Signed: 10/02/23 14:02 EDT\.br\Electronically Co-Signed By: Itzel Covarrubias\.br\Date and Time Co-Signed: 10/02/23 14:00 EDT Family Medicine Office/Clini c Noteon 09-09-2023 Family [...] Precautions for MERS/COVID-19 : N/A Josue Nelson - 09/01/2023 13:03 EDT Medicare/Medicaid Summary Chief Complaint [...] Present : No actual or suspected pain Josue Nelson 09/01/2023 13:55 EDT Hearing and Vision Screening FT FT Whisper Test Comments : OSAGE, no hearing aids worn Vision Screen Comments : wears corrective lenses, follows with Dr. Rosa of the [place] yearly Josue Nelson 09/01/2023 13:03 EDT Advance Directive FT Advance Directive : No Patient Wishes to Receive Further Information on Advance Directives : Yes Organ Donation Consent : No Josue Nelson 09/01/2023 13:03 EDT Procedures / Surgeries FT [...] : Never Problems (more content not included)... [facility] Comment on above: Result Comment: Elec tronically Signed By: Ernestine Beverly MD\.br\Date and Time Signed: 09/09/23 09:12 EDT\.br\Electronically Co-Signed By: Josue Nelson\.br\Date and Time Co-Signed: 09/01/23 14:26 EDT Auth for Release of Medical Recordson 09-02-2023 Auth for Release of Medical Records [id number] #1.00TIFF [facility] Screenson 09-02-2023 Screens [id number] #1.00TIFF [facility] Ambulatory Visit Summaryon 0 09-01-2023 Ambulatory Visit Summary PATRICK LAINEZ :1945 Visit Date:09/01/2023 Ambulatory Visit Instructions Your [...] oral tablet) aspirin (Aspir 81) cholecalciferol cyanocobalamin empagliflozin-metFOR MIN (empagliflozin-metFO RMIN 5 mg-1000 mg oral tablet) gabapentin (gabapentin [...] Follow-Up Appointments 2023 1:30 PM EDT With: CARI RIOS, Jose Rodriguez Where: [facility] Invalid Interpretation Code [address] [place] [address]- \.br\ Friday 1:00 PM EDT \.br\ With:\.br\ Where: [facility] Family Medicine [facility] Patient Educationon 09-01-19 Patient Education [...] signals of the heart. ? An ambulatory business analysis professional to record your heart's activity for a [...] Trouble breathing. (more content not included)... Normal [facility] Ambulatory Visit Summaryon 0 06-23-2023 Ambulatory Visit Summary PATRICK LAINEZ :1945 Visit Date:06/23/2023 Ambulatory Visit Instructions Your [...] capsule) cyanocobalamin (cyanocobalamin 1000 mcg oral tablet) empagliflozin-metFOR MIN (empagliflozin-metFO RMIN 5 mg-1000 mg oral tablet) gabapentin (gabapentin [...] What to do next Scheduled Follow-Up Appointments Aug. 2023 1:00 PM EST With: CARI RIOS, Jose Rodriguez Where: [facility] Invalid Interpretation Code [address] [place] [address]- \.br\ Friday 10:45 AM EDT \.br\ With: Abida RIOS, Jamie Caicedo\.br\ Where: [facility]\.br\ 2023 1:00 PM EDT \.br\ With: Damian RIOS, Ernestine Meehan\.br\ Where: [facility] Medicine [facility] Family Medicine Office/Clini c Noteon 06-23-2023 Family Medicine [...] qWeek, # 3 EA, Refills(s) 1, Pharmacy: [id number], 167, cm, 06/23/23 14:02:00 EST, Height/Length Dosing, [...] tablet, 5 mg= 1 tab(s), Oral, BID empagliflozin-metFOR MIN 5 mg-1000 mg oral tablet, Oral, BID [...] 2023-04-04: TPV7 (more content not included)... Normal [facility] Comment on above: Result Comment: Elec tronically Signed By: Damian RIOS, Ernestine Meehan\.br\Date and Time Signed: 06/23/23 14:31 EST Patient Educationon 06-23-19 24 Patient Education Nutrition BMI for Adults What [...] numbers. This can be done either in Salvadorean (U.S.) or metric measurements. Note that charts and online BMI calculators are available to help you find your BMI quickly and easily without having to do these calculations yourself. To calculate your BMI in Salvadorean (U.S.) measurements: 1. Measure your weight in [...] for Disease Control and Prevention: www.cdc.gov ? [place] Heart Association: www.heart.org ? National Heart, Lung, and Blood [place]: www.nhlbi.nih.gov Summary ? Body mass index (BMI) is a number that is calculated from a person's weight and height. ? BMI may help estimate how much of a person's weight is composed of fat. BMI can help identify those who may be at higher risk for certain medical problems. ? BMI can be measured using Salvadorean measurements or metric measurements. ? BMI charts are used to identify whether you are underweight, normal weight, overweight, or obese. This information is not intended to replace advice given to you by your health care provider. Make sure you discuss any questions you have with your health care provider. Document Revised: 02/23/2020 Document Reviewed: 12/31/2019 [employer] Patient Education ? 2022 [employer] Normal [facility] CBC AND AUTO DIFFon 06-04-20 23 ABSOLUTE BASOPHIL 0.0 X10E9/L Normal 0.0-0.2 [facility] Comment on above: Performed By: #### 3 5365-6, CBCA, CMP, 2857-1 #### [facility] ([id number]) [address] [address] [place] [address] ABSOLUTE NEUTROPHIL 5.0 X10E9/L Normal 1.5-6.6 [facility] Comment on above: Performed By: #### 3 5365-6, CBCA, CMP, 2857-1 #### [facility] ([id number]) [address] [address] [place] [address] Basophils/100 WBC (Bld) 0.3 % Normal [facility] Comment on above: Performed By: #### 3 5365-6, CBCA, CMP, 2857-1 #### [facility] ([id number]) [address] [address] Eosinophils (Bld) [#/Vol] 0.7 10*3/uL High 0.0-0.4 [facility] Comment on above: Performed By: #### 3 5365-6, CBCA, CMP, 2857-1 #### [facility] ([id number]) [address] [address] [place] [address] Eosinophils/100 WBC (Bld) 8.7 % Normal [facility] Comment on above: Performed By: #### 3 5365-6, CBCA, CMP, 2857-1 #### [facility] ([id number]) [address] [address] [place] [address] Erythrocyte distribution width (RBC) [Ratio] 14.9 % Normal 11.5-15.0 [facility] Comment on above: Performed By: #### 3 5365-6, CBCA, CMP, 2857-1 #### [facility] ([id number]) [address] [address] [place] [address] Hematocrit (Bld) [Volume fraction] 29.5 % Low 39-49 [facility] Comment on above: Performed By: #### 3 5365-6, CBCA, CMP, 2857-1 #### [facility] ([id number]) [address], [address] [place] [address] Hemoglobin (Bld) [Mass/Vol] 10.1 g/dL Low 13.0-17.0 [facility] Comment on above: Performed By: #### 3 5365-6, CBCA, CMP, 2857-1 #### [facility] ([id number]) [address], [facility] [address] [place] [address] Lymphocytes (Bld) [#/Vol] 2.2 10*3/uL Normal 1.0-3.5 [facility] Comment on above: Performed By: #### 3 5365-6, CBCA, CMP, 2857-1 #### [facility] ([id number]) [address], [facility] [address] [place] [address] Lymphocytes/100 WBC (Bld) 26.0 % Normal [facility] Comment on above: Performed By: #### 3 5365-6, CBCA, CMP, 2857-1 #### [facility] ([id number]) [address], [facility] [address] [place] [address] MCH (RBC) [Entitic mass] 30.9 pg Normal 27-34 [facility] Comment on above: Performed By: #### 3 5365-6, CBCA, CMP, 2857-1 #### [facility] ([id number]) [address], [address] [place] [address] MCHC (RBC) [Mass/Vol] 34.3 g/dL Normal 32-36 [facility] Comment on above: Performed By: #### 3 5365-6, CBCA, CMP, 2857-1 #### [facility] ([id number]) [address], [address] [place] [address] MCV (RBC) [Entitic vol] 90 fL Normal 80-100 [facility] Comment on above: Performed By: #### 3 5365-6, CBCA, CMP, 2857-1 #### [facility] ([id number]) [address], [address] [place] [address] Monocytes (Bld) [#/Vol] 0.4 10*3/uL Normal 0-0.9 [facility] Comment on above: Performed By: #### 3 5365-6, CBCA, CMP, 2857-1 #### [facility] ([id number]) [address] [address] [place] [address] Monocytes/100 WBC (Bld) 5.0 % Normal [facility] Comment on above: Performed By: #### 3 5365-6, CBCA, CMP, 2857-1 #### [facility] ([id number]) [address] [address] [place] [address] Neutrophils/100 WBC (Bld) 60.0 % Normal [facility] Comment on above: Performed By: #### 3 5365-6, CBCA, CMP, 2857-1 #### [facility] ([id number]) [address] [address] [place] [address] Platelet mean volume (Bld) [Entitic vol] 9.1 fL Normal 7-12 [facility] Comment on above: Performed By: #### 3 5365-6, CBCA, CMP, 2857-1 #### [facility] ([id number]) [address] [address] [place] [address] Platelets (Bld) [#/Vol] 249 10*3/uL Normal 150-450 [facility] Comment on above: Performed By: #### 3 5365-6, CBCA, CMP, 2857-1 #### [facility] ([id number]) [address] [address] [place] [address] RBC COUNT 3.27 X10E12/L Low 4.10-5.70 [facility] Comment on above: Performed By: #### 3 5365-6, CBCA, CMP, 2857-1 #### [facility] ([id number]) [address], [address] [place] [address] WBC (Bld) [#/Vol] 8.3 10*3/uL Normal 4.0-11.0 [facility] Comment on above: Performed By: #### 3 5365-6, CBCA, CMP, 2857-1 #### [facility] ([id number]) [address], [address] [place] [address] COMPREHENSIVE METABOLIC PANE Primitivo 06-04-2023 Albumin [Mass/Vol] 3.7 g/dL Normal 3.2-5.3 [facility] Comment on above: Performed By: #### 3 5365-6, CBCA, CMP, 2857-1 #### [facility] ([id number]) [address], [address] [place] [address] ALP [Catalytic activity/Vol] 80 U/L Normal 39-130 [facility] Comment on above: Performed By: #### 3 5365-6, CBCA, CMP, 2857-1 #### [facility] ([id number]) [address], [address] [place] [address] ALT [Catalytic activity/Vol] 11 U/L Normal 0-40 [facility] Comment on above: Performed By: #### 3 5365-6, CBCA, CMP, 2857-1 #### [facility] ([id number]) [address], [address] [place] [address] Anion gap [Moles/Vol] 9 mmol/L Normal 5-15 [facility] Comment on above: Performed By: #### 3 5365-6, CBCA, CMP, 2857-1 #### [facility] ([id number]) [address], [address] [place] [address] AST [Catalytic activity/Vol] 12 U/L Normal 0-41 [facility] Comment on above: Performed By: #### 3 5365-6, CBCA, CMP, 2857-1 #### [facility] ([id number]) [address], [address] [place] [address] Bilirubin [Mass/Vol] 0.5 mg/dL Normal 0.3-1.2 [facility] Comment on above: Performed By: #### 3 5365-6, CBCA, CMP, 2857-1 #### [facility] ([id number]) [address], [address] [place] [address] Calcium [Mass/Vol] 8.7 mg/dL Normal 8.5-10.5 [facility] Comment on above: Performed By: #### 3 5365-6, CBCA, CMP, 2857-1 #### [facility] ([id number]) [address], [address] [place] [address] Chloride [Moles/Vol] 103 mmol/L Normal 98-109 [facility] Comment on above: Performed By: #### 3 5365-6, CBCA, CMP, 2857-1 #### [facility] ([id number]) [address], [address] [place] [address] CO2 [Moles/Vol] 23 mmol/L Normal 22-32 [facility] Comment on above: Performed By: #### 3 5365-6, CBCA, CMP, 2857-1 #### [facility] ([id number]) [address], [address] [place] [address] Creatinine [Mass/Vol] 1.35 mg/dL High 0.60-1.30 [facility] Comment on above: Result Comment: METH OD TRACEABLE TO IDMS STANDARD Performed By: #### 3 5365-6, CBCA, CMP, 2857-1 #### [facility] ([id number]) [address] [address] [place] [address] GFR/1.73 sq M.predicted among non-blacks MDRD (S/P/Bld) [Vol rate/Area] 53 mL/min/{1.73_m2} Low >59 [facility] Comment on above: Result Comment: Reported eGFR is based on the CKD-EPI 2020 equation that does not use a race coefficient. Performed By: #### 3 5365-6, CBCA, CMP, 2857-1 #### [facility] ([id number]) [address] [address] [place] [address] Potassium [Moles/Vol] 4.4 mmol/L Normal 3.5-5.0 [facility] Comment on above: Performed By: #### 3 5365-6, CBCA, CMP, 2857-1 #### [facility] ([id number]) [address] [address] [place] [address] Protein [Mass/Vol] 7.2 g/dL Normal 6.0-8.0 [facility] Comment on above: Performed By: #### 3 5365-6, CBCA, CMP, 2857-1 #### [facility] ([id number]) [address] [address] [place] [address] Sodium [Moles/Vol] 135 mmol/L Normal 134-146 [facility] Comment on above: Performed By: #### 3 5365-6, CBCA, CMP, 2857-1 #### [facility] ([id number]) [address] [address] [place] [address] Urea nitrogen [Mass/Vol] 25 mg/dL Normal 5-27 [facility] Comment on above: Performed By: #### 3 5365-6, CBCA, CMP, 2857-1 #### [facility] ([id number]) [address] [address] [place] [address] HGB A1C (GLYCO-HGB)on 2022 Glucose [Mass/Vol] 186 mg/dL High 65-99 [facility] Comment on above: Performed By: #### 3 5365-6, CBCA, CMP, 2857-1 #### [facility] ([id number]) [address] [facility] [address] [place] [address] HbA1c (Bld) [Mass fraction] 8.1 % High 4.4-5.6 [facility] Comment on above: Result Comment: NOTE ADA Guidelines Result HgbA1c Normal : less than 5.7 % Prediabetes : 5.7 % to 6.4 % Diabetes : > 6.4 % Use with caution in patients with abnormal hemoglobin variants as the half-life of red blood cells and in vivo glycation rates are affected. Performed By: #### 3 5365-6, CBCA, CMP, 2857-1 #### [facility] ([id number]) [address] [facility] [address] [place] [address] MICROALBUMIN - ALBUMIN:CREAT ININE URINE RATIOon 06-04-2023 ALB/CREAT RATIO 1031.1 mg/g creat High 0.0-30.0 [facility] Comment on above: Performed By: #### M ALBU #### [facility] ([id number]) [address] [facility] [address] [place] [address] Albumin DL <= 20 mg/L (U) [Mass/Vol] 91.5 mg/dL High 0.0-1.9 [facility] Comment on above: Performed By: #### M ALBU #### [facility] ([id number]) [address] [facility] [address] [place] [address] URINE CREAT 88.74 mg/dL Normal [facility] Comment on above: Performed By: #### M ALBU #### [facility] ([id number]) [address] [place] [address] Prostate specific Ag [Mass/V ol]on 06-04-2023 PSA SCREEN 6.18 ng/mL High 0.00-4.00 [facility] Comment on above: Result Comment: The method used for this test is Janette ViaCube DXI chemiluminescent immunoassay. Values obtained by different assay methods cannot be used interchangeably. Performed By: #### 3 5365-6, CBCA, CMP, 2857-1 #### [facility] ([id number]) [address] [place] [address], [address] [address] Vitamin D+Metabolites [Mass/ Vol]on 06-04-2023 VITAMIN D 25 HYD TOT 51.7 ng/mL Normal 30-100 [facility] Comment on above: Result Comment: Vitamin D status 25 [place] Vitamin D Deficiency <20 ng/mL Insufficiency 20-29 ng/mL Sufficiency 30-100 ng/mL Toxicity >100 ng/mL NOTE: A pediatric reference range has not been established by the licensed reactor operator of this kit. The [place] [employer] Pediatrics recommends a Vitamin D level of = or >20ng/mL in infants and children. Performed By: #### 3 5365-6, CBCA, CMP, 2857-1 #### [facility] ([id number]) [address] [place] [address] XR CHEST PA+LAT 2 VIEWSon XR CHEST PA+LAT 2 VIEWS EXAMINATION: XR CHEST PA+LAT 2 VIEWS 12/20/2022 12:00 PM CLINICAL HISTORY: dyspnea ASSOCIATED DIAGNOSIS: Dyspnea, unspecified type Additional history per [facility] EMR: Status post coronary artery bypass graft [...] artery bypass surgery. MACRO: None Normal [employer] [facility] XR Chest PA and Lateralon EXAMINATION: XR CHEST PA+LAT 2 VIEWS 12/20/2022 12:00 PM CLINICAL HISTORY: dyspnea ASSOCIATED DIAGNOSIS: Dyspnea, unspecified type Additional history per [facility] EMR: Status post coronary artery bypass graft [...] bypass surgery. MACRO: None RADIOLOGY Daina Fuentes MD - 12/20/2022 EXAMINATION: XR CHEST PA+LAT 2 VIEWS 12/20/2022 12:00 PM CLINICAL HISTORY: dyspnea ASSOCIATED DIAGNOSIS: Dyspnea, unspecified type Additional history per [facility] EMR: Status post coronary artery bypass graft [...] for coronary artery bypass surgery. MACRO: None [facility] Radiology Study observation (narrative) [facility] XR Chest PA and LateralOrder ed By: Daina Fuentes on 12-20-2022 [facility] Work Phone: [facility] echo transthoracicon [facility] echo transthoracic [facility] Main [place] [address] [place] [address] Echocardiogram Signed Patient: Patrick Lainez MR#: [id number] [birth year] : 1945 Acct:[id number] Age/Sex: 77 / M ADM Date: 11/04/22 Loc: Room: Type: [facility] Attending Dr: Jonas Cruz DO Ordering Provider: Jonas Cruz DO Date of Service: 11/04/22/ ECH/ECH echo transthoracic: CHRONIC ISCHEMIC HEART DISEASE, CABG Copies to: Alfonso Contreras MD, [facility] Jonas Cruz DO Weight: 185 lb Performed By: BERNARDO Calderon BSA: 2.0 m2 BP: 142/82 mmHg HR: 72 Reason For Study: CHRONIC ISCHEMIC HEART DISEASE, CABG History: Hyperlipidemia,Hyper tension,CABG,DM Interpretation Summary Mild concentric left ventricular hypertrophy. [...] cm(2.1-3.4cm) Doppler with Normals MV E max aquilino: 48.0 cm/sec(0.8-1.3m/s) MV A max aquilino: 72.0 cm/sec(0.0-0.0m/s) MV E/A: 0.67 (<1.5) MMode/2D Measurements Calculations RVDd: 4.3 cm FS: 12.1 % Ao root area: LVOT diam: 2.0 cm TAPSE: 1.2 cm EDV(Teich): 8.1 cm2 LVOT area: 3.0 cm2 RV S Aquilino: 63.0 ml 9.8 cm/sec ESV(Teich): 46.2 ml [...] SCV Performed At: 11/04/22 0951 Signed By: Alfonso Contreras MD, FACC 11/04/22 1023 [facility] ANAon 09-19-2020 LILI SCREEN <1:40 Normal <1:40,1:40 [facility] Comment on above: Performed By: #### 9 0144, 40875, 82039 #### [facility] [address] CBC COMPLETE BLOOD COUNTon 0 09-19-2020 Erythrocyte distribution width (RBC) [Ratio] 12.7 % Normal 11.5-15.0 [facility] Comment on above: Performed By: #### 9 9744, 07401, 03251 #### [facility] [address] [place] [address], [facility] Hematocrit (Bld) [Volume fraction] 37.7 % Low 39.0-50.0 [facility] Comment on above: Performed By: #### 9 9744, 97266, 99247 #### [facility] [address] [place] [address], [facility] Hemoglobin (Bld) [Mass/Vol] 12.4 g/dL Low 13.0-17.0 [facility] Comment on above: Performed By: #### 9 9744, 77248, 11260 #### [facility] [address] [place] [address], [place] MCH (RBC) [Entitic mass] 30.1 pg Normal 27.0-33.0 [facility] Comment on above: Performed By: #### 9 9744, 76518, 70557 #### [facility] [address] [place] [address], [place] MCHC (RBC) [Mass/Vol] 32.9 g/dL Normal 32.0-35.0 [facility] Comment on above: Performed By: #### 9 9744, 05659, 22426 #### [facility] [address] [place] [address], [place] MCV (RBC) [Entitic vol] 91.5 fL Normal 82.0-98.0 [facility] Comment on above: Performed By: #### 9 9744, 19513, 45238 #### [facility] [address] [place] [address], [place] Nucleated RBC/100 WBC (Bld) [Ratio] 0 % Normal 0-0 [facility] Comment on above: Performed By: #### 9 9744, 09655, 86443 #### [facility] [address] [place] [address], [facility] PLAT CNT 239 10*3/uL Normal 150-400 [facility] Comment on above: Performed By: #### 9 9744, 89618, 89578 #### [facility] [address] [place] [address], [facility] RBC (Bld) [#/Vol] 4.12 10*6/uL Low 4.20-5.70 [facility] Comment on above: Performed By: #### 9 9744, 25009, 73530 #### [facility] [address] [place] [address], [facility] WBC (Bld) [#/Vol] 7.78 10*3/uL Normal 4.00-10.60 [facility] Comment on above: Performed By: #### 9 9744, 89810, 07622 #### [facility] [address] [place] [address], [facility] COMP METABOLIC PANELon 09-19 Albumin [Mass/Vol] 4.3 g/dL Normal 3.5-5.7 [facility] Comment on above: Performed By: #### 0 0121, 94075, 54971 #### [facility] [address] [place] [address], [facility] ALKALINE PHOSPH 50 IU/L Normal 34-104 [facility] Comment on above: Performed By: #### 0 0121, 65584, 21317 #### [facility] [address] [place] [address], [facility] ALT [Catalytic activity/Vol] 14 U/L Normal 7-52 [facility] Comment on above: Performed By: #### 0 0121, 61209, 26740 #### [facility] [address] [place] [address], [facility] AST [Catalytic activity/Vol] 13 U/L Normal 13-39 [facility] Comment on above: Performed By: #### 0 0121, 49029, 91423 #### [facility] [address] [place] [address], [place] Bilirubin [Mass/Vol] 0.4 mg/dL Normal 0.3-1.0 [facility] Comment on above: Performed By: #### 0 0121, 48526, 48298 #### [facility] [address] [place] [address], [place] Calcium [Mass/Vol] 9.6 mg/dL Normal 8.6-10.3 [facility] Comment on above: Performed By: #### 0 0121, [id number], [id number] #### [facility] [address] [place] [address], [place] Chloride [Moles/Vol] 100 mmol/L Normal 98-107 [facility] Comment on above: Performed By: #### 0 0121, [id number], [id number] #### [facility] [address] [place] [address], [place] CO2 [Moles/Vol] 26 mmol/L Normal 21-31 [facility] Comment on above: Performed By: #### 0 0121, [id number], [id number] #### [facility] [address] [place] [address], [place] Creatinine [Mass/Vol] 1.58 mg/dL High 0.70-1.30 [facility] Comment on above: Performed By: #### 0 0121, [id number], [id number] #### [facility] [facility] [address] [place] [address], [place] eGFR- 52 ml/min/1.73sq m Abnormal >60 [facility] Comment on above: Result Comment: Calc ulation may not be valid for patients over 70 years Performed By: #### 0 0121, 71858, 32815 #### [facility] [address] [place] [address], [facility] eGFR- non- 43 ml/min/1.73sq m Abnormal >60 [facility] Comment on above: Result Comment: Calc ulation may not be valid for patients over 70 years Performed By: #### 0 0121, 29077, 21309 #### [facility] [address] [place] [address], [place] Glucose [Mass/Vol] 150 mg/dL High 70-100 [facility] Comment on above: Performed By: #### 0 0121, 23732, 86130 #### [facility] [address] [place] [address], [place] Potassium [Moles/Vol] 4.8 mmol/L Normal 3.5-5.1 [facility] Comment on above: Performed By: #### 0 0121, 24974, 71643 #### [facility] [address] [place] [address], [place] Protein [Mass/Vol] 7.7 g/dL Normal 6.0-8.3 [facility] Comment on above: Performed By: #### 0 0121, 66446, 03083 #### [facility] [address] [place] [address], [place] Sodium [Moles/Vol] 135 mmol/L Low 136-145 [facility] Comment on above: Performed By: #### 0 0121, 06856, 28557 #### [facility] [address] [place] [address], [place] Urea nitrogen [Mass/Vol] 40 mg/dL High 7-25 [facility] Comment on above: Performed By: #### 0 0121, 15319, 47599 #### [facility] [address] [place] [address], [place] COMPLEMENT 3on 09-19-2020 COMPLEMENT 3 115 mg/dL Normal 79-152 [facility] Comment on above: Performed By: #### 9 9744, 37498, 44665 #### [facility] [address] [place] [address], [facility] COMPLEMENT 4on 09-19-2020 COMPLEMENT 4 20 mg/dL Normal 16-38 [facility] Comment on above: Performed By: #### 9 9744, 73711, 59855 #### [facility] [address] [place] [address], [facility] CREATININE URINE RANDOMon Creatinine (U) [Mass/Vol] 36.0 mg/dL Normal [facility] Comment on above: Result Comment: Ther e are no established reference values for random urine specimens Performed By: #### 9 9744, 36429, 75949 #### [facility] [address] [place] [address], [facility] HEP B CORE AB IGM [id number] HEP B CORE IGM Negative Normal Negative [facility] Comment on above: Result Comment: INTE RPRETIVE INFORMATION: Hepatitis B Core Ab, IgM This assay should not be used for blood donor screening, associated re-entry protocols, or for screening Human Cells, Tissues and Cellular and Tissue-Based Products (HCT/P). Performed By: [facility] [address] [place] [id number] Clinical Trial Data Manager: Wen Washington MD HEPATITIS C ANTIBODYon 09-19 ANTI-HCV Non-Reactive Normal NONREACTIVE [facility] Comment on above: Performed By: #### 3 1397, 11602 #### [facility] [address] [place] [address], [place] IMMUNOGLOB BLon 09-19-2020 IgA [Mass/Vol] 204 mg/dL Normal 60-413 [facility] Comment on above: Performed By: #### 9 9744, 46623, 06985 #### [facility] [address] [place] [address], [place] IgG [Mass/Vol] 1310 mg/dL Normal 591-1540 [facility] Comment on above: Performed By: #### 9 9744, 09933, 40269 #### [facility] [address] [place] [address], [facility] IgM [Mass/Vol] 53 mg/dL Low 54-285 [facility] Comment on above: Performed By: #### 9 9744, 92637, 85532 #### [facility] [address] [place] [address], [facility] PROTEIN ELECT Tin 09-19-2020 Protein [Mass/Vol] 7.2 g/dL Normal 6.0-8.3 [facility] Comment on above: Performed By: #### 3 1397, 40860 #### [facility] [address] [place] [address], [facility] PROTEIN ELECT Normal [facility] Comment on above: Result Comment: Norm al Pattern. Prominent albumin peak is seen along with normal fractions of alpha 1, alpha 2, beta and gamma globulins. SEE SEPARATE REPORT Performed By: #### 3 1397, 57368 #### [facility] [address] [place] [address], [facility] Result Comment: Urin e protein electrophoresis suggests a nonselective nephropathy. SEE SEPARATE REPORT Performed By: #### 9 9744, 28952, 70144 #### [facility] [address] [place] [address], [facility] PROTEIN ELECT URon 1 U TOTAL PROTEIN 59.0 mg/dL Normal [facility] Comment on above: Result Comment: Ther e are no established reference values for random urine specimens Performed By: #### 9 9744, 76421, 36272 #### [facility] [address] [place] [id number], [facility] PTH INTACTon 09-19-2020 PTH INTACT 28 pg/mL Normal 12-88 [facility] Comment on above: Performed By: #### 0 0121, 24547, 69876 #### [facility] [address] [place] [address], [facility] US BLADDERon 09-19-2020 US BLADDER [facility] Department of Radiology [address] [place] [address] Patient Name: PATRICK LAINEZ : 1945 Sex: M Age: Race: White Pt. Location: [facility] Patient Status: O Ordered Date: 09/01/2020 9:05:00 AM Completed Date: 09/19/2020 11:50 AM Requesting Provider: TOY EDGAR Attending Provider: TOY EDGAR Report Copy To: Signs & Symptoms: N18.30 Chronic kidney disease, stage 3 unspecified I10 History: Edie [facility] Req. Nilesh Brand @[facility] for CPT 48392 Call Ref#[id number] [facility] Nec-Passed 09/04 *SLA Comments: Exam: US BLADDER [...] ultrasound. Electronically signed: Alexander Bradshaw. Transcribed by: [email or web address], User Resident: Electronically Signed by: ALEXANDER BRADSHAW @ 09/19/2020 01:31 PM Normal [facility] US RENALon 09-19-2020 US RENAL [facility] Department of Radiology [address] [place] [address] Patient Name: PATRICK LAINEZ : 1945 Sex: M Age: Race: White Pt. Location: [facility] Patient Status: O Ordered Date: 09/01/2020 9:05:00 AM Completed Date: 09/19/2020 11:50 AM Requesting Provider: TOY EDGAR Attending Provider: TOY EDGAR Report Copy To: Signs & Symptoms: N18.30 Chronic kidney disease, stage 3 unspecified I10 History: Edie FRANCINE Req. Nilesh Glass @[facility] for CPT 66797 Call Ref#[id number] Med Nec-Passed 09/04 *SLA Comments: Exam: US [...] calcification. Electronically signed: Alexander Bradshaw. Transcribed by: [email or web address], User Resident: Electronically Signed by: ALEXANDER BRADSHAW @ 09/19/2020 01:28 PM Normal [facility] VITAMIN D 25-HYDROXYon 09-19 VITAMIN D 25-OH 62.0 ng/mL Normal 30.0-80.0 [facility] Comment on above: Result Comment: >80. 0 Toxicity possible Performed By: #### 0 0121, 47059, 56777 #### [facility] [address] Vital Signs Date Time Vital Sign Value Performing Clinician Cocoi arpita 06-04-2024 14:34-0500 Diastolic blood pressure 64 mm[Hg] Allan Kirnus [facility] 06-04-2024 14:34-0500 Heart rate 73 /min Allan Keteranus [facility] 06-04-2024 14:34-0500 Respiratory rate 16 /min Allan Keteranus [facility] 06-04-2024 14:34-0500 SaO2% (BldA) [Mass fraction] 92 % Allan Keteranus [facility] 06-04-2024 14:34-0500 Systolic blood pressure 132 mm[Hg] Allan Kirnus [facility] 05-04-2024 10:38-0500 Blood Pressure Location JoseBlenderHouse [facility] 05-04-2024 10:38-0500 Diastolic blood pressure 68 mm[Hg] Jose ALCALA [facility] 05-04-2024 10:38-0500 Heart rate 68 /min Jose Shogether [facility] 05-04-2024 10:38-0500 Respiratory rate 16 /min Jose COOK [facility] 05-04-2024 10:38-0500 Systolic blood pressure 120 mm[Hg] Jose COOK [facility] 11-28-2023 10:34-0400 Diastolic blood pressure 78 mm[Hg] Allan Kirnus [facility] 11-28-2023 10:34-0400 Heart rate 78 /min Allan Kirnus [facility] 11-28-2023 10:34-0400 Respiratory rate 16 /min Allan Kirnus [facility] 11-28-2023 10:34-0400 SaO2% (BldA) [Mass fraction] 90 % Allan Kirnus [facility] 11-28-2023 10:34-0400 Systolic blood pressure 132 mm[Hg] Allan Kirnus [facility] 11-17-2023 10:59-0400 Body temperature 98.6 [degF] Jose COOK [facility] 11-17-2023 10:59-0400 Diastolic blood pressure 70 mm[Hg] Jose COOK [facility] 11-17-2023 10:59-0400 Heart rate 75 /min Jose COOK [facility] 11-17-2023 10:59-0400 Respiratory rate 16 /min Jose COOK [facility] 11-17-2023 10:59-0400 Systolic blood pressure 122 mm[Hg] Jose COOK [facility] 10-02-2023 13:29-0400 Body temperature 98.6 [degF] Jose COOK [facility] 10-02-2023 13:29-0400 Diastolic blood pressure 68 mm[Hg] Jose COOK [facility] 10-02-2023 13:29-0400 Heart rate 74 /min Jose COOK [facility] 10-02-2023 13:29-0400 Respiratory rate 16 /min Jose COOK [facility] 10-02-2023 13:29-0400 Systolic blood pressure 132 mm[Hg] Jose COOK [facility] 05-20-2023 13:06-0500 Blood Pressure Location Jose COOK [facility] 05-20-2023 13:06-0500 Diastolic blood pressure 70 mm[Hg] Jose COOK [facility] 05-20-2023 13:06-0500 Heart rate 82 /min Jose COOK [facility] 05-20-2023 13:06-0500 Systolic blood pressure 126 mm[Hg] Jose COOK [facility] 05-15-2023 14:10-0500 Diastolic blood pressure 68 mm[Hg] Jamie Tai [facility] 05-15-2023 14:10-0500 Heart rate 86 /min Jamie Tai [facility] 05-15-2023 14:10-0500 SaO2% (BldA) [Mass fraction] 90 % Jamie Chenerson [facility] 05-15-2023 14:10-0500 Systolic blood pressure 132 mm[Hg] Jamie Sniderofferson [facility] 04-11-2023 08:37-0400 Blood Pressure Location Jose ALCALA [facility] 04-11-2023 08:37-0400 Diastolic blood pressure 82 mm[Hg] Jose ALCALA [facility] 04-11-2023 08:37-0400 Heart rate 83 /min Jose ALCALA [facility] 04-11-2023 08:37-0400 Systolic blood pressure 140 mm[Hg] Jose ALCALA [facility] 04-03-2023 13:42-0400 Diastolic blood pressure 68 mm[Hg] Jamie Chenerson [facility] 04-03-2023 13:42-0400 Heart rate 73 /min Jamie Chenerson [facility] 04-03-2023 13:42-0400 SaO2% (BldA) [Mass fraction] 93 % Jamie Chenerson [facility] 04-03-2023 13:42-0400 Systolic blood pressure 130 mm[Hg] Jamie Sniderofferson [facility] 03-18-2023 10:56-0400 Blood Pressure Location Jose ALCALA [facility] 03-18-2023 10:56-0400 Diastolic blood pressure 70 mm[Hg] Jose ALCALA [facility] 03-18-2023 10:56-0400 Heart rate 72 /min Jose ALCALA [facility] 03-18-2023 10:560400 Systolic blood pressure 151 mm[Hg] Jose ALCALA [facility] Encounters Encounter Date Encounter Type Care Provider Facility Start: 06-04-2024 End: 06-04-2024 ambulatory XXXX NONE Facility:[facility] Start: 06-04-2024 End: 06-04-2024 Patient encounter procedure Allan Agarwal [facility] Start: 05-18-2024 End: 05-18-2024 ambulatory MD Ernestine Beverly Facility:[facility] Start: 05-04-2024 End: 05-04-2024 ambulatory Jose Jennifer CARI Facility:[facility] Start: 05-04-2024 End: 05-04-2024 Patient encounter procedure Jose Rodriguez CARI [facility] Start: 04-27-2024 End: 04-27-2024 ambulatory JOSE ALCALA [facility] Start: 12-30-2023 End: 12-30-2023 ambulatory MD Ernestine Beverly Facility:[facility] Start: 12-11-2023 End: 12-11-2023 ambulatory MD Ernestine Beverly Facility:[facility] [place] Start: 12-08-2023 End: 12-08-2023 ambulatory MD Ernestine Beverly Facility:[facility] Start: 12-03-2023 End: 12-04-2023 Emergency department patient visit ALEXANDER Mata [facility] Start: 11-28-2023 End: 11-28-2023 ambulatory XXXX NONE Facility:[facility] Start: 11-28-2023 End: 11-28-2023 Patient encounter procedure Allan Agarwal [facility] Start: 11-27-2023 ambulatory MD Ernestine Beverly [facility] ity:[facility] [place] Start: 11-17-2023 End: 11-17-2023 ambulatory Jose ALCALA Facility:[facility] Start: 11-17-2023 End: 11-17-2023 Patient encounter procedure Jose ALCALA [facility] [place] Start: 11-11-2023 End: 11-11-2023 ambulatory [facility] Start: 10-02-2023 End: 10-02-2023 ambulatory Jose ALCALA Facility:[facility] Start: 10-02-2023 End: 10-02-2023 Patient encounter procedure Jose ALCALA [facility] Start: 09-01-2023 End: 09-01-2023 ambulatory MD Ernestine Beverly Facility: [facility] [place] Start: 06-23-2023 End: 06-23-2023 ambulatory MD Ernestine Beverly Facility: [facility] Start: 06-04-2023 End: 06-04-2023 ambulatory [facility] Start: 05-20-2023 End: 05-20-2023 Patient encounter procedure Jose ALCALA [facility] Start: 05-15-2023 End: 05-15-2023 Patient encounter procedure Jamie Tai [facility] Start: 04-11-2023 End: 04-11-2023 Patient encounter procedure Jose ALCALA [facility] Start: 04-03-2023 End: 04-03-2023 Patient encounter procedure Jamie Tai [facility] Start: 03-18-2023 End: 03-18-2023 Patient encounter procedure Jose ALCALA [facility] Start: 12-20-2022 End: 12-21-2022 Transcribe Orders Yahaira Van Work Phone: [facility] Comment on above: Dyspnea, unspecified type Start: 11-04-2022 End: 11-04-2022 ambulatory Jonas Cruz Facility:[facility] Start: 09-19-2020 End: 09-20-2020 ambulatory PHYSICIAN UNKNOWN Facility:[facility] Start: 07-01-2019 End: 07-01-2019 Patient encounter procedure JESSIKA EMERY Facility:[facility] Procedures Date Procedure Procedure Detail Performing Clinician Start: 10-02-2023 Transurethral cystoscopy Jose ALCALA Start: 04-11-2023 Cystoscope, device ( physical object) Jose CARI Start: 12-20-2022 Radiologic exam ches t 2 views Yahaira Van Work Phone: Start: 07-24-2020 Ultrasonography guid ed [...] Treatment Date Care Activity Detail Author Start: 11-16-2024 ambulatory Ambulatory Facility:[facility] Start: 10-26-2024 ambulatory Ambulatory Facility:[facility] Start: 08-31-2024 ambulatory Ambulatory Facility:[facility] Start: 10-28-2023 Basic metabolic 2000 panel - Serum or Plasma Basic Metabolic Panel [facility] Start: 03-16-2023 Influenza vaccination Influenza Vaccine (#1) [facility] Start: 06-16-2015 Annual wellness visit Annual Wellness Visit (G0438) [facility] Start: 2009 Pneumococcal vaccination Pneumococcal Vaccine(s) (65+ yrs) (1 - PCV) [facility] Start: 1994 Shingles (RZV) Vaccine (1 of 2) Shingles (RZV) Vaccine (1 of 2) [facility] Start: 1962 Hepatitis C screening Hepatitis C Antibody [facility] Start: 1962 Tetanus + diphtheria + acellular pertussis vaccine (product) Tdap Booster [facility] Start: 1944 COVID-19 Vaccine (#1) [facility] Immunizations Immunization Date Immunization Notes Care Provider Wilma yadav 03-24-2024 influenza virus vacc ine, unspecified formulation Allan Agarwal [facility] 03-17-2023 influenza, high dose seasonal, preservative-free Jose ALCALA [facility] 04-01-2022 Pfizer Bivalent (12+ YRS) SARS-COV-2 (COVID-19) vaccine, mRNA, spike protein, LNP, pres. free, 30 mcg/0.3mL dose, bruce-sucrose (WRQ=241) [facility]he 1 [facility] 04-23-2021 Moderna Monovalent ( 12+ yrs) COVID-19 vaccine, mRNA, spike protein, LNP, PF, 100 mcg/0.5 mL (MIQ=052) Phe 1 [facility] Comment on above: Result Comment: 2022: 74 04-16-2021 SARS-CoV-2 (COVID-19 ) mRNA-1273 vaccine Jose ALCALA [facility] 09-14-2020 Moderna Monovalent ( 12+ yrs) COVID-19 vaccine, mRNA, spike protein, LNP, PF, 100 mcg/0.5 mL (PUC=416) [address] Comment on above: Result Comment: 2022: TPV75 08-17-2020 Moderna Monovalent ( 12+ yrs) COVID-19 vaccine, mRNA, spike protein, LNP, PF, 100 mcg/0.5 mL (OVZ=373) [address] Comment on above: Result Comment: 2022: TPV75 08-14-2020 SARS-CoV-2 (COVID-19 ) mRNA-1273 vaccine Jose ALCALA [facility] 03-17-2018 Seasonal trivalent influenza vaccine, adjuvanted, preservative free Phe 1 [facility] 03-17-2018 influenza virus vacc ine, unspecified formulation [facility] 1 [facility] 04-28-2017 influenza virus vacc ine, unspecified formulation Jose ALCALA [facility] 04-28-2017 influenza, injectabl e, quadrivalent, preservative free Phe 1 [facility] 08-28-2014 pneumococcal polysaccharide vaccine, 23 valent Jose ALCALA [facility] 07-16-2011 tetanus and diphther ia toxoids, adsorbed, preservative free, for adult use (2 Lf of tetanus toxoid and 2 Lf of diphtheria toxoid) Jose ALCALA [facility] 07-16-2011 tetanus and diphther ia toxoids, adsorbed, preservative free, for adult use (5 Lf of tetanus toxoid and 2 Lf of diphtheria toxoid) [facility] 1 [facility] Payers Date Payer Category Payer Private Health Insurance [id number] 2022 Self-pay 2022 Unknown [id number] 2014 Medicare [employer]NA MEDICARE HU[employer]NA MEDICARE [id number] 2014-Present [employer] CLAIMS OFFICE [address] [address] [place] [address] PPO [id number] 2013 Unknown DEPT OF ' S AFFAIRS DEPT OF 'S AFFAIRS [id number] 2013-Present [facility] [address] [address] [place] [address] [id number] 1959 Medicare [id number] 1945 Unknown [id number] 2.16.840.1.477133.3.579. 2.593 1944 Unknown [id number] 2.16.840.1.752116.3.579. 2.647 1944 Unknown [id number] 2.16.840.1.335854.3.579. 2.1286 1944 Unknown [id number] 2.16.840.1.416723.3.579. 2.1286 1944 Unknown [id number] 2.16.840.1.330070.3.579. 2.1286 1944 Unknown [id number] 2.16.840.1.715123.3.579. 2.1286 1944 Unknown [id number] 2.16.840.1.567542.3.579. 2.1286 1944 Unknown [id number] 2.16.840.1.426662.3.579. 2.727 1944 Unknown [id number] 2.16.840.1.542398.3.579. 2.727 1944 Unknown [id number] 2.16.840.1.445988.3.579. 2.727 1944 Unknown [id number] 2.16.840.1.341719.3.579. 2.72 1944 Unknown [id number] 2.16.840.1.829550.3.579. 2.72 1944 Unknown [id number] 2.16.840.1.067758.3.579. 2.72 1944 Unknown [id number] 2.16.840.1.877912.3.579. 2.72 1944 Unknown [id number] 2.840.1.624727.3.579. 2 1944 Unknown [id number] 2.840.1.658691.3.579. 2 1944 Unknown [id number] 2.840.1.088128.3.579. 2 1944 Unknown [id number] 2.840.1.578135.3.579. 2.72 1944 Unknown [id number] 2.840.1.991638.3.579. 272 1944 Unknown [id number] 2.16840.1.655784.3.579. 2. 1944 Unknown [id number] 2.840.1.226335.3.579. 2.72 1944 Unknown [id number] 2.16840.1.518328.3.579. 2.72 1944 Unknown [id number] 2.16840.1.067284.3.579. 272 Unknown [id number] 2.16.840.1.604136.3.579. 2.531 Social History Date Type Detail Facility Start: 07-08-2014 End: 05-18-2024 Tobacco smoking status NHIS Ex-smoker [facility] Work Phone: Comment on above: states started age [age], states stopped in 1991 History of tobacco use Current smoker [facility] History of tobacco use [facility] Start: 07-08-2014 Cigarettes smoked current (pack per day) - Reported 1 [facility] Start: 07-17-2014 Alcohol intake Current drinke r of alcohol (finding) [facility] Start: 07-08-2014 Tobacco Comment [facility] Start: 1945 Sex [facility]igned At [facility] on [facility] Gender identity Not on file [facility] Tobacco smoking status Never [facility] Comment on above: states started age [age], states stopped in 1991 Medical Equipment Procedure Code Equipment Code Equipment Origin al Text Equipment Identifier Dates Cement Bone Simp daniel [id number] 1 001 - [id number] Start: 07-15-2014 Patella Asymmetr ic 35 X 10mm Triathlon Conventional Poly [id number] - [id number] Start: 07-15-2014 Functional Status Date Assessment Result Facility 06-04-2024 Functional Status N/A [facility] 05-04-2024 Functional Status N/A [facility] 11-28-2023 Functional Status N/A [facility] 11-17-2023 Functional Status N/A [facility] 10-02-2023 Functional Status N/A [facility] 05-20-2023 Functional Status N/A [facility] 05-15-2023 Functional Status No [facility] 04-11-2023 Functional Status N/A [facility] 04-03-2023 Functional Status No [facility] 03-18-2023 Functional Status N/A [facility] Clinical Notes 03-18-2023 to 05-18-2024 RadiologyRadiologyRadiologyRadiologyRadiologyRadiologyLaboratoryRadiologyLaborat oryLaboratory Note Date & Type Note Facility 05-18-2024 Note Patient Education Nutrition BMI for Adults Body mass index (BMI) is a number found using a person's weight and height. BMI can help tell how much of a person's weight is made up of fat. BMI does not measure body fat directly. It is used instead of tests that directly measure body fat, which can be difficult and expensive. What are BMI measurements used for? BMI is useful to: ??? Find out if your weight puts you at higher risk for medical problems. ??? Help recommend changes, such as in diet and exercise. This can help you reach a healthy weight. BMI screening can be done again to see if these changes are working. How is BMI calculated? Your height and weight are measured. The BMI is found from those numbers. This can be done with U.S. or metric measurements. Note that charts and online BMI calculators are available to help you find your BMI quickly and easily without doing these calculations. To calculate your BMI in U.S. measurements: 1. Measure your weight in pounds (lb). 2. Multiply the number of pounds by 703. ??? So, for an adult who weighs 150 lb, multiply that number by 703: 150 x 703, which equals 105,450. 3. Measure your height in inches. Then multiply that number by itself to get a measurement called inches squared. ??? So, for an adult who is 70 inches tall, the inches squared measurement is 70 inches x 70 inches, which equals 4,900 inches squared. 4. Divide the total from step 2 (number of lb x 703) by the total from step 3 (inches squared): 105,450 ? 4,900 = 21.5. This is your BMI. To calculate your BMI in metric measurements: 1. Measure your weight in kilograms (kg). ??? For this example, the weight is 70 kg. 2. Measure your height in meters (m). Then multiply that number by itself to get a measurement called meters squared. ??? So, for an adult who is 1.75 m tall, the meters squared measurement is 1.75 m x 1.75 m, which equals 3.1 meters squared. 3. Divide the number of kilograms (your weight) by the meters squared number. In this example: 70 ? 3.1 = 22.6. This is your BMI. What do the results mean? BMI charts are used to see if you are underweight, normal weight, overweight, or obese. The following guidelines will be used: ??? Underweight: BMI less than 18.5. ??? Normal weight: BMI between 18.5 and 24.9. ??? Overweight: BMI between 25 and 29.9. ??? Obese: BMI of 30 or above. BMI is a tool and cannot diagnose a condition. Talk with your health care provider about what your BMI means for you. Keep these notes in mind: ??? Weight includes fat and muscle. Someone with a muscular build, such as an athlete, may have a BMI that is higher than 24.9. In cases like these, BMI is not a correct measure of body fat. ??? If you have a BMI of 25 or higher, your provider may need to do more testing to find out if excess body fat is the cause. ??? BMI is measured the same way for males and females. Females usually have more body fat than males of the same height and weight. Where to find more information For more information about BMI, including tools to quickly find your BMI, go to: ??? Centers for Disease Control and Prevention: cdc.gov ??? [place] Heart Association: heart.org ??? National Heart, Lung, and Blood [place]: nhlbi.nih.gov This information is not intended to replace advice given to you by your health care provider. Make sure you discuss any questions you have with your health care provider. Document Revised: 02/20/2023 Document Reviewed: 02/13/2023 [employer] Patient Education ? 2023 [employer]. [facility] 05-04-2024 Hospital Discharge instructions Patient Education 05/04/2024 08:13:02 Prostate Cancer Screening Prostate Cancer Screening Prostate [...] treatment? Where to find more information The [place] [employer] Society: www.cancer.org [place] [employer] Association: www.auanet.org Contact a health care [...] provider. Document Revised: 11/26/2021 Document Reviewed: 11/26/2021 [employer] Patient Education 2023 Viewdle. Follow Up Care 11/17/2023 11:31:45 With:CARI RIOS, Jose Rodriguez, URL Address: [address]O [address] [place] [id number]- When: Unknown [facility] 05-04-2024 Note Patient Education Oncology Prostate Cancer Screening Prostate [...] recommendations. In general, screening is recommended if: ??? You are age 50 to 70 and [...] have a 10- to 15-year life expectancy. ??? You are younger than age 50, and [...] In general, screening is not recommended if: ??? You are younger than age 40. ??? You are between the ages of 40 and 49 and you have no risk factors. ??? You are 70 years of age or [...] high PSA levels may be caused by: ??? Prostate cancer. ??? An enlarged prostate that is not caused by cancer (benign prostatic hyperplasia, or BPH). This condition is very common in older men. ??? A prostate gland infection (prostatitis) or urinary tract infection. ??? Certain medicines such as male hormones (like [...] you may need more tests, such as: ??? A physical exam to check the size of your prostate gland, if not done as part of screening. ??? Blood and imaging tests. ??? A procedure to remove tissue samples from your prostate gland for testing (biopsy). This is the only way to know for certain if you have prostate cancer. What are the benefits of prostate cancer screening? Screening can help to identify cancer at an early stage, before symptoms start and when the cancer can be treated more easily. ??? There is a small chance that screening [...] Questions to ask your health care provider ??? When should I start prostate cancer screening? What is my risk for prostate cancer? How often do I need screening? What type of screening tests do I need? How do I get my test results? What do my results mean? Do I need treatment? Where to find more information ??? The [place] Cancer Society: www.cancer.org ??? [place] [employer] Association: www.auanet.org Contact a health care provider if: ??? You have difficulty urinating. ??? You have pain when you urinate or ejaculate. ??? You have blood in your urine or semen. ??? You have pain in your back or in the area of your prostate. Summary ??? Prostate cancer is a common type of cancer in men. The prostate gland (more content not included)... [facility] 12-30-2023 Note Patient Education BMI for Adults What is BMI? Body [...] numbers. This can be done either in Salvadorean (U.S.) or metric measurements. Note that charts and online BMI calculators are available to help you find your BMI quickly and easily without having to do these calculations yourself. To calculate your BMI in Salvadorean (U.S.) measurements: 1. Measure your weight in [...] for Disease Control and Prevention: www.cdc.gov ? [place] Heart Association: www.heart.org ? National Heart, Lung, and Blood [place]: www.nhlbi.nih.gov Summary ? Body mass index (BMI) is a number that is calculated from a person's weight and height. ? BMI may help estimate how much of a person's weight is composed of fat. BMI can help identify those who may be at higher risk for certain medical problems. ? BMI can be measured using Salvadorean measurements or metric measurements. ? BMI charts are used to identify whether you are underweight, normal weight, overweight, or obese. This information is not intended to replace advice given to you by your health care provider. Make sure you discuss any questions you have with your health care provider. Document Revised: 02/23/2020 Document Reviewed: 12/31/2019 [employer] Patient Education ? 2022 Viewdle. Nutrition BMI for Adults What is BMI? [...] is useful for: ? Identifying a weight (more content not included)... [facility] 11-17-2023 Hospital Discharge instructions Patient Education 11/17/2023 [...] treatment? Where to find more information The [place] [employer] Society: www.cancer.org [place] [employer] Association: www.auanet.org Contact a health care [...] provider. Document Revised: 11/26/2021 Document Reviewed: 11/26/2021 Elsevier Patient Education 2022 [employer] Follow Up Care 10/02/2023 14:02:21 With:CARI RIOS, Jose Rodriguez, URL Address: [email or web address] [address]- When: Unknown [facility] 10-02-2023 Hospital Discharge instructions Patient Education [...] including vitamins, herbs, eye drops, creams, and zrki-bkm-ecqrsqa medicines. Any problems you or family members [...] provider tells you to take them. Taking ilku-vqu-gaytvte medicines, vitamins, herbs, and supplements. Tests You [...] Follow these instructions at home: Medicines Take sjhx-irm-yftbrao and prescription medicines only as told by [...] provider. Document Revised: 02/13/2022 Document Reviewed: 01/12/2021 [employer] Patient Education 2022 [employer]. Follow Up Care 05/20/2023 13:43:41 With:CARI RIOS, Jose Rodriguez, URL Address: [address] [place], [place] [id number]- When: Unknown [facility] 10-02-2023 Note Urology Cystoscopy Cystoscopy is a [...] including vitamins, herbs, eye drops, creams, and cnpf-lul-kwudydw medicines. ? Any problems you or family [...] tells you to take them. ? Taking rknv-znn-laaslvg medicines, vitamins, herbs, and supplements. Tests You [...] these instructions at home: Medicines ? Take hkia-lod-gqvqggj and prescription medicines only as told by [...] the department th (more content not included)... [facility] 05-20-2023 Hospital Discharge instructions Patient Education 05/20/2023 [...] urethra. Follow these instructions at home: Take sylx-ofb-ofidrgj and prescription medicines only as told by [...] provider. Document Revised: 12/19/2021 Document Reviewed: 12/19/2021 [employer] Patient Education 2022 Viewdle. Follow Up Care 04/11/2023 09:10:25 With:CARI RIOS, Jose Rodriguez, URL Address: [facility] [email or web address] [place] [id number]- When: Unknown Comments:Schedule Cysto [facility] 04-11-2023 Hospital Discharge instructions Patient Education 04/11/2023 [...] Follow these instructions at home: Medicines Take yhkz-zqp-szljllz and prescription medicines only as told by [...] provider. Document Revised: 02/21/2021 Document Reviewed: 02/21/2021 [employer] Patient Education 2022 View[employer]. Follow Up Care 03/18/2023 12:08:18 With:CARI RIOS, Jose Rodriguez, URL Address: [facility] [employer] [place] [id number]- When: Unknown Comments:6wks w/ PVR and PSA [facility] [place] 03-18-2023 Hospital Discharge instructions Patient Education 03/18/2023 [...] urethra. Follow these instructions at home: Take iqlt-kqk-tyohfon and prescription medicines only as told by [...] provider. Document Revised: 12/19/2021 Document Reviewed: 12/19/2021 [employer] Patient Education 2022 [employer] Follow Up Care 03/12/2023 08:52:10 With:Jose ALCALA MD, URL Address: [address] [place] [id number]- When: Unknown Comments:Sched Cysto [facility] Evaluation + Plan note Future Appointments Appointment Date:03/20/2023 01:30:00 PM Scheduled Provider:Jamie Tai MD Location:[facility] Appointment Type:Cardiology New Patient (FT) Appointment Date:04/11/2023 08:45:00 AM Scheduled Provider:Jose ALCALA MD Location:[facility] Appointment Type:URO Procedure 15 min Appointment Date:05/28/2023 01:20:00 PM Scheduled Provider:Ernestine Beverly MD Location:[facility] Appointment Type:FM Open [facility] Evaluation + Plan note Future Appointments Appointment Date:04/11/2023 08:45:00 AM Scheduled Provider:Jose ALCALA MD Location:[facility] Appointment Type:URO Procedure 15 min Appointment Date:05/15/2023 02:15:00 PM Scheduled Provider[facility] App[facility] Type:Cardiology Follow Up (FT) Appointment Date:05/28/2023 01:20:00 PM Scheduled Provider:Ernestine Beverly MD Location:[facility] Appointment Type: Open Future Scheduled TestsNM Myocardial Spect Rest/Stress 1 Day 04/03/23Echo Transthoracic Complete 04/03/23 [facility] Evaluation + Plan note Future Appointments Appointment Date:05/15/2023 02:15:00 PM Scheduled Provider:Jamie Tai MD Location:.[facility] Appointment Type:Cardiology Follow Up (FT) Appointment Date:05/20/2023 01:00:00 PM Scheduled Provider:Jose ALCALA MD Location:[facility] Appointment Type:URO Office Visit Appointment Date:05/28/2023 01:20:00 PM Scheduled Provider:Ernestine Beverly MD Location:[facility] Appointment Type:FM Open Diagnostic Tests PendingPSA Free & Total 04/11/23 Future Scheduled TestsNM Myocardial Spect Rest/Stress 1 Day 04/03/23Echo Transthoracic Complete 04/03/23 [facility] Evaluation + Plan note Future Appointments Appointment Date:05/20/2023 01:00:00 PM Scheduled Provider:Jose ALCALA MD Location:[facility] Appointment Type:URO Office Visit Appointment Date:05/28/2023 01:20:00 PM Scheduled Provider:Ernestine Beverly MD Location:[facility] Appointment Type:FM Open Appointment Date:11/07/2023 10:45:00 AM Scheduled Provider:Jamie Tai [facility] App[facility] Type:Cardiology Follow Up (FT) Future Scheduled TestsNM Myocardial Spect Rest/Stress 1 Day 04/03/23Echo Transthoracic Complete 04/03/23 [facility] Evaluation + Plan note Future Appointments Appointment Date:05/28/2023 01:20:00 PM Scheduled Provider:Ernestine Beverly MD Location:[facility] Appointment Type:FM Open Appointment Date:08/21/2023 01:00:00 PM Scheduled Provider:Jose ALCALA MD Location:[facility] Appointment Type:URO Procedure 15 min Appointment Date:11/07/2023 10:45:00 AM Scheduled Provider:Jamie Tai MD [facility] App[facility] Type:Cardiology Follow Up (FT) Future Scheduled TestsNM Myocardial Spect Rest/Stress 1 Day 04/03/23Echo Transthoracic Complete 04/03/23 [facility] Evaluation + Plan note Future Appointments Appointment Date:11/14/2023 10:45:00 AM Scheduled Provider:Allan Agarwal MD [facility] Appointment Type:Cardiology Follow Up (FT) Appointment Date:11/17/2023 11:00:00 AM Scheduled Provider:Jose ALCALA MD Location:[facility] Appointment Type:URO Office Visit Appointment Date:12/30/2023 09:15:00 AM Scheduled Provider:Ernestine Beverly MD Location:[facility] Appointment Type:FM Open Appointment Date:08/31/2024 01:00:00 PM Scheduled Provider: Location:[facility] Appointment Type:FM Medicare Wellness Subsequent Diagnostic Tests PendingPSA Free & Total 10/02/23 Future Scheduled TestsNM Myocardial Spect Rest/Stress 1 Day 04/03/23Echo Transthoracic Complete 04/03/23 [facility] Evaluation + Plan note Future Appointments Appointment Date:11/28/2023 10:45:00 AM Scheduled Provider:Allan Agarwal MD [facility] Appoint[facility] Type:Cardiology Follow Up (FT) Appointment Date:12/30/2023 09:15:00 AM Scheduled Provider:Ernestine Beverly MD Location:[facility] Appointment Type:FM Open Appointment Date:05/04/2024 10:15:00 AM Scheduled Provider:Jose ALCALA MD Location:[facility] Appointment Type:URO Office Visit Appointment Date:08/31/2024 01:00:00 PM Scheduled Provider: Location:[facility] Appointment Type:FM Medicare Wellness Subsequent Diagnostic Tests PendingPSA Free & Total 11/17/23 Future Scheduled TestsNM Myocardial Spect Rest/Stress 1 Day 04/03/23Echo Transthoracic Complete 04/03/23 [facility] Evaluation + Plan note Future Appointments Appointment Date:12/30/2023 09:15:00 AM Scheduled Provider:Ernestine Beverly MD Location:[facility] Appointment Type:FM Open Appointment Date:05/04/2024 10:15:00 AM Scheduled Provider:Jose ALCALA MD Location:[facility] Appointment Type:URO Office Visit Appointment Date:05/28/2024 10:45:00 AM Scheduled Provider:Allan Agarwal MD [facility] App[facility] Type:Cardiology Follow Up (FT) Appointment Date:08/31/2024 01:00:00 PM Scheduled Provider: Location:[facility] Appointment Type:FM Medicare Wellness Subsequent Future Scheduled TestsLipid Panel 11/28/23NM Myocardial Spect Rest/Stress 1 Day 04/03/23Echo Transthoracic Complete 04/03/23 [facility] Evaluation + Plan note Future Appointments Appointment Date:05/18/2024 09:30:00 AM Scheduled Provider:Ernestine Beverly MD Location:[facility] Appointment Type:FM Open Appointment Date:05/28/2024 10:45:00 AM Scheduled Provider:Allan Agarwal MD [facility] App[facility] Type:Cardiology Follow Up (FT) Appointment Date:08/31/2024 01:00:00 PM Scheduled Provider: Location:[facility] Appointment Type: Medicare Wellness Subsequent Appointment Date:10/26/2024 11:00:00 AM Scheduled Provider:Jose ALCALA MD Location:[facility] Appointment Type:URO Office Visit Diagnostic Tests PendingPSA Free & Total 05/04/24 Future Scheduled TestsLipid Panel 11/28/23 [facility] Evaluation + Plan note Future Appointments Appointment Date:08/31/2024 01:00:00 PM Scheduled Provider: Location:[facility] Appointment Type: Medicare Wellness Subsequent Appointment Date:10/26/2024 11:00:00 AM Scheduled Provider:Jose ALCALA MD Location:[facility] Appointment Type:URO Office Visit Appointment Date:11/16/2024 01:15:00 PM Scheduled Provider:Ernestine Beverly MD Location:[facility] Appointment Type: Open Future Scheduled TestsLipid Panel 11/28/23 [facility] Evaluation note Diagnosis Dyspnea, unspecified type- Primary Dyspnea, unspecified type [facility], unspecified type [facility] N[facility] No data available for this section [facility] [employer] [facility] Discharge instructions No data available for this section [facility] No data available for this section [facility] [employer] Summary Purpose Family History No Family History [...] VIEWS Yahaira Van [address] [place] [phone] [facility] [address] [place] [address] [place] [id number] Referral ID Status Reason Start Date Expiration Date Visits Re quested Visits Authorized [id number] Closed 12/20/2022 12/20/2023 1 1 Additional Source Comments (unrecognized sect ion and content) No Status Records FoundNo Status Records FoundNo Status Records FoundNo Status Records FoundNo Status Records FoundNo Status Records Found INFORMATION SOURCE (unrecogn ized section and content) DATE CREATED AUTHOR 07/07/2019 [facility] DATE CREATED AUTHOR AUTHOR'S ORGANIZ ATION 10/11/2020 [facility] DATE CREATED AUTHOR AUTHOR'S ORGANIZ ATION 11/23/2022 [facility] DATE CREATED AUTHOR AUTHOR'S ORGANIZ ATION 12/22/2022 [facility] DATE CREATED AUTHOR AUTHOR'S ORGANIZ ATION 04/29/2024 [facility] DATE CREATED AUTHOR AUTHOR'S ORGANIZ ATION 06/15/2024 [facility] Reason for Visit (unrecogniz ed section and content) Specialty Diagnoses / Procedures Referred By Contac t Referred To Contact Radiology Diagnoses Dyspnea, unspecified type Procedures XR CHEST PA+LAT 2 VIEWS Yahaira Van [address] [place] [address] [facility] [address] [place] [address] [place] [address] Referral ID Status Reason Start Date Expiration Date Visits Re quested Visits Authorized [id number] Closed 12/20/2022 12/20/2023 1 1 Patient Care team informatio n (unrecognized section and content) Personnel Name: Ernestine Beverly MD Address: Address: [address] [place] [address] Personnel Name: Ernestine Beverly MD Address: Address: [address] [place] [address] Personnel Name: Ernestine Beverly MD Address: Address: [address] [place] [address] Personnel Name: Ernestine Beverly MD Address: Address: [address] [place] [address] Personnel Name: Ernestine Beverly MD Address: Address: [address] [place] [address] Personnel Name: Ernestine Beverly MD Address: Address: [address] [place] [address] Personnel Name: Ernestine Beverly MD Address: Address: [address] [place] [address] Personnel Name: Ernestine Beverly MD Address: Address: [address] [place] [address] Personnel Name: Ernestine Beverly MD Address: Address: [address] [place] [address] Personnel Name: Ernestine Beverly MD Address: Address: [address] [place] [address] FOR RECORDS PERTAINING TO PATIENTS WHO ARE [...] PRIMARY CLINICAL RECORDS. [facility] [employer] [facility]. provides no warranty or guarantee of the accuracy or completeness of information in this document.
[2024-07-18] MEDS: MAGNESIUM SULFATE IN WATER 2 GM/50 ML PREMIX IV (13:21)
--- NOTE | 2024-07-18 14:25 | ED.GENADUL1 ---
HPI HPI - General Adult General Chief complaint: Shortness of Breath/Dyspnea Stated complaint: SHORTNESS OF BREATH Time Seen by Provider: 07/18/24 11:50 Source: patient Mode of arrival: Wheelchair History of Present Illness HPI narrative: The patient main concern to come here is that he has been noticing that he is bradycardic in the morning, the patient mentioned that its mostly associated with dizziness only in the morning and he is currently right does not have any symptoms of dizziness, he checked his heart rate today and it was 39 and that what brought him here to the ER, patient mentioned that during the day he never had any problem and yesterday he actually went to another facility where they did a workup for him including EKG and blood workup and they told him that there is nothing acutely wrong with him The patient mentioned that he still thinks there is something wrong although he does not have any symptoms at the moment and he does sometimes have shortness of breath on exertion Related Data Home Medications ?Medication ?Instructions ?Recorded ?Confirmed amlodipine 5 mg tablet (Norvasc) 5 mg PO DAILY 03/11/23 07/18/24 apixaban 5 mg tablet (Eliquis) 5 mg PO Q12H 03/11/23 07/18/24 aspirin 81 mg tablet,delayed 81 mg PO DAILY 03/11/23 07/18/24 release cholecalciferol (vitamin D3) 25 50 mcg PO DAILY 03/11/23 07/18/24 mcg (1,000 unit) capsule cyanocobalamin (vitamin B-12) 2,000 mcg PO DAILY 03/11/23 07/18/24 1,000 mcg capsule empagliflozin 12.5 mg-metformin ER 1 tab PO DAILY 03/11/23 07/18/24 1,000 mg tablet,extended rel 24 hr gabapentin 100 mg capsule 100 mg PO DAILY 03/11/23 07/18/24 levothyroxine 25 mcg capsule 25 mcg PO DAILY 03/11/23 07/18/24 lisinopril 40 mg tablet 40 mg PO DAILY 03/11/23 07/18/24 metoprolol tartrate 100 mg tablet 100 mg PO BID 03/11/23 07/18/24 (Lopressor) nitroglycerin 0.4 mg sublingual 0.4 mg sublingual Q5M PRN chest 03/11/23 07/18/24 tablet pain omeprazole magnesium 20 mg 20 mg PO DAILY 03/11/23 07/18/24 tablet,delayed release (Prilosec OTC) semaglutide 0.25 mg or 0.5 mg (2 1 mg subcut QWEEK 03/11/23 07/18/24 mg/3 mL) subcutaneous pen injector (Ozempic) atorvastatin 40 mg tablet 40 mg PO BEDTIME 12/04/23 07/18/24 hydrochlorothiazide 12.5 mg capsule 12.5 mg PO DAILY 07/18/24 07/18/24 Previous Rx's ?Medication ?Instructions ?Recorded oxybutynin chloride 5 mg tablet 10 mg (2 x 5 mg) PO BID 7 days #28 03/12/23 tabs tamsulosin 0.4 mg capsule 0.4 mg PO QD 30 days #30 caps 03/12/23 Allergies Allergy/AdvReac Type Severity Reaction Status Date / Time No Known Drug Allergies Allergy Verified 03/11/23 11:38 Opioid HPI Opioid Management Most Recent Opioid Data: Last Pain Scale 10 12/04/23 12:45 12/04/23 Review of Systems ROS Status of ROS 10 or more systems reviewed and unremarkable except as noted in history and below [facility] Medical History Surgical History Family History Sister Family history of cancer Brother Family history of cancer Family history of stroke Brother Family history of cancer Mother Family history of cancer Social History (Updated 03/11/23 @ 16:08 by Carissa De Jesus LPN) Within the past year, how often did you have a drink containing alcohol: 2-4 times a month Within the past year, how many standard drinks containing alcohol did you have on a typical day: 1 or 2 Within the past year, how often did you have six or more drinks on one occasion: never Total score: 0 Score interpretation: A score less than 4 is consistent with normal alcohol consumption. Smoking status: Former smoker Second hand tobacco smoke exposure: No Non-prescribed substance use: denies use Previous occupational history: retired Known occupational exposures/hazards: No Highest level of school completed/degree received: 10th grade Do you want help with school or training: No Are you now , , , , never or living with a partner: In a typical week, how many times do you talk on the telephone with family, friends, or neighbors: 3 or more times per week How often do you get together with friends or relatives: 3 or more times per week How often do you attend temple or hinduism services: never Do you belong to any clubs or organizations such as temple groups unions, fraternal or athletic groups, or school groups: yes Total score: 3 Score interpretation: A score of greater than or equal to 2 indicates the lowest level of social isolation. Exam Narrative Exam Narrative: Nurses notes and vital signs reviewed and patient is not hypoxic. General: Well-appearing and in no apparent distress. Skin: Warm, dry, no pallor noted. No rash. Head: Normocephalic, atraumatic. Neck: Supple, non-tender. Eye: Pupils are equal, round and EOMI. No scleral icterus. Ears, Nose, Mouth, and Throat: TM are clear, no nasal mucosal hypertrophy. Oral mucosa is moist, no posterior oropharynx erythema, uvula is mid-line Cardiovascular: Regular Rate and Rhythm without murmur, gallop or rub. Respiratory: No accessory muscle use or respiratory distress. Lungs are clear to auscultation, no wheezing, rales or rhonchi Chest Wall: no tenderness Back: No midline thoracic or lumbar vertebral tenderness. No CVA tenderness Musculoskeletal: normal ROM, no calf or popliteal tenderness, no lower extremity edema/swelling GI: Abdomen is soft, non-distended. Normal bowel sounds. No masses appreciated. No tenderness to palpation. No rebound, guarding, or rigidity noted. Neurological: A&O x4. No cranial nerve dysfunction observed. No truncal ataxia. Moves all extremities. Sensation intact. Psychiatric: Cooperative and interactive. Normal mood and affect. Constitutional Vital Signs, click to edit/add: Last Vital Signs Temp 97.8 F 07/18/24 11:46 Pulse 68 07/18/24 14:20 Resp 10 L 07/18/24 14:20 BP 150/72 H 07/18/24 14:30 Pulse Ox 97 07/18/24 14:20 O2 Del Method Room Air 07/18/24 11:46 Course Vital Signs Vital signs: Vital Signs Temperature 97.8 F 07/18/24 11:46 Pulse Rate 50 L 07/18/24 11:46 Respiratory Rate 18 07/18/24 11:46 Blood Pressure 146/67 H 07/18/24 11:46 Pulse Oximetry 94 L 07/18/24 11:46 Oxygen Delivery Method Room Air 07/18/24 11:46 Temperature 97.8 F 07/18/24 11:46 Pulse Rate 68 07/18/24 14:20 Respiratory Rate 10 L 07/18/24 14:20 Blood Pressure 150/72 H 07/18/24 14:30 Pulse Oximetry 97 07/18/24 14:20 Oxygen Delivery Method Room Air 07/18/24 11:46 Medical Decision Making MDM Narrative Medical decision making narrative: The patient initial EKG was showing sinus rhythm with a heart rate of 75 it was showing multiple PVCs but that was only on the initial EKG while the patient was here monitored in the ER at least for around 2 hours that he did not have any pathology detected on the monitor and he was completely regular regular The patient CBC and chemistry showed that he have some hypomagnesemia with 1.6 magnesium and he was provided with IV magnesium here in the ER Chest x-ray showed no acute pathology as per the reading And the patient troponin was negative in addition to BNP The patient currently does not have any symptoms and I did discuss the case of the patient with Dr. Mcgrath from cardiology service specially with the patient having full workup yesterday showing no acute pathology and he is currently asymptomatic Dr. Mcgrath recommended that the patient get a Holter monitor and he will be contacted cardiology tomorrow morning for that I discussed the plan with the patient, and he is agreeable with the plan The patient is to follow up with primary care physician in next 2-3 days or to return to the emergency department should any of the signs or symptoms worsen or new symptoms develop. The patient agrees with the following Diagnosis and Treatment plan and the patient will be discharged home. Lab Data Labs: Lab Results 07/18/24 Range/Units 12:02 WBC 7.2 (4.0-11.0) 10^3/uL RBC 3.59 L (4.70-6.10) 10^6/uL Hgb 11.2 L (14.0-18.0) g/dL Hct 34.0 L (42.0-54.0) % MCV 94.7 H (80.0-94.0) fL MCH 31.2 (25.9-34.0) pg MCHC 32.9 (29.9-35.2) g/dL RDW 13.4 (11.0-15.0) % Plt Count 238 (150-450) 10^3/uL MPV 10.7 (9.5-13.5) fL Neut % (Auto) 57.9 (43.0-75.0) % Lymph % (Auto) 26.5 (20.5-60.0) % [place] % (Auto) 7.5 (1.7-12.0) % Eos % (Auto) 7.6 H (0.9-7.0) % Baso % (Auto) 0.4 (0.2-2.0) % Neut # (Auto) 4.2 (1.4-6.5) 10^3/uL Lymph # (Auto) 1.9 (1.2-3.8) 10^3/uL [place] # (Auto) 0.5 (0.3-0.8) 10^3/uL Eos # (Auto) 0.6 (0.0-0.7) 10^3/uL Baso # (Auto) 0.0 (0.0-0.1) 10^3/uL Abs Immat Gran (auto) 0.01 (0.00-0.03) 10^3/uL Imm/Tot Granulo (auto) 0.1 (0.0-0.5) % Sodium 138 (136-145) mmol/L Potassium 4.8 (3.5-5.1) mmol/L Chloride 104 (98-107) mmol/L Carbon Dioxide 23.4 (21.0-32.0) mmol/L Anion Gap 15.4 BUN 37.0 H (7.0-18.0) mg/dL Creatinine 1.87 H (0.70-1.30) mg/dL Est GFR ( Amer) 42 L (>=60 mL/min/1.73m^2) Est GFR (Non-Af Amer) 35 L (>=60 mL/min/1.73m^2) BUN/Creatinine Ratio 19.8 Glucose 180 H (74-106) mg/dL Calcium 8.7 (8.5-10.1) mg/dL Magnesium 1.6 L (1.8-2.4) mg/dL Total Bilirubin 0.3 (0.2-1.0) mg/dL AST 12 L (15-37) U/L ALT 14 L (16-63) U/L Alkaline Phosphatase 59 (46-116) U/L Troponin I High Sens 9.4 (4.0-76.1) pg/mL NT-Pro-B Natriuret Pep 783.0 (<=1800.0) pg/mL Total Protein 6.8 (6.4-8.2) g/dL Albumin 3.3 L (3.4-5.0) g/dL Globulin 3.5 g/dL Albumin/Globulin Ratio 0.9 Discharge Plan Discharge Chief Complaint: Shortness of Breath/Dyspnea Clinical Impression: Hypomagnesemia, Frequent PVCs Patient Disposition: Home, Self-Care Time of Disposition Decision: 14:26 Condition: Good Prescriptions / Home Meds: No Action Eliquis 5 mg tablet 5 mg PO Q12H Ozempic 0.25 mg or 0.5 mg (2 mg/3 mL) pen injector 1 mg subcut QWEEK Rx Instructions: for 4 weeks cyanocobalamin (vitamin B-12) 1,000 mcg capsule 2,000 mcg PO DAILY cholecalciferol (vitamin D3) 25 mcg (1,000 unit) capsule 50 mcg PO DAILY levothyroxine 25 mcg capsule 25 mcg PO DAILY aspirin 81 mg tablet,delayed release (DR/EC) 81 mg PO DAILY lisinopril 40 mg tablet 40 mg PO DAILY gabapentin 100 mg capsule 100 mg PO DAILY nitroglycerin 0.4 mg tablet, sublingual 0.4 mg sublingual Q5M PRN (Reason: chest pain) Rx Instructions: do not exceed 3 doses per episode omeprazole magnesium [Prilosec OTC] 20 mg tablet,delayed release (DR/EC) 20 mg PO DAILY amlodipine [Norvasc] 5 mg tablet 5 mg PO DAILY empagliflozin-metformin 12.5-1,000 mg tablet, IR - ER, biphasic 24hr 1 tab PO DAILY metoprolol tartrate [Lopressor] 100 mg tablet 100 mg PO BID tamsulosin 0.4 mg Capsule 0.4 mg PO QD 30 Days Qty: 30 0RF oxybutynin chloride 5 mg Tablet 10 mg PO BID 7 Days Qty: 28 0RF atorvastatin 40 mg tablet 40 mg PO BEDTIME hydrochlorothiazide 12.5 mg capsule 12.5 mg PO DAILY Print Language: Setswana Instructions: Cardiac Loop Recorder Insertion or Removal (DC) Referrals: MAO MILLAN MD [Physician] - As soon as possible ([address] [facility] [id number] ) ERNESTINE BEVERLY [Primary Care Provider] - 1 week Discharge Date/Time: 07/18/24 14:40
== END 2024-07-18 14:40 | disposition home or self-care (01) ==
PROVIDERS: Emergency Provider Emergency Medicine; PCP Family Medicine
DX: E83.42 Hypomagnesemia (principal); I49.3 Ventricular premature depolarization; R06.02 Shortness of breath; Z87.891 Personal history of nicotine dependence
CPT/HCPCS: 36415; 71045; 80053; 83735; 83880; 84484; 85025; 93005; 96365; 99285; J3475

== ENCOUNTER 2024-09-14 08:33 | Outpatient (OUT) | payer MEDICARE, SELFPAY ==
--- OUTSIDE RECORDS SUMMARY | 2024-09-14 08:53 | XMS_ITS | CCD ---
Author Organization [facility]iniSymo Care Team Providers Care Rinkman Name Role Phone JESSIKA EMERY Admitting Unavailable [...] Unavailable ALEXANDER JACOBSEN Attending Unavailable ALEXANDER JACOBSEN Attending Unavailable ALEXANDER JACOBSEN Referring Unavailable ERNESTINE BEVERLY Primary Care Unavailable JOSE ALCALA Referring Unavailable ERNESTINE BEVERLY Primary Care Unavailable ERNESTINE BEVERLY Primary Care Unavailable LESLEY BHATIA Attending Unavailable JOSE ALCALA Referring Unavailable ERNESTINE BEVERLY Primary Care Unavailable Ernestine Beverly. Attending Unavailable Ernestine Beverly Attending Unavailable Ernestine Beverly. Attending Unavailable Ernestine Beverly Attending Unavailable Ernestine Beverly. Attending Unavailable Jose ALCALA P Attending Unavailable Jose ALCALA P Attending Unavailable Jose ALCALA P Attending Unavailable Jose ALCALA P Attending Unavailable NONE, XXXX Referring Unavailable MD Allan Agarwal Attending Unavailable NONE, XXXX Referring Unavailable MD Allan Agarwal Attending Unavailable NONE, XXXX Referring Unavailable MD Allan Agarwal Attending Unavailable Ernestine Beverly. Attending Unavailable Ernestine Beverly. Attending Unavailable Ernestine Beverly Attending Unavailable Ross, Ernestine E. Attending Unavailable Allergies Allergy Classification Reported Allergen(s) Allergy Type Date of Onset Reaction(s) Facility (1 source) No Known Medication Allergies; Translations: [No Known Medication Allergies] Propensity to adverse reactions (disorder) [facility] Repository Medications Current Medications Medication Drug Class(es) Dates Sig (Normalized) Sig (Original) 3 ML semaglutide 2.68 MG/ML Pen Injector [Ozempic] (6 sources) Start: 05-18-2024 inject 2 mg by subcutaneous injection every week Ozempic 8 mg/3 mL (2 mg dose) subcutaneous solution 2 mg, SubCutaneous, qWeek, # 3 EA, Refills(s) 1, Pharmacy: [facility] #[id number], 168, cm, 05/18/24 9:31:00 EST, Height/Length Dosing, 81.7, kg, 05/18/24 9:31:00 EST, Weight Dosing Start Date: 05/18/24 Status: Ordered Start: 06-23-2023 inject 2 mg by subcu taneous injection every week Ozempic 8 mg/3 mL (2 mg dose) subcutaneous solution 2 mg, SubCutaneous, qWeek, # 3 EA, Refills(s) 1, Pharmacy: [facility] #[id number], 167, cm, 06/23/23 14:02:00 EST, Height/Length Dosing, 81.6, kg, 06/23/23 14:02:00 EST, Weight Dosing Start Date: 06/23/23 Status: Ordered amLODIPine 10 mg oral tablet (13 sources) Dihydropyridine Calcium Channel Brandt Start: 02-08-2019 take 1 tablet by mouth once daily amLODIPine 10 mg Tab 10 mg = 1 tab(s), Oral, Daily Start Date: 02/08/19 Status: Ordered take 1 tablet by mouth once robinson y amLODIPine (NORVASC) 5 MG tablet Take 5 mg by mouth daily. 0 Active apixaban 5 mg oral tablet (11 sources) Factor Xa Inhibitor Start: 07-10-2020 take 1 tablet by mouth twice daily Eliquis 5 mg oral tablet 5 mg = 1 tab(s), Oral, BID Start Date: 07/10/20 Status: Ordered Aspir 81 (11 sources) Start: 02-08-2019 take 81 mg by mouth once daily Aspir 81 81 mg, Oral, Daily Start Date: 02/08/19 Status: Ordered aspirin 325 mg oral tablet (2 sources) Platelet Aggregation Inhibitor, Nonsteroidal Anti-inflammatory Drug Start: 07-21-2014 take 1 tablet by mouth once daily aspirin 325 MG tablet Take 1 Tab by mouth daily. 100 Tab 3 07/21/2014 Active atorvastatin 40 mg oral tablet (5 sources) HMG-CoA Reductase Inhibitor Start: 11-28-2023 take 1 tablet by mouth once daily at bedtime Lipitor 40 mg Tab 40 mg = 1 tab(s), Oral, Once a day (at bedtime), # 30 tab(s), Refills(s) 6, Pharmacy: [facility] #[id number], 168, cm, 11/28/23 10:40:00 EDT, Height/Length Dosing, 80.9, kg, 11/28/23 10:40:00 EDT, Weight Dosing Start Date: 11/28/23 Status: Ordered carvedilol 25 mg oral tablet (2 sources) alpha-Adrenergic Brandt, beta-Adrenergic Brandt take 1 tablet by mouth twice daily CARvedilol (COREG) 25 MG tablet Take 25 mg by mouth 2 times daily. 0 Active Cholecalciferol (11 sources) Vitamin D Start: 09-01-2023 take 25 ug by mouth once daily cholecalciferol 25 mcg, Oral, Daily, Refills(s) 0 Start Date: 09/01/23 Status: Ordered Start: 02-08-2019 take 1 capsule by [facility] once daily cholecalciferol 1000 intl units oral [...] acid 180 mg oral capsule (2 sources) Worth-3 Fatty Ac ids (FISH OIL) 1000 MG CAPS Take by mouth. 0 Active docusate sodium 100 mg oral capsule (2 sources) Start: 07-21-2014 take 1 capsule by mouth twice daily docusate sodium (COLACE) 100 MG capsule Take 1 Cap by mouth 2 times daily. 60 Cap 3 07/21/2014 Active empagliflozin 5 mg / metFORMIN hydrochloride 1000 mg oral tablet (11 sources) Biguanide, Sodium-Glucose Cotransporter 2 Inhibitor Start: [...] 07/22/2014 Active gabapentin 100 mg oral capsule (11 sources) Anti-epileptic Agent Start: 02-08-2019 take 1 capsule by mouth once daily gabapentin 100 mg Cap 100 mg = 1 cap(s), Oral, Daily Start Date: 02/08/19 Status: Ordered Handicap Placard (1 source) Start: 06-15-2024 Handicap Placard Handicap Placard, See Instructions, 1 EA, 0, Expires in 2028, Supply Start Date: 06/15/24 Status: Ordered hydroCHLOROthiazide 12.5 mg oral capsule (2 sources) Thiazide Diuretic Start: 06-04-2024 take 1 capsule by mouth once daily hydrochlorothiazide 12.5 mg Cap 12.5 mg = 1 cap(s), Oral, Daily, # 30 cap(s), Refills(s) 6, Pharmacy: [facility] #[id number], 168, cm, 06/04/24 14:46:00 EST, Height/Length Dosing, 80.8, kg, 06/04/24 14:46:00 EST, Weight Dosing Start Date: 06/04/24 Status: Ordered lisinopril 40 mg oral tablet (13 sources) Angiotensin Converting Enzyme Inhibitor Start: 02-08-2019 [...] Active metoprolol tartrate 100 mg oral tablet (11 sources) beta-Adrenergic Brandt Start: 09-01-2023 take 100 [...] 0 Active nitroglycerin 0.4 mg sublingual tablet (13 sources) Nitrate Vasodilator Start: 9 NitroStat 0.4 mg Tab 0.4 mg = 1 tab(s), SubLingual, q5min Start Date: 02/08/19 Status: Ordered omeprazole 20 mg oral tablet (11 sources) Proton Pump Inhibitor Start: take 20 mg by mouth every other day Prilosec 20 mg, Oral, Every other day Start Date: 03/18/23 Status: Ordered Start: 03-18-2023 Prilosec Oral, Daily Start Date: 03/18/23 Status: Ordered oxybutynin chloride 5 mg oral tablet (8 sources) Cholinergic Muscarinic Antagonist Start: 12-11-2023 oxybutynin [...] Status: Ordered pioglitazone 15 mg oral tablet (11 sources) Peroxisome Proliferator Receptor alpha Agonist, Peroxisome Proliferator Receptor gamma Agonist, Thiazolidinedione Start: 03-17-2023 take 1 tablet by mouth once daily pioglitazone 15 mg Tab 15 mg = 1 tab(s), Oral, Daily, Refills(s) 0 Start Date: 03/17/23 Status: Ordered polyethylene glycol 3350 42076 mg powder for oral solution (2 sources) Osmotic Laxative Start: 07-21-2014 polyethylene glycol (MIRALAX) packet Take 1 Packet by mouth 3 times daily. Dissolve in 8 ounces of liquid. 30 Packet 3 07/21/2014 Active sennosides, [facility] 8.6 mg oral tablet (1 source) Start: [...] Active tamsulosin hydrochloride 0.4 mg oral capsule (11 sources) alpha-Adrenergic Brandt Start: 05-04-2024 End: 04-29-2025 take 1 capsule by mouth once daily Flomax 0.4 mg Cap 0.4 mg = 1 cap(s), Oral, Daily, X 30 day(s), # 30 cap(s), Refills(s) 11, Pharmacy: [facility] #[id number], 168, cm, 05/04/24 10:41:00 EST, Height/Length Dosing, 81, kg, 05/04/24 10:41:00 EST, Weight Dosing Start Date: 05/04/24 Stop Date: 04/29/25 Status: Ordered Start: 04-11-2023 End: 04-05-2024 take 1 capsule by mouth once daily tamsulosin 0.4 mg Cap 0.4 mg = 1 cap(s), Oral, Daily, X 30 day(s), # 30 cap(s), Refills(s) 11, Pharmacy: [facility] #[id number], 167, cm, 04/03/23 13:48:00 EDT, Height/Length Dosing, 78.9, kg, 04/11/23 8:39:00 EDT, Weight Dosing Start Date: 04/11/23 Stop Date: 04/05/24 Status: Ordered Start: 03-18-2023 take 1 mg by mouth once daily tamsulosin 0.4 mg Cap mg cap(s), Oral, Daily Start Date: 03/18/23 Status: Ordered vitamin B12 (11 sources) Vitamin B12 Start: 09-01-2023 take 1000 [...] day(s), # 2 cap(s), Refills(s) 0, Pharmacy: [facility] #[id number], 78.9, cm, 05/20/23 13:10:00 EST, Height/Length Dosing, 81, kg, 05/20/23 13:10:00 EST, Weight Dosing Start Date: 05/20/23 Stop Date: 05/22/23 Status: Ordered Start: 03-18-2023 take 1 mg by mouth f our times daily cephalexin 500 mg oral tablet mg tab(s), Oral, QID Start Date: 03/18/23 Status: Ordered levothyroxine sodium 0.025 mg oral tablet (11 sources) l-Thyroxine Start: 02-08-2019 take 1 tablet by mouth once daily levothyroxine 25 mcg (0.025 mg) Tab 25 microgram = 1 tab(s), Oral, Daily Start Date: 02/08/19 Status: Ordered Problems Active Problems Problem Classification Problem Date Documented Date Episodic/Chronic Cardiac dysrhythmias (9 sources) Paroxysmal atrial fibrillation; Translations: [Paroxysmal atrial fibrillation] Onset: 07-17-2014 08-02-2021 Chronic Comment on above: noted in 03/10/2023 [facility] H&P page 1. added per OP CDI policy. Cardiac dysrhythmias (2 sources) Bradycardia, unspecified; Translations: [Bradycardia] Onset: 07-17-2024 Episodic Chronic kidney disease (7 sources) Chronic kidney disease stage 3; Translations: [Chronic kidney disease stage 3A ] Onset: 06-04-2024 12-08-2023 Chronic Comment on above: linked HTN with CKD per OP CDI policy. added per 12/05/2023 query response. Complication of device; implant or graft (1 source) Atherosclerosis of coronary artery bypass graft(s) without angina pectoris; Translations: [Atherosclerosis of coronary artery bypass graft(s) without angina pectoris] Onset: 11-04-2022 Chronic Conditions associated with dizziness or vertigo (1 source) Dizziness and giddiness; Translations: [Dizziness and giddiness] Onset: 07-17-2024 Episodic Coronary atherosclerosis and other heart disease (20 sources) Triple vessel disease of the heart ; Translations: [Atherosclerotic heart disease of [place] coronary artery without angina pectoris] Onset: 11-18-2017 11-18-2017 Chronic Crushing injury or internal injury (5 sources) Injury of kidney 03-17-2023 Episodic Diabetes mellitus without complication (20 sources) Diabetes mellitus; Translations: [Type 2 diabetes mellitus] 02-08-2019 Chronic Comment on above: linked DM with HLD p er OP CDI policy. noted in 03/10/2023 [facility] H&P page 1. added per OP CDI policy. noted in 05/21/2023 Diabetic Eye Exam page 2. added per OP CDI policy. linked DM with CKD p er OP CDI policy. Disorders of lipid metabolism (13 sources) Hyperlipidemia; Translations: [Hyperlipidemia, unspecified] Onset: 11-28-2023 02-08-2019 Chronic Essential hypertension (17 sources) Hypertensive disorder; Translations: [Essential hypertension] Onset: 06-04-2024 02-08-2019 Chronic Genitourinary symptoms and ill-defined conditions (20 sources) Retention of urine, unspecified; Translations: [Retention of urine] Onset: 07-01-2019 Episodic Hyperplasia of prostate (18 sources) Benign prostatic hypertrophy with outflow obstruction; Translations: [Benign prostatic hyperplasia with lower urinary tract symptoms] Onset: 03-18-2023 Chronic Nutritional deficiencies (6 sources) Vitamin D deficiency 05-27-2023 Chronic Comment on above: noted in 03/10/2023 [facility] H&P page 1. added per OP CDI policy. Nutritional deficiencies (6 sources) Cobalamin deficiency 05-27-2023 Episodic Comment on above: noted in 03/10/2023 [facility] H&P page 1. added per OP CDI policy. Osteoarthritis (2 sources) Localized, primary osteoarthritis; Translations: [Unilateral primary osteoarthritis, unspecified knee] Onset: 06-21-2014 07-15-2014 Chronic Other aftercare (12 sources) Long-term current use of anticoagulant; Translations: [jail (current) use of anticoagulants] Onset: 05-04-2024 07-10-2020 Episodic Other aftercare (5 sources) Post-discharge follow-up 03-17-2023 Episodic Other lower respiratory disease (2 sources) Dyspnea; Translations: [Dyspnea, unspecified] 12-20-2022 Episodic Other lower respiratory disease (1 source) Dyspnea, unspecified; Translations: [Dyspnea, unspecified] Onset: 12-20-2022 Episodic Other non-traumatic joint disorders (3 sources) Acute arthritis 12-08-2023 Chronic Thyroid disorders (11 sources) Disorder of thyroid gland 02-08-2019 Episodic Unclassified (3 sources) Drug therapy finding 05-04-2024 Unclassified (1 source) Hand Pain, Stiffness Onset: 12-03-2023 Urinary tract infections (13 sources) Urinary tract infectious disease; Translations: [Urinary tract infection, site not specified] Onset: 03-18-2023 Episodic Past or Other Problems Problem Classification Problem Date Documented Da te Episodic/Chronic Other connective tissue disease (1 source) Pain in left finger(s); Translations: [Pain in left finger(s)] Onset: 12-03-2023 Episodic Other connective tissue disease (1 source) Hand pain Onset: 12-03-2023 Episodic Other screening for suspected conditions (not mental disorders or infectious disease) (18 sources) Raised prostate specific antigen; Translations: [Elevated prostate specific antigen [PSA]] Onset: 03-18-2023 Episodic Results Test Name Value Interpretation Reference Range Facility Ambulatory Visit Summaryon 0 09-02-2024 Ambulatory Visit Summary Ambulatory Visit Summary PATRICK HOLLY :1945 Visit Date:08/31/2024 Ambulatory Visit Instructions Your Diagnosis Encounter for subsequent annual wellness visit (AWV) in Medicare patient Paroxysmal atrial fibrillation Stage 3a chronic kidney disease (CKD) HTN (hypertension) Benign hypertension with chronic kidney disease, stage III BPH with urinary obstruction Hyperlipidemia Advanced directives, counseling/discussion Overweight Your Care Team Attending Physician - Ernestine Beverly MD Primary Care Physician - Ernestine Beverly MD This Is Your Medications List Misc Prescription (Handicap Placard) amlodipine (amLODIPine 10 mg Tab) apixaban (Eliquis 5 mg oral tablet) aspirin (Aspir 81) atorvastatin (Lipitor 40 mg Tab) cholecalciferol cyanocobalamin empagliflozin-metFORMI N (empagliflozin-metFORM IN 5 mg-1000 mg oral tablet) gabapentin (gabapentin 100 mg Cap) hydrochlorothiazide (hydrochlorothiazide 12.5 mg Cap) levothyroxine (levothyroxine 25 mcg (0.025 mg) Tab) lisinopril (lisinopril 40 mg Tab) metoprolol (Lopressor) nitroglycerin (NitroStat 0.4 mg Tab) omeprazole (Prilosec) oxybutynin (oxybutynin 5 mg Tab) pioglitazone (pioglitazone 15 mg Tab) semaglutide (Ozempic 8 mg/3 mL (2 mg dose) subcutaneous solution) tamsulosin (Flomax 0.4 mg Cap) Procedures Performed Cystoscopy (10/02/2023), Cystoscope (04/11/2023), TRUS (transrectal ultrasound) guided cryoablation of prostate (07/24/2020), Transrectal biopsy of prostate using ultrasound (US) guidance (04/12/2013), CABG x 4 - Coronary artery bypass grafts x 4, Cataract care, Colonoscopy, Knee Replacement-Lt. Discharge Vitals Heart Rate (Peripheral) 68 Blood Pressure 130/60 Height 168 cm Height 66 in Weight 80.6 kg Weight 177.692 lb BMI 28.56 What to do next Scheduled Follow-Up Appointments Friday. 2024 11:00 AM EDT With: Jose ALCALA MD Where: [facility] [address] [place] [place] [address]- Friday 1:20 PM EDT With: Damian RIOS, Ernestine Meehan Where: [address] [address]- [id number] 2:30 PM EDT With: Where: [address] [address]- Medications What How Much When Why Instructions Unchanged amlodipine (amLODIPine 10 mg Tab) 1 Tablets By Mouth Every day Unchanged apixaban (Eliquis 5 mg oral tablet) 1 Tablets By Mouth 2 times a day Unchanged aspirin (Aspir 81) 81 Milligram By Mouth Every day Unchanged atorvastatin (Lipitor 40 mg Tab) 1 Tablets By Mouth Once a day (at bedtime) Unchanged cholecalciferol 25 Microgram By Mouth Every day Unchanged cyanocobalamin 1,000 Milligram By Mouth Every day Unchanged empagliflozin-metFORMI N (empagliflozin-metFORM IN 5 mg-1000 mg oral tablet) By Mouth 2 times a day Unchanged gabapentin (gabapentin 100 mg Cap) 1 Capsules By Mouth Every day Unchanged hydrochlorothiazide (hydrochlorothiazide 12.5 mg Cap) 1 Capsules By Mouth Every day Unchanged levothyroxine (levothyroxine 25 mcg (0.025 mg) Tab) 1 Tablets By Mouth Every day Unchanged lisinopril (lisinopril 40 mg Tab) 1 Tablets By Mouth Every day Unchanged metoprolol (Lopressor) 100 Milligram By Mouth 2 times a day Unchanged Misc Prescription (Handicap Placard) See instructions CAD (coronary artery disease) Acute arthritis Expires in 2028 Unchanged nitroglycerin (NitroStat 0.4 mg Tab) 1 Tablets Sublingual Every 5 minutes Unchanged omeprazole (Prilosec) 20 Milligram By Mouth Every other day Unchanged oxybutynin (oxybutynin 5 mg Tab) 1 Tablets Unchanged pioglitazone (pioglitazone 15 mg Tab) 1 Tablets By Mouth Every day Unchanged semaglutide (Ozempic 8 mg/ 3 mL (2 mg dose) subcutaneous solution) 2 Milligram Subcutaneous Every week Unchanged tamsulosin (Flomax 0.4 mg Cap) 1 Capsules By Mouth Every day Duration: 30 Days Allergies No Known Medication Allergies Problems Ongoing - Any problem that you are currently receiving treatment for. Acute arthritis Anticoagulant long-term use Anticoagulated Benign hypertension with chronic kidney disease, stage III BMI 28.0-28.9,adult BPH with urinary obstruction CAD (coronary artery [...] Vitamin B12 deficiency Vitamin D deficiency Historical - Any problem that you are no longer receiving treatment for. CAD - Coronary artery d (more content not included)... Normal [facility] Medicine Office/Clini c Noteon 09-02-2024 Family Medicine Office/Clinic Note Family Medicine Office/Clinic Note Chief Complaint Subsequent AWV History of Present Illness Covid-19, MERS, Ebola Screen *Contact With Person [...] Airborne, Droplet Precautions for MERS/COVID-19 : N/A Vale Alcala - 08/31/2024 13:04 EDT Medicare/Medicaid Summary Chief Complaint : Subsequent AWV Patient Counseled : Nutrition, Physical activity, Elevated BMI Height/Length Measured : 168 cm(Converted to: 5 ft 6 in, 66.14 in) Weight Measured : 80.6 kg(Converted to: 177 lb 11 Ounces, 177.693 lb) Body Mass Index Measured : 28.56 kg/m2 Height in Inches : 66 in Weight in Pounds : 177.692 lb Systolic Blood Pressure : 130 mmHg Diastolic Blood Pressure : 60 mmHg Blood Pressure Location : Left arm Blood Pressure Position : Sitting O2 Sat Resting/Exertion Alpha : Resting Peripheral Pulse Rate : 68 bpm SpO2 : 93 % Pain Present : No actual or suspected pain Vale Alcala - 08/31/2024 13:04 EDT Hearing and Vision Screening FT FT Whisper Test Comments : patient admits to hearing deficit Vision Screen Comments : wears corretive lens. Has eyes checked at [place] Vale Alcala - 08/31/2024 13:04 EDT Advance Directive FT Advance Directive : No Patient Wishes to Receive Further Information on Advance Directives : Yes Organ Donation Consent : No Vale Alcala - 08/31/2024 13:04 EDT Procedures / Surgeries FT - Procedure History (As Of: 08/31/2024 13:23:14 EDT) Anesthesia Minutes: 0 ; Procedure Name: Knee Replacement-Lt ; Procedure Minutes: 0 ; Last Reviewed Dt/Tm: 08/31/2024 13:09:32 EDT Anesthesia Minutes: 0 ; Procedure Name: Cataract care ; Procedure Minutes: 0 ; Comments: 02/08/2019 10:21 EDT - Ame Dubose ; Last Reviewed Dt/Tm: 08/31/2024 13:09:32 EDT Anesthesia Minutes: 0 ; Procedure Name: CABG x 4 - Coronary artery bypass grafts x 4 ; Procedure Minutes: 0 ; Comments: 09/01/2023 13:58 Josue Issa 08/24/2014 ; Last Reviewed Dt/Tm: 08/31/2024 13:09:32 EDT Procedure Dt/Tm: 04/12/2013 ; Anesthesia Minutes: 0 ; Procedure Name: Transrectal biopsy of prostate using ultrasound (US) guidance ; Procedure Minutes: 0 ; Last Reviewed Dt/Tm: 08/31/2024 13:09:32 EDT Procedure Dt/Tm: 07/24/2020 ; Anesthesia Minutes: 0 ; Procedure Name: TRUS/Bx ; Procedure Minutes: 0 ; Last Reviewed Dt/Tm: 08/31/2024 13:09:32 EDT Procedure Dt/Tm: 04/11/2023 ; Provider: Jose ALCALA MD; Anesthesia Minutes: 0 ; Procedure Name: Cystoscope ; Procedure Minutes: 0 ; Last Reviewed Dt/Tm: 08/31/2024 13:09:32 EDT Procedure Dt/Tm: 10/02/2023 ; Provider: Jose ALCALA MD; Anesthesia Minutes: 0 ; Procedure Name: Cystoscopy ; Procedure Minutes: 0 ; Last Reviewed Dt/Tm: 08/31/2024 13:09:32 EDT Anesthesia Minutes: 0 ; Procedure Name: Colonoscopy ; Procedure Minutes: 0 ; Comments: 09/01/2023 13:57 EDT - Josue Nelson 07/24/2020 ; Last Reviewed Dt/Tm: 08/31/2024 13:09:32 EDT Family History Family History (As Of: 08/31/2024 13:23:14 EDT) Negative History Medicare/Medicaid Social History FT Social History (As Of: 08/31/2024 13:23:14 EDT) Alcohol: Low Risk Never Comments: 08/31/2024 13:09 - Vale Alcala: denies use (Last Updated: 08/31/2024 13:09:57 EDT by Vale Alcala) Tobacco: Former smoker, quit more than 30 days ago Tobacco Use:. Never Smokeless Tobacco Use:. Comments: 08/31/2024 13:10 - Vale Alcala: denies use. Former smoker. 09/01/2023 14:01 - Josue Nelson: states started age 13, states stopped in 1991 (Last Updated: 08/31/2024 13:10:28 EDT by Vale Alcala) Substance Abuse: Never Comments: 08/31/2024 13:10 - Vale Alcala: denies use. (Last Updated: 08/31/2024 13:10:39 EDT by Vale Alcala) Health Risk Assessment FT HRA little interest [...] Overall mood for past four weeks : Pretty well General health rating : Fair Someone avail. to help if needed? : Yes, as much as I wanted Phys. & emotional health limit social act? : Not at all Vale Alcala - 08/31/2024 13:04 EDT Misc Health Risks Grid Sexual problems : Never Trouble eating well : Never Teeth or denture problems : Never Prob (more content not included)... Normal [facility] Comment on above: Result Comment: Elec tronically Signed By: Ernestine Beverly MD\.br\Date and Time Signed: 09/02/24 14:22 EDT\.br\Electronically Co-Signed By: Vale Alcala\.br\Date and Time Co-Signed: 08/31/24 16:37 EDT FREE AND TOTAL PSAon 025 % FREE PSA 16.8 Normal [facility] Comment on above: Result Comment: Percent [...] and BPH. Performed By: #### F TPSA ####[facility] ([id number] [address] FREE PSA 1.87 ng/mL Normal [facility] Comment on above: Performed By: #### F TPSA ####[facility] ([id number] [address] PROSTATIC SPEC ANT 11.16 ng/mL High 0.00-4.00 [facility] Comment on above: Result Comment: The method used for this test is Janette Baltimore DXI chemiluminescent immunoassay. Values obtained by different assay methods cannot be used interchangeably. Performed By: #### F TPSA ####[facility] ([id number] [address] Heart and Vascular Office/Cl inic Noteon 08-13-2024 Heart and Vascular Office/Clinic Note Heart and Vascular Office/Clinic Note Chief Complaint Hospital Follow up *Bradycardia History of Present Illness Mr. Hloly is a pleasant 79-year-old male with past medical history of coronary artery disease, quadruple CABG in 2015, history of prior PCI, paroxysmal atrial fibrillation, hypertension, dyslipidemia, who presents today for a scheduled follow-up appointment. Recently, in the beginning of July, the patient went to a [facility] with concerns of low heart rate which was checked by automatic reader. It was in 40s. His workup included ECG which demonstrated sinus rhythm with nonspecific intraventricular conduction delay/LAFB pattern. There was ventricular bigeminy. Over the past 5 to 6 months or so, he noted slightly worsening dyspnea on exertion, however reports no chest pain or tightness. States compliance with the current treatment plan. Denies any side effects. [facility] Left ventricular ejection fraction historically was normal. The patient brings a blood pressure log/heart rate log, blood pressure appears to be reasonably well-controlled. Review of Systems PHQ Score Initial Depression Screen Score: 0 SCORE ROS - Provider Constitutional: no fever, no [...] recurrent infections Physical Exam Vitals & Measurements T: 36.8 ???C(Tympanic) HR: 76(Peripheral) RR: 18 BP: 116/66 SpO2: 97% HT: 66 in HT: 168 cm WT: 80 kg WT: 176.37 lb BMI: 28.34 General: alert, no acute distress Neck: Supple, noJVD nocarotid bruit Cardiovascular: regular rate and rhythm, no murmur normal peripheral perfusion Respiratory: Lungs CTAB, respirations non labored Extremities: no edema left lower extremity. no edema right lower extremity Neurological: oriented x 4, LOC appropriate for age, speech normal Skin: Warm, dry, intact- no rash or concerning lesions Procedure ECG was independently reviewed, findings as above Assessment/Plan 1. CAD (coronary artery disease) (I25.10: Atherosclerotic heart disease of [place] coronary artery without angina pectoris) Concerned about exertional dyspnea in this patient with multiple risk factors for progression of coronary artery disease. At this juncture, I would like to order a transthoracic echocardiogram, and, if unremarkable, Lexiscan MPI. Bradycardia is likely spurious, mimicked by ventricular bigeminy. 2. HTN (hypertension) (I10: Essential (primary) hypertension) Blood pressure is well-controlled 3. Hyperlipidemia (E78.5: Hyperlipidemia, unspecified) [facility]. 4. Paroxysmal atrial fibrillation (I48.0: Paroxysmal atrial fibrillation) On Eliquis for cardioembolic protection Follow-up No qualifying data available After testing Problem List/Past Medical History Ongoing Acute arthritis [...] tablet, 5 mg= 1 tab(s), Oral, BID empagliflozin-metFORMI N 5 mg-1000 mg oral tablet, Oral, BID Flomax 0.4 mg Cap, 0.4 mg= 1 cap(s), Oral, Daily, 11 refills gabapentin 100 mg Cap, 100 mg= 1 cap(s), Oral, Daily Handicap Placard, See Instructions hydrochlorothiazide 12.5 mg Cap, 12.5 mg= 1 cap(s), Oral (more content not included)... Normal [facility] Comment on above: Result Comment: Elec tronically Signed By: Any RIOS, Allan Cabello\.br\Date and Time Signed: 08/13/24 15:05 EST CBC AND AUTO DIFFon 07-17-19 25 ABSOLUTE BASOPHIL 0.2 X10E9/L Normal 0.0-0.2 [facility] Comment on above: Performed By: #### Tabitha PRIEST CMP, 95198-6 #### [facility] ([id number]) [address] [place] [address] 51707 ABSOLUTE NEUTROPHIL 4.8 X10E9/L Normal 1.5-6.6 [facility] Comment on above: Performed By: #### Tabitha PRIEST CMP, 40629-5 #### [facility] ([id number]) [address] [place] [address] 37259 Basophils/100 WBC (Bld) 2.0 % Normal [facility] Comment on above: Performed By: #### Tabitha PRIEST CMP, 43531-0 #### [facility] ([id number]) [address] [place] [address] 50677 Eosinophils (Bld) [#/Vol] 0.4 10*3/uL Normal 0.0-0.4 [facility] Comment on above: Performed By: #### Tabitha PRIEST CMP, 48384-5 #### [facility] ([id number]) [address] [place] [address] 26185 Eosinophils/100 WBC (Bld) 5.5 % Normal [facility] Comment on above: Performed By: #### Tabitha PRIEST CMP, 12152-2 #### [facility] ([id number]) [address] [place] [address] 46112 Erythrocyte distribution width (RBC) [Ratio] 14.0 % Normal 11.5-15.0 [facility] Comment on above: Performed By: #### Tabitha PRIEST CMP, 01062-9 #### [facility] ([id number]) [address] [place] [address] 86666 Hematocrit (Bld) [Volume fraction] 33.0 % Low 39-49 [facility] Comment on above: Performed By: #### Tabitha PRIEST CMP, 82145-1 #### [facility] ([id number]) [address] [place] [address] 67288 Hemoglobin (Bld) [Mass/Vol] 11.3 g/dL Low 13.0-17.0 [facility] Comment on above: Performed By: #### Tabitha PRIEST CMP, 02201-0 #### [facility] ([id number]) [address] [place] [address] 83393 Lymphocytes (Bld) [#/Vol] 2.0 10*3/uL Normal 1.0-3.5 [facility] Comment on above: Performed By: #### Tabitha PRIEST CMP, 95952-8 #### [facility] ([id number]) [address] [place] [address] 77820 Lymphocytes/100 WBC (Bld) 25.9 % Normal [facility] Comment on above: Performed By: #### Tabitha PRIEST CMP, 24181-5 #### [facility] ([id number]) [address] [place] [address] 19467 MCH (RBC) [Entitic mass] 31.8 pg Normal 27-34 [facility] Comment on above: Performed By: #### Tabitha PRIEST CMP, 71823-1 #### [facility] ([id number]) [address] [place] [address] [place] [address] MCHC (RBC) [Mass/Vol] 34.2 g/dL Normal 32-36 [facility] Comment on above: Performed By: #### Tabitha PRIEST CMP, 45088-2 #### [facility] ([id number]) [address] [place] [address] 38855 MCV (RBC) [Entitic vol] 93 fL Normal 80-100 [facility] Comment on above: Performed By: #### Tabitha PRIEST CMP, 94275-1 #### [facility] ([id number]) [address] [place] [address] 37225 Monocytes (Bld) [#/Vol] 0.5 10*3/uL Normal 0-0.9 [facility] Comment on above: Performed By: #### Tabitha PRIEST CMP, 72037-7 #### [facility] ([id number]) [address] [place] [address] 90629 Monocytes/100 WBC (Bld) 5.9 % Normal [facility] Comment on above: Performed By: #### Tabitha PRIEST CMP, 28438-9 #### [facility] ([id number]) [address] [place] [address] 88066 Neutrophils/100 WBC (Bld) 60.7 % Normal [facility] Comment on above: Performed By: #### Tabitha PRIEST CMP, 28342-5 #### [facility] ([id number]) [address] [place] [address] 16689 Platelet mean volume (Bld) [Entitic vol] 9.6 fL Normal 7-12 [facility] Comment on above: Performed By: #### Tabitha PRIEST CMP, 92022-9 #### [facility] ([id number]) [address] [place] [address] 88275 Platelets (Bld) [#/Vol] 235 10*3/uL Normal 150-450 [facility] Comment on above: Performed By: #### C BCA, CMP, 78018-3 #### [facility] ([id number]) [address] [place] [address] 44100 RBC COUNT 3.55 X10E12/L Low 4.10-5.70 [facility] Comment on above: Performed By: #### C ZAYDA, CMP, 80901-5 #### [facility] ([id number]) [address] [place] [address] 52382 WBC (Bld) [#/Vol] 7.9 10*3/uL Normal 4.0-11.0 [facility] Comment on above: Performed By: #### C ZAYDA, CMP, 62299-3 #### [facility] ([id number]) [address] [place] [address] 48674 COMPREHENSIVE METABOLIC PANE Primitivo 07-17-2024 Albumin [Mass/Vol] 3.8 g/dL Normal 3.2-5.3 [facility] Comment on above: Performed By: #### C ZAYDA, CMP, 48666-1 #### [facility] ([id number]) [address] [place] [address] 15876 ALP [Catalytic activity/Vol] 53 U/L Normal 39-130 [facility] Comment on above: Performed By: #### C BCA, CMP, 61553-4 #### [facility] ([id number]) [address] [place] [address] 03984 ALT [Catalytic activity/Vol] 16 U/L Normal 0-40 [facility] Comment on above: Performed By: #### C ZAYDA, CMP, 56166-7 #### [facility] ([id number]) [address] [place] [address] 60998 Anion gap [Moles/Vol] 8 mmol/L Normal 5-15 [facility] Comment on above: Performed By: #### C BCA, CMP, 88667-9 #### [facility] ([id number]) [address] [place] [address] 98712 AST [Catalytic activity/Vol] 19 U/L Normal 0-41 [facility] Comment on above: Performed By: #### C BCA, CMP, 58944-3 #### [facility] ([id number]) [address] [place] [address] 24374 Bilirubin [Mass/Vol] 0.9 mg/dL Normal 0.3-1.2 [facility] Comment on above: Performed By: #### C BCA, CMP, 06582-3 #### [facility] ([id number]) [address] [place] [address] 85604 Calcium [Mass/Vol] 8.5 mg/dL Normal 8.5-10.5 [facility] Comment on above: Performed By: #### C BCA, CMP, 03460-7 #### [facility] ([id number]) [address] [place] [address] 64237 Chloride [Moles/Vol] 104 mmol/L Normal 98-109 [facility] Comment on above: Performed By: #### C BCA, CMP, 91586-6 #### [facility] ([id number]) [address] [place] [address] 14340 CO2 [Moles/Vol] 21 mmol/L Low 22-32 [facility] Comment on above: Performed By: #### C BCA, CMP, 71169-3 #### [facility] ([id number]) [address] [place] [address] 90413 Creatinine [Mass/Vol] 1.85 mg/dL High 0.70-1.20 [facility] Comment on above: Result Comment: METH OD TRACEABLE TO IDMS STANDARD Performed By: #### C BCA, CMP, 09077-1 #### [facility] ([id number]) [address] [place] [address] 72376 GFR/1.73 sq M.predicted among non-blacks MDRD (S/P/Bld) [Vol rate/Area] 36 mL/min/{1.73_m2} Low >59 [facility] Comment on above: Result Comment: Reported eGFR is based on the CKD-EPI 2020 equation that does not use a race coefficient. Performed By: #### C IVY PRIEST, 48368-9 #### [facility] ([id number]) [address] [place] [address] 10233 Glucose [Mass/Vol] 154 mg/dL High 65-99 [facility] Comment on above: Performed By: #### C IVY PRIEST, 67688-3 #### [facility] ([id number]) [address] [place] [address] 95384 Potassium [Moles/Vol] 5.0 mmol/L Normal 3.5-5.0 [facility] Comment on above: Performed By: #### C IVY PRIEST, 46795-5 #### [facility] ([id number]) [address] [place] [address] 41618 Protein [Mass/Vol] 7.3 g/dL Normal 6.0-8.0 [facility] Comment on above: Performed By: #### C IVY PRIEST, 74872-8 #### [facility] ([id number]) [address] [place] [address] 01562 Sodium [Moles/Vol] 133 mmol/L Low 134-146 [facility] Comment on above: Performed By: #### C IVY PRIEST, 27948-6 #### [facility] ([id number]) [address] [place] [address] 53015 Urea nitrogen [Mass/Vol] 41 mg/dL High 5-27 [facility] Comment on above: Performed By: #### C IVY PRIEST, 08109-2 #### [facility] ([id number]) [address] [place] [address] 74887 Troponin I.cardiac High sens itivity method [Mass/Vol]on 07-17-2024 1 HOUR TROP I, HIGH SENSITIVITY 4 ng/L Normal <21 [facility] Comment on above: Performed By: #### 8 9579-7 #### [facility] ([id number]) [address] [place] [address], [place] [address] TROPONIN I, HIGH SENSITIVITY 5 ng/L Normal <21 [facility] Comment on above: Performed By: #### C IVY PRIEST, 79206-7 #### [facility] ([id number]) [address] [place] [address] 24197 Heart and Vascular Office/Cl inic Noteon 06-04-2024 Heart and Vascular Office/Clinic Note Heart and Vascular Office/Clinic Note Chief Complaint 6 month f/u PAF/CAD History of Present Illness Mr. Holly is a pleasant 79-year-old male with past [...] artery disease) (I25.10: Atherosclerotic heart disease of [place] coronary artery without angina pectoris) I was [...] tablet, 5 mg= 1 tab(s), Oral, BID empagliflozin-metFORMI N 5 mg-1000 mg oral tablet, Oral, BID [...] 20 mg (more content not included)... Normal [facility] Comment on above: Result Comment: Elec tronically Signed By: Any RIOS, Allan Cabello\.daisy\Date and Time Signed: 06/04/24 15:00 EST Family [...] artery disease) (I25.10: Atherosclerotic heart disease of [place] coronary artery without angina pectoris) Gets CP [...] 3074F Orders: (more content not included)... Normal [facility] Comment on above: Result Comment: Elec tronically Signed By: Ernestine Beverly MD\.br\Date and Time Signed: 05/18/24 10:04 EST Ambulatory Visit Summaryon 1 07-04-2023 Ambulatory Visit Summary Ambulatory Visit Summary PATRICK HOLLY :1945 Visit Date:05/04/2024 Ambulatory Visit Instructions Your [...] atorvastatin (atorvastatin 40 mg Tab) cholecalciferol cyanocobalamin empagliflozin-metFORMI N (empagliflozin-metFORM IN 5 mg-1000 mg oral tablet) gabapentin (gabapentin [...] Follow-Up Appointments Friday 9:30 AM EST With: Damian RIOS, Ernestine Meehan Where: [address] [address]- Friday 10:45 AM EST With: Any RISO, Allan Cabello Where: [facility] Friday 1:00 PM EDT With: Where: [address] [address]- Friday 11:00 AM EDT With: Jose ALCALA MD Where: [facility] [address] [place] [address]- You Need to Schedule the Following Appointments Follow Up with CARI RIOS, Jose Rodriguez, URL When: Where: [address] [address]- Medications What How Much When [...] prescribing physician if questions or concerns Unchanged empagliflozin-metFORMI N (empagliflozin-metFORM IN 5 mg-1000 mg oral tablet) By Mouth [...] kidney disease, (more content not included)... Normal [facility] Urology Office/Clinic Noteon 05-04-2024 Urology Office/Clinic [...] Adrián Mackey. IPSS 4. 3. Anticoagulated (Z79.01: jail (current) use of anticoagulants) Eliquis. Overall patient [...] Information CARI RIOS, Jose Rodriguez, URL [address] [place] [id number]- Additional Instructions: 6 mos with PSA F&T [...] with voice recognition artificial intelligence software, specifically mymxlog, Corvil and or ReelBig. Substitutions may have occurred due to the [...] Cataract ca (more content not included)... Normal [facility] Comment on above: Result Comment: Elec tronically Signed By: COOK MD, Jose P\.br\Date and Time Signed: 05/04/24 11:22 EST\.br\Electronically Co-Signed By: Diana Michael\.br\Date and Time Co-Signed: 05/04/24 11:18 EST FREE AND TOTAL PSAon 11-12-2 024 % FREE PSA 14.8 Normal [facility] Comment on above: Result Comment: Percent [...] BPH. Performed By: #### F TPSA #### [facility] ([id number]) [address] [place] [address], [address] [place] [address] FREE PSA 1.45 ng/mL Normal [facility] Comment on above: Performed By: #### F TPSA #### [facility] ([id number]) [address], [address] [place] [address] PROSTATIC SPEC ANT 9.79 ng/mL High 0.00-4.00 [facility] Comment on above: Result Comment: The method used for this test is Janette Baltimore DXI chemiluminescent immunoassay. Values obtained by different assay methods cannot be used interchangeably. Performed By: #### F TPSA #### [facility] ([id number]) [address] [place] [address], [facility] [address] [place] [address] Ambulatory Visit Summaryon 0 12-30-2023 Ambulatory Visit Summary Ambulatory Visit Summary PATRICK HOLLY :1945 Visit Date:12/30/2023 Ambulatory Visit Instructions Your Diagnosis Type 2 diabetes mellitus with stage 3a chronic kidney disease Type 2 diabetes mellitus with hyperlipidemia BMI 28.0-28.9,adult Over weight Former smoker Chronic kidney disease, stage 3a Hyperlipidemia, unspecified Your Care Team Attending Physician - Ernestine Beverly MD. Primary Care Physician - Ernestine Beverly MD This Is Your Medications List amlodipine (amLODIPine 10 mg Tab) apixaban (Eliquis 5 mg oral tablet) aspirin (Aspir 81) atorvastatin (Lipitor 40 mg Tab) atorvastatin (atorvastatin 40 mg Tab) cholecalciferol cyanocobalamin empagliflozin-metFORMI N (empagliflozin-metFORM IN 5 mg-1000 mg oral tablet) gabapentin (gabapentin [...] Follow-Up Appointments Friday 10:15 AM EST With: CARI RIOS, Jose Rodriguez Where: [facility] Interpretation Code [address] [place] [address]- \.br\ Friday 10:45 AM EST \.br\ With: Any RIOS, Allan Cabello\.br\ Where: [facility]\.br\ Friday 1:00 PM EDT \.br\ With:\.br\ Where: [facility] Family Medicine Office/Clini c Noteon 12-30-2023 Family [...] diabetes mellitus with diabetic chronic kidney disease) Qymim-yl-htiv A1c shows improvement today. [facility] Ordered: A1c POC 27834 Body Mass Index (BMI) documented 3008F Current [...] Daily, # 5 tab(s), Refills(s) 0, Pharmacy: [facility] #[id number], 168, cm, 12/08/23 7:46:00 EDT, Height/Length Dosing, 82.1, kg, 12/08/23 7:46:00 EDT, Weight Dosing A1c POC 88914 Body Mass Index (BMI) documented 3008F Current tobacco non-user 1036F Depression Screening Negative 3352F Fall Risk Screen 2 or more w/injury 1100F Influenza immunization administered or previously received 4274F Most recent diastolic blood pressure <80 mm Hg 3078F Systolic BP <130 mm Hg (Most Recent) 3074F 3. BMI 28.0-28.9,adult (Z68.28: Body mass index [BMI] 28.0-28.9, adult) BMI education given. Ordered: A1c POC 06136 Body Mass Index (BMI) documented 3008F Current [...] Daily, # 5 tab(s), Refills(s) 0, Pharmacy: [facility] #[id number], 168, cm, 12/08/23 7:46:00 EDT, Height/Length Dosing, 82.1, kg, 12/08/23 7:46:00 EDT, Weight Dosing A1c POC 17201 Body Mass Index (BMI) documented 3008F Current [...] 5 tab(s), Refills(s) 0, [facility]acy: [facility] #[id number], 168, cm, 12/08/23 7:46:00 EDT, Height/Length Dosing, 82.1, kg, 12/08/23 7:46:00 EDT, Weight Dosing A1c POC 27355 Body Mass Index (BMI) documented 3008F Current [...] 5 tab(s), Refills(s) 0, Pharmacy: [facility] #[id number], 168, cm, 12/08/23 7:46:00 EDT, Height/Length Dosing, 82.1, kg, 12/08/23 7:46:00 EDT, Weight Dosing 7. Coronary artery disease involving [place] coronary artery [place] heart without angina pectoris (I25.10: Atherosclerotic heart disease of [place] coronary artery without angina pectoris) No chest pain at this time. Foll (more content not included)... 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 Benign hypertension with chronic kidney disease, stage III Your Care Team Attending Physician - Ernestine Beverly MD Primary Care Physician - Ernestine Beverly MD This Is Your Medications List amlodipine (amLODIPine 10 mg Tab) apixaban (Eliquis 5 mg oral tablet) aspirin (Aspir 81) atorvastatin (Lipitor 40 mg Tab) atorvastatin (atorvastatin 40 mg Tab) cholecalciferol cyanocobalamin empagliflozin-metFORMI N (empagliflozin-metFORM IN 5 mg-1000 mg oral tablet) gabapentin (gabapentin [...] AM EDT With: Ernestine Beverly MD Where: [facility] [place] Invalid Interpretation Code [address] [place] [address]- \.br\ Friday 10:45 AM EST \.br\ With: Allan Agarwal MD\.br\ Where: [facility]\.br\ Friday 1:00 PM EDT \.br\ With:\.br\ Where: [facility] Medicine Office/Clini c Noteon 12-11-2023 Family Medicine [...] tablet, 5 mg= 1 tab(s), Oral, BID empagliflozin-metFORMI N 5 mg-1000 mg oral tablet, Oral, BID [...] Recorded tetanus-diphtheria toxoids 07/16/2011 Recorded Normal [facility] Comment on above: Result Comment: Elec tronically Signed By: Damian RIOS, Ernestine Bowles.br\Date and Time Signed: 12/11/23 09:32 EDT Coding Summary.on 12-09-2023 Coding Summary. IZVCFzih04GVw8jFv+PG hl YWQ+SM2JAHVcD62izUMtyB 9tL3GZADaOCpoiMSTLHEaD JlSoflFhGI8ecDFcGRYm IC8+TU2sNQAdTfermSOnj9 P0tQJ5G10bkm6wVAgtsYH7 LNZaJoKyltgrp1lxzHw8GY cuNmluOyBt XHSqvS98AUQ4rH27Yo29zE MuiJXbb7zqlKt6FnMwCGGm GGX2dPyuEElvy6SoUWEsH6 9rvKQyo0L3 WRHuiUewoGGsWnKyeJK4vD 7bIGbasgzyu1ppfhzfAzn8 hc00fWGsl5L3rZB6Z0Bzih F4YQYreRIa BdydsYCImP2ppwmbn8qnrs vfUzHeAAHaHUl4OWt5JSOo wDuiUdIpKN31YEK4KVQcds ZyJ2XmOVMg xAcyWoW5x6W4Ww1DH4WBHi ydG0NBKLJFGPvcgGS+PC90 ax46B5NvGpaqUjy2KVXlEQ I4nUH0dW7n QYMeUVrxd5W3jYS2X8Pimc Hjtr2nc6ciNDXrSIwsP06q gBXcn7Y1IYGjiYD8FTFtyO ysAxOdbL95 Oyc+XCUjcYptf1IuIuyvs6 khx0cfhHp6CttrEXDbvrTj cFrpNQK2s8LlAq7aGORbxP L2eYX5aJ9d UeZiOlJ3LRyuJ701KzBixM RwYdbcV93xL9OvuGK+PHRy Epk4FTLmwVecXL4bB5MrHK RpbmctbGVm iPbzQR1yZHWtoevbOMFugG 8sTPYxU9q0WkErSzO7EFdb C9IjUILckhquWx24kW3xDe SpXvI2QHdk Z2LrnrD5FFLxfIWqDTyuRX A9L24ve4C7WGYyFIUfHDQ2 lLX5vC3wvQaobuvalTMjjD sgdmVydGlj PHvjNDdkT682TUVfdJroUi NvZGluZyBEYXRlOiAgMDYv MjUvMjAyNDwvdGQ+PHRkIH Y2nCokUHSv sVUoNZtsPq4tzPiejKreGW 2cYROxmiyoIDAsvW7hPDDz dDAtbHhdXO6kJNBqamozo7 75HvAvZPN5 PYKrzLBbC9XhwZ2xMqEoFD GxDIDmJ2SwcSUvOUlhM547 WYmaPvI4WXMepnOnJ2VtNM FsaWduOiB0 y6L6Ii3Bg0IjpupwC4BuqA ChWjXqZqimNQa3Q0LpNzqu dHI+RC67AJEbAS98XWc9WZ Z4zJjjKKzg KIJfE6KiuR7iYnYzXKKoNH RkOyc+PHRhYmxlIHdpZHRo OEteHJJkCfVsjTbvFT2iMy 9yZGVyLWNv jZyzcAQrRbVob1uhSDDkVZ arZE4erUxuR8MhvAJ8JVLr d0r5Pi58H80hJ3IymAV+PG LylIF0xGR8 kF5mCeUsHzB7EPvjD928Aj KpeMAuHeejs7ioz4xbkId5 IlG8IWIyrwRnfBizTLZ5d9 RlWl95R02g IHdpZHRoPSIxNSUiIHZhbG vlts8siU4eDr3+PGNvbCB3 zHX1mG4mAjBrHcW1AShjI6 49InRvcCIv Cnyta9wdm7bokLx0DxIqCL OzixAmdQjpREU7r4XyEw90 W9LzuWqdi1GdGry7vl92wO Bgt0U9vEN5 F9NtSKFwjkgarDAsiQoyPK 9rKAZottmtUTXizK0pZTDm Q2b3NsXkTwO3AKoxK0Flxw S4JMJfoZOy GAIjgCRGlT2dczxir0pzrx weDyEyJDJvIHj8QTi1WBUe cCztOuLmVOY6AuI8RCD4sA WfgT5kaAlj zgojbL6nGnp+OBD8tPPwlN MBDD2hTawusTI+PHRkIHN0 kCiaULdjEFKgmW3vEGGtJ9 k2HdXyElV6 YBicA9ZfsyD5QMMosFLdSF SatIPJpB9dgemfk8yxqxks CoWhHNEpDRj7FHu7NHIvnC duOiBsZWZ0 PdY6CRD6lXPccR5gpBposw wuwU8nTdt+QmlydGggRGF0 JUw5P0FkQiq6UTDiyFhjWI 0ncGFkZGlu Up4klFlzsZhbQH9kZJEptj ore611AzVmt6caQMKhgVZw FUqoRUZ7O67so5R4MYGxWG OqEEL5iXM3 zC2zuRwunvqdjIYnmKnjeq DszNcjHIwiPRkdH367SYOx hXcaDiOqXVn8M4MmEsy8AT NwrDrzXR2h zYBpFCjxMc0hvKancBjdPP 0fVPExnuziq798CzGlh5sp MRMbkILrFOlqMPJ0U68xn6 M6BZTjAKFz KOI9lXK0fE1fvWlgmmoykL VmdDsgdmVydGljYWwtYWxp L099GCMlwRmzKpDisTe0A0 UjSap6DLRv tEazNU9svBIhOQhqGm0glS lnbEngAB7jPUMogeadd194 YxVvb1tpMCXrzQFhTOnhMX I7F31ly9B1 MOVqUTRaSUX4fCZ7sX8zwS lnbjogbGVmdDsgdmVydGlj FTfeCHnlL854OZNtlVdpHy BhdGllbnQg ENspURl8K6TzKracaOO+PC 76PUOlJJ78wRGghOUem3pq zPt2EoQyZUDrAJT8vJauMH fxi4EnDVRw M07itBEjy1C5IXHugEpxaU UaIcFrcUJ5jV6kUJboqgvt h3ulbnktTvnfa4stki69sT 71U69hCAtz ZHRoPSIzMCUiIHZhbGlnbj 2opG1iXs3+GZFywRV3qJA3 yV8hERHbTaF4LKmrG399Qr RvcCIvPjxj b9mps0kzgVm6HcL4MQGohu FcnKipLQC5i7BrKt99D19x IHdpZHRoPSIyMCUiIHZhbG ojxu9xjC1v Ii8+TVYrtWI1pRO8vH8yPf SrDdR9BEbnA853YbTjrKOq YiioW38kQ0EuiIA+PHRyPj z5KPGliWiw BE6ryZEpQSamRk3qLYG9Uv XzCbBlQSvvP8LgSFYytvpp jeijqZA8FGIdQOAmrB97Tq 9udDogMTBw iICLlC5xflrfo5vmxmkyEh BfHJPsVMm5FLg2CQFbrVkd GvUfCDS8UyU6OLP4kRMsmV 1hbGlnbjog nC0eS9HaBARoibwrDy20lH 0sIySlFsU9OZdeVzo+TUlM TSOCMXYNLSGVPEWGOT87VS 79pYFiw2T0 mKW9P8VxJEFgqvbmqgbkaV O7DCShOFQpmN41nTEbRIct Zw9vh4D0s709JDXqEESbnR 18Ru4bbYhb AJAavJGDhG8jqpvfb2zvrq wrGzPoHMTnJDs2FJw7EIMy wAyoYuEfVFG9BcS3ZQU4jN QgrA0vgTcq kayiaN4aJcy+MTEvMjUvMT g4FXjnyGZ+TVVsNTG8sTxi TIerZOSgrC6eEAPgU0i6Ps UpRdG3ZQjs B0StVIUfhxpwBt03yZ4sXm VgNaD5ZSrvI9EzeoF7FHGb kEFaANqgJBF1Y31mp3O4YW MwMDAwMDA7 xMB7lY6htJvqsmpjkYDihG nignPbbEsrVZshXWliZ408 BSMhrQklPvf0LHsjYYUkJL 00MW18vOHt f1N5oTJ1X7XdIVCgizfmro aeyZA6SIWgDSIihQ53eTYj IQhhBj1rf7I7a062HMSpXD HkrY18Dm4s jDviFDDhnOBLyJ5jfskti5 xinjxjDzVrWPIqHPh6HWt8 FHCduXsnApCrSWL7PbR1ZV L2cSLtzX0l sSjylpsijL1jYyd+TWFsZT wvdGQ+HRRlVJU8hRdoFGlx KXEdxX0aSHEuY0b2DwMtMd R5XHxbI5Vz HECycnkeEn89fB9fZyErIj R0NMxrF8JpjiM0RUAwhHPd FXmgJAI2F28to1T1LZVhQY OsFTQ6tHA1 nO2qeQpugnygnVYpwKicgf TorEhmKAeuXWrsL477MHXc yPywNg19hTLwoQhlcsW5F1 RkPjwvdHI+ XY96HNQtYQ36jZJnuQLte0 pioYg5MfEoLBVoOQE6vZsl LAazc2WfALBeX41ggROla1 K8EGPgbBqe bRXsCdTjnBY4iB6pSHdgjp hki4uudvkoIsbsk8ekez37 nB20Y45sPEosVENoAVOlUI UiIHZhbGln rg9tgN9mTw9+SFPdrCY0aO A4tT3uMaAlOpB2MPnrM475 HcMviSNeEdlnj0gxl9gtfJ v3AnVcJXUq ktZwiUgyJID0l7PuAa27N2 9sIHdpZHRoPSIyMCUiIHZh dWerqo8ysD7mTt6+PC9jb2 zxkt60rS22 dHI+MWTsQVO7xPiiNBnbFB IdvB7cFZeoIzS4SXEfAzCz eZ87kGPcMBqnNk3dwFufdP qhPC0lIVVu wlzdl129MxLur3dyXDFzvH TvFOufEAY3V89os2H9SSEt BMXwKKL5bVX0tL3exAwalq ogbGVmdDsg dwUjrRkfONnbXOziC064NY KhiXwmHnGgeRVhH2vqcfJZ DT4kVvfbyBU+NFUbVFD7kW xlPSdwYWRk fF5nVXIwK6r4EwWpGtH4YF epV9TmkbE6ZDNnwPJeAISh zXGAiB3kjkcag3qpicniAu AwMDAwMDt0 ZBt8QLTuxVxyGoFqWAM5Mk M5PFG6uXBytG2yfCazgujj cA5lFbf+RklOOjwvdGQ+PH RjREZ6zUge VYvnELSnvQ8wSISoM9y5Im YeUkY2TDfyD2MubfN9OMTt xRBdPZNhlGYRgB7pkmobu2 xvcjogIzAw XQFuTAa1KSw3IPTviLguBz FqOZH8YjD2GXP2yZNjpB7e fAwfzplmyP5qCcm+TVJOOj wvdGQ+PHRk QRS0sGddEBucHJYbmV5xWK DwF2k1XqXxHrZ5BCvzM7Rw ulX2WOWihCJwQCUaoGGNlQ 3pnbgzi6mz rlfgGzNfZSIrWFc4OJu4EI FfmDwjYuNhXIQ5BsJ7HPQ9 uNWzwU5uiOclwbwjqQ8ePx c+ONL5ZCG9 RJ64HG51P6OlYzxqfNEziY U+PHRhYmxlIHdpZHRoPScx VJLlBfSgoFonNG5sFd0kLO VyLWNvbGxh nSNlCnFph2xwW (more content not included)... Normal [facility] Ambulatory Visit Summaryon 0 12-08-2023 Ambulatory Visit Summary PATRICK HOLLY :1945 Visit Date:12/08/2023 Ambulatory Visit Instructions Your Diagnosis BMI 29.0-29.9,adult Over weight Former smoker Your Care Team Attending Physician - Ernestine Beverly MD Primary Care Physician - Ernestine Beverly MD This Is Your Medications List amlodipine (amLODIPine 10 mg Tab) apixaban (Eliquis 5 mg oral tablet) aspirin (Aspir 81) atorvastatin (Lipitor 40 mg Tab) cholecalciferol cyanocobalamin empagliflozin-metFORMI N (empagliflozin-metFORM IN 5 mg-1000 mg oral tablet) gabapentin (gabapentin [...] EDT With: Damian RIOS, Ernestine Meehan Where: [facility] Invalid Interpretation Code [address] [place] [address]- \.br\ Friday 10:15 AM EST \.br\ With: CARI RIOS, Jose Rodriguez\.br\ Where: [facility] ED Note-Physicianon 12-08-19 ED Note-Physician [id number]#1.00 TIFF [facility] ED Note-Physician [id number]#1.0 0TIFF [facility] Family Medicine Office/Clini c Noteon 12-08-2023 Family Medicine Office/Clinic Note HPI Staff Patrick is a 78 year old male presenting for Er follow up ER followup: Hospital: [facility] Visit date: 12/04/23 Symptoms the patient presented with: left hand painful and swollen, went to [facility] and they didn't do anything told him to take tylenol which does nothing for him so went to [facility] and was given pain pills (tylenol w/ codeine) and dxed with arthritis ( xray from [facility] is in documents) had labs also Current [...] Daily, # 5 tab(s), Refills(s) 0, Pharmacy: [facility] #[id number], 168, cm, 12/08/23 7:46:00 EDT, Height/Length Dosing, 82.1, kg, 12/08/23 7:46:00 EDT, Weight Dosing 2. Type 2 diabetes mellitus with hyperlipidemia (E11.69: Type 2 diabetes mellitus with other specified complication) - Please monitor BS. Ordered: predniSONE, 20 mg = 1 tab(s), Oral, Daily, # 5 tab(s), Refills(s) 0, Pharmacy: [facility] #[id number], 168, cm, 12/08/23 7:46:00 EDT, Height/Length Dosing, 82.1, kg, 12/08/23 7:46:00 EDT, Weight Dosing 3. BMI 29.0-29.9,adult (Z68.29: Body mass index [BMI] 29.0-29.9, adult) - BMI education advised. Ordered: predniSONE, 20 mg = 1 tab(s), Oral, Daily, # 5 tab(s), Refills(s) 0, Pharmacy: [facility] #[id number], 168, cm, 12/08/23 7:46:00 EDT, Height/Length Dosing, [...] Daily, # 5 tab(s), Refills(s) 0, Pharmacy: [facility] #[id number], 168, cm, 12/08/23 7:46:00 EDT, Height/Length Dosing, [...] Daily, # 5 tab(s), Refills(s) 0, Pharmacy: [facility] #[id number], 168, cm, 12/08/23 7:46:00 EDT, Height/Length Dosing, [...] with mild nonproliferativ (more content not included)... [facility] Comment on above: Result Comment: Elec tronically Signed By: Ernestine Beverly MD\.br\Date and Time Signed: 12/08/23 08:34 EDT RAD - MISCon 12-08-2023 RAD - MISC [id number]#1.0 0TIFF [facility] Pre-Visit Planningon 024 Pre-Visit Planning - From: Ingrid Unger To: Ernestine Beverly MD; Sent: 12/05/2023 14:22:20 EDT Subject: Pre-Visit Planning Due Date/Time: 12/05/2023 14:22:00 EDT Caller Name: PATRICK HOLLY; Caller Number: Krystal , M Mn Dr. Beverly. During a pre-visit planning chart [...] feel free to contact me at extension [phone]. Thank you! Ingrid Unger LPN From: Damian RIOS, Ernestine Meehan To: Ingrid Unger; Sent: 12/07/2023 11:11:59 EDT Subject: RE: Pre-Visit Planning Caller Name: PATRICK HOLLY; Caller Number: Krystal , M Chronic Kidney Disease Stage 3a (GFR 45-59) Normal 272 [facility] CBC AND AUTO DIFFon 12-03-19 24 ABSOLUTE BASOPHIL 0.0 X10E9/L Normal 0.0-0.2 [facility] Comment on above: Performed By: #### C BCA #### [facility] ([id number]) [address] [place] [address] 48238 ABSOLUTE NEUTROPHIL 5.4 X10E9/L Normal 1.5-6.6 [facility] Comment on above: Performed By: #### C BCA #### [facility] ([id number]) [address] [place] [address] 50872 Basophils/100 WBC (Bld) 0.3 % Normal [facility] Comment on above: Performed By: #### C BCA #### [facility] ([id number]) [address] [place] [address] 84469 Eosinophils (Bld) [#/Vol] 0.5 10*3/uL High 0.0-0.4 [facility] Comment on above: Performed By: #### C BCA #### [facility] ([id number]) [address] [place] [address] 40413 Eosinophils/100 WBC (Bld) 6.0 % Normal [facility] Comment on above: Performed By: #### C BCA #### [facility] ([id number]) [address] [place] [address] 79356 Erythrocyte distribution width (RBC) [Ratio] 14.4 % Normal 11.5-15.0 [facility] Comment on above: Performed By: #### C BCA #### [facility] ([id number]) [address] [place] [address] 25932 Hematocrit (Bld) [Volume fraction] 30.9 % Low 39-49 [facility] Comment on above: Performed By: #### C BCA #### [facility] ([id number]) [address] [place] [address] 14779 Hemoglobin (Bld) [Mass/Vol] 10.8 g/dL Low 13.0-17.0 [facility] Comment on above: Performed By: #### C BCA #### [facility] ([id number]) [address] [place] [address] 39043 Lymphocytes (Bld) [#/Vol] 1.3 10*3/uL Normal 1.0-3.5 [facility] Comment on above: Performed By: #### C BCA #### [facility] ([id number]) [address] [place] [address] 09916 Lymphocytes/100 WBC (Bld) 17.4 % Normal [facility] Comment on above: Performed By: #### C BCA #### [facility] ([id number]) [address] [place] [address] 59921 MCH (RBC) [Entitic mass] 31.5 pg Normal 27-34 [facility] Comment on above: Performed By: #### C BCA #### [facility] ([id number]) [address] [place] [address] 24839 MCHC (RBC) [Mass/Vol] 34.9 g/dL Normal 32-36 [facility] Comment on above: Performed By: #### C BCA #### [facility] ([id number]) [address] [place] [address] 93893 MCV (RBC) [Entitic vol] 90 fL Normal 80-100 [facility] Comment on above: Performed By: #### C BCA #### [facility] ([id number]) [address] [place] [address] 18837 Monocytes (Bld) [#/Vol] 0.4 10*3/uL Normal 0-0.9 [facility] Comment on above: Performed By: #### C BCA #### [facility] ([id number]) [address] [place] [address] 35960 Monocytes/100 WBC (Bld) 5.7 % Normal [facility] Comment on above: Performed By: #### C BCA #### [facility] ([id number]) [address] [place] [address] 46521 Neutrophils/100 WBC (Bld) 70.6 % Normal [facility] Comment on above: Performed By: #### C BCA #### [facility] ([id number]) [address] [place] [address] [place] [address] Platelet mean volume (Bld) [Entitic vol] 8.5 fL Normal 7-12 [facility] Comment on above: Performed By: #### C BCA #### [facility] ([id number]) [address] [place] [address] 22071 Platelets (Bld) [#/Vol] 237 10*3/uL Normal 150-450 [facility] Comment on above: Performed By: #### C BCA #### [facility] ([id number]) [address] [place] [address] 78045 RBC COUNT 3.42 X10E12/L Low 4.10-5.70 [facility] Comment on above: Performed By: #### C BCA #### [facility] ([id number]) [address] [place] [address] 57238 WBC (Bld) [#/Vol] 7.7 10*3/uL Normal 4.0-11.0 [facility] Comment on above: Performed By: #### C BCA #### [facility] ([id number]) [address] [place] [address] 74113 CRP [Mass/Vol]on 12-03-2023 C REACTIVE PROTEIN 0.6 mg/dL Normal 0.000-0.744 [facility] Comment on above: Performed By: #### 1 988-5 #### [facility] ([id number]) [address] [place] [address] 21376 #### [id number] #### [facility] ([id number]) [address] [place] [address], [address] [place] [address] ESR Photometric method (Bld) [Velocity]on 12-03-2023 ESR, ERYTHROCYTE SEDIMENTATION RATE 6 mm/h Normal 0-20 [facility] Comment on above: Performed By: #### 1 988-5 #### [facility] ([id number]) [address] [place] [address] 29320 #### [id number] #### [facility] ([id number]) [address], [address] [place] [address] XR HAND LT MIN 3 VWSon 12-02 [...] Yun MD on 12/03/2023 9:43 AM Normal [facility] Ambulatory Visit Summaryon 0 11-28-2023 Ambulatory Visit Summary HOLLY PATRICK A :1945 Visit Date:11/28/2023 Ambulatory Visit Instructions Your Diagnosis CAD (coronary artery disease) Paroxysmal atrial fibrillation Hyperlipidemia Your Care Team Attending Physician - Any RIOS, Allan Cabello Primary Care Physician - Damian RIOS, Ernestine Meehan Referring Physician - NONE, XXXX This Is Your Medications List amlodipine (amLODIPine 10 mg Tab) apixaban (Eliquis 5 mg oral tablet) aspirin (Aspir 81) cholecalciferol cyanocobalamin empagliflozin-metFORMI N (empagliflozin-metFORM IN 5 mg-1000 mg oral tablet) gabapentin (gabapentin [...] EDT With: Damian RIOS, Ernestine Meehan Where: [facility] Invalid Interpretation Code [address] [place] [address]- \.br\ Friday 10:45 AM EST \.br\ With: Allan Agarwal MD\.br\ Where: [facility]\.br\ Friday 1:00 PM EDT \.br\ With:\.br\ Where: [facility] Consent for Treatmenton 11-14 Consent for Treatment [id number]#1.00T IFF Normal [facility] Heart and Vascular Office/Cl inic Noteon [...] artery disease) (I25.10: Atherosclerotic heart disease of [place] coronary artery without angina pectoris) No evidence of angina or anginal-like symptoms. Will continue guideline recommended medical therapy. He is not interested in stress testing. Unsure if he had a Lexiscan stress test which was ordered by Dr. Tai. It appears that the patient has stable CAD by symptoms; without formal stress testing, difficult to milk runner, therefore at this point, we would continue [...] tablet, 5 mg= 1 tab(s), Oral, BID empagliflozin-metFORMI N 5 mg-1000 mg oral tablet, Oral, BID [...] age 47 Ye (more content not included)... Normal [facility] Comment on above: Result Comment: Elec tronically Signed By: Any RIOS, Allan Cabello\.br\Date and Time Signed: 11/28/23 10:58 EDT Physician Orderon 11-28-2023 Physician Order [id number]#1. 00TIFF [facility] Lab Reportson 11-18-2023 Lab Reports [id number]#1.00 TIFF Normal [facility] Lab Reports [id number]#1.0 0TIFF Normal [facility] Screenson 11-18-2023 Screens [id number]#1.0 0TIFF [facility] Ambulatory Visit Summaryon 0 11-17-2023 Ambulatory [...] oral tablet) aspirin (Aspir 81) cholecalciferol cyanocobalamin empagliflozin-metFORMI N (empagliflozin-metFORM IN 5 mg-1000 mg oral tablet) gabapentin (gabapentin [...] Follow-Up Appointments Friday 10:45 AM EDT With: Allan Agarwal MD Where: [facility] Friday 9:15 AM EDT With: Ernestine Beverly MD Where: [facility] Invalid Interpretation Code [address] [place] [address]- \.br\ Friday 1:00 PM EDT \.br\ With:\.br\ Where: [facility] Patient Educationon 11-17-19 Patient Education Oncology Prostate [...] Where to find more information ? The [place] [employer]: www.cancer.org ? [employer] [employer]: www.auanet.org Contact a health care [...] adds flu (more content not included)... Normal [facility] Urology Office/Clinic Noteon 11-17-2023 Urology Office/Clinic Note [...] the plan. Follow-up With When Contact Information Jose ALCALA MD, URL [address] [facility] [address] [place] [address]- Additional Instructions: 4-5 mos PSA F&T Patient Education Prostate Cancer Screening I, Diana Michael, personally scribed for Dr. Alcala on 11/17/2023 11:29:57. . Documentation recorded by the scribe, Diana Michael, accurately reflects the services(s) I performed and decisions made by me. Authenticated by Dr. Alcala on 11/17/2023 11:51:14. Portions of this record may have been created with voice recognition artificial intelligence software, specifically mymxlog, Corvil and or ReelBig. Substitutions may have occurred due to the [...] cryoablation of (more content not included)... Normal [facility] Comment on above: Result Comment: Elec tronically Signed By: Jose ALCALA MD\.br\Date and Time Signed: 11/17/23 11:52 EDT\.br\Electronically Co-Signed By: Diana Michael\.br\Date and Time Co-Signed: 11/17/23 11:30 EDT FREE AND TOTAL PSAon 024 % FREE PSA 15.6 Normal [facility] Comment on above: Result Comment: Percent [...] BPH. Performed By: #### F TPSA #### [facility] ([id number]) [address] [place] [address], [facility] [address] [place] [address] FREE PSA 1.36 ng/mL Normal [facility] Comment on above: Performed By: #### F TPSA #### [facility] ([id number]) [address] [place] [address], [address] [place] [address] PROSTATIC SPEC ANT 8.72 ng/mL High 0.00-4.00 [facility] Comment on above: Result Comment: The method used for this test is Janette Paresh DXI chemiluminescent immunoassay. Values obtained by different assay methods cannot be used interchangeably. Performed By: #### F TPSA #### [facility] ([id number]) [address] [place] [address], [address] [place] [address] Consent for Procedure/Surger yon 10-03-2023 Consent for Procedure/Surgery [id number]#1.0 0TIFF Normal [facility] Ambulatory Visit Summaryon 0 10-02-2023 Ambulatory Visit Summary PATRICK HOLLY :1945 Visit Date:10/02/2023 Ambulatory Visit Instructions Your Diagnosis Pneumaturia BPH with urinary obstruction Elevated PSA Urinary retention History of UTI Your Care Team Attending Physician - Jose ALCALA MD Primary Care Physician - Ernestine Beverly MD This Is Your Medications List tamsulosin (tamsulosin 0.4 mg Cap) Contact prescribing physician if questions or concerns amlodipine (amLODIPine 10 mg Tab) apixaban (Eliquis 5 mg oral tablet) aspirin (Aspir 81) cholecalciferol cyanocobalamin empagliflozin-metFORMI N (empagliflozin-metFORM IN 5 mg-1000 mg oral tablet) gabapentin (gabapentin [...] Any RIOS, Allan Cabello Where: [facility] Friday 11:00 AM EDT With: Jose ALCALA MD Where: [facility] Invalid Interpretation Code [address] [place] [address]- \.br\ Friday 1:00 PM EDT \.br\ With:\.br\ Where: [facility] Urology Office/Clinic Noteon 10-02-2023 Urology Office/Clinic Note [...] with voice recognition artificial intelligence software, specifically mymxlog, Corvil and or ReelBig. Substitutions may have occurred due to the [...] lower urinary tract symptoms) Pt presented to [facility] on 03/11/23 for blood in urine & dysuria. On 03/07/23 pt was diagnosed w/ acute urinary tract infection (E-Coli), treated with Keflex. DINORA 03/11/23 TB - enlarged prostate gland w/ large post void residual on 341, prominent hypoechoic area seen in the prostate gland measuring 1.3x1.5x1.6cm. CT 03/11/23 [facility] - prostatomegaly. Pt has Calvo catheter, placed in [facility] due to high residual volume. Pt [...] Contact Information Jose ALCALA MD, URL [address] [facility] [address] SU[address] (more content not included)... Normal [facility] Comment on above: Result Comment: Elec tronically Signed By: Jose ALCALA MD\.br\Date and Time Signed: 10/02/23 14:02 EDT\.br\Electronically Co-Signed By: Itzel Covarrubias\.br\Date and Time Co-Signed: 10/02/23 14:00 EDT XR CHEST PA+LAT 2 VIEWSon XR CHEST PA+LAT 2 VIEWS EXAMINATION: XR CHEST PA+LAT 2 VIEWS 12/20/2022 12:00 PM CLINICAL HISTORY: dyspnea ASSOCIATED DIAGNOSIS: Dyspnea, unspecified type Additional history per [facility] EMR: Status post coronary artery bypass [...] artery bypass surgery. MACRO: None Normal [facility] X[facility] Chest PA and Lateralon EXAMINATION: XR CHES T PA+LAT 2 VIEWS 12/20/2022 12:00 PM CLINICAL HISTORY: dyspnea ASSOCIATED DIAGNOSIS: Dyspnea, unspecified type Additional history per [facility] EMR: Status post coronary artery bypass [...] DIAGNOSIS: Dyspnea, unspecified type Additional history per [facility] EMR: Status post coronary artery bypass [...] for coronary artery bypass surgery. MACRO: None [facility] (narrative) [facility] XR Chest PA and LateralOrder ed By: Daina Fuentes on 12-20-2022 [employer] Work Phone: [facility] echo transthoracicon [facility] echo transthoracic [facility] Main [place] [address] [place] [address] Echocardiogram Signed Patient: Patrick Holly MR#: [id number] 04 : 1945 Acct:[id number] Age/Sex: 77 / M ADM Date: 11/04/22 Loc: Room: Type: [facility] Attending Dr: Jonas Cruz DO Ordering Provider: Jonas Cruz DO Date of Service: 11/04/22/ [facility] echo transthoracic: CHRONIC ISCHEMIC HEART DISEASE, CABG Copies to: Alfonso Contreras MD, FACC Jonas Cruz DO Weight: 185 lb Performed By: BERNARDO Calderon BSA: 2.0 m2 BP: 142/82 mmHg HR: 72 Reason For Study: CHRONIC ISCHEMIC HEART DISEASE, CABG History: Hyperlipidemia,Hyperte nsion,CABG,DM Interpretation Summary Mild concentric left ventricular hypertrophy. [...] 11/04/22 0951 Signed By: Alfonso Contreras MD, [facility] 11/04/22 1023 Normal [facility] ANAon 09-19-2020 LILI SCREEN <1:40 Normal <1:40,1:40 [facility] Comment on above: Performed By: #### 9 9744, 52762, 12338 #### [facility] [address] [facility]. [address] CBC COMPLETE BLOOD COUNTon 0 09-19-2020 Erythrocyte distribution width (RBC) [Ratio] 12.7 % Normal 11.5-15.0 [facility] Comment on above: Performed By: #### 9 9744, 01331, 64849 #### [facility] [address] [facility]. [address] Hematocrit (Bld) [Volume fraction] 37.7 % Low 39.0-50.0 [facility] Comment on above: Performed By: #### 9 9744, 31391, 06832 #### [facility] [address] [place] [address], [facility] Hemoglobin (Bld) [Mass/Vol] 12.4 g/dL Low 13.0-17.0 [facility] Comment on above: Performed By: #### 9 9744, 00378, 77269 #### [facility] [address] [place] [address], [facility] MCH (RBC) [Entitic mass] 30.1 pg Normal 27.0-33.0 [facility] Comment on above: Performed By: #### 9 9744, 70776, 34199 #### [facility] [address] [place] [address], [facility] MCHC (RBC) [Mass/Vol] 32.9 g/dL Normal 32.0-35.0 [facility] Comment on above: Performed By: #### 9 9744, 86558, 82724 #### [facility] [address] [place] [id number], [facility] MCV (RBC) [Entitic vol] 91.5 fL Normal 82.0-98.0 [facility] Comment on above: Performed By: #### 9 9744, 01757, 78090 #### [facility] [address] [place] [address], [facility] Nucleated RBC/100 WBC (Bld) [Ratio] 0 % Normal 0-0 [facility] Comment on above: Performed By: #### 9 9744, 15157, 60769 #### [facility] [address] [place] [address], [facility] PLAT CNT 239 10*3/uL Normal 150-400 [facility] Comment on above: Performed By: #### 9 9744, 13010, 35336 #### [facility] [address] [place] [address], [facility] RBC (Bld) [#/Vol] 4.12 10*6/uL Low 4.20-5.70 [facility] Comment on above: Performed By: #### 9 9744, 12470, 54140 #### [facility] [address] [place] [address], [facility] WBC (Bld) [#/Vol] 7.78 10*3/uL Normal 4.00-10.60 [facility] Comment on above: Performed By: #### 9 9744, 06531, 32809 #### [facility] [address] [place] [address], [facility] COMP METABOLIC PANELon 09-19 Albumin [Mass/Vol] 4.3 g/dL Normal 3.5-5.7 [facility] Comment on above: Performed By: #### 0 0121, 96222, 34368 #### [facility] [address] [facility] [address], [facility] ALKALINE PHOSPH 50 IU/L Normal 34-104 [facility] Comment on above: Performed By: #### 0 0121, 76422, 40077 #### [facility] [address] [facility] [address], [facility] ALT [Catalytic activity/Vol] 14 U/L Normal 7-52 [facility] Comment on above: Performed By: #### 0 0121, 26391, 61460 #### [facility] [address] [place] [address], [facility] AST [Catalytic activity/Vol] 13 U/L Normal 13-39 [facility] Comment on above: Performed By: #### 0 0121, 70155, 08446 #### [facility] [address] [place] [address], [facility] Bilirubin [Mass/Vol] 0.4 mg/dL Normal 0.3-1.0 [facility] Comment on above: Performed By: #### 0 0121, 26957, 49379 #### [facility] [address] [place] [address], [place] Calcium [Mass/Vol] 9.6 mg/dL Normal 8.6-10.3 [facility] Comment on above: Performed By: #### 0 0121, 95369, 44893 #### [facility] [address] [place] [address], [place] Chloride [Moles/Vol] 100 mmol/L Normal 98-107 [facility] Comment on above: Performed By: #### 0 0121, 34910, 51830 #### [facility] [address] [place] [address], [place] CO2 [Moles/Vol] 26 mmol/L Normal 21-31 [facility] Comment on above: Performed By: #### 0 0121, 22228, 65282 #### [facility] [address] [place] [address], [place] Creatinine [Mass/Vol] 1.58 mg/dL High 0.70-1.30 [facility] Comment on above: Performed By: #### 0 0121, 68146, 56792 #### [facility] [address] [place] [address], [place] eGFR- 52 ml/min/1.73sq m Abnormal >60 [facility] Comment on above: Result Comment: Calc ulation may not be valid for patients over 70 years Performed By: #### 0 0121, 57086, 51973 #### [facility] [address] [place] [address], [place] eGFR- non- 43 ml/min/1.73sq m Abnormal >60 [facility] Comment on above: Result Comment: Calc ulation may not be valid for patients over 70 years Performed By: #### 0 0121, 06943, 96924 #### [facility] [address] [place] [address], [place] Glucose [Mass/Vol] 150 mg/dL High 70-100 The [facility] Comment on above: Performed By: #### 0 0121, 59171, 97665 #### [facility] [address] [place] [address], [place] Potassium [Moles/Vol] 4.8 mmol/L Normal 3.5-5.1 The [facility] Comment on above: Performed By: #### 0 0121, 64223, 90764 #### [facility] [address] [place] [address], [place] Protein [Mass/Vol] 7.7 g/dL Normal 6.0-8.3 [facility] Comment on above: Performed By: #### 0 0121, 87627, 84020 #### [facility] [address] [place] [address], [place] Sodium [Moles/Vol] 135 mmol/L Low 136-145 [facility] Comment on above: Performed By: #### 0 0121, 96244, 45509 #### [facility] [address] [place] [address], [place] Urea nitrogen [Mass/Vol] 40 mg/dL High 7-25 The [facility] Comment on above: Performed By: #### 0 0121, 65138, 46826 #### [facility] [address] [place] [address], [place] COMPLEMENT 09-19-2020 COMPLEMENT 3 115 mg/dL Normal 79-152 The [facility] Comment on above: Performed By: #### 9 9744, 35654, 94136 #### [facility] [address] [place] [address], [place] COMPLEMENT 09-19-2020 COMPLEMENT 4 20 mg/dL Normal 16-38 The [facility] Comment on above: Performed By: #### 9 9744, 81310, 93676 #### [facility] [address] CREATININE URINE RANDOMon Creatinine (U) [Mass/Vol] 36.0 mg/dL Normal The [facility] Comment on above: Result Comment: Ther e are no established reference values for random urine specimens Performed By: #### 9 9744, 97791, 53669 #### [facility] [address] HEP B CORE AB IGM [id number] HEP B CORE IGM Negative Normal Negative The [facility] Comment on above: Result Comment: INTE RPRETIVE INFORMATION: Hepatitis B Core Ab, IgM This assay should not be used for blood donor screening, associated re-entry protocols, or for screening Human Cells, Tissues and Cellular and Tissue-Based Products (HCT/P). Performed By: [employer] [address] [place] [id number] Cement Tester Assistant: Wen Washington MD HEPATITIS C ANTIBODYon 09-19 ANTI-HCV Non-Reactive Normal NONREACTIVE [facility] Comment on above: Performed By: #### 3 1397, 36806 #### [facility] [address] [facility]. [address] IMMUNOGLOB BLon 09-19-2020 IgA [Mass/Vol] 204 mg/dL Normal 60-413 The [facility] Comment on above: Performed By: #### 9 9744, 96403, 48617 #### [facility] [address] [place] [address], [facility] IgG [Mass/Vol] 1310 mg/dL Normal 591-1540 [facility] Comment on above: Performed By: #### 9 9744, 27161, 33974 #### [facility] [address] [place] [address], [facility] IgM [Mass/Vol] 53 mg/dL Low 54-285 [facility] Comment on above: Performed By: #### 9 9744, 55097, 65619 #### [facility] [address] [place] [address], [facility] PROTEIN ELECT Tin 09-19-2020 Protein [Mass/Vol] 7.2 g/dL Normal 6.0-8.3 [facility] Comment on above: Performed By: #### 3 1397, 96334 #### [facility] [address] [facility] [address], [facility] PROTEIN ELECT Normal [facility] Comment on above: Result Comment: Norm al Pattern. Prominent albumin peak is seen along with normal fractions of alpha 1, alpha 2, beta and gamma globulins. SEE SEPARATE REPORT Performed By: #### 3 1397, 03704 #### [facility] [address] [facility] [place] [address], [facility] Result Comment: Urin e protein electrophoresis suggests a nonselective nephropathy. SEE SEPARATE REPORT Performed By: #### 9 9744, 11333, 49402 #### [facility] [address] [facility] [place] [address], [facility] PROTEIN ELECT URon U TOTAL PROTEIN 59.0 mg/dL [facility] Comment on above: Result Comment: Ther e are no established reference values for random urine specimens Performed By: #### 9 9744, 10201, 40741 #### [facility] [address] [facility] [place] [address], [facility] PTH INTACTon 09-19-2020 PTH INTACT 28 pg/mL Normal 12-88 [facility] Comment on above: Performed By: #### 0 0121, 04451, 79427 #### [facility] [address] [facility] [place] [address], [facility] US BLADDERon 09-19-2020 US BLADDER [facility] Department of Radiology [address] [place] [id number] ======== Patient Name: PATRICK HOLLY : 1945 Sex: M Age: Race: White Pt. Location: [facility] Patient Status: O Ordered Date: 09/01/2020 9:05:00 AM Completed Date: 09/19/2020 11:50 AM Requesting Provider: TOY EDGAR Attending Provider: TOY EDGAR Report Copy To: Signs & Symptoms: N18.30 Chronic kidney disease, stage 3 unspecified I10 History: Edie [facility] Req. Nilesh Brand @[facility] for CPT 10895 Call Ref#[id number] Med Nec-Passed 09/04 *SLA Comments: Exam: US BLADDER ======== US BLADDER 09/19/2020 11:50 AM CLINICAL INDICATIONS: N18.30 Chronic kidney disease, stage 3 unspecified I10 TECHNOLOGIST COMMENTS: ckd QUESTION FOR THE RADIOLOGIST: PROTOCOL: ULTRASOUND ROUTINE PROTOCOL COMPARISON: none FINDINGS: The bladder initially contained 365 mL of urine which diminished to 34 mL post void. Ureteral jets were identified. IMPRESSION: Unremarkable gallbladder ultrasound. Electronically signed: Alexander Bradshaw. Transcribed by: [email or web address], User Resident: Electronically Signed by: ALEXANDER BRADSHAW @ 09/19/2020 01:31 PM Normal [facility] US RENALon 09-19-2020 US RENAL [facility] Department of Radiology [address] [place] [phone] ======== Patient Name: PATRICK HOLLY : 1945 Sex: M Age: Race: White Pt. Location: [facility] Patient Status: O Ordered Date: 09/01/2020 9:05:00 AM Completed Date: 09/19/2020 11:50 AM Requesting Provider: TOY EDGAR Attending Provider: TOY EDGAR Report Copy To: Signs & Symptoms: N18.30 Chronic kidney disease, stage 3 unspecified I10 History: Edie NPC Req. Nilesh Glass @[facility] for CPT 09726 Call Ref#[id number] Med Nec-Passed 09/04 *SLA Comments: Exam: US RENAL ======== US RENAL 09/19/2020 11:50 AM SIGNS AND [...] calcification. Electronically signed: Alexander Bradshaw. Transcribed by: [email or web address], User Resident: Electronically Signed by: ALEXANDER BRADSHAW @ 09/19/2020 01:28 PM Normal [facility] VITAMIN D 25-HYDROXYon 09-19 VITAMIN D 25-OH 62.0 ng/mL Normal 30.0-80.0 The [facility] Comment on above: Result Comment: >80. 0 Toxicity possible Performed By: #### 0 0121, 03142, 27633 #### [facility] [address] Vital Signs Date Time Vital Sign Value Performing Clinician Souleymane palm 06-04-2024 14:34-0500 Diastolic blood pressure 64 mm[Hg] Allan Kirnus [facility] 06-04-2024 14:34-0500 Heart rate 73 /min Allan Kirnus [facility] 06-04-2024 14:34-0500 Respiratory rate 16 /min Allan Kirnus [facility] 06-04-2024 14:34-0500 SaO2% (BldA) [Mass fraction] 92 % Allan Kirnus [facility] 06-04-2024 14:34-0500 Systolic blood pressure 132 mm[Hg] Allan Kirnus [facility] 05-04-2024 10:38-0500 Blood Pressure Location [employer] [facility] 05-04-2024 10:38-0500 Diastolic blood pressure 68 mm[Hg] [facility] 05-04-2024 10:38-0500 Heart rate 68 /min [facility] 05-04-2024 10:38-0500 Respiratory rate 16 /min [employer] [facility] 05-04-2024 10:38-0500 Systolic blood pressure 120 mm[Hg] [facility] 11-28-2023 10:34-0400 Diastolic blood pressure 78 mm[Hg] Allan Kirnus [facility] 11-28-2023 10:34-0400 Heart rate 78 /min Allan Kirnus [facility] 11-28-2023 10:34-0400 Respiratory rate 16 /min Allan Kirnus [facility] 11-28-2023 10:34-0400 SaO2% (BldA) [Mass fraction] 90 % Allan Micahnus [facility] 11-28-2023 10:34-0400 Systolic blood pressure 132 mm[Hg] Allan Kirnus [facility] 11-17-2023 10:59-0400 Body temperature 98.6 [degF] Jose COOK [facility] 11-17-2023 10:59-0400 Diastolic blood pressure 70 mm[Hg] Jose COOK [facility] 11-17-2023 10:59-0400 Heart rate 75 /min Jose COOK [facility] 11-17-2023 10:59-0400 Respiratory rate 16 /min Jose COOK [facility] 11-17-2023 10:59-0400 Systolic blood pressure 122 mm[Hg] Jose COOK [facility] 10-02-2023 13:29-0400 Body temperature 98.6 [degF] Jose COOK [facility] 10-02-2023 13:29-0400 Diastolic blood pressure 68 mm[Hg] Jose COOK [facility] 10-02-2023 13:29-0400 Heart rate 74 /min Jose COOK [facility] 10-02-2023 13:29-0400 Respiratory rate 16 /min Jose ALCALA [facility] 10-02-2023 13:29-0400 Systolic blood pressure 132 mm[Hg] Jose ALCALA [facility] 05-20-2023 13:06-0500 Blood Pressure Location Jose ALCALA [facility] 05-20-2023 13:06-0500 Diastolic blood pressure 70 mm[Hg] Jose ALCALA [facility] 05-20-2023 13:06-0500 Heart rate 82 /min Jose ALCALA [facility] 05-20-2023 13:06-0500 Systolic blood pressure 126 mm[Hg] Jose ALCAAL [facility] 05-15-2023 14:10-0500 Diastolic blood pressure 68 mm[Hg] Jamie Tai [facility] 05-15-2023 14:10-0500 Heart rate 86 /min Jamie Tai [facility] 05-15-2023 14:10-0500 SaO2% (BldA) [Mass fraction] 90 % Jamie Tai [facility] 05-15-2023 14:10-0500 Systolic blood pressure 132 mm[Hg] Jamie Tai [facility] 04-11-2023 08:37-0400 Blood Pressure Location Jose ALCALA [facility] 04-11-2023 08:37-0400 Diastolic blood pressure 82 mm[Hg] Jose COOK [facility] 04-11-2023 08:37-0400 Heart rate 83 /min Jose COOK [facility] 04-11-2023 08:37-0400 Systolic blood pressure 140 mm[Hg] Jose ALCALA [facility] 04-03-2023 13:42-0400 Diastolic blood pressure 68 mm[Hg] Jamie Tai [facility] 04-03-2023 13:42-0400 Heart rate 73 /min Jamie Tai [facility] 04-03-2023 13:42-0400 SaO2% (BldA) [Mass fraction] 93 % Jamie Tai [facility] 04-03-2023 13:42-0400 Systolic blood pressure 130 mm[Hg] Jamie Tia [facility] 03-18-2023 10:56-0400 Blood Pressure Location Jose ALCALA [facility] 03-18-2023 10:56-0400 Diastolic blood pressure 70 mm[Hg] Jose ALCALA [facility] 03-18-2023 10:56-0400 Heart rate 72 /min Jose ALACLA [facility] 03-18-2023 10:56-0400 Systolic blood pressure 151 mm[Hg] Jose ALCALA [facility] Encounters Encounter Date Encounter Type Care Provider Facility Start: 08-31-2025 ambulatory Ernestine Meehan Damian Facility :[facility] Start: 11-16-2024 ambulatory Ernestine EForrest Beverly Facility :[facility] Start: 10-26-2024 ambulatory Jose ALCALA Facility :[facility] Start: 08-31-2024 End: 08-31-2024 ambulatory Ernestine E. Damian Facility:[facility] Start: 08-17-2024 End: 08-17-2024 ambulatory JOSE Rodriguez [facility] Start: 08-13-2024 End: 08-13-2024 ambulatory XXXX NONE Facility:[facility] Start: 07-30-2024 End: 07-30-2024 Patient encounter procedure Allan Agarwal [facility] Start: 07-17-2024 End: 07-17-2024 Emergency department patient visit ERNESTINE BEVERLY [facility] Start: 06-04-2024 End: 06-04-2024 ambulatory XXXX NONE Facility:[facility] Start: 06-04-2024 End: 06-04-2024 Patient encounter procedure Allan Cabello Micahanitra [facility] Start: 05-18-2024 End: 05-18-2024 ambulatory Ernestine Meehan Damian Facility:[facility] Start: 05-04-2024 End: 05-04-2024 ambulatory Jose ALCALA Facility: [facility] Start: 05-04-2024 End: 05-04-2024 Patient encounter procedure Jose ALCALA [facility] Start: 04-27-2024 End: 04-27-2024 ambulatory JOSE Rodriguez [facility] Start: 12-30-2023 End: 12-30-2023 ambulatory [facility] Start: 12-11-2023 End: 12-11-2023 ambulatory Ernestine Beverly Facility:[facility] Start: 12-08-2023 End: 12-08-2023 ambulatory Ernestine Beverly Facility:[facility] Start: 12-03-2023 End: 12-04-2023 Emergency department patient visit ALEXANDER Adolfo [facility] Start: 11-28-2023 End: 11-28-2023 ambulatory XXXX NONE Facility:[facility] Start: 11-28-2023 End: 11-28-2023 Patient encounter procedure Allan Agarwal [facility] Start: 11-27-2023 ambulatory Ernestine Beverly Facility :[facility] Start: 11-17-2023 End: 11-17-2023 ambulatory Jose ALCALA Facility:[facility] Start: 11-17-2023 End: 11-17-2023 Patient encounter procedure Jose ALCALA [facility] Start: 11-11-2023 End: 11-11-2023 ambulatory ERNESTINE BEVERLY [facility] Start: 10-02-2023 End: 10-02-2023 ambulatory Jose ALCALA Facility:[facility] Start: 10-02-2023 End: 10-02-2023 Patient encounter procedure Jose ALCALA [facility] Start: 05-20-2023 End: 05-20-2023 Patient encounter procedure Jose ALCALA [facility] Start: 05-15-2023 End: 05-15-2023 Patient encounter procedure Jamie aTi [facility] Start: 04-11-2023 End: 04-11-2023 Patient encounter procedure Jose Rodriguez CARI [facility] Start: 04-03-2023 End: 04-03-2023 Patient encounter procedure Jamie Tai [facility] Start: 03-18-2023 End: 03-18-2023 Patient encounter procedure Jose Rodriguez CARI [facility] Start: 12-20-2022 End: 12-21-2022 Transcribe Orders Yahaira Van Work Phone: [facility] Comment on above: Dyspnea, unspecified type Start: 11-04-2022 End: 11-04-2022 ambulatory Jonas Cruz Facility:[facility] Start: 09-19-2020 End: 09-20-2020 ambulatory PHYSICIAN UNKNOWN Facility:[facility] Start: 07-01-2019 End: 07-01-2019 Patient encounter procedure JESSIKA EMERY Facility:[facility] Procedures Date Procedure Procedure Detail Performing Clinician Start: 10-02-2023 Transurethral cystoscopy Jose CARI Start: 04-11-2023 Cystoscope, device ( physical object) [...] Treatment Date Care Activity Detail Author Start: 10-28-2023 Basic metabolic 2000 panel - Serum or Plasma Basic Metabolic Panel [facility] Start: 03-16-2023 Influenza vaccination Influenza Vacc ine (#1) [facility] Start: 06-16-2015 [facility] wellness [id number] Start: 2009 Pneumococcal vaccination Pneum ococcal Vaccine(s) (65+ yrs) (1 - PCV) [facility] Start: 1994 Shingles (RZV) Vacci ne (1 of 2) Shingles (RZV) Vaccine (1 of 2) [facility] Start: 1962 Hepatitis C screening Hepatitis C An tibody [facility] Start: 1962 Tetanus + diphtheria + acellular pertussis vaccine (product) Tdap Booster [facility] Start: 1944 COVID-19 Vaccine (#1) COVID-19 Vacci ne (#1) [facility] Immunizations Immunization Date Immunization Notes Care Provider Wilma yadav 03-24-2024 influenza virus vacc ine, unspecified formulation Allan Agarwal [facility] 03-17-2023 influenza, high dose seasonal, preservative-free Jose ALCALA [facility] 04-01-2022 Pfizer Bivalent (12+ YRS) SARS-COV-2 (COVID-19) vaccine, mRNA, spike protein, LNP, pres. free, 30 mcg/0.3mL dose, bruce-sucrose (PAX=514) Phe 1 [facility] 04-23-2021 Moderna Monovalent ( 12+ yrs) COVID-19 vaccine, mRNA, spike protein, LNP, PF, 100 mcg/0.5 mL (BFQ=919) Phe 1 [facility] Comment on above: Result Comment: 2022: 74 04-16-2021 SARS-CoV-2 (COVID-19 ) mRNA-1273 vaccine Jose ALCALA [facility] 09-14-2020 Moderna Monovalent ( 12+ yrs) COVID-19 vaccine, mRNA, spike protein, LNP, PF, 100 mcg/0.5 mL (PMX=074) [facility] Comment on above: Result Comment: 2022: TPV75 08-17-2020 Moderna Monovalent ( 12+ yrs) COVID-19 vaccine, mRNA, spike protein, LNP, PF, 100 mcg/0.5 mL (BNH=251) Phe 1 [facility] Comment on above: Result Comment: 2022: TPV75 08-14-2020 SARS-CoV-2 (COVID-19 ) mRNA-1273 vaccine Jose ALCALA [facility] 03-17-2018 Seasonal trivalent influenza vaccine, adjuvanted, preservative free [facility] 03-17-2018 influenza virus vacc ine, unspecified formulation Phe 1 [facility] 04-28-2017 influenza virus vacc ine, unspecified formulation Jose ALCALA [facility] 04-28-2017 influenza, injectabl e, quadrivalent, preservative free Phe 1 [facility] 08-28-2014 pneumococcal polysaccharide vaccine, 23 valent Jose ALCALA [facility] 07-16-2011 tetanus and diphther ia toxoids, adsorbed, preservative free, for adult use (2 Lf of tetanus toxoid and 2 Lf of diphtheria toxoid) Jose ALCALA [facility] 07-16-2011 tetanus and diphther ia toxoids, adsorbed, preservative free, for adult use (5 Lf of tetanus toxoid and 2 Lf of diphtheria toxoid) Phe 1 [facility] Payers Date Payer Category Payer Private Health Insurance [id number] 2022 Self-pay 2022 Unknown [id number] 2014 Medicare HU[employer]NA MEDICARE HU[employer]NA MEDICARE [id number] 2014-Present [employer] CLAIMS OFFICE [address] [address] [place] [address] PPO [id number] 2013 Unknown DEPT OF ' S AFFAIRS DEPT OF 'S AFFAIRS [id number] 2013-Present [facility] [address] [address] [place] [address] [id number] 1959 Medicare [id number] 1945 Unknown [id number] 2.16.840.1.194629.3.579. 2.593 1944 Unknown [id number] 2.16.840.1.882659.3.579. 2.647 1944 Unknown [id number] 2.16.840.1.548503.3.579. 2.1286 1944 Unknown [id number] 2.16.840.1.589539.3.579. 2.1286 1944 Unknown [id number] 2.16.840.1.049851.3.579. 2.1286 1944 Unknown [id number] 2.16.840.1.256029.3.579. 2.1286 1944 Unknown [id number] 2.16.840.1.284956.3.579. 2.1286 1944 Unknown [id number] 2.16.840.1.525325.3.579. 2.1286 1944 Unknown [id number] 2.16.840.1.242713.3.579. 2.727 1944 Unknown [id number] 2.16.840.1.709370.3.579. 2.72 1944 Unknown [id number] 2.16.840.1.694410.3.579. 2.72 1944 Unknown [id number] 2.16.840.1.554505.3.579. 2 1944 Unknown [id number] 2.16.840.1.192584.3.579. 2. 1944 Unknown [id number] 2.16.840.1.645388.3.579. 2 1944 Unknown [id number] 2.16.840.1.161089.3.579. 2 1944 Unknown [id number] 2.16.840.1.644041.3.579. 2 1944 Unknown [id number] 2.16.840.1.579649.3.579. 2 1944 Unknown [id number] 2.16.840.1.715186.3.579. 2 1944 Unknown [id number] 2.16.840.1.966190.3.579. 2 1944 Unknown [id number] 2.16840.1.475613.3.579. 2. 1944 Unknown [id number] 2.16.840.1.818444.3.579. 272 1944 Unknown [id number] 2.16.840.1.877378.3.579. 2 1944 Unknown [id number] 2.16.840.1.760983.3.579. 2 1945 Unknown [id number] 2.16.840.1.838007.3.579. 2 Unknown [id number] 2.16.840.1.870699.3.579. 2.531 Social History Date Type Detail Facility Start: 07-08-2014 End: 05-18-2024 Tobacco smoking status NHIS Ex-smoker [facility] Work Phone: Comment on above: states started age [age], states stopped in 1991 History of tobacco use Current smoker [facility] History of tobacco use Cigarette Smoker [facility] Start: 07-08-2014 Cigarettes smoked current (pack per day) - Reported 1 [facility] Start: 07-17-2014 Alcohol intake Current drinke r of alcohol (finding) [facility] Start: 07-08-2014 Tobacco Comment QUIT IN 1991 [facility] Start: 1945 Sex Assigned At Not on file [facility] Gender identity Not on file [facility] Tobacco smoking status Never [facility] Comment on above: states started age [age], states stopped in 1991 Medical Equipment Procedure Code Equipment Code Equipment Origin al Text Equipment Identifier Dates Cement Bone Simp daniel [id number] 1 001 - [id number] Start: 07-15-2014 Patella Asymmetr ic 35 X 10mm Triathlon Conventional Poly [id number] - [id number] Start: 07-15-2014 Functional Status Date Assessment Result Facility 06-04-2024 Functional Status N/A [facility] 05-04-2024 Functional Status N/A [facility] 11-28-2023 Functional Status N/A [facility] 11-17-2023 Functional Status N/A [facility] 10-02-2023 Functional Status N/A [facility] 05-20-2023 Functional Status N/A [facility] 05-15-2023 Functional Status No [facility] 04-11-2023 Functional Status N/A [facility] 04-03-2023 Functional Status No [facility] 03-18-2023 Functional Status N/A [facility] Clinical Notes 03-18-2023 to 08-31-2024 RadiologyRadiologyRadiologyRadiologyRadiologyRadiologyLaboratoryRadiologyLaborat oryLaboratoryLaboratory Note Date & Type Note Facility 08-31-2024 Note Patient Education Cardiovascular Hypertension, Adult High blood pressure (hypertension) is when the force of blood pumping through the arteries is too strong. The arteries are the blood vessels that carry blood from the heart throughout the body. Hypertension forces the heart to work harder to pump blood and may cause arteries to become narrow or stiff. Untreated or uncontrolled hypertension can lead to a heart attack, heart failure, a stroke, kidney disease, and other problems. A blood pressure reading consists of a higher number over a lower number. Ideally, your blood pressure should be below 120/80. The first ( top ) number is called the systolic pressure. It is a measure of the pressure in your arteries as your heart beats. The second ( bottom ) number is called the diastolic pressure. It is a measure of the pressure in your arteries as the heart relaxes. What are the causes? The exact cause of this condition is not known. There are some conditions that result in high blood pressure. What increases the risk? Certain factors may make you more likely to develop high blood pressure. Some of these risk factors are under your control, including: ??? Smoking. ??? Not getting enough exercise or physical activity. ??? Being overweight. ??? Having too much fat, sugar, calories, or salt (sodium) in your diet. ??? Drinking too much alcohol. Other risk factors include: ??? Having a personal history of heart disease, diabetes, high cholesterol, or kidney disease. ??? Stress. ??? Having a family history of high blood pressure and high cholesterol. ??? Having obstructive sleep apnea. ??? Age. The risk increases with age. What are the signs or symptoms? High blood pressure may not cause symptoms. Very high blood pressure (hypertensive crisis) may cause: ??? Headache. ??? Fast or irregular heartbeats (palpitations). ??? Shortness of breath. ??? Nosebleed. ??? Nausea and vomiting. ??? Vision changes. ??? Severe chest pain, dizziness, and seizures. How is this diagnosed? This condition is diagnosed by measuring your blood pressure while you are seated, with your arm resting on a flat surface, your legs uncrossed, and your feet flat on the floor. The cuff of the blood pressure monitor will be placed directly against the skin of your upper arm at the level of your heart. Blood pressure should be measured at least twice using the same arm. Certain conditions can cause a difference in blood pressure between your right and left arms. If you have a high blood pressure reading during one visit or you have normal blood pressure with other risk factors, you may be asked to: ??? Return on a different day to have your blood pressure checked again. ??? Monitor your blood pressure at home for 1 week or longer. If you are diagnosed with hypertension, you may have other blood or imaging tests to help your health care provider understand your overall risk for other conditions. How is this treated? This condition is treated by making healthy lifestyle changes, such as eating healthy foods, exercising more, and reducing your alcohol intake. You may be referred for counseling on a healthy diet and physical activity. Your health care provider may prescribe medicine if lifestyle changes are not enough to get your blood pressure under control and if: ??? Your systolic blood pressure is above 130. ??? Your diastolic blood pressure is above 80. Your personal target blood pressure may vary depending on your medical conditions, your age, and other factors. Follow these instructions at home: Eating and drinking ??? Eat a diet that is high in fiber and potassium, and low in sodium, added sugar, and fat. An example of this eating plan is called the DASH diet. DASH stands for Dietary Approaches to Stop Hypertension. To eat this way: ? Eat plenty of fresh fruits and vegetables. Try to fill one half of your plate at each meal with fruits and vegetables. ? Eat whole grains, such as whole-wheat pasta, brown rice, or whole-grain bread. Fill about one fourth of your plate with whole grains. ? Eat or drink low-fat dairy products, such as skim milk or low-fat yogurt. ? Avoid fatty cuts of meat, processed or cured meats, and poultry with skin. Fill about one fourth of your plate with lean proteins, such as fish, chicken without skin, beans, eggs, or tofu. ? Avoid pre-made and processed foods. These tend to be higher in sodium, added sugar, and fat. ??? Reduce your daily sodium intake. Many people with hypertension should eat less than 1,500 mg of sodium a day. ??? Do not drink alcohol if: ? Your health care provider tells you not to drink. ? You are , may be , or are planning to become . ??? If you drink alcohol: ? Limit how much you have to: ? 0?1 drink a day for women. ? 0?2 drinks a day for men. ? Know how much alcohol is in your drink. In the [place] one drink equals one 12 oz bottle (more content not included)... [facility] 05-18-2024 Note Patient Education Nutrition BMI for [...] for Disease Control and Prevention: cdc.gov ??? [place] Heart Association: heart.org ??? National Heart, Lung, and Blood [place]: nhlbi.nih.gov This information is not intended to replace advice given to you by your health care provider. Make sure you discuss any questions you have with your health care provider. Document Revised: 02/20/2023 Document Reviewed: 02/13/2023 Elsevier Patient Education ? 2023 [employer]. [facility] 05-04-2024 Hospital Discharge instructions Patient Education [...] treatment? Where to find more information The [place] Cancer Society: www.cancer.org [place] [employer] Association: www.auanet.org Contact a health care [...] provider. Document Revised: 11/26/2021 Document Reviewed: 11/26/2021 [employer] Patient Education 2023 [employer]. Follow Up Care 11/17/2023 11:31:45 With:CARI RIOS, Jose Rodriguez, URL Address: [facility] [employer] [address] [address]- When: Unknown [facility] 05-04-2024 Note Patient Education Oncology Prostate [...] Where to find more information ??? The [place] Cancer Society: www.cancer.org ??? [place] U[employer] Association: www.auanet.org Contact a health care [...] The prostate gland (more content not included)... [facility] 12-30-2023 Note Patient Education BMI for [...] numbers. This can be done either in [place] ([place] or metric measurements. Note that charts and online BMI calculators are available to help you find your BMI quickly and easily without having to do these calculations yourself. To calculate your BMI in [place] ([place] measurements: 1. Measure your weight in [...] for Disease Control and Prevention: www.cdc.gov ? [place] Heart Association: www.heart.org ? National Heart, Lung, and Blood [place]: www.nhlbi.nih.gov Summary ? Body mass index (BMI) is a number that is calculated from a person's weight and height. ? BMI may help estimate how much of a person's weight is composed of fat. BMI can help identify those who may be at higher risk for certain medical problems. ? BMI can be measured using [place] measurements or metric measurements. ? BMI charts are used to identify whether you are underweight, normal weight, overweight, or obese. This information is not intended to replace advice given to you by your health care provider. Make sure you discuss any questions you have with your health care provider. Document Revised: 02/23/2020 Document Reviewed: 12/31/2019 [employer] Patient Education ? 2022 [employer]. Nutrition BMI for Adults What is BMI? [...] Identifying a weight (more content not included)... [facility] 11-17-2023 Hospital Discharge instructions Patient Education [...] treatment? Where to find more information The [place] Cancer Society: www.cancer.org [place] U[employer] Association: www.auanet.org Contact a health care [...] provider. Document Revised: 11/26/2021 Document Reviewed: 11/26/2021 [employer] Patient Education 2022 [employer]. Follow Up Care 10/02/2023 14:02:21 With:CARI RIOS, Jose Rodriguez, URL Address: [address] [place] [address]- When: Unknown [facility] 10-02-2023 Hospital Discharge instructions Patient Education [...] including vitamins, herbs, eye drops, creams, and kcoo-xlt-wqbuxgn medicines. Any problems you or family members [...] provider tells you to take them. Taking ikwc-dlj-knmwnda medicines, vitamins, herbs, and supplements. Tests You [...] Follow these instructions at home: Medicines Take galu-xzt-xkbfuqc and prescription medicines only as told by [...] provider. Document Revised: 02/13/2022 Document Reviewed: 01/12/2021 [employer] Patient Education 2022 [employer] Follow Up Care 05/20/2023 13:43:41 With:CARI RIOS, Jose Rodriguez, URL Address: [facility] [place] [address]- When: Unknown [facility] 10-02-2023 Note Urology Cystoscopy Cystoscopy is a [...] including vitamins, herbs, eye drops, creams, and pwei-qup-tfezkba medicines. ? Any problems you or family [...] tells you to take them. ? Taking jnqw-uqd-kwirlnk medicines, vitamins, herbs, and supplements. Tests You [...] these instructions at home: Medicines ? Take fwtg-zdl-gxfoqed and prescription medicines only as told by [...] the department th (more content not included)... [facility] 05-20-2023 Hospital Discharge instructions Patient Education [...] urethra. Follow these instructions at home: Take cazh-pbt-xhfipqk and prescription medicines only as told by [...] provider. Document Revised: 12/19/2021 Document Reviewed: 12/19/2021 [employer] Patient Education 2022 [employer]. Follow Up Care 04/11/2023 09:10:25 With:CARI RIOS, Jose Rodriguez, URL Address: [address] [place], [place] [id number]- When: Unknown Comments:Schedule Cysto [facility] 04-11-2023 Hospital Discharge instructions Patient Education [...] Follow these instructions at home: Medicines Take lkgt-gzn-zfjppet and prescription medicines only as told by [...] provider. Document Revised: 02/21/2021 Document Reviewed: 02/21/2021 [employer] Patient Education 2022 [employer]. Follow Up Care 03/18/2023 12:08:18 With:CARI RIOS, Jose Rodriguez, URL Address: [address] [place] [address]- When: Unknown Comments:6wks w/ PVR and PSA [facility] 03-18-2023 Hospital Discharge instructions Patient Education 03/18/2023 [...] urethra. Follow these instructions at home: Take iirb-fvy-gmaopws and prescription medicines only as told by [...] provider. Document Revised: 12/19/2021 Document Reviewed: 12/19/2021 [employer] Patient Education 2022 [employer]. Follow Up Care 03/12/2023 08:52:10 With:Jose ALCALA MD, URL Address: [address] [place], [place] [id number]- When: Unknown Comments:Sched Cysto [facility] Evaluation + Plan note Future Appointments Appointment Date:03/20/2023 01:30:00 PM Scheduled Provider:Jamie Tai MD Location:[facility] Appointment Type:Cardiology New Patient (FT) Appointment Date:04/11/2023 08:45:00 AM Scheduled Provider:Jose ALCALA MD Location:[facility] Appointment Type:URO Procedure 15 min Appointment Date:05/28/2023 01:20:00 PM Scheduled Provider:Ernestine Beverly MD Location:[facility] Appointment Type: Open [facility] Evaluation + Plan note Future Appointments Appointment Date:04/11/2023 08:45:00 AM Scheduled Provider:Jose ALCALA MD Location:[facility] Appointment Type:URO Procedure 15 min Appointment Date:05/15/2023 02:15:00 PM Scheduled Provider:Jamie Tai MD Location:[facility] Appointment Type:Cardiology Follow Up (FT) Appointment Date:05/28/2023 01:20:00 PM Scheduled Provider:Ernestine Beverly MD Location:[facility] Appointment Type:FM Open Future Scheduled TestsNM Myocardial Spect Rest/Stress 1 Day 04/03/23Echo Transthoracic Complete 04/03/23 [facility] Evaluation + Plan note Future Appointments Appointment Date:05/15/2023 02:15:00 PM Scheduled Provider:[facility] Appoint[facility] Type:Cardiology Follow Up (FT) Appointment Date:05/20/2023 01:00:00 PM Scheduled Provider:Jose ALCALA MD Location:[facility] Appointment Type:URO Office Visit Appointment Date:05/28/2023 01:20:00 PM Scheduled Provider:Ernestine Beverly MD Location:[facility] Appointment Type:FM Open Diagnostic Tests PendingPSA Free & Total 04/11/23 Future Scheduled TestsNM Myocardial Spect Rest/Stress 1 Day 04/03/23Echo Transthoracic Complete 04/03/23 [facility] Evaluation + Plan note Future Appointments Appointment Date:05/20/2023 01:00:00 PM Scheduled Provider:Jose ALCAAL MD Location:[facility] Appointment Type:URO Office Visit Appointment Date:05/28/2023 01:20:00 PM Scheduled Provider:Ernestine Beverly MD Location:[facility] Appointment Type:FM Open Appointment Date:11/07/2023 10:45:00 AM Scheduled Provider:Jamie Tai [facility] Appointment Type:Cardiology Follow Up (FT) Future Scheduled TestsNM Myocardial Spect Rest/Stress 1 Day 04/03/23Echo Transthoracic Complete 04/03/23 [facility] Evaluation + Plan note Future Appointments Appointment Date:05/28/2023 01:20:00 PM Scheduled Provider:Ernestine Beverly MD Location:[facility] Appointment Type:FM Open Appointment Date:08/21/2023 01:00:00 PM Scheduled Provider:Jose ALCALA MD Location:[facility] Appointment Type:URO Procedure 15 min Appointment Date:11/07/2023 10:45:00 AM Scheduled Provider:Jamie Tai MD Location:[facility] Appointment Type:Cardiology Follow Up (FT) Future Scheduled TestsNM Myocardial Spect Rest/Stress 1 Day 04/03/23Echo Transthoracic Complete 04/03/23 [facility] Evaluation + Plan note Future Appointments Appointment Date:11/14/2023 10:45:00 AM Scheduled Provider:Allan Agarwal MD Location:[facility] Appointment Type:Cardiology Follow Up (FT) Appointment Date:11/17/2023 11:00:00 AM Scheduled Provider:Jose ALCALA MD Location:[facility] Appointment Type:URO Office Visit Appointment Date:12/30/2023 09:15:00 AM Scheduled Provider:Ernestine Beverly MD Location:[facility] Appointment Type: Open Appointment Date:08/31/2024 01:00:00 PM Scheduled Provider: Location:[facility] Appointment Type: Medicare Wellness Subsequent Diagnostic Tests PendingPSA Free & Total 10/02/23 Future Scheduled TestsNM Myocardial Spect Rest/Stress 1 Day 04/03/23Echo Transthoracic Complete 04/03/23 [facility] Evaluation + Plan note Future Appointments Appointment Date:11/28/2023 10:45:00 AM Scheduled Provider:Allan Agarwal MD Location:[facility] Appointment Type:Cardiology Follow Up (FT) Appointment Date:12/30/2023 09:15:00 AM Scheduled Provider:Ernestine Beverly MD Location:[facility] Appointment Type:FM Open Appointment Date:05/04/2024 10:15:00 AM Scheduled Provider:Jose ALCALA MD Location:[facility] Appointment Type:URO Office Visit Appointment Date:08/31/2024 01:00:00 PM Scheduled Provider: Location:[facility] Appointment Type:FM Medicare Wellness Subsequent Diagnostic Tests PendingPSA Free & Total 11/17/23 Future Scheduled TestsNM Myocardial Spect Rest/Stress 1 Day 04/03/23Echo Transthoracic Complete 04/03/23 [facility] Evaluation + Plan note Future Appointments Appointment Date:12/30/2023 09:15:00 AM Scheduled Provider:Ernestine Beverly MD Location:[facility] Appointment Type:FM Open Appointment Date:05/04/2024 10:15:00 AM Scheduled Provider:Jose ALCALA MD Location:[facility] Appointment Type:URO Office Visit Appointment Date:05/28/2024 10:45:00 AM Scheduled Provider:Allan Agarwal MD [facility] Type:Cardiology Follow Up (FT) Appointment Date:08/31/2024 01:00:00 PM Scheduled Provider: Location:[facility] Appointment Type:FM Medicare Wellness Subsequent Future Scheduled TestsLipid Panel 11/28/23NM Myocardial Spect Rest/Stress 1 Day 04/03/23Echo Transthoracic Complete 04/03/23 [facility] Evaluation + Plan note Future Appointments Appointment Date:05/18/2024 09:30:00 AM Scheduled Provider:Ernestine Beverly MD Location:[facility] Appointment Type:FM Open Appointment Date:05/28/2024 10:45:00 AM Scheduled Provider:Allan Agarwal MD [facility] Type:Cardiology Follow Up (FT) Appointment Date:08/31/2024 01:00:00 PM Scheduled Provider: Location:[facility] Appointment Type:FM Medicare Wellness Subsequent Appointment Date:10/26/2024 11:00:00 AM Scheduled Provider:Jose ALCALA MD Location:[facility] Appointment Type:URO Office Visit Diagnostic Tests PendingPSA Free & Total 05/04/24 Future Scheduled TestsLipid Panel 11/28/23 [facility] Evaluation + Plan note Future Appointments Appointment Date:08/31/2024 01:00:00 PM Scheduled Provider: Location:[facility] Appointment Type:FM Medicare Wellness Subsequent Appointment Date:10/26/2024 11:00:00 AM Scheduled Provider:Jose [facility]CALA MD [facility] Type:URO Office Visit Appointment Date:11/16/2024 01:15:00 PM Scheduled Provider:Ernestine Beverly MD Location:[facility] Appointment Type: Open Future Scheduled TestsLipid Panel 11/28/23 [facility] Evaluation + Plan note Future Appointments Appointment Date:08/13/2024 02:45:00 PM Scheduled Provider:Allan Agarwal MD [facility] Type:Cardiology Follow Up (FT) Appointment Date:08/31/2024 01:00:00 PM Scheduled Provider: Location:[facility] Appointment Type: Medicare Wellness Subsequent Appointment Date:10/26/2024 11:00:00 AM Scheduled Provider:Jose ALCALA MD Location:[facility] Appointment Type:URO Office Visit Appointment Date:11/16/2024 01:15:00 PM Scheduled Provider:Ernestine Beverly MD Location:[facility] Appointment Type: Open Future Scheduled TestsLipid Panel 11/28/23 [facility] Evaluation note Diagnosis Dyspnea, unspecified type- Primary Dyspnea, unspecified type [facility], unspecified type [facility] N[facility]ative No data available for this section [facility] Hospital Discharge instructions No data available for this section [facility] No data available for this section [facility] Summary Purpose Family History No Family History [...] for this section No Family History Records FoundNo Family History Records Found Advance Directives No [...] VIEWS Yahaira Van [address] [place] [id number] [facility]IC [facility]IOLOGY [address] [place] [address] [place] [address] Referral ID Status Reason Start Date Expiration Date Visits Re quested Visits Authorized [id number] Closed 12/20/2022 12/20/2023 1 1 Additional Source Comments (unrecognized sect ion and content) No Status Records FoundNo Status Records FoundNo Status Records FoundNo Status Records FoundNo Status Records FoundNo Status Records Found INFORMATION SOURCE (unrecogn ized section and content) DATE CREATED AUTHOR 07/07/2019 [facility] DATE CREATED AUTHOR AUTHOR'S ORGANIZ ATION 10/11/2020 [facility] DATE CREATED AUTHOR AUTHOR'S ORGANIZ ATION 11/23/2022 [facility] DATE CREATED AUTHOR AUTHOR'S ORGANIZ ATION 12/22/2022 [facility] DATE CREATED AUTHOR AUTHOR'S ORGANIZ ATION 08/19/2024 [facility] DATE CREATED AUTHOR AUTHOR'S ORGANIZ ATION 09/04/2024 [facility] Reason for Visit (unrecogniz ed section and content) Specialty Diagnoses / Procedures Referred By Contac t Referred To Contact Radiology Diagnoses Dyspnea, unspecified type Procedures XR CHEST PA+LAT 2 VIEWS Yahaira Van [address] [place] [address] [facility] [address] [address] [place] [address] Referral ID Status Reason Start Date Expiration Date Visits Re quested Visits Authorized [id number] Closed 12/20/2022 12/20/2023 1 1 Patient Care team informatio n (unrecognized section and content) Personnel Name: Ernestine Beverly MD Address: Address: [facility] [address] Personnel Name: Ernestine Beverly MD Address: Address: [facility] [place] Personnel Name: Ernestine Beverly MD Address: Address: [facility] [address] Personnel Name: Ernestine Beverly MD Address: Address: [facility] [address] Personnel Name: Ernestine Beverly MD Address: Address: [facility] [address] Personnel Name: Ernestine Beverly MD Address: Address: [facility] [address] Personnel Name: Ernestine Beverly MD Address: Address: [facility] [address] Personnel Name: Ernestine Beverly MD Address: Address: [facility] [address] Personnel Name: Ernestine Beverly MD Address: Address: [facility] [address] Personnel Name: Ernestine Beverly MD Address: Address: [facility] [address] Personnel Name: Ernestine Beverly MD Address: Address: [address] [place] [address] FOR RECORDS PERTAINING TO PATIENTS WHO ARE [...] BE BASED ON THE PRIMARY CLINICAL RECORDS. [facility] [employer] [facility]. provides no warranty or guarantee of the accuracy or completeness of information in this document.
--- NOTE | 2024-09-14 10:00 | CA_ITS ---
Patient Name: EMILY HOLLY MR#: [id number] : 1945 Exam Date: 09/14/2024 Ordering Doctor: DR. SERJIO BENAVIDES M.D. ECHOCARDIOGRAM REPORT PROCEDURE: CA ECHO DOPPLER COMPLETE INDICATIONS: Atrial fibrillation, CABGx4, hypertension, diabetes COMPARISON: None. DESCRIPTION: COMPLETE ECHOCARDIOGRAM Real-time transthoracic echocardiography with 2D, M-mode, spectral and color flow Doppler performed. QUALITY: Technical quality was good. LEFT VENTRICLE: Normal chamber size. Normal left ventricular wall thickness. LV EF: Normal left ventricular ejection fraction, (>55%). DIASTOLIC: Normal diastolic function. ATRIAL SEPTUM: Visually appears intact. LEFT ATRIUM: Normal chamber size. RIGHT ATRIUM: Normal chamber size. RIGHT VENTRICLE: Normal chamber size. Normal right ventricular systolic function. TRICUSPID VALVE: Normal mobility and thickness. No stenosis with trivial regurgitation. MITRAL VALVE: Normal mobility and thickness. No evidence of mitral valve stenosis. There is no mitral annular calcification. Trivial mitral regurgitation. AORTIC VALVE: Normal trileaflet appearance. Mildly calcified aortic valve. Normal leaflet mobility. No evidence of aortic valve stenosis. DVI 0.6Trivial aortic regurgitation. AORTIC ROOT: Normal diameter and appearance. PULMONIC VALVE: Normal thickness and mobility. No stenosis. Mild regurgitation. PERICARDIUM: No evidence of pericardial effusion. IVC: Collapes with inspirations. IVC is normal in size. PLEURA: CONCLUSION: 1. Normal left ventricular ejection fraction, (>55%). 2. Normal right ventricular systolic function. 3. No significant valvular disease Adult Echocardiography Procedure Report Left Ventricle LVEDD (3.7 - 5.6 cm): 5.12 cm LVESD (2.2 - 4.0 cm): 3.44 cm LVIVS thickness (0.6 - 1.2 cm): 1.01 cm LVPW thickness (0.5 - 1.0 cm): 0.92 cm e': 0.07 m/s E - e': 8.00 LVOT Max Gradient: 2.38 mm[Hg], 2.40 mm[Hg] LVOT Area (cm2): 0.77 m/s Peak Velocity (LVOT): 0.77 m/s, 0.77 m/s Mean Velocity (LVOT): 0.47 m/s LVOT Diameter 2.04 cm Left Atrium LA Volume Index (2D A2C): 32.36 ml/m2 Left Atrium Systolic Dimension: 4.49 cm Mitral Valve MV E to A Ratio: 0.74 Mitral Valve A-Wave Peak Velocity: 0.81 m/s Mitral Valve E-Wave Peak Velocity: 0.60 m/s Right Ventricle Aorta AO Root Diam: 3.24 cm Ascending Ao Diam: 3.53 cm Aortic Valve AoV Area (Peak Aquilino): 2.30 cm2, 2.64 cm2, 2.04 cm2 AoV Area (VTI): 2.87 cm2, 3.27 cm2, 2.60 cm2 Peak Velocity(Antegrade Flow): 0.96 m/s, 1.24 m/s Peak Gradient(Antegrade Flow): 3.66 mm[Hg], 6.15 mm[Hg] Mean Velocity(Antegrade Flow): 0.67 m/s, 0.87 m/s Mean Gradient(Antegrade Flow): 2.00 mm[Hg], 3.42 mm[Hg] Velocity Time Integral: 22.24 cm, 32.05 cm Tricuspid Valve Pulmonic Valve Peak Velocity: 0.82 m/s Peak Gradient: 3.48 mm[Hg], 1.86 mm[Hg], 2.35 mm[Hg], 3.33 mm[Hg] Right Atrium Right Atrium Systolic Pressure: 49.67 ml, 49.67 ml Dictated by: Mor Reddy on 09/14/2024 at 11:52 Approved by: Mor Reddy on 09/14/2024 at 12:12
== END 2024-09-14 08:34 | disposition home or self-care (01) ==
PROVIDERS: PCP Family Medicine; Visit Provider Internal Medicine Cardiovascular Disease
DX: I25.10 Atherosclerotic heart disease of native coronary artery without angina pectoris (principal); I48.0 Paroxysmal atrial fibrillation; I10 Essential (primary) hypertension; E78.5 Hyperlipidemia, unspecified
CPT/HCPCS: 93306

== ENCOUNTER 2025-06-08 10:12 | Outpatient (OUT) | payer MEDICARE, SELFPAY ==
--- OUTSIDE RECORDS SUMMARY | 2025-06-08 10:16 | XMS_ITS | Clinical Summary ---
Author Organization [facility] Address [address] [facility] [place] [address] Care Team Providers Care Key Carrier Name Role Phone Unavailable Primary Care Provider Unavailabl e Source Comments The following information is NOT included in Care Everywhere downloads:Psychiatric notes, ECG results, Cardiac Rehab notes, Pulmonary Function notes, data from SmartForms (includes but not limited toPregnancy data,audiograms, eye exams, pre-surgical evaluation notes, well-child exam data).[facility] Allergies No known active allergies Medications MedicationSigDispense QuantityRefillsLast FilledStart DateEnd DateStatus simvastatin (ZOCOR) 20 MG tablet Take 20 mg by mouth every evening.Active METFORMIN HCL ORAL Take 850 mg by mouth 3 times daily.Active amLODIPine (NORVASC) 5 MG tablet Take 5 mg by mouth daily.Active niacin (NIASPAN) 1000 MG CR tablet Take 1,000 mg by mouth at bedtime.Active [place]-3 Fatty Acids (FISH OIL) 1000 MG CAPS Take by mouth.Active CARvedilol (COREG) 25 MG tablet Take 25 mg by mouth 2 times daily.Active nitroglycerin (NITROSTAT) 0.4 MG sublingual tablet 0.4 mg by Sublingual route every 5 minutes as needed for Chest pain. Maximum of 3 tablets in 15 minutes.Active aspirin 325 MG tablet Take 1 Tab by mouth daily. 100 Tab ctive docusate sodium (COLACE) 100 MG capsule Take 1 Cap by mouth 2 times daily. 60 Cap ctive polyethylene glycol (MIRALAX) packet Take 1 Packet by mouth 3 times daily. Dissolve in 8 ounces of liquid. 30 Packet ctive senna (SENOKOT) 8.6 MG tablet Take 1 Tab by mouth at bedtime. 30 Tab 002/05/2015Active lisinopril (ZESTRIL) 20 MG tablet Take 1 Tab by mouth 2 times daily. 30 Tab ctive ferrous sulfate 325 (65 FE) MG enteric coated tablet Take 1 Tab by mouth daily (with breakfast). 30 Tab ctive dabigatran (PRADAXA) 150 MG capsule Take 1 Cap by mouth daily. 30 Cap ctive Active Problems ProblemNoted DateDiagnosed DateTriple vessel coronary artery iofprgi4811/18/2017 Paroxysmal atrial rsimlxgmvnes84/01/2015 Overview (07/17/2014): Paroxysmal by OSH Report. CHADS-VASC Scoring (Risk of Thromboembolic Event) = 3 ( 07/17/2014) -- Managed on Pradaxa 150 mg BID Primary localized osteoarthrosis, lower leg06/21/2014 Immunizations ImmunizationAdministration DatesNext DueInfluenza, Injectable, Trivalent, Adjuvanted, Preservative Free (INI=203)03/17/2018Influenza, injectable, quadrivalent, preservative free (JCQ=946)04/28/2017Moderna Monovalent (12+ yrs) COVID-19 vaccine, mRNA, spike protein, LNP, PF, 100 mcg/0.5 mL (IZX=648) 04/23/2021,09/14/2020,1Pfizer Bivalent (12+ YRS) SARS-COV-2 (COVID-19) vaccine, mRNA, spike protein, LNP, pres. free, 30 mcg/0.3mL dose, bruce-sucrose (IGB=525)04/01/2022Td (adult), 5 Lf tetanus toxoid, preservative free, adsorbed (NBP=201)07/16/2011 Social History Tobacco UseTypesPacks/DayYears UsedDateSmoking Tobacco: GxrvoxJueiuhdtpv927 Comments:QUIT IN 1991 Alcohol UseStandard Drinks/WeekCommentsYes0 (1 standard drink = 0.6 oz pure alcohol)Substance UseTypesUse/WeekCommentsNoSex and Gender InformationValueDate RecordedSex Assigned at BirthNot on fileLegal AdvSwut01/08/2014 11:56 AM EST Gender IdentityNot on fileSexual OrientationNot on file Last Filed Vital Signs Vital SignReadingTime TakenCommentsBlood Gpxwvsey815/60007/21/2014 2:22 PM EST Plzqb7656/05/2015 11:00 AM OZYGnoiwpupxwe24.9 ??C (98.5 ??F)07/21/2014 2:22 PM ESTRespiratory Zabr687107/21/2014 2:22 PM ESTOxygen Uxbnehjfsa48%07/21/2014 2:22 PM ESTInhaled Oxygen Concentration--Hxgovy78.9 kg (185 lb)07/18/2014 11:47 AM FZJDtqkva305.2 cm (5' 7 )07/18/2014 11:47 AM ESTBody Mass Index28.98007/18/2014 11:47 AM EST Plan of Treatment Health MaintenanceDue DateLast DoneCommentsTdap Xungeko1605/10/1962Hepatitis A (HAV) Vaccine (optional start 19+ years)1963Pneumococcal Vaccine(s) (50+ yrs) (1 of 2 - PCV)1963Shingles (RZV) Vaccine (1 of 2)1994Hepatitis B (HBV) Vaccine (optional start 60+ years)2004Annual Wellness Visit (G0438)06/16/2015RSV vaccine (adult) (1 - 1-dose 75+ series)2019Basic Metabolic Panel/, 07/21/2014, 07/21/2014, Additional history existsCOVID-19 Vaccine ( season)/, 04/23/2021, 09/14/2020, Additional history existsInfluenza Vaccine (#1)/07/2017, 04/28/2017 Medical Devices ImplantedTypeAreaManufacturerDevice IdentifierShelf Expiration DateModel / Serial / LotCement Bone Simplex [id number] 1 001 - [id number] Implanted:Qty: 1 on 07/15/2014 by Mayank Olivier MD at INPATIENT DEPARTMENTSCementLeft: LsudTnodxux58/30/[id number] 001 / / [id number] Size5 Primary Tibial Triathlon 5520-B-500 - [id number] Implanted:Qty: 1 on 07/15/2014 by Mayank Olivier MD at INPATIENT DEPARTMENTSJoint KneeLeft: SwbtUfqbqvc72/30/[id number]-159 / / [id number] Component Size4 Left Cemented Triathlon Cr 5510-F-401 - [id number] Implanted:Qty: 1 on 07/15/2014 by Mayank Olivier MD at INPATIENT DEPARTMENTSJoint KneeLeft: FvkgMpfubwf23/30/[id number] / / [id number] Tibial Size5 13mm Triathlon Cr 5530-P-513 - [id number] Implanted:Qty: 1 on 07/15/2014 by Mayank Olivier MD at INPATIENT DEPARTMENTSJoint KneeLeft: MzzuUnqycel40/30/[id number] / / [id number] Asymmetric 35 X 10mm Triathlon Conventional Poly 5551-L-350 - [id number] Implanted:Qty: 1 on 07/15/2014 by Mayank Olivier MD at INPATIENT DEPARTMENTSJoint KneeLeft: FvvbKvqzsub86/30/[id number]-[id number] / / [id number] Procedures Procedure NamePriorityDate/TimeAssociated DiagnosisCommentsBASIC METABOLIC PANEL Eardfcu7807/21/2014 3:02 AM EST from Last 3 Months or Most Recently Relevant to Health Maintenance Results * (ABNORMAL) BASIC METABOLIC PANEL (07/21/2014 3:02 AM EST)ComponentValueRef RangeTest MethodAnalysis TimePerformed AtPathologist FmectrgqmDhikcir429(H)80 - 116 mg/dL07/21/2014 5:31 AM ESTS PATHOLOGY HKANGNKRYJCepxqh333(L)135 - 148 mmol/L07/21/2014 5:31 AM ESTS PATHOLOGY LABORATORYPotassium3.83.3 - 5.3 mmol/L07/21/2014 5:31 AM ESTS PATHOLOGY PXUSARMVICPwlvxpad37(L)97 - 111 mmol/L07/21/2014 5:31 AM ESTMHS PATHOLOGY LABORATORYCarbon Aozohgv4919 - 30 mmol/L07/21/2014 5:31 AM [facility] PATHOLOGY LABORATORYBlood Urea Mkjwcgct42(H)8 - 22 mg/dL07/21/2014 5:31 AM [facility] PATHOLOGY LABORATORYCreatinine2.53(H)0.70 - 1.50 mg/dL07/21/2014 5:31 AM [facility] PATHOLOGY LABORATORYCalcium7.5(L)8.4 - 10.4 mg/dL07/21/2014 5:31 AM [facility] PATHOLOGY LABORATORYAnion Gap14(H)5 - 13 07/21/2014 5:31 AM [facility] PATHOLOGY LABORATORYEstimated GFR31(L)>=60 mL/min/1.12vdq4507/21/2014 5:31 AM [facility] PATHOLOGY LABORATORYSpecimen (Source) Anatomical Location / LateralityCollection Method / VolumeCollection Time Received TimeBloodBLOOD SPECIMEN / Sbuhsbh5107/21/2014 3:02 AM EST07/21/2014 4:28 AM EST Narrative Authorizing ProviderResult TypeResult StatusGiventrent Tipton MD98 GENERAL LAB Final ResultPerforming OrganizationAddressCity/State/ZIP CodePhone Number [facility] [address] [place] [phone] from Last 3 Months or Most Recently Relevant to Health Maintenance Insurance * Guarantor: Patrick LainezAccount TypeRelation to PatientDate of BirthPhone Billing AddressPersonal/FvvhzqLtzw1945 [address] [address] Advance Directives * Full Code (Latest Code Status on File) Date ActivatedDate InactivatedComments07/17/2014 8:50 PM2 6:18 PM * Full Code Date ActivatedDate InactivatedComments07/15/2014 4:04 PM2 8:50 PM
--- OUTSIDE RECORDS SUMMARY | 2025-06-08 10:16 | XMS_ITS | Clinical Summary ---
Author Organization [facility] Address [address] [place] [address] Phone Care Team Providers Care Solar Manufacturer'S Representative Name Role Phone Unavailable Primary Care Provider Unavailabl e Social History Tobacco UseTypesPacks/DayYears UsedDateSmoking Tobacco: Never AssessedSex and Gender InformationValueDate RecordedSex Assigned at BirthNot on fileLegal Sex Male11/04/2022 1:39 PM EDTGender IdentityNot on fileSexual OrientationNot on file Plan of Treatment Health MaintenanceDue DateLast DoneCommentsLipid Panel1944Yearly Adult Weuvjkek1945DTaP/Tdap/Td Vaccines (1 - Tdap)1966Pneumococcal Vaccine (1 of 1 - PCV)1994Zoster Vaccines (1 of 2)1994RSV High Risk: (Elderly (60+) or Population) (1 - 1-dose 75+ series)2019COVID-19 Vaccine (1 - 2024- season)2025Influenza Vaccine (#1)2025HIB VaccinesAged OutNo longer eligible based on patient's age to complete this topic HPV VaccinesAged OutNo longer eligible based on patient's age to complete this topicHepatitis A VaccinesAged OutNo longer eligible based on patient's age to complete this topicHepatitis B VaccinesAged OutNo longer eligible based on patient's age to complete this topicIPV VaccinesAged OutNo longer eligible based on patient's age to complete this topicMeningococcal VaccineAged OutNo longer eligible based on patient's age to complete this topicRotavirus VaccinesAged Out No longer eligible based on patient's age to complete this topic
--- OUTSIDE RECORDS SUMMARY | 2025-06-08 10:16 | XMS_ITS | Clinical Summary ---
Author Organization [facility] Address [address] [place] [address] Care Team Providers Care Quantitative Analyst Marketing Name Role Phone Unavailable Primary Care Provider Unavailabl e Social History Tobacco UseTypesPacks/DayYears UsedDateSmoking Tobacco: Never AssessedUT Safety & EnvironmentAnswerDate RecordedFear of Current or Ex-PartnerNot on file 08/07/2023Emotionally AbusedNot on file08/07/2023hysically AbusedNot on file 08/07/2023Sexually AbusedNot on file08/07/2023hysically or Sexually AbusedNot on file08/07/2023Sex and Gender InformationValueDate RecordedSex Assigned at BirthNot on fileLegal NynOxlr9012/13/2021 12:32 AM EDTGender IdentityNot on file Sexual OrientationNot on file Last Filed Vital Signs Vital SignReadingTime TakenCommentsBlood Lunnnowb639/6903 3:02 PM EDT Qlruu790408/31/2020 3:02 PM EDTTemperature--Respiratory Rate--Oxygen Saturation-- Inhaled Oxygen Concentration--Hzizve88.1 kg (178 lb 12.8 oz)08/31/2020 2:56 PM PSPZqzpzf766.2 cm (5' 7 )08/31/2020 2:56 PM EDTBody Mass Hbwir857208/31/2020 2:56 PM EDT Plan of Treatment Health MaintenanceDue DateLast DoneCommentsDiabetes: Hemoglobin A1C1945 Medicare Annual Wellness (AWV)1945iabetes: Retinopathy Screening 1954epression Uktarewlq25/25/1956Diabetes: Urine Protein Screening 1963Adult Xqubglw0305/10/1966Pneumococcal Vaccine: 50+ Years (1 of 1 - PCV) 1994Zoster Vaccines (1 of 2)1994Fall Risk Rzxxybxge82/25/2009COVID- 19 Vaccine (1 - 2024- season)2025Influenza Vaccine (#1)2025HIB VaccinesAged OutNo longer eligible based on patient's age to complete this topic HPV VaccinesAged OutNo longer eligible based on patient's age to complete this topicIPV VaccinesAged OutNo longer eligible based on patient's age to complete this topicMeningococcal B VaccineAged OutNo longer eligible based on patient's age to complete this topicMeningococcal VaccineAged OutNo longer eligible based on patient's age to complete this topicRotavirus VaccinesAged OutNo longer eligible based on patient's age to complete this topic Insurance
--- OUTSIDE RECORDS SUMMARY | 2025-06-08 10:16 | XMS_ITS | Clinical Summary ---
Author Organization [employer] tem Address [id number] [address] [place] [address] Care Team Providers Care Kier Operator Name Role Phone No Pcp, No Pcp Primary Care Provider Unavailabl e Allergies Active AllergyReactionsCriticalityNoted DateCommentsNo Known Drug AllergiesOther (See Comments)01/16/2017 Medications MedicationSigDispense QuantityRefillsLast FilledStart DateEnd DateStatus lisinopriL (PRINIVIL,ZESTRIL) 40 mg tablet Take 1 tablet (40 mg total) by mouth in the morning.Active gabapentin (NEURONTIN) 100 mg capsule Take 1 capsule (100 mg total) by mouth in the morning.Active atorvastatin (LIPITOR) 40 mg tablet Indications:half tab at bedtimeTake 0.5 tablets (20 mg total) by mouth in the morning. Indications: half tab at bedtime.Active metoprolol succinate XL (TOPROL-XL) 100 mg 24 hr tablet Take 1 tablet (100 mg total) by mouth in the morning and 1 tablet (100 mg total) before bedtime.Active amLODIPine (NORVASC) 5 mg tablet Take 2 tablets (10 mg total) by mouth in the morning.Active cyanocobalamin 1000 MCG tablet Indications:two tablets a dayTake 100 mcg by mouth in the morning and 100 mcg before bedtime. Indications: two tablets a day.Active ammonium lactate (LAC-HYDRIN) 12 % lotion Apply 1 Application topically as needed for dry skin.Active aspirin 81 mg Take 1 tablet (81 mg total) by mouth in the morning.Active metFORMIN (GLUCOPHAGE) 500 mg tablet Take 1 tablet (500 mg total) by mouth in the morning and 1 tablet (500 mg total) in the evening. Take with meals.Active nitroglycerin (NITROSTAT) 0.[address] 1 tablet (0.4 mg total) under the tongue every 5 (five) minutes as needed for chest pain.Active levothyroxine (SYNTHROID, LEVOTHROID) 25 MCG tablet Take 1 tablet (25 mcg total) by mouth in the morning.Active apixaban (ELIQUIS) 5 mg tablet Take 1 tablet (5 mg total) by mouth in the morning and 1 tablet (5 mg total) before bedtime. 180 tablet ctive pioglitazone (ACTOS) 15 mg tablet Take 1 tablet (15 mg total) by mouth in the morning.Active semaglutide, weight loss, (WEGOVY) 1.7 mg/0.75 mL pen injector Inject under the skin.Active omeprazole (PriLOSEC) 20 mg capsule Take 1 capsule (20 mg total) by mouth in the morning.Active empagliflozin/metformin HCl (EMPAGLIFLOZIN-METFORMIN ORAL) Take 500 mg by mouth in the morning and at bedtime.Active Active Problems ProblemNoted DateDiagnosed DateStage 3b chronic kidney oidolut36/27/2025Acute respiratory failure with /26/2025Abnormal nuclear stress test02/25/2019 Overview (02/25/2019): Inferior SII. 02/01 Shortness of ojvogc3902/04/2019Atherosclerosis of autologous vein coronary artery bypass graft09/30/2014Benign hypertensive heart disease without congestive heart kcpzzha7606/28/2013Old myocardial qjllvorvzt70/13/2014Chronic coronary artery xstmbfi6506/18/20128097Xgopuxxqwrfemx36/03/2013Paroxysmal atrial fibrillation 10/24/2011Type 2 diabetes nwcdxuqo84/21/2006 Encounters DateTypeDepartmentCare UqptBveotpagixb36/10/1947Wqleuz90/15/2025 2:40 PM EDT - 03/30/2025 4:46 PM EDTEmergency [facility] [address] [place] [address] Teddy Pham, DO Laceration of right hand without foreign body, initial encounter (Primary Dx) Discharge Disposition: Home03/30/2025Travelfrom Last 3 Months Immunizations ImmunizationAdministration DatesNext CfmHcmg29/15/2025 Family History Medical HistoryRelationNameCommentsCancerBrotherNo Known ProblemsFatherNo Known ProblemsMotherRelationNameStatusCommentsBrotherFatherDeceasedMotherDeceased Social History Tobacco UseTypesPacks/DayYears UsedDateSmoking Tobacco: FormerCigarettes Smokeless Tobacco: Never Tobacco Cessation:Counseling Given: No Comments:1 carton per week Alcohol UseStandard Drinks/WeekCommentsYes0 (1 standard drink = 0.6 oz pure alcohol)rarelyAH UtilitiesAnswerDate RecordedIn the past 12 months has the electric, gas, oil, or water company threatened to shut off services in your home?No11/08/2024Social Connection and Isolation PanelAnswerDate RecordedIn a typical week, how many times do you talk on the phone with family, friends, or neighbors?Three times a week11/08/2024How often do you get together with friends or relatives?Three times a week11/08/2024How often do you attend yazidism or faith services?Never11/08/2024Do you belong to any clubs or organizations such as yazidism groups, unions, fraternal or athletic groups, or school groups?No 11/08/2024How often do you attend meetings of the clubs or organizations you belong to?Never11/08/2024re you , , , , never , or living with a partner?Bhbconi0111/08/2024UDIT-CAnswerDate RecordedQ1: How often do you have a drink containing alcohol?Never11/08/2024Q2: How many drinks containing alcohol do you have on a typical day when you are drinking? Patient does not drink11/08/2024Q3: How often do you have six or more drinks on one occasion?Never11/08/2024Overall Financial Resource Strain (CARDIA)AnswerDate RecordedHow hard is it for you to pay for the very basics like food, housing, medical care, and heating?Not hard at all11/08/2024[facility] - Occupational Stress QuestionnaireAnswerDate RecordedDo you feel stress - tense, restless, nervous, or anxious, or unable to sleep at night because yourmind is troubled all the time - these days?Not at all11/08/2024 Exercise Vital SignAnswerDate RecordedOn average, how many days per week do you engage in moderate to strenuous exercise (like a brisk walk)?0 days11/08/2024On average, how many minutes do you engage in exercise at this level?0 min 11/08/2024PRAPARE - TransportationAnswerDate RecordedIn the past 12 months, has lack of transportation kept you from medical appointments or from getting medications?No11/08/2024In the past 12 months, has lack of transportation kept you from meetings, work, or from getting things needed for daily living?No 11/08/2024Housing InstabilityAnswerDate RecordedAre you worried or concerned that in the next two months you may not have stable housing that you own, rent or stay in as a part of a household?No11/08/2024hildcareAnswerDate RecordedDo problems getting child and adolescent psychologist make it difficult for you to work or study?No 11/08/2024EmploymentAnswerDate RecordedDo you need help finding a local career center and/or a training program?No11/08/2024Hunger ScreeningAnswerDate Recorded Within the past 12 months we worried whether our food would run out before we got money to buy more.Never True11/09/2024Within the past 12 months the food we bought just didn't last and we didn't have money to get more.Never True 11/09/2024Purpose - LifeAnswerDate RecordedI have a purpose and direction in my life.Agree11/08/2024Sex and Gender InformationValueDate RecordedSex Assigned at BirthNot on fileLegal XxzVscq6001/19/2015 11:25 AM EDTGender IdentityNot on file Sexual OrientationNot on file Last Filed Vital Signs Vital SignReadingTime TakenCommentsBlood Hibypeyi196/451 4:30 PM EDT Rtfeb3658 4:30 PM MXHVvhisrgrygx14.4 ??C (97.6 ??F)03/30/2025 2:32 PM EDTRespiratory Cjhl5017 4:30 PM EDTOxygen Stgiqkocvx48%03/30/2025 4:30 PM EDTInhaled Oxygen Concentration--Vkjdlj04.8 kg (176 lb)03/30/2025 2:32 PM EDT Zkjsqy766.2 cm (5' 7 )03/30/2025 2:32 PM EDTBody Mass Index27.5703/30/2025 2:32 PM EDT Plan of Treatment Health MaintenanceDue DateLast DoneCommentsDepression Fvvfzdnxf99/25/1956Fall Risk Abntpwzgc86/25/2009COVID-19 Vaccine ( season)2025 03/24/2024, 03/31/2023, 04/01/2022, Additional history existsTobacco Screening DTaP,Tdap and Td Vaccines (2 - Td or Tdap)03/30/2035 03/30/2025, 07/16/2011Zoster (Shingles) MynouwgBpjtpjdgf48/16/2019, 05/14/2018 Abdominal Aortic Aneurysm (AAA) UgtvrtJliougcdn90/06/2021RSV ( or age 60+ yrs)Aifoowidz46/09/2025Influenza CqsznqjCxdiqllub94/08/2025, 03/24/2024, 03/17/2023, Additional history exists Goals GoalPatient Goal TypeAssociated ProblemsRecent ProgressPatient-Stated?Author home Munira Weiss LSW Note: Evaluation of progress towards goal: pt said he is feeling well at this time just sitting in bed Medical Devices Not on file Procedures Procedure NamePriorityDate/TimeAssociated DiagnosisCommentsPSA, TOTAL AND FREE Yhyqlis4104/25/2025 12:06 PM EST Elevated prostate specific antigen (PSA) Benign prostatic hyperplasia with lower urinary tract symptoms TROP I, HIGH SENSITIVITY 1 UNJHADZE21/15/2025 3:44 PM EDT TROPONIN I, HIGH SENSITIVITY 0 RLMCZQSQ35/15/2025 2:50 PM EDT MVHKDGQXLUAIF75/15/2025 2:50 PM EDT TROPONIN I, HIGH SENSITIVITY 0 VJZBUUAA93/15/2025 2:50 PM EDT COMPREHENSIVE METABOLIC NXULCARIQ22/15/2025 2:50 PM EDT CBC WITH AUTO ZQTRGKHISUQZNJCR10/15/2025 2:50 PM EDT EXTRA TUBES BLUE XMDYlqwegu51/15/2025 2:45 PM EDT EXTRA FPUEUXvtgcse16/15/2025 2:45 PM EDT ECG 12-YKKTRTUA78/15/2025 2:37 PM EDT from Last 3 Months Results * (ABNORMAL) PSA, total and free (04/25/2025 12:06 PM EST)ComponentValueRef RangeTest MethodAnalysis TimePerformed AtPathologist SignaturePROSTATIC SPEC ANT12.03(H)0.00 - 4.00 ng/mL04/25/2025 7:10 PM [facility] LABORATORYComment: The method used for this test is Janette Paresh DXI chemiluminescent immunoassay. Values obtained by different assay methods cannot be used interchangeably. FREE PSA1.78ng/mL04/25/2025 7:10 PM [facility] Comment: The method used for this test is Janette Paresh DXI chemiluminescent immunoassay. Values obtained by different assay methods cannot be used interchangeably. % FREE PSA14.8%04/25/2025 7:10 PM [facility] LABORATORYSpecimen (Source)Anatomical Location / LateralityCollection Method / VolumeCollection TimeReceived TimeBloodVenous blood / UnknownVenipuncture / Qfigxnc5004/25/2025 12:06 PM EST04/25/2025 12:06 PM EST [facility] LAB[facility]ATORY - 04/25/2025 7:10 PM EST Percent Free PSA has been reported to have the greatest clinical utility when total PSA values are between 4.0 and 10.0 ng/mL. For men with a total PSA in this range, Percent Free PSA values of >25% are strongly associated with normal or benign prostate conditions. Percent Free PSA levels of <10% suggest that prostate cancer is more likely than BPH. ??For values between 10% and 25%, there is overlap of prostate cancer and BPH. Authorizing ProviderResult TypeResult StatusJose Marcus MDLAB BLOOD ORDERABLESFinal ResultPerforming OrganizationAddressCity/State/ZIP CodePhone Number [facility] [address] [place] [address], [place] [phone] * Troponin I, High Sensitivity 1 Hour (03/30/2025 3:44 PM EDT)ComponentValueRef RangeTest MethodAnalysis TimePerformed AtPathologist SignatureTROPONIN I, HIGH SENSITIVITY6<21 ng/L1 4:13 PM EDOH[facility] Specimen (Source)Anatomical Location / LateralityCollection Method / Volume Collection TimeReceived TimeBloodVenous blood / UnknownVenipuncture / Unknown 03/30/2025 3:44 PM EDT1 3:46 PM EDT Narrative Authorizing ProviderResult TypeResult StatusRachel D Bebeto PHOTOVOLTAIC SUBCONTRACTOR-CNPLAB BLOOD ORDERABLESFinal ResultPerforming OrganizationAddressCity/State/ZIP CodePhone Number [address] [address], * Troponin I, High Sensitivity 0 Hour (03/30/2025 2:50 PM EDT)ComponentValueRef RangeTest MethodAnalysis TimePerformed AtPathologist SignatureTROPONIN I, HIGH SENSITIVITY7<21 ng/L1 3:24 PM EDOH[facility] Specimen (Source)Anatomical Location / LateralityCollection Method / Volume Collection TimeReceived TimeBloodVenous blood / UnknownVenipuncture / Unknown 03/30/2025 2:50 PM EDT1 2:56 PM EDT Narrative Authorizing ProviderResult TypeResult StatusRachel D Bebeto PHOTOVOLTAIC SUBCONTRACTOR-CNPLAB BLOOD ORDERABLESFinal ResultPerforming OrganizationAddressCity/State/ZIP CodePhone Number [address] [place] [address], [place] * (ABNORMAL) CBC auto differential (03/30/2025 2:50 PM EDT)ComponentValueRef RangeTest MethodAnalysis TimePerformed AtPathologist SignatureWBC7.94 - 11 x10E9/L1 3:03 PM EDTPSYCAMORE MEDICAL CENTERRBC Count3.38 (L)4.1 - 5.7 X10E12/L1 3:03 PM EDTPSYCAMORE MEDICAL CENTER Jewlkknxvr73.5(L)13 - 17 g/dL03/30/2025 3:03 PM EDTPSYCAMORE MEDICAL CENTERHematocrit30.8(L)39 - 50 %03/30/2025 3:03 PM EDTPSYCAMORE MEDICAL CENTERMCV9180 - 100 fL03/30/2025 3:03 PM EDOHIOHEALTH GRANT MEDICAL CENTERMCH31.027 - 34 pg03/30/2025 3:03 PM EDTPSYCAMORE MEDICAL CENTERMCHC34.032 - 36 g/dL03/30/2025 3:03 PM EDTPSYCAMORE MEDICAL CENTERRDW14.511.5 - 15 %03/30/2025 3:03 PM EDOHIOHEALTH GRANT MEDICAL CENTERPlatelet Uizlf999595 - 450 X10E9/L1 3:03 PM EDT [facility]ITALMPV9.67 - 12 fL03/30/2025 3:03 PM EDT [facility] HOSPITALNeutrophils %60.4%03/30/2025 3:03 PM EDT [facility] HOSPITALLymphocytes %23.8%03/30/2025 3:03 PM EDT [facility]PITALMonocytes %7.0%03/30/2025 3:03 PM EDT [facility] HOS[facility]ITALEosinophils %8.1%03/30/2025 3:03 PM EDT [facility]ITALBasophils %0.7%03/30/2025 3:03 PM EDT [facility] HOSPITALNeutrophils Absolute (A)4.71.5 - 6.6 10*3/uL03/30/2025 3:03 PM EDTPSYCAMORE MEDICAL CENTERLymphocytes Absolute1.91.0 - 3.5 10*3/uL03/30/2025 3:03 PM EDTPMAGRUDER MEMORIAL H[facility]ITAL HOSPITALMonocytes Absolute0.60.0 - 0.9 10*3/uL03/30/2025 3:03 PM EDTPSYCAMORE MEDICAL CENTEREosinophils Absolute0.6(H)0.0 - 0.4 10*3/uL03/30/2025 3:03 PM EDTPSYCAMORE MEDICAL CENTERBasophils Absolute0.10.0 - 0.2 10*3/uL03/30/2025 3:03 PM EDOHIOHEALTH GRANT MEDICAL CENTERDifferential TypeAUTOMATED ZBUJFUNVBJWV30/15/2025 3:03 PM [facility]ENTERpec[facility] (Source)Anatomical Location / LateralityCollection Method / VolumeCollection TimeReceived TimeBloodVenous blood / UnknownVenipuncture / Ynnsqun1403/30/2025 2:50 PM EDT1 2:56 PM EDT Narrative Authorizing ProviderResult TypeResult StatusRachel D Bebeto PHOTOVOLTAIC SUBCONTRACTOR-CNPLAB BLOOD ORDERABLESFinal ResultPerforming OrganizationAddressCity/State/ZIP CodePhone Number [place] [phone] [facility] [place] [address], * Magnesium (03/30/2025 2:50 PM EDT)ComponentValueRef RangeTest MethodAnalysis TimePerformed AtPathologist SignatureMAGNESIUM2.01.8 - 2.6 mg/dL03/30/2025 3:19 PM EDWex[facility] (Source)Anatomical Location / LateralityCollection Method / VolumeCollection TimeReceived Time BloodVenous blood / UnknownVenipuncture / Tvljjcn0303/30/2025 2:50 PM EDT 03/30/2025 2:56 PM EDT Narrative Authorizing ProviderResult TypeResult StatusRachel D Devantechner PHOTOVOLTAIC SUBCONTRACTOR-CNPLAB BLOOD ORDERABLESFinal ResultPerforming OrganizationAddressCity/State/ZIP CodePhone Number [facility] [address] [place] [address], * (ABNORMAL) Comprehensive metabolic panel (03/30/2025 2:50 PM EDT)Component ValueRef RangeTest MethodAnalysis TimePerformed AtPathologist SignatureSODIUM 770594 - 146 mmol/L1 3:19 PM EDOHIOHEALTH [facility]ICAL [facility]ENTER POTASSIUM5.1(H)3.5 - 5.0 mmol/L1 3:19 PM [facility]AMPUSCHLORIDE10698 - 109 mmol/L1 3:19 PM EDOHIOHEALTH GRANT MEDICAL CENTERCARBON NCRJZNN4380 - 32 mmol/L1 3:19 PM EDT [facility] HOSPITALANION GAP85 - 15 mmol/L1 3:19 PM [facility] CAMPUSBLOOD UREA DKULSJER48(H)5 - 27 mg/dL 03/30/2025 3:19 PM [facility] CAMPUSCREATININE2.18(H)0.70 - 1.20 mg/dL03/30/2025 3:19 PM [facility] CAMPUSComment: METHOD TRACEABLE TO IDMS DMEDAYUBVKXEIYU771(H)65 - 99 mg/dL03/30/2025 3:19 PM [facility] CAMPUSCALCIUM9.28.5 - 10.5 mg/dL03/30/2025 3:19 PM EDOHIOHEALTH GRANT MEDICAL CENTERTOTAL PROTEIN7.36.0 - 8.0 g/dL 03/30/2025 3:19 PM [facility]AMPUSALBUMIN3.83.2 - 5.3 g/dL03/30/2025 3:19 PM [facility]AMPUSALKALINE PAOXUEOUUWL0350 - 130 U/L1 3:19 PM [facility]USAST16<=41 U/L1 3:19 PM [facility] ALT14<=40 U/L10 3:19 PM [facility] BILIRUBIN,TOTAL0.60.3 - 1.2 mg/dL03/30/2025 3:19 PM [facility] MAIN CAMPUSEGFR Non-Race Tqzsamvxt63(L)>=60 ml/min/1.73sq.m1 3:19 PM [facility] CAMPUSComment: eGFR not reported due to non-numeric value for Creatinine. Reported eGFR is based on the CKD-EPI 2020 equation that does not use a race coefficient. Specimen (Source)Anatomical Location / LateralityCollection Method / Volume Collection TimeReceived TimeBloodVenous blood / UnknownVenipuncture / Unknown 03/30/2025 2:50 PM EDT1 2:56 PM EDT Narrative Authorizing ProviderResult TypeResult StatusRaregina Tate APRN-CNPLAB BLOOD ORDERABLESFinal ResultPerforming OrganizationAddressCity/State/ZIP CodePhone Number [address] [place] [address], [place] * Light Blue Top (03/30/2025 2:45 PM EDT)ComponentValueRef RangeTest Method Analysis TimePerformed AtPathologist SignatureExtra TubeAuto Resulted 03/30/2025 4:02 PM [facility]ENTERpecimen (Source) Anatomical Location / LateralityCollection Method / VolumeCollection Time Received TimeBloodVenous blood / Nfgrjrf7603/30/2025 2:45 PM EDT1 2:59 PM EDT Narrative Authorizing ProviderResult TypeResult StatusBrian S Vero DOLAB BLOOD ORDERABLESFinal ResultPerforming OrganizationAddressty/State/ZIP CodePhone Number [address] [address], [place] * ECG 12 lead (03/30/2025 2:37 PM EDT)Specimen (Source)Anatomical Location / LateralityCollection Method / VolumeCollection TimeReceived Time03/30/2025 2:37 PM EDT Narrative [facility] - 04/14/2025 9:26 PM EDT Authorizing ProviderResult TypeResult StatusRachel Irineo Tate PHOTOVOLTAIC SUBCONTRACTOR-CNPECG ORDERABLESFinal ResultPerforming OrganizationAddressCity/State/ZIP CodePhone Number [facility] from Last 3 Months Insurance * Guarantor: Patrick Lainez TypeRelation to PatientDate of PhoneBilling AddressPersonal/[facility] [address] [address] Advance Directives * Full Code (Latest Code Status on File) Date ActivatedDate InactivatedComments11/08/2024 2:52 PM11/10/2024 6:23 PM Care Teams Team MemberRelationshipSpecialtyStart DateEnd Date No Pcp, [place] [address] PCP - GeneralFamily Gtwlvkrg99/15/25
== END 2025-06-08 10:13 | disposition home or self-care (01) ==
LOC: CARD 10:14
PROVIDERS: PCP Physician Assistant; Visit Provider Physician Assistant
DX: I48.0 Paroxysmal atrial fibrillation (principal)
CPT/HCPCS: 93242